=== PATIENT | female | born 1955 | race Caucasian/White ===

== ENCOUNTER 2020-09-07 09:16 | Outpatient (REF) | payer MEDICAID, SELFPAY ==
[2020-09-07 15:03] LABS: Abs Immature Grans 0.02 10^3/uL (0.0-0.06); Absolute Basophil Count 0.04 10^3/uL (0.0-0.2); Absolute Eosinophil Count 0.29 10^3/uL (0.0-0.7); Absolute Lymphocyte Count 2.67 10^3/uL (1.2-3.4); Absolute Monocyte Count 0.39 10^3/uL (0.1-0.8); Absolute Neutrophil Count 3.67 10^3/uL (1.2-6.7); Basophils % 0.6; Eosinophils % 4.1; HCT 43.8 % (36.0-46.0); HGB 14.4 g/dL (11.2-15.7); Immature Grans % 0.3; Lymphocytes % 37.7; MCH 29.5 pg (27.0-33.0); MCHC 32.9 % (32.0-36.0); MCV 89.8 fL (80-95); MPV 10.9 fL (8.0-11.0); Monocytes % 5.5; Neutrophils % 51.8; Nucleated RBC 0 %; Platelet Count 230 10^3/uL (130-400); RBC 4.88 10^6/uL (3.93-5.22); RDW-SD 42.7 fL; WBC 7.08 10^3/uL (4.4-10.8)
[2020-09-07 15:16] LABS: Hemoglobin A1C 7.1 % (<5.7)
[2020-09-07 15:27] LABS: ALT 20 U/L (14-59); AST 15 U/L (15-37); Albumin 3.1 g/dL (3.4-5.0); Alkaline Phosphatase 80 U/L (46-116); Anion Gap 6.5 mmol/L (3-11); BUN 12 mg/dL (7-18); Bilirubin, Total 0.4 mg/dL (0.2-1.0); CO2 31.5 mmol/L (21.0-32.0); CREATININE 0.7 mg/dL (0.55-1.02); Calcium 8.6 mg/dL (8.5-10.1); Calculated LDL 129 mg/dL (<100); Chloride 105 mmol/L (98-107); Cholesterol 187 mg/dL (<200); Glucose 99 mg/dL (74-106); HDL Cholesterol 46 mg/dL (40-60); Potassium 4.3 mmol/L (3.5-5.1); Sodium 143 mmol/L (136-145); TSH (W/Ref FT4) 2.31 uIU/mL (0.36-3.74); Total Protein 6.7 g/dL (6.4-8.2); Triglyceride 60 mg/dL (<150)
[2020-09-07 16:27] LABS: COMMENT (LAB VIEW ONLY) 182.63 mg/dL
[2020-09-07 16:45] LABS: Microalb ug/mg Crea 303.7 ug/mg Cr
== END 2020-09-07 09:17 | disposition home or self-care (01) ==
LOC: NCHCN 09:16
PROVIDERS: Visit Provider Physician Assistant
DX: E78.5 Hyperlipidemia, unspecified (principal); I10 Essential (primary) hypertension; E11.9 Type 2 diabetes mellitus without complications; E53.8 Deficiency of other specified B group vitamins; E65 Localized adiposity; E66.01 Morbid (severe) obesity due to excess calories
CPT/HCPCS: 80053; 80061; 82043; 82570; 83036; 84443; 85025

== ENCOUNTER 2021-02-23 16:01 | Outpatient (REF) | payer MEDICAID, SELFPAY | END 2021-02-23 16:02 | disposition home or self-care (01) | LOC: NCHCN 16:01 | PROVIDERS: Visit Provider Physician Assistant | DX: R35.0 Frequency of micturition (principal) | CPT/HCPCS: 87077; 87086; 87186 ==

== ENCOUNTER 2021-10-25 14:56 | Outpatient (REF) | payer MEDICARE, MEDICAID, SELFPAY ==
[2021-10-25 19:07] LABS: Anion Gap 4.7 mmol/L (3-11); BUN 18 mg/dL (7-18); CO2 31.3 mmol/L (21.0-32.0); CREATININE 0.9 mg/dL (0.55-1.02); Calcium 8.7 mg/dL (8.5-10.1); Chloride 105 mmol/L (98-107); Glucose 191 mg/dL (74-106); Potassium 4.2 mmol/L (3.5-5.1); Sodium 141 mmol/L (136-145)
== END 2021-10-25 14:57 | disposition home or self-care (01) ==
LOC: NCHCN 14:56
PROVIDERS: Visit Provider Physician Assistant
DX: I10 Essential (primary) hypertension (principal); E11.9 Type 2 diabetes mellitus without complications
CPT/HCPCS: 80048

== ENCOUNTER 2022-05-08 16:11 | Outpatient (REF) | payer MEDICARE, MEDICAID, SELFPAY | END 2022-05-08 16:12 | disposition home or self-care (01) | LOC: NCHCN 16:11 | PROVIDERS: Visit Provider Physician Assistant | DX: R35.0 Frequency of micturition (principal) | CPT/HCPCS: 87077; 87086; 87186 ==

== ENCOUNTER 2022-08-28 22:24 | Outpatient (REF) | payer MEDICARE, MEDICAID, SELFPAY ==
[2022-08-28 20:13] LABS: ALT 14 U/L (14-59); AST 17 U/L (15-37); Albumin 2.8 g/dL (3.4-5.0); Alkaline Phosphatase 103 U/L (46-116); Anion Gap 4.4 mmol/L (3-11); BUN 14 mg/dL (7-18); Bilirubin, Total 0.3 mg/dL (0.2-1.0); CO2 30.6 mmol/L (21.0-32.0); CREATININE 0.9 mg/dL (0.55-1.02); Calcium 8.5 mg/dL (8.5-10.1); Chloride 105 mmol/L (98-107); Estimated GFR 70.51 (mL/min/1.73m2); Glucose 211 mg/dL (74-106); Sodium 140 mmol/L (136-145)
== END 2022-08-28 22:25 | disposition home or self-care (01) ==
LOC: NCHCN 22:24
PROVIDERS: Visit Provider Physician Assistant
DX: I10 Essential (primary) hypertension (principal)
CPT/HCPCS: 80053

== ENCOUNTER 2023-06-13 11:49 | Outpatient (REF) | payer OTHER, MEDICAID, SELFPAY ==
--- NOTE | 2023-06-13 10:50 | SKI_PTH ---
PATIENT: Neda Fermin LOC: [facility]#:[id number] AGE/SX: 68/F ROOM: RE06/13/[address]: Cady Saavedra : 1955 BED: DIS: 06/13/2023 SPEC #: [id number] RECD: 06/13/23 18:46 STATUS: ZHANG REQ #: [id number] ERAN: 06/13/23 10:[address]: Cady Saavedra DEPT: Surgical Specimen RECD BY: Catina Luke ENTERED: 06/13/23 18:47 SP TYPE: HERBER GOMEZ DR: Danielle Kincaid Tissues: 1 - SKIN BIOPSY(SHAVE/PUNCH) Procedures: SKIN LEVEL 4 Comments: [id number]
== END 2023-06-13 11:50 | disposition home or self-care (01) ==
LOC: NCHCN 11:49
PROVIDERS: Visit Provider Physician Assistant
DX: D48.5 Neoplasm of uncertain behavior of skin (principal); L28.0 Lichen simplex chronicus
CPT/HCPCS: 88305

== ENCOUNTER 2023-09-18 20:40 | Outpatient (REF) | payer OTHER, MEDICAID, SELFPAY ==
[2023-09-18 19:18] LABS: ALT 18 U/L (14-59); AST 18 U/L (15-37); Albumin 3.1 g/dL (3.4-5.0); Alkaline Phosphatase 93 U/L (46-116); BUN 16 mg/dL (7-18); Bilirubin, Total 0.4 mg/dL (0.2-1.0); Calcium 9.1 mg/dL (8.5-10.1); Chloride 105 mmol/L (98-107); Estimated GFR 61.75 (mL/min/1.73m2); Glucose 105 mg/dL (74-106); LDL CHOLESTEROL 63 mg/dL (<100); Potassium 3.8 mmol/L (3.5-5.1); Sodium 141 mmol/L (136-145); Total Protein 7.3 g/dL (6.4-8.2)
== END 2023-09-18 20:41 | disposition home or self-care (01) ==
LOC: NCHCN 20:40
PROVIDERS: Visit Provider Physician Assistant
DX: I10 Essential (primary) hypertension (principal)
CPT/HCPCS: 80053; 83721

== ENCOUNTER 2023-10-13 08:05 | Outpatient (CLI) | payer OTHER, MEDICAID, SELFPAY ==
--- NOTE | 2023-10-13 08:00 | RT.EKG_ITS ---
APPROVED REPORT Exam: Resting ECG Reason for Exam: OK Patient Location: O HR:59 bpm ECG Measurements Heart Rate 59 AXIS AL 179 P 8 QRSd 92 QRS 22 QT 436 T 23 QTc 432 Conclusion Sinus rhythm...normal P axis, V-rate 50- 99 Atrial premature complex...SV complex w/ short R-R interval Probable anteroseptal infarct, recent...Q, ST>0.15mV, T neg, V1-V2
== END 2023-10-13 08:06 | disposition home or self-care (01) ==
LOC: DI.CARD 08:06
PROVIDERS: Visit Provider Internal Medicine Cardiovascular Disease
DX: I21.4 Non-ST elevation (NSTEMI) myocardial infarction (principal); I25.10 Atherosclerotic heart disease of native coronary artery without angina pectoris; G47.33 Obstructive sleep apnea (adult) (pediatric); E78.5 Hyperlipidemia, unspecified
CPT/HCPCS: 93010

== ENCOUNTER → 2023-10-13 10:28 | Outpatient (BNVA) | payer OTHER, MEDICAID, SELFPAY | PROVIDERS: Visit Provider Internal Medicine Cardiovascular Disease | DX: I25.10 Atherosclerotic heart disease of native coronary artery without angina pectoris (principal); G47.33 Obstructive sleep apnea (adult) (pediatric); I49.1 Atrial premature depolarization; I21.4 Non-ST elevation (NSTEMI) myocardial infarction | CPT/HCPCS: 93005; 99214 ==

== ENCOUNTER 2023-12-19 19:03 | Outpatient (REF) | payer OTHER, MEDICAID, SELFPAY ==
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
--- OUTSIDE RECORDS SUMMARY | 2023-12-19 19:05 | XMS_ITS | Continuity of Care Document ---
Author Organization [facility] Address [address] [place] [address] Care Team Providers Care Archery Instructor Name Role Phone Cady Saavedra Primary Care Physician [phone] Encounter [facility] Date(s): 06/18/22 - 06/18/22 [facility] [address] [place] [address] Discharge Disposition: Home or Self Care Attending Physician: Cady Saavedra PA-C Admitting Physician: Cady Saavedra PA-C Referring Physician: Cady Saavedra PA-C Allergies, Adverse Reactions, Alerts Substance Reaction Severity Status LATEX Itching Unknown Active ibuprofen Unknown Active amoxicillin Skin rash Unknown Active cephalexin Skin rash Unknown Active lansoprazole Unknown Active penicillins Unknown Active penicillins Urticaria Unknown Active Darvocet-N 50 Nausea Unknown Active polyethylene glycols Urticaria Unknown Active LORazepam Unknown Active Immunizations Given and Recorded Vaccine Date Status [...] instructions, # 1 EA, 3 Refill(s), Pharmacy: [id number] Start Date: 09/05/21 Status: Ordered aspirin 81 mg oral tablet, chewable 0 Refill(s) Start Date: 09/21/21 Status: Ordered atorvastatin 20 mg oral tablet 0 Refill(s) Start Date: 09/21/21 Status: Ordered buPROPion 150 mg/24 hours (XL) oral tablet, extended release 0 Refill(s) Start Date: 09/21/21 Status: Ordered Glucometer Supply, See instructions, # 1 EA, 0 Refill(s) Start Date: 09/21/21 Status: Ordered Lantus 100 units/mL subcutaneous solution 0 Refill(s) Start Date: 09/21/21 Status: Ordered lisinopril 10 mg oral tablet 0 Refill(s) Start Date: 09/21/21 Status: Ordered NexIUM 40 mg oral delayed release capsule 0 Refill(s) Start Date: 09/21/21 Status: Ordered oxybutynin 5 mg oral tablet 0 Refill(s) Start Date: 09/21/21 Status: Ordered Ozempic (1 mg dose) 4 mg/3 mL subcutaneous solution 3 mL, INJECT ONE MILLIGRAM SUBCUTANEOUSLY ONCE WEEKLY, 0 Refill(s) Start Date: 10/22/21 Status: Ordered Ozempic 2 mg/1.5 mL (0.25 mg or 0.5 mg dose) subcutaneous solution 0 Refill(s) Start Date: 09/21/21 Status: Ordered ProAir HFA 90 mcg/inh inhalation aerosol 0 Refill(s) Start Date: 09/21/21 Status: Ordered traZODone 100 mg oral tablet 60 EA, TAKE TWO TABLETS BY MOUTH EVERY NIGHT NEEDED, 0 Refill(s) Start Date: 10/22/21 Status: Ordered Vitamin B12 1000 mcg oral [...] Comple rosalino Cholecystectomy 2008 Completed Toe surgery 2008 Completed Breast biopsy Completed section Complete d Hysterectomy 3 Completed Oophorectomy Completed Repair of cystocele Compl eted 1Total done at [facility] by Dr. Arita 2Toe 3endometriosis Social History Social History Type Response Tobacco Never tobacco user T obacco Use:. Sex Female Patient Care team information Care Team Personnel Name: Cady Saavedra PA-C Position: PowerChart View Only Member Role: Primary Care Physician Address: Address: [address] [address]- Care Team Related Persons Name: JAKUB MIKE Address: Home Name: GAL BERGERON Address: Home
--- OUTSIDE RECORDS SUMMARY | 2023-12-19 19:05 | XMS_ITS | Continuity of Care Document ---
Author Organization [facility] Address [address] [place] [address] Care Team Providers Care Mason Liner Name Role Phone Cady Saavedra Primary Care Physician Encounter [facility]CT[facility]_OK Date(s): 07/02/22 - 07/02/22 [facility] [address] [place] [address] Encounter Diagnosis Rash(Discharge Diagnosis) - 07/02/22 Hand tingling(Discharge Diagnosis) - 07/02/22 Hypertension(Discharge Diagnosis) - 07/02/22 Cough(Discharge Diagnosis) - 07/02/22 Paresthesia of skin(Final) - Rash and other nonspecific skin eruption(Final) - Essential (primary) hypertension(Final) - Cough, unspecified(Final) - Type 2 diabetes mellitus without complications(Final) - Other specified anxiety disorders(Final) - Discharge Disposition: Home or Self Care Attending Physician: Deana Tubbs MD Admitting Physician: Deana Tubbs MD Allergies, Adverse Reactions, Alerts Substance Reaction Severity Status LATEX Itching Unknown Active ibuprofen Unknown Active amoxicillin Skin rash Unknown Active cephalexin Skin rash Unknown Active lansoprazole Unknown Active penicillins Unknown Active penicillins Urticaria Unknown Active Darvocet-N 50 Nausea Unknown Active polyethylene glycols Urticaria Unknown Active LORazepam Unknown Active Functional Status 07/02/22 Other exposure to Infectious Disease Non e Immunizations Given and Recorded Vaccine Date Status [...] instructions, # 1 EA, 3 Refill(s), Pharmacy: [facility] Start Date: 09/05/21 Status: Ordered aspirin 81 mg oral tablet, chewable 0 Refill(s) Start Date: 09/21/21 Status: Ordered atorvastatin 20 mg oral tablet 0 Refill(s) Start Date: 09/21/21 Status: Ordered buPROPion 150 mg/24 hours (XL) oral tablet, extended release 0 Refill(s) Start Date: 09/21/21 Status: Ordered doxycycline hyclate 100 mg oral capsule 100 mg = 1 cap, Oral, BID, # 14 cap, 0 Refill(s), Pharmacy: [facility], 162.5, cm, 07/02/22 9:49:00 EDT, Height/Length Dosing, 113.4, kg, 07/02/22 9:49:00 EDT, Weight Dosing Start Date: 07/02/22 Stop Date: 07/09/22 Status: Ordered Glucometer Supply, See instructions, # 1 EA, 0 Refill(s) Start Date: 09/21/21 Status: Ordered Lantus 100 units/mL subcutaneous solution 0 Refill(s) Start Date: 09/21/21 Status: Ordered Lasix 20 mg oral tablet 20 mg = 1 tab, Oral, Daily, # 3 tab, 0 Refill(s), 07/09/22 0:00:00 EDT, Pharmacy: [facility], 162.5, cm, 07/02/22 9:49:00 EDT, Height/Length Dosing, 113.4, kg, 07/02/22 9:49:00 EDT, Weight Dosing Start Date: 07/02/22 Stop Date: 07/09/22 Status: Ordered lisinopril 10 mg oral tablet [...] 0 Refill(s) Start Date: 10/22/21 Status: Ordered triamcinolone 0.1% topical cream See Instructions, 1 kim Topical BID to affected area apply a thin film 1 week, # 80 g, 6 Refill(s),04/07/23 0:00:00 EST, Pharmacy: [facility], 162.5, cm, 07/02/22 9:49:00 EDT, Height/Length Dosing, 113.4, kg, 07/02/22 9:49:00 EDT, Weight... Start Date: 07/02/22 Stop Date: 04/07/23 Status: Ordered Vitamin B12 1000 mcg oral [...] of cystocele Compl eted 1Total done at [facility] by Dr. Arita 2Toe 3endometriosis Results Laboratory List Name Date CBC w/ Diff 07/02/22 Comprehensive Metabolic Panel (CMP) 07/02 NT- Pro BNP 07/02/22 Thyroid Stimulating Hormone (TSH) 3 Troponin-I 07/02/22 Automated Diff 07/02/22 Most recent to oldest [Reference Range]: 1 WBC [5.0-10.0 x10^3/mcL] 6.5 x10^3/mcL (07/02/22 11:55 AM) RBC [4.1-5.3 x10^6/mcL] 4.6 x10^6/mcL (07/02/22 11:55 AM) Neutro Auto [40.0-75.0 %] 53.7 % (07/02/22 11:55 AM) Lymph Auto [20.0-50.0 %] 34.9 % (07/02/22 11:55 AM) Hickman Auto [2.0-15.0 %] 5.5 % (07/02/22 AM) Basophil Auto [0.0-1.0 %] 0.9 % (07/02/22: AM) BUN [7-18 mg/dL] 13 mg/dL (07/02/22 AM) Glucose Level [74-106 mg/dL] 222 mg/dL *HI* (07/02/22 AM) Potassium Level [3.5-5.1 mmol/L] 3.7 mmo l/L (07/02/22 AM) MCV [80.0-96.0] 90.9 (07/02/22 AM) AST [15-37 unit/L] 19 unit/L (07/02/22 AM) ALT [14-59 unit/L] 20 unit/L (07/02/22 AM) MCHC [31.0-35.0 g/dL] 32.4 g/dL (07/02/22: AM) Troponin-I [0.0-51.4 pg/mL] 22.4 pg/mL (07/02/22 AM) Sodium Level [136-145 mmol/L] 139 mmol/L (07/02/22 AM) Hct [37.0-47.0 %] 42.0 % (07/02/22 AM) Calcium Level [8.5-10.1 mg/dL] 8.5 mg/dL (07/02/22 11: AM) Albumin Level [3.4-5.0 g/dL] 2.8 g/dL *LOW* (07/02/22 AM) Protein Total [6.4-8.2 g/dL] 6.9 g/dL (07/02/22: AM) MCH [26.0-32.0 pg] 29.4 pg (07/02/22: AM) Neutro Absolute 3.5 x10^3/mcL *NA* (07/02/22 AM) Bilirubin Total [0.2-1.0 mg/dL] 0.4 mg/d L (07/02/22 11:55 AM) Hgb [12.0-16.0 g/dL] 13.6 g/dL (07/02/22 11:55 AM) Alk Phos [46-146 unit/L] 100 unit/L (07/02/22 11:55 AM) Platelets [130-450 x10^3/mcL] 205 x10^3/ mcL (07/02/22 11:55 AM) CO2 [21-32 mmol/L] 31 mmol/L (07/02/22 11:55 AM) TSH [0.358-3.740 mcIntlUnit/mL] 2.083 mc IntlUnit/mL (07/02/22 11:55 AM) eGFR Non-AA [>=60] 92 (07/02/22 11:55 AM) eGFR AA [>=60] 92 (07/02/22 11:55 AM) NT-proBNP [0-125 pg/mL] 1277 pg/mL *HI* (07/02/22 11:55 AM) Chloride Level [98-107 mmol/L] 104 mmol/ L (07/02/22 11:55 AM) RDW-CV [11.7-17.0 %] 13.7 % (07/02/22 11:55 AM) Imm Gran Auto [0.0-0.9 %] 0.3 % (07/02/22 11:55 AM) Creatinine Level [0.55-1.02 mg/dL] 0.72 mg/dL (07/02/22 11:55 AM) Eos, Auto [1.0-6.0 %] 4.7 % (07/02/22 11:55 AM) Vital Signs Most recent to oldest [Reference Range]: 1 2 3 Temperature Temporal Artery [36-38 Deg C] 37.0 Deg C (07/02/22 11:14 AM) 36.7 Deg C (07/02/22 9:28 AM) Peripheral Pulse Rate [60-100 bpm] 69 bpm (07/02/22 12:26 PM) 72 bpm (07/02/22 11:14 AM) 84 bpm (07/02/22 10:00 AM) Respiratory Rate [12-24 br/min] 20 br/min (07/02/22 12:26 PM) 20 br/min (07/02/22 11:14 AM) 21 br/min (07/02/22 10:00 AM) Blood Pressure [90-140/60-90 mmHg] 164/85mmHg *HI* (07/02/22 12:26 PM) 209/77mmHg *HI* (07/02/22 11:14 AM) 206/105mmHg *HI* (07/02/22 10:00 AM) Weight Dosing 113.40 kg (07/02/22 9:49 AM) Weight Estimated 113.40 kg (07/02/22 9:28 AM) Height/Length Dosing 162.500 cm (07/02/22 9:49 AM) Height/Length Estimated 162.500 cm (07/02/22 9:28 AM) Social History Social History Type Response Tobacco Never tobacco user T obacco Use:. Sex Female Hospital Discharge Instructions Patient Education 07/02/2022 12:16:39 Carpal Tunnel Syndrome Carpal Tunnel Syndrome Carpal tunnel syndrome is a condition that causes pain, numbness, and weakness in your hand and fingers. The carpal tunnel is a narrow area located on the palm side of your wrist. Repeated wrist motion or certain diseases may cause swelling within the tunnel. This swelling pinches the main nerve inthe wrist. The main nerve in the wrist is called the median nerve. What are the causes? This condition may be caused by: ??? Repeated and forceful wrist and hand motions. ??? Wrist injuries. ??? Arthritis. ??? A cyst or tumor in the carpal tunnel. ??? Fluid buildup during . ??? Use of tools that vibrate. Sometimes the cause of this condition is not known. What increases the risk? The following factors may make you more likely to develop this condition: ??? Having a job that requires you to repeatedly or forcefully move your wrist or hand or requires you to use tools that vibrate. This may include jobs that involve using computers, working on an assembly line, or working with power tools such as drills or vital. ??? Being a woman. ??? Having certain conditions, such as: ??? Diabetes. ??? Obesity. ??? An underactive thyroid (hypothyroidism). ??? Kidney failure. ??? Rheumatoid arthritis. What are the signs or symptoms? Symptoms of this condition include: ??? A tingling feeling in your fingers, especially in your thumb, index, and middle fingers. ??? Tingling or numbness in your hand. ??? An aching feeling in your entire arm, especially when your wrist and elbow are bent for a long time. ??? Wrist pain that goes up your arm to your shoulder. ??? Pain that goes down into your palm or fingers. ??? A weak feeling in your hands. You may have trouble grabbing and holding items. Your symptoms may feel worse during the night. How is this diagnosed? This condition is diagnosed with a medical history and physical exam. You may also have tests, including: ??? Electromyogram (EMG). This test measures electrical signals sent by your nerves into the muscles. ??? Nerve conduction study. This test measures how well electrical signals pass through your nerves. ??? Imaging tests, such as X-rays, ultrasound, and MRI. These tests check for possible causes of your condition. How is this treated? This condition may be treated with: ??? Lifestyle changes. It is important to stop or change the activity that caused your condition. ??? Doing exercise and activities to strengthen and stretch your muscles and tendons (physical therapy). ??? Making lifestyle changes to help with your condition and learning how to do your daily activities safely (occupational therapy). ??? Medicines for pain and inflammation. This may include medicine that is injected into your wrist. ??? A wrist splint or brace. ??? Surgery. Follow these instructions at home: If you have a splint or brace: ??? Wear the splint or brace as told by your health care provider. Remove it only as told by your health care provider. ??? Loosen the splint or brace if your fingers tingle, become numb, or turn cold and blue. ??? Keep the splint or brace clean. ??? If the splint or brace is not waterproof: ??? Do not let it get wet. ??? Cover it with a watertight covering when you take a bath or shower. Managing pain, stiffness, and swelling If directed, put ice on the painful area. To do this: ??? If you have a removeable splint or brace, remove it as told by your health care provider. ??? Put ice in a plastic bag. ??? Place a towel between your skin and the bag or between the splint or brace and the bag. ??? Leave the ice on for 20 minutes, 2???3 times a day. Do not fall asleep with the cold pack on your skin. ??? Remove the ice if your skin turns bright red. This is very important. If you cannot feel pain, heat, or cold, you have a greater risk of damage to the area. Move your fingers often to reduce stiffness and swelling. General instructions ??? Take yljn-bnu-hpmcibt and prescription medicines only as told by your health care provider. ??? Rest your wrist and hand from any activity that may be causing your pain. If your condition is work related, talk with your employer about changes that can be made, such as getting a wrist pad touse while typing. ??? Do any exercises as told by your health care provider, physical therapist, or occupational therapist. ??? Keep all follow-up visits. This is important. Contact a health care provider if: ??? You have new symptoms. ??? Your pain is not controlled with medicines. ??? Your symptoms get worse. Get help right away if: ??? You have severe numbness or tingling in your wrist or hand. Summary ??? Carpal tunnel syndrome is a condition that causes pain, numbness, and weakness in your hand andfingers. ??? It is usually caused by repeated wrist motions. ??? Lifestyle changes and medicines are used to treat carpal tunnel syndrome. Surgery may be recommended. ??? Follow your health care provider's instructions about wearing a splint, resting from activity, keeping follow-up visits, and calling for help. This information is not intended to replace advice given to you by your health care provider. Make sure you discuss any questions you have with your health care provider. Document Revised: 08/03/2020 Document Reviewed: 08/03/2020 [employer] Patient Education ?? 2021 [employer]. 07/02/2022 12:16:31 Rash, Adult Rash, Adult A rash is a change in the color of your skin. A rash can also change the way your skin feels. Thereare many different conditions and factors that can cause a rash. Some rashes may disappear after a few days, but some may last for a few weeks. Common causes of rashes include: ??? Viral infections, such as: ??? Colds. ??? Measles. ??? Hand, foot, and mouth disease. ??? Bacterial infections, such as: ??? Scarlet fever. ??? Impetigo. ??? Fungal infections, such as Charlene. ??? Allergic reactions to food, medicines, or skin care products. Follow these instructions at home: The goal of treatment is to stop the itching and keep the rash from spreading. Pay attention to anychanges in your symptoms. Follow these instructions to help with your condition: Medicine Take or apply sudj-mmk-mrqzxuq and prescription medicines only as told by your health care provider. These may include: ??? Corticosteroid creams to treat red or swollen skin. ??? Anti-itch lotions. ??? Oral allergy medicines (antihistamines). ??? Oral corticosteroids for severe symptoms. Skin care ??? Apply cool compresses to the affected areas. ??? Do not scratch or rub your skin. ??? Avoid covering the rash. Make sure the rash is exposed to air as much as possible. Managing itching and discomfort ??? Avoid hot showers or baths, which can make itching worse. A cold shower may help. ??? Try taking a bath with: ??? Epsom salts. Follow service superintendent instructions on the packaging. You can get these at your localpharmacy or grocery store. ??? Baking soda. Pour a small amount into the bath as told by your health care provider. ??? Colloidal oatmeal. Follow service superintendent instructions on the packaging. You can get this at your local pharmacy or grocery store. ??? Try applying baking soda paste to your skin. Stir water into baking soda until it reaches a paste-like consistency. ??? Try applying calamine lotion. This is an kanl-fyh-cfyepnn lotion that helps to relieve itchiness. ??? Keep cool and out of the sun. Sweating and being hot can make itching worse. General instructions ??? Rest as needed. ??? Drink enough fluid to keep your urine pale yellow. ??? Wear loose-fitting clothing. ??? Avoid scented soaps, detergents, and perfumes. Use gentle soaps, detergents, perfumes, and other cosmetic products. ??? Avoid any substance that causes your rash. Keep a journal to help track what causes your rash. Write down: ??? What you eat. ??? What cosmetic products you use. ??? What you drink. ??? What you wear. This includes jewelry. ??? Keep all follow-up visits as told by your health care provider. This is important. Contact a health care provider if: ??? You sweat at night. ??? You lose weight. ??? You urinate more than normal. ??? You urinate less than normal, or you notice that your urine is a darker color than usual. ??? You feel weak. ??? You vomit. ??? Your skin or the whites of your eyes look yellow (jaundice). ??? Your skin: ??? Tingles. ??? Is numb. ??? Your rash: ??? Does not go away after several days. ??? Gets worse. ??? You are: ??? Unusually thirsty. ??? More tired than normal. ??? You have: ??? New symptoms. ??? Pain in your abdomen. ??? A fever. ??? Diarrhea. Get help right away if you: ??? Have a fever and your symptoms suddenly get worse. ??? Develop confusion. ??? Have a severe headache or a stiff neck. ??? Have severe joint pains or stiffness. ??? Have a seizure. ??? Develop a rash that covers all or most of your body. The rash may or may not be painful. ??? Develop blisters that: ??? Are on top of the rash. ??? Grow larger or grow together. ??? Are painful. ??? Are inside your nose or mouth. ??? Develop a rash that: ??? Looks like purple pinprick-sized spots all over your body. ??? Has a bull's eye or looks like a target. ??? Is not related to sun exposure, is red and painful, and causes your skin to peel. Summary ??? A rash is a change in the color of your skin. Some rashes disappear after a few days, but some may last for a few weeks. ??? The goal of treatment is to stop the itching and keep the rash from spreading. ??? Take or apply dcdd-ffy-olvowfo and prescription medicines only as told by your health care provider. ??? Contact a health care provider if you have new or worsening symptoms. ??? Keep all follow-up visits as told by your health care provider. This is important. This information is not intended to replace advice given to you by your health care provider. Make sure you discuss any questions you have with your health care provider. Document Revised: 07/16/2019 Document Reviewed: 10/26/2018 [employer] Patient Education ?? 2021 [employer]. Follow Up Care 07/02/2022 09:28:21 With:Follow up with primary care provider Address: When:1 to 2 weeks Physician Emergency department Note * Deana Tubbs MD: PERFORM Event Display: ED Note Physician Authored Date: [id number] REGAN WOO :1955 Age:67 years Sex:Female Visit Date:07/02/2022 Primary Care Physician: Cady Saavedra PA-C Basic Information Time Seen: Deana Tubbs MD / 07/02/2022 09:54 Chief Complaint pt states numbness/heaviness in the right arm, started a couple days ago. denies any chest pain with this. pt also states a rash that is on her chest and back. in traige pt very hypertensive, pt doesnt check her BP. does take BP meds History Of Present Illness: Patient reports she has had right arm??heaviness numbness and states that her??thumb index and ringfinger at times are tingly she reports she used to have this number years ago??she states years agoshe was diagnosed with fibromyalgia??of her right arm when she did not live in [place]??and had to wear an arm brace.?? Patient reports she was seen by her primary care provider however??has not picked up the blood pressure medication her primary care??put her on.?? Patient reports that she has been depressed lately??she lost her son 8 years ago??and reports she is still thinks about it a lot.?? Patient denies any fevers or chills positive night sweats??no??weight loss??patient has??gained weight lately she states??positive shortness of breath??when she goes to do anything more so lately.?? No abdominal pain??no nausea no vomiting??no extremity edema??patient reports in the middle of the night she feels like her abdomen??is tense and when she pushes on it??she says it feels like fluids head down into her lower abdomen she feels like it goes??all the way to her legs at times.?? No urinary symptoms no extremity edema??positive skin rash right??chest and back. ??Patient reports over the last 2 weeks she has had a dry cough.?? Patient reports she recently had an echo??here at the hospital. Review of Systems: see hpi for ros Physical Exam Vitals & Measurements T:??37.0?C ??(Temporal Artery)?? HR:??69??(Peripheral)?? RR:??20?? BP:??164/85?? SpO2:??97%?? HT:??162.500??cm?? WT:??113.40??kg??(Estimated)?? O2 Therapy:??Room air?? General: Alert and oriented, well nourished,?No??acute distress Eye: PER?Normal??conjunctiva,??No??scleral icterus HENT: Normocephalic,??nontraumatic??Normal hearing Lungs: Clear to auscultation,?Non-labored?? respiration Heart:?Normal?? rate,?Regular??rhythm,?No??murmur,?No??gallop,?No??edema Chest: wall excursion wnl no abnormal movements no obvious deformities Abdomen: Soft, non-tender, non-distended,?Normal?? bowel sounds,?No??masses Musculoskeletal:?Normal?? range of motion and strength,?No??tenderness,?No??swelling Skin: Skin is warm, dry and pink,??positive??small 2 to 3 mm excoriated areas on right anterior??chest and left??posterior back Neurologic: Awake, alert and oriented X4 Psychiatric: Cooperative, appropriate mood and affect Medical Decision Making: For MDM please see under assessment and plan Procedure No Qualifying Data Assessment/Plan 1.??Rash??R21 Excoriated areas on right??anterior chest and on back question if this could be like a folliculitis??we will try patient on a doxycycline 100 mg twice a day all areas were excoriated and patient doesstate they were pruritic we will send patient home with a prescription for triamcinolone cream??to apply twice a day to any new areas??as well as any areas that might still it. Ordered: doxycycline hyclate 100 mg oral capsule, 100 mg = 1 cap, Oral, BID, # 14 cap, 0 Refill(s), Pharmacy: [facility], 162.5, cm, 07/02/22 9:49:00 EDT, Height/Length Dosing, 113.4, kg, 07/02/22 9:49:00 EDT, Weight Dosing Lasix 20 mg oral tablet, 20 mg = 1 tab, Oral, Daily, # 3 tab, 0 Refill(s), 07/09/22 0:00:00 EDT, Pharmacy: [facility], 162.5, cm, 07/02/22 9:49:00 EDT, Height/Length Dosing, 113.4, kg, 07/02/22 9:49:00 EDT, Weight Dosing triamcinolone 0.1% topical cream, See Instructions, 1 kim Topical BID to affected area apply a thinfilm 1 week, # 80 g, 6 Refill(s), 04/07/23 0:00:00 EST, Pharmacy: [facility], 162.5, cm, 07/02/22 9:49:00 EDT, Height/Length Dosing, 113.4, kg, 07/02/22 9:49:00 EDT, Weight... Discharge Patient, 07/02/22 13:11:00 EDT, Home Independently, Constant Indicator ?? 2.??Hand tingling??R20.2 Is likely is carpal tunnel syndrome however patient also has??trapezius muscles that are tight on the right??so this could be musculoskeletal??or could be carpal tunnel??we will place patient in a brace??for carpal tunnel??and see if this improves her symptoms Ordered: doxycycline hyclate 100 mg oral capsule, 100 mg = 1 cap, Oral, BID, # 14 cap, 0 Refill(s), Pharmacy: [facility], 162.5, cm, 07/02/22 9:49:00 EDT, Height/Length Dosing, 113.4, kg, 07/02/22 9:49:00 EDT, Weight Dosing Lasix 20 mg oral tablet, 20 mg = 1 tab, Oral, Daily, # 3 tab, 0 Refill(s), 07/09/22 0:00:00 EDT, Pharmacy: [facility], 162.5, cm, 07/02/22 9:49:00 EDT, Height/Length Dosing, 113.4, kg, 07/02/22 9:49:00 EDT, Weight Dosing triamcinolone 0.1% topical cream, See Instructions, 1 kim Topical BID to affected area apply a thinfilm 1 week, # 80 g, 6 Refill(s), 04/07/23 0:00:00 EST, Pharmacy: [facility], 162.5, cm, 07/02/22 9:49:00 EDT, Height/Length Dosing, 113.4, kg, 07/02/22 9:49:00 EDT, Weight... Discharge Patient, 07/02/22 13:11:00 EDT, Home Independently, Constant Indicator ?? 3.??Hypertension??I10 This appears to be a new diagnosis as[place]records??show??a blood pressure of??132/84 I think patient's shortness of breath??and likely cough may be??some early CHF given that her??chest x-ray??suggests extra fluid??and patient's normal white count patient was given 40 mg of IV Lasix here in the emergency department??patient will be on Lasix 20 mg/day for the next 3 days have asked patient to call today to schedule a follow-up with her primary care provider. Ordered: doxycycline hyclate 100 mg oral capsule, 100 mg = 1 cap, Oral, BID, # 14 cap, 0 Refill(s), Pharmacy: [facility], 162.5, cm, 07/02/22 9:49:00 EDT, Height/Length Dosing, 113.4, kg, 07/02/22 9:49:00 EDT, Weight Dosing Lasix 20 mg oral tablet, 20 mg = 1 tab, Oral, Daily, # 3 tab, 0 Refill(s), 07/09/22 0:00:00 EDT, Pharmacy: [facility], 162.5, cm, 07/02/22 9:49:00 EDT, Height/Length Dosing, 113.4, kg, 07/02/22 9:49:00 EDT, Weight Dosing triamcinolone 0.1% topical cream, See Instructions, 1 kim Topical BID to affected area apply a thinfilm 1 week, # 80 g, 6 Refill(s), 04/07/23 0:00:00 EST, Pharmacy: [facility], 162.5, cm, 07/02/22 9:49:00 EDT, Height/Length Dosing, 113.4, kg, 07/02/22 9:49:00 EDT, Weight... Discharge Patient, 07/02/22 13:11:00 EDT, Home Independently, Constant Indicator ?? 4.??Cough??R05.9 See above. Ordered: doxycycline hyclate 100 mg oral capsule, 100 mg = 1 cap, Oral, BID, # 14 cap, 0 Refill(s), Pharmacy: [facility], 162.5, cm, 07/02/22 9:49:00 EDT, Height/Length Dosing, 113.4, kg, 07/02/22 9:49:00 EDT, Weight Dosing Lasix 20 mg oral tablet, 20 mg = 1 tab, Oral, Daily, # 3 tab, 0 Refill(s), 07/09/22 0:00:00 EDT, Pharmacy: [facility], 162.5, cm, 07/02/22 9:49:00 EDT, Height/Length Dosing, 113.4, kg, 07/02/22 9:49:00 EDT, Weight Dosing triamcinolone 0.1% topical cream, See Instructions, 1 kim Topical BID to affected area apply a thinfilm 1 week, # 80 g, 6 Refill(s), 04/07/23 0:00:00 EST, Pharmacy: [facility], 162.5, cm, 07/02/22 9:49:00 EDT, Height/Length Dosing, 113.4, kg, 07/02/22 9:49:00 EDT, Weight... Discharge Patient, 07/02/22 13:11:00 EDT, Home Independently, Constant Indicator ?? Medication Reconciliation New Prescription doxycycline (doxycycline hyclate 100 mg oral capsule)1 Capsules Oral (given by mouth) 2 times a dayfor 7 Days. Refills: 0. ?? furosemide (Lasix 20 mg oral tablet)1 tab Oral (given by mouth) every day. Refills: 0. ?? triamcinolone topical (triamcinolone 0.1% topical cream)1 kim Topical BID to affected area apply a thin film 1 week. Refills: 6. ?? Unchanged albuterol (ProAir HFA 90 mcg/inh inhalation aerosol) ?? aspirin (aspirin 81 mg oral tablet, chewable) ?? atorvastatin (atorvastatin 20 mg oral tablet) ?? buPROPion (buPROPion 150 mg/24 hours (XL) oral tablet, extended release) ?? cyanocobalamin (Vitamin B12 1000 mcg oral tablet)1 tab Oral (given by mouth) every day. ?? Durable Medical Equipment for Prescription (Glucometer)See instructions. ?? esomeprazole (NexIUM 40 mg oral delayed release capsule) ?? insulin glargine (Lantus 100 units/mL subcutaneous solution) ?? lisinopril (lisinopril 10 mg oral tablet) ?? One Touch Verio Test Strips (200 strips, 3 refills.)Test once every morning and test once after largest meal of the day.. Refills: 3. ?? oxybutynin (oxybutynin 5 mg oral tablet) ?? semaglutide (Ozempic (1 mg dose) 4 mg/3 mL subcutaneous solution)3 mL, INJECT ONE MILLIGRAM SUBCUTANEOUSLY ONCE WEEKLY. ?? semaglutide (Ozempic 2 mg/1.5 mL (0.25 mg or 0.5 mg dose) subcutaneous solution) ?? traZODone (traZODone 100 mg oral tablet)60 EA, TAKE TWO TABLETS BY MOUTH EVERY NIGHT NEEDED. Problem List/Past Medical History Ongoing Adjustment disorder [...] surgery (2008)???Breast biopsy??? secti on???Hysterectomy???Oophorectomy???Repair of cystocele Medication Administration Given Lasix, 40 mg, IV Push. For: Rash,??Hand tingling,??Hypertension,??Cough Allergies Darvocet-N 50??(Nausea) LATEX??(Itching) LORazepam amoxicillin??(Skin rash) cephalexin??(Skin rash) ibuprofen lansoprazole penicillins penicillins??(Urticaria) polyethylene glycols??(Urticaria) Social History Alcohol Never Electronic Cigarette/Vaping Electronic Cigarette Use: Never. Tobacco Never tobacco user Tobacco Use:. Family History Cancer: Father. Diabetes mellitus: Mother and Sister. Hypertension: Mother and Sister. Lab Results CBC and Differential?? LATEST RESULTS?? HISTORICAL RESULTS?? WBC?? 07/02/22 11:55?? 6.5?? 11/29/21?? 7.9?? RBC?? 07/02/22 11:55?? 4.6?? 11/29/21?? 4.5?? Hgb?? 07/02/22 11:55?? 13.6?? 11/29/21?? 13.8?? Hct?? 07/02/22 11:55?? 42.0?? 11/29/21?? 41.5?? MCV?? 07/02/22 11:55?? 90.9?? 11/29/21?? 91.6?? MCH?? 07/02/22 11:55?? 29.4?? 11/29/21?? 30.5?? MCHC?? 07/02/22 11:55?? 32.4?? 11/29/21?? 33.3?? RDW-CV?? 07/02/22 11:55?? 13.7?? 11/29/21?? 13.3?? Platelets?? 07/02/22 11:55?? 205?? 11/29/21?? 233?? Neutro Auto?? 07/02/22 11:55?? 53.7?? 11/29/21?? 50.5?? Lymph Auto?? 07/02/22 11:55?? 34.9?? 11/29/21?? 35.2?? Hickman Auto?? 07/02/22 11:55?? 5.5?? 11/29/21?? 5.9?? Eos, Auto?? 07/02/22 11:55?? 4.7?? 11/29/21?? 7.3 ??High?? Basophil Auto?? 07/02/22 11:55?? 0.9?? 11/29/21?? 0.8?? Imm Gran Auto?? 07/02/22 11:55?? 0.3?? 11/29/21?? 0.3?? Neutro Absolute?? 07/02/22 11:55?? 3.5?? 11/29/21?? 4.0? Routine Chemistry?? LATEST RESULTS?? HISTORICAL RESULTS?? Sodium Level?? 07/02/22 11:55?? 139?? 11/29/21?? 139?? Potassium Level?? 07/02/22 11:55?? 3.7?? 11/29/21?? 4.1?? Chloride Level?? 07/02/22 11:55?? 104?? 11/29/21?? 103?? CO2?? 07/02/22 11:55?? 31?? 11/29/21?? 31?? Alk Phos?? 07/02/22 11:55?? 100? AST?? 07/02/22 11:55?? 19? ALT?? 07/02/22 11:55?? 20? BUN?? 07/02/22 11:55?? 13?? 11/29/21?? 15?? Glucose Level?? 07/02/22 11:55?? 222 ??High?? 11/29/21?? 176 ??High?? Creatinine Level?? 07/02/22 11:55?? 0.72?? 11/29/21?? 0.73?? eGFR AA?? 07/02/22 11:55?? 92?? 11/29/21?? 91?? eGFR Non-AA?? 07/02/22 11:55?? 92?? 11/29/21?? 91?? Calcium Level?? 07/02/22 11:55?? 8.5?? 11/29/21?? 8.5?? Protein Total?? 07/02/22 11:55?? 6.9? Albumin Level?? 07/02/22 11:55?? 2.8 ??Low? Bilirubin Total?? 07/02/22 11:55?? 0.4? Cardiac Isoenzymes?? LATEST RESULTS?? Troponin-I?? 07/02/22 11:55?? 22.4?? NT-proBNP?? 07/02/22 11:55?? 1277 ??High? Thyroid Studies?? LATEST RESULTS?? TSH?? 07/02/22 11:55?? 2.083? Electronically Signed on 07/02/22 01:16 PM Deana Tubbs MD Emergency department Discharge instructions * Deana Tubbs MD: PERFORM Event Display: ED Discharge Information Authored Date: [id number] REGAN WOO :1955 Age:67 years Sex:Female Visit Date:07/02/2022 Primary Care Physician: Cady Saavedra PA-C Discharge Instructions We would like to thank you for allowing us to assist you with your healthcare needs. The following includes patient education materials and information regarding your injury/illness. Diagnosis from Today's Visit Rash Hand tingling Hypertension Cough Discharge Vitals Temperature??(Temporal Artery) 98.6 ??F (37.0 ??C) Heart Rate??(Peripheral) 69 Respiratory Rate?? 20 Blood Pressure?? 164/85?? Height?? 63.98 in (162.500 cm) Weight??(Estimated) 250.05 lb (113.40 kg) Allergies Darvocet-N 50??(Nausea) LATEX??(Itching) LORazepam amoxicillin??(Skin rash) cephalexin??(Skin rash) ibuprofen lansoprazole penicillins penicillins??(Urticaria) polyethylene glycols??(Urticaria) What to Do Next Instructions from Your Care Team Call your primary care provider??today??to schedule a follow-up.?? For your rash take doxycycline 100 mg twice a day for 7 days you may also use triamcinolone cream??twice a day as needed??for any itchiness.?? Try Lasix??(furosemide) 20 mg/day for the next 3 days??starting tomorrow??to help with shortness of breath and your cough.?? Get your other medications that you??are supposed to have??refilled. You Need to Schedule the Following Appointments Follow Up with??Follow up with primary care provider When:??Within 1 to 2 weeks You were treated today on an emergency basis; it may be [place] to contact your primary care provider to notify them of your visit today. You may have been referred to your regular doctor or a specialist, please follow up as instructed. If your condition worsens or you can't get in to see the doctor, contact the Emergency Department. Medications What How Much When Why Instructions Next Dose New doxycycline (doxycycline hyclate 100 mg oral capsule) 1 Capsules Oral (given by mouth) 2 times a day Rash Hand tingling Hypertension Cough Duration: 7 Days Pickup at [facility] New furosemide (Lasix 20 mg oral tablet) 1 tab Oral (given by mouth) Every day Rash Hand tingling Hypertension Cough Pickup at [facility] New triamcinolone topical (triamcinolone 0.1% topical cream) See instructions Rash Hand tingling Hypertension Cough Refills: 6 1 kim Topical BID to affected area apply a thin film 1 week ?? Pickup at [facility] Unchanged albuterol (ProAir HFA 90 mcg/ inh inhalation aerosol) Unchanged aspirin (aspirin 81 mg oral tablet, chewable) Unchanged atorvastatin (atorvastatin 20 mg oral tablet) Unchanged buPROPion (buPROPion 150 mg/ 24 hours (XL) oral tablet, extended release) Unchanged cyanocobalamin (Vitamin B12 1000 mcg oral tablet) 1 tab Oral (given by mouth) Every day Unchanged Durable Medical Equipment for Prescription (Glucometer) See instructions Unchanged esomeprazole (NexIUM 40 mg oral delayed release capsule) Unchanged insulin glargine (Lantus 100 units/ mL subcutaneous solution) Unchanged lisinopril (lisinopril 10 mg oral tablet) Unchanged One Touch Verio Test Strips (200 strips, 3 refills.) See instructions Diabetes Test once every morning and test once after largest meal of the day. ?? Unchanged oxybutynin (oxybutynin 5 mg oral tablet) Unchanged semaglutide (Ozempic (1 mg dose) 4 mg/ 3 mL subcutaneous solution) 3 mL, INJECT ONE MILLIGRAM SUBCUTANEOUSLY ONCE WEEKLY ?? Unchanged semaglutide (Ozempic 2 mg/ 1.5 mL (0.25 mg or 0.5 mg dose) subcutaneous solution) Unchanged traZODone (traZODone 100 mg oral tablet) 60 EA, TAKE TWO TABLETS BY MOUTH EVERY NIGHT NEEDED ?? Pharmacy Information [facility]: [address] [place], [place] [id number] [phone] [employer] Carpal Tunnel Syndrome Carpal tunnel syndrome is a condition that causes pain, numbness, and weakness in your hand and fingers. The carpal tunnel is a narrow area located on the palm side of your wrist. Repeated wrist motion or certain diseases may cause swelling within the tunnel. This swelling pinches the main nerve inthe wrist. The main nerve in the wrist is called the median nerve. What are the causes? This condition may be caused by: ? Repeated and forceful wrist and hand motions. ? Wrist injuries. ? Arthritis. ? A cyst or tumor in the carpal tunnel. ? Fluid buildup during . ? Use of tools that vibrate. Sometimes the cause of this condition is not known. What increases the risk? The following factors may make you more likely to develop this condition: ? Having a job that requires you to repeatedly or forcefully move your wrist or hand or requires you to use tools that vibrate. This may include jobs that involve using computers, working on an assembly line, or working with power tools such as drills or vital. ? Being a woman. ? Having certain conditions, such as: ? Diabetes. ? Obesity. ? An underactive thyroid (hypothyroidism). ? Kidney failure. ? Rheumatoid arthritis. What are the signs or symptoms? Symptoms of this condition include: ? A tingling feeling in your fingers, especially in your thumb, index, and middle fingers. ? Tingling or numbness in your hand. ? An aching feeling in your entire arm, especially when your wrist and elbow are bent for a long time. ? Wrist pain that goes up your arm to your shoulder. ? Pain that goes down into your palm or fingers. ? A weak feeling in your hands. You may have trouble grabbing and holding items. Your symptoms may feel worse during the night. How is this diagnosed? This condition is diagnosed with a medical history and physical exam. You may also have tests, including: ? Electromyogram (EMG). This test measures electrical signals sent by your nerves into the muscles. ? Nerve conduction study. This test measures how well electrical signals pass through your nerves. ? Imaging tests, such as X-rays, ultrasound, and MRI. These tests check for possible causes of your condition. How is this treated? This condition may be treated with: ? Lifestyle changes. It is important to stop or change the activity that caused your condition. ? Doing exercise and activities to strengthen and stretch your muscles and tendons (physical therapy). ? Making lifestyle changes to help with your condition and learning how to do your daily activities safely (occupational therapy). ? Medicines for pain and inflammation. This may include medicine that is injected into your wrist. ? A wrist splint or brace. ? Surgery. Follow these instructions at home: If you have a splint or brace: ? Wear the splint or brace as told by your health care provider. Remove it only as told by your health care provider. ? Loosen the splint or brace if your fingers tingle, become numb, or turn cold and blue. ? Keep the splint or brace clean. ? If the splint or brace is not waterproof: ? Do not let it get wet. ? Cover it with a watertight covering when you take a bath or shower. Managing pain, stiffness, and swelling If directed, put ice on the painful area. To do this: ? If you have a removeable splint or brace, remove it as told by your health care provider. ? Put ice in a plastic bag. ? Place a towel between your skin and the bag or between the splint or brace and the bag. ? Leave the ice on for 20 minutes, 2???3 times a day. Do not fall asleep with the cold pack on your skin. ? Remove the ice if your skin turns bright red. This is very important. If you cannot feel pain, heat, or cold, you have a greater risk of damage to the area. Move your fingers often to reduce stiffness and swelling. General instructions ? Take mxue-ylu-bnoyqno and prescription medicines only as told by your health care provider. ? Rest your wrist and hand from any activity that may be causing your pain. If your condition is workrelated, talk with your employer about changes that can be made, such as getting a wrist pad to usewhile typing. ? Do any exercises as told by your health care provider, physical therapist, or occupational therapist. ? Keep all follow-up visits. This is important. Contact a health care provider if: ? You have new symptoms. ? Your pain is not controlled with medicines. ? Your symptoms get worse. Get help right away if: ? You have severe numbness or tingling in your wrist or hand. Summary ? Carpal tunnel syndrome is a condition that causes pain, numbness, and weakness in your hand and fingers. ? It is usually caused by repeated wrist motions. ? Lifestyle changes and medicines are used to treat carpal tunnel syndrome. Surgery may be recommended. ? Follow your health care provider's instructions about wearing a splint, resting from activity, keeping follow-up visits, and calling for help. This information is not intended to replace advice given to you by your health care provider. Make sure you discuss any questions you have with your health care provider. Document Revised: 08/03/2020 Document Reviewed: 08/03/2020 Elsevier Patient Education ?? 2021 [employer] Rash, Adult A rash is a change in the color of your skin. A rash can also change the way your skin feels. Thereare many different conditions and factors that can cause a rash. Some rashes may disappear after a few days, but some may last for a few weeks. Common causes of rashes include: ? Viral infections, such as: ? Colds. ? Measles. ? Hand, foot, and mouth disease. ? Bacterial infections, such as: ? Scarlet fever. ? Impetigo. ? Fungal infections, such as Charlene. ? Allergic reactions to food, medicines, or skin care products. Follow these instructions at home: The goal of treatment is to stop the itching and keep the rash from spreading. Pay attention to anychanges in your symptoms. Follow these instructions to help with your condition: Medicine Take or apply izqr-xrf-aiwnrfj and prescription medicines only as told by your health care provider. These may include: ? Corticosteroid creams to treat red or swollen skin. ? Anti-itch lotions. ? Oral allergy medicines (antihistamines). ? Oral corticosteroids for severe symptoms. Skin care ? Apply cool compresses to the affected areas. ? Do not scratch or rub your skin. ? Avoid covering the rash. Make sure the rash is exposed to air as much as possible. Managing itching and discomfort ? Avoid hot showers or baths, which can make itching worse. A cold shower may help. ? Try taking a bath with: ? Epsom salts. Follow service superintendent instructions on the packaging. You can get these at your local pharmacy or grocery store. ? Baking soda. Pour a small amount into the bath as told by your health care provider. ? Colloidal oatmeal. Follow service superintendent instructions on the packaging. You can get this at your local pharmacy or grocery store. ? Try applying baking soda paste to your skin. Stir water into baking soda until it reaches a paste-like consistency. ? Try applying calamine lotion. This is an xxkt-peb-sjjsoad lotion that helps to relieve itchiness. ? Keep cool and out of the sun. Sweating and being hot can make itching worse. General instructions ? Rest as needed. ? Drink enough fluid to keep your urine pale yellow. ? Wear loose-fitting clothing. ? Avoid scented soaps, detergents, and perfumes. Use gentle soaps, detergents, perfumes, and other cosmetic products. ? Avoid any substance that causes your rash. Keep a journal to help track what causes your rash. Write down: ? What you eat. ? What cosmetic products you use. ? What you drink. ? What you wear. This includes jewelry. ? Keep all follow-up visits as told by your health care provider. This is important. Contact a health care provider if: ? You sweat at night. ? You lose weight. ? You urinate more than normal. ? You urinate less than normal, or you notice that your urine is a darker color than usual. ? You feel weak. ? You vomit. ? Your skin or the whites of your eyes look yellow (jaundice). ? Your skin: ? Tingles. ? Is numb. ? Your rash: ? Does not go away after several days. ? Gets worse. ? You are: ? Unusually thirsty. ? More tired than normal. ? You have: ? New symptoms. ? Pain in your abdomen. ? A fever. ? Diarrhea. Get help right away if you: ? Have a fever and your symptoms suddenly get worse. ? Develop confusion. ? Have a severe headache or a stiff neck. ? Have severe joint pains or stiffness. ? Have a seizure. ? Develop a rash that covers all or most of your body. The rash may or may not be painful. ? Develop blisters that: ? Are on top of the rash. ? Grow larger or grow together. ? Are painful. ? Are inside your nose or mouth. ? Develop a rash that: ? Looks like purple pinprick-sized spots all over your body. ? Has a bull's eye or looks like a target. ? Is not related to sun exposure, is red and painful, and causes your skin to peel. Summary ? A rash is a change in the color of your skin. Some rashes disappear after a few days, but some may last for a few weeks. ? The goal of treatment is to stop the itching and keep the rash from spreading. ? Take or apply nuhp-wtj-wrkdddy and prescription medicines only as told by your health care provider. ? Contact a health care provider if you have new or worsening symptoms. ? Keep all follow-up visits as told by your health care provider. This is important. This information is not intended to replace advice given to you by your health care provider. Make sure you discuss any questions you have with your health care provider. Document Revised: 07/16/2019 Document Reviewed: 10/26/2018 [employer] Patient Education ?? 2021 [employer] Tests Performed Medications and Immunizations Administered Given Lasix, 40 mg, IV Push. For: Rash,??Hand tingling,??Hypertension,??Cough Lab Test Name Test Result Date/Time WBC 6.5 x10^3/mcL 07/02/2022 11:55 EDT RBC 4.6 x10^6/mcL 07/02/2022 11:55 EDT Hgb 13.6 g/dL 07/02/2022 11:55 EDT Hct 42.0 % 07/02/2022 11:55 EDT MCV 90.9 07/02/2022 11:55 EDT MCH 29.4 pg 07/02/2022 11:55 EDT MCHC 32.4 g/dL 07/02/2022 11:55 EDT RDW-CV 13.7 % 07/02/2022 11:55 EDT Platelets 205 x10^3/mcL 07/02/2022 11:55 EDT Neutro Auto 53.7 % 07/02/2022 11:55 EDT Lymph Auto 34.9 % 07/02/2022 11:55 EDT Hickman Auto 5.5 % 07/02/2022 11:55 EDT Eos, Auto 4.7 % 07/02/2022 11:55 EDT Basophil Auto 0.9 % 07/02/2022 11:55 EDT Imm Gran Auto 0.3 % 07/02/2022 11:55 EDT Neutro Absolute 3.5 x10^3/mcL 07/02/2022 11:55 EDT Sodium Level 139 mmol/L 07/02/2022 11:55 EDT Potassium Level 3.7 mmol/L 07/02/2022 11:55 EDT Chloride Level 104 mmol/L 07/02/2022 11:55 EDT CO2 31 mmol/L 07/02/2022 11:55 EDT Alk Phos 100 unit/L 07/02/2022 11:55 EDT AST 19 unit/L 07/02/2022 11:55 EDT ALT 20 unit/L 07/02/2022 11:55 EDT BUN 13 mg/dL 07/02/2022 11:55 EDT Glucose Level 222 mg/dL 07/02/2022 11:55 EDT Creatinine Level 0.72 mg/dL 07/02/2022 11:55 EDT eGFR AA 92 07/02/2022 11:55 EDT eGFR Non-AA 92 07/02/2022 11:55 EDT Calcium Level 8.5 mg/dL 07/02/2022 11:55 EDT Protein Total 6.9 g/dL 07/02/2022 11:55 EDT Albumin Level 2.8 g/dL 07/02/2022 11:55 EDT Bilirubin Total 0.4 mg/dL 07/02/2022 11:55 EDT Troponin-I 22.4 pg/mL 07/02/2022 11:55 EDT NT-proBNP 1277 pg/mL 07/02/2022 11:55 EDT TSH 2.083 mcIntlUnit/mL 07/02/2022 11:55 EDT Patient/Logging Assistant Signature Patient Name:REGAN WOO I have received this information and my questions have been answered. Patient/Logging Assistant Name: Patient/Logging Assistant Signature: Relationship to Patient: Witness Name/Signature: Date: Electronically Signed on: 07/02/2022 13:18 EDTSigned by:[facility] Emergency department Note * Maria G Levy: PERFORM Event Display: ED Notes Authored Date: [id number] * Maria G Levy: PERFORM Event Display: ED Notes Authored Date: [id number] Patient Care team information Care Team Personnel Name: Cady Saavedra PA-C Position: PowerChart View Only Member Role: Primary Care Physician Address: Address: [id number] [place] [address] Name: Praveena Hansen Position: Nurse Member Role: ED Nurse Name: Deana Tubbs MD Position: Physician Member Role: Admitting Physician Address: Address: [address] [place] [address] Care Team Related Persons Name: JAKUB MIKE Address: Home Name: GAL BERGERON Address: Home
--- OUTSIDE RECORDS SUMMARY | 2023-12-19 19:05 | XMS_ITS | Continuity of Care Document ---
Author Organization [facility] Address [address] [place] [address] Care Team Providers Care Bender Machine Operator Name Role Phone Cady Saavedra Primary Care Physician Encounter [facility] Date(s): 04/30/23 - 04/30/[address] [id number] Discharge Disposition: Home or Self Care Attending Physician: Susan Hernandez APRN Admitting Physician: Susan Hernandez APRN Referring Physician: Susan Hernandez APRN Allergies, Adverse Reactions, Alerts Substance Reaction Severity Status LATEX Itching Unknown Active ibuprofen Unknown Active amoxicillin Skin rash Unknown Active cephalexin Skin rash Unknown Active lansoprazole Unknown Active LORazepam Unknown Active polyethylene glycols Urticaria Unknown Active penicillins Unknown Active penicillins Urticaria Unknown Active Darvocet-N 50 Nausea Unknown Active Immunizations Given and Recorded Vaccine [...] instructions, # 1 EA, 3 Refill(s), Pharmacy: [facility] Start Date: 09/05/21 Status: Ordered aspirin [...] of cystocele Compl eted 1Total done at [facility] by Dr. Arita 2Toe 3endometriosis Results Laboratory List Name Date Basic Metabolic Panel 04/30/23 Most recent to oldest [Reference Range]: 1 BUN [7-18 mg/dL] 22 mg/dL *HI* (04/30/23 8:53 AM) Glucose Level [74-106 mg/dL] 228 mg/dL *HI* (04/30/23 8:53 AM) Potassium Level [3.5-5.1 mmol/L] 4.4 mmo l/L (04/30/23 8:53 AM) Sodium Level [136-145 mmol/L] 142 mmol/L (04/30/23 8:53 AM) Calcium Level [8.5-10.1 mg/dL] 8.5 mg/dL (04/30/23 8:53 AM) CO2 [21-32 mmol/L] 32 mmol/L (04/30/23 8:53 AM) eGFR Non-AA [>=60] 77 (04/30/23 8:53 AM) eGFR AA [>=60] 77 (04/30/23 8:53 AM) Chloride Level [98-107 mmol/L] 105 mmol/ L (04/30/23 8:53 AM) Creatinine Level [0.55-1.02 mg/dL] 0.84 mg/dL (04/30/23 8:53 AM) Social History Social History Type Response Tobacco Never tobacco user T obacco Use:. Sex Female Patient Care team information Care Team Personnel Name: Cady Saavedra PA-C Position: PowerChart View Only Member Role: Informed Provider Address: Address: [address] [address]- [place] Care Team Related Persons Name: JAKUB MIKE Name: GAL BERGERON
--- OUTSIDE RECORDS SUMMARY | 2023-12-19 19:05 | XMS_ITS | Continuity of Care Document ---
Author Organization [facility] Address [address] [place] [address] Care Team Providers Care Clinical Physician Assistant Name Role Phone Cady Saavedra Primary Care Physician Encounter [facility] Date(s): 07/22/22 - 09/01/22 [facility] [address] [place] [address] Discharge Disposition: Home or Self Care Attending [...] glycols Urticaria Unknown Active LORazepam Unknown Active Assessment and Plan Future Appointments Immunizations Given and Recorded Vaccine Date Status [...] instructions, # 1 EA, 3 Refill(s), Pharmacy: [facility] Start Date: 09/05/21 Status: Ordered aspirin [...] BID, # 14 cap, 0 Refill(s), Pharmacy: [facility], 162.5, cm, 07/02/22 9:49:00 EDT, Height/Length [...] 80 g, 6 Refill(s),04/07/23 0:00:00 EST, Pharmacy: [facility], 162.5, cm, 07/02/22 9:49:00 EDT, Height/Length [...] of cystocele Compl eted 1Total done at [facility] by Dr. Arita 2Toe 3endometriosis Social History Social History Type Response Tobacco Never tobacco user T obacco Use:. Sex Female Patient Care team information Care Team Personnel Name: Cady Saavedra PA-C Position: PowerChart View Only Member Role: Primary Care Physician Address: Address: [address] [address] Care Team Related Persons Name: JAKUB MIKE Address: Home Name: GAL BERGERON Address: Home
--- OUTSIDE RECORDS SUMMARY | 2023-12-19 19:05 | XMS_ITS | Continuity of Care Document ---
Author Organization [facility] Address [address] [place] [address] Care Team Providers Care Molder Hand Name Role Phone Cady Saavedra Primary Care Physician Encounter NCTY_AK Date(s): 05/13/22 - 05/13/22 [facility] [address] [place] [address] Discharge Disposition: Home or Self Care Attending [...] instructions, # 1 EA, 3 Refill(s), Pharmacy: [facility] Start Date: 09/05/21 Status: Ordered aspirin [...] of cystocele Compl eted 1Total done at [facility] by Dr. Arita 2Toe 3endometriosis Social History Social History Type Response Tobacco Never tobacco user T obacco Use:. Sex Female Patient Care team information Personnel Name: Cady Saavedra PA-C Address: Address: [address] [address]- [place]
--- OUTSIDE RECORDS SUMMARY | 2023-12-19 19:05 | XMS_ITS | Continuity of Care Document ---
Author Organization [facility] Address [address] [place] [address] Care Team Providers Care Power Regulator Name Role Phone Cady Saavedra Primary Care Physician [phone] Encounter NCTY_DC Date(s): 04/11/22 - 06/04/22 [facility] [address] [place] [address] Encounter Diagnosis Pain in left knee(Final) - Discharge Disposition: Home or Self Care Attending Physician: Cady Saavedra PA-C Referring Physician: Cady [...] instructions, # 1 EA, 3 Refill(s), Pharmacy: [facility] Start Date: 09/05/21 Status: Ordered aspirin [...] of cystocele Compl eted 1Total done at [facility] by Dr. Arita 2Toe 3endometriosis Social History Social History Type Response Tobacco Never tobacco user T obacco Use:. Sex Female Physical therapy Progress note * Irena Norris DPT: PERFORM Event Display: Physical Therapy Progress Note Authored Date: [id number] *Referring??Diagnosis: (L) knee pain, balance problem *Therapy Diagnosis: (L) knee pain, decreased strength and ROM, and decreased balance. Number of Sessions: 1 Summary of Treatment: Initial evaluation, pt edu, and HEP. *Reason for Discharge: Patient did not return for additional therapy. *Therapy Assessment: Pt called after her IE and asked to be placed on hold because she wanted to speak to her MD since she was really sore after her session. Pt did not contact clinic to make additional visits and she is appropriate for d/c at this time. *Goal Status: Not assessed. Pt did not return for tx after IE. *Discharge Plan:??Discharge from therapy today. Electronically Signed on 06/04/22 01:58 PM Irena Norris DPT * Irena Norris DPT: PERFORM, MODIFY, MODIFY, MODIFY, MODIFY, MODIFY, MODIFY, MODIFY, MODIFY, MODIFY, MODIFY, MODIFY, MODIFY Event Display: Physical Therapy Progress Note Authored Date: [id number] *Visit Type: Initial Evaluation Patient ID and date of checked:??Y *Referring??Diagnosis: (L) knee pain, balance problem *Therapy Diagnosis: (L) knee pain, decreased strength and ROM, and decreased balance. *Subjective: ??Pt reports she has been having problems with her (L) knee. She had a (L) TKR in nd reports her knee will tighten up every once in awhile and hurts. I am quite the lazy person and I don't do anything. When I pedal a bike I cannot go all the way around. She reports she has had therapy in the past for her knee and it helped somewhat. I think I just need to exercise more. Pt reports she has been off balance for a couple weeks. When she was walking to get mail recentlyshe couldn't get my legs to go where I wanted to go. Pts significant other attended her PT session with her and reports pt will trip over rugs at home. Pt recently got a recliner and will sit in it most of the day. Pt became upset frequently during her session when talking about her divorce and the passing of her son in 2013. Patient Case History:??Progressing muscle weakness and worsening of balance due to inactivity. Pertinent Past Medical History: ??Diabetes, HTN Pertinent Past Surgical History: ??(L) TKA in 2009. Pertinent Medications:??Losartan, atorvastatin, trazodone, pantoprazole, Pertinent Allergies:??Latex Prior Therapy:?? PT in the past for her (L) knee. Prior Diagnostic Results: Normal results on imaging reported by pt. Prior Treatment:??PT, cortisone injections, and TKA Precautions: N/A *Barriers to Education:??N/A Behavior:??Pt appears to be unmotivated and requires a great deal of encouragement to participate today. Occupational Profile:??N/A Current Occupation: Current Job Description and Requirements: Current Restrictions: Home Environment/Set Up:??Single level home, one step with railing to enter home Household Members/Support Network: ??Lives with significant other Home Equipment:??SC *Previous Level of Function: Independent with ADLs without pain or difficulty. *Current Level of Function:??Pt has pain and difficulty with prolonged walking. Pain: Location: ??(L) knee Nature: Behavior: Severity: ??9/10 at worst Palpation:??Tenderness reported with palpation to (L) quad and patellar tendon ROM/Strength: R AROM L AROM R PROM L PROM R Strength L Strength Knee Flex ??80* ??110 ??5 ??5 Knee Ext ??-10 ??0 ??5 ??5 Knee Special Tests: Test Right Left Anterior Drawer Test ??Neg Anterior Christiano Test Apley Compression Test Bounce Home Test Patience Test ??Neg Patellar Apprehension Test Patellar Grind Test Pivot Shift Test Posterior Drawer Test ??Neg Posterior Christiano Test Q-angle Test Thessaly Test Valgus Stress Test ??Neg Varus Stress Test ??Neg Lower Quadrant Screen: (B) hip MMT into hip flexion, adduction, and extension = 4+/5, (B) hip MMT into hip abduction = 4/5. Posture Deviations/Comments: ??Forward head and shoulders posture. Gait Deviations/Comments: ??4 stage balance test: Stage 3 tandem stance x 6 seconds without hand hold. (B) sls pt was unable to do. *Patient Education: ??Anatomy of the knee, effects of muscle weakness on balance, IE findings, POC,and HEP. *Physical Therapy Assessment: ??Pt is a 66yo female with dx of (L) knee pain and balance problem. She presents with pain, decreased ROM, decreased strength, and decreased balance. She would benefit from skilled PT services to address the impairments listed. Her clinical hx is significant for chronic (L) knee pain. Pt reports pain and difficulty with prolonged walking. Pts clinical presentation is stable and she is determined to have a low complexity level. *Rehab Potential: Good?to reach the established goals *Functional Outcome Measure: FOM: Lower Extremity Functional Scale (LEFS) ? Score:48% impairment ? Comments: *Short Term Goals: ??Deferred *Retirement Goals: ??In 6 weeks pt will: 1. Decrease (L) knee pain to 4/10 or less at all times to make one trip through the grocery store without difficulty. 2. Increased (L) hip strength to 5/5 to complete grocery shopping without taking a break to sit. 3. Be independent with HEP. *Patient Goals: Decrease her (L) knee pain. Certification Dates (Medicare Only): From To ??04/11/22 ??05/23/22 *Frequency of Treatment: ??1x/wk *Intensity of Treatment (minutes):??30 minutes *Duration of Treatment (days/weeks):??6 weeks *Planned Treatment Interventions: ??X CPT 62086: Therapeutic Exercise CPT 85744: Iontophoresis ??X CPT 56842: Therapeutic Activity CPT 10790: Electrical Stimulation (TENS/probe) ??X CPT 47473: Manual Therapy CPT G0283: Electrical Stimulation (unattended) CPT 38768: Gait Training CPT 82126: Biofeedback ??X CPT 45222: Neuromuscular Re-education CPT 20451: Initial Orthotic Fit/Train CPT 43165: Self-Care/Home Management CPT 25580: Initial Prosthetic Train CPT 75134: Ultrasound *Discharge Plan: Upon achieving goals or maximal benefit of therapy services. *Procedure Documentation: CPT 93039: Low Complexity PT Evaluation:?45 minutes Physical Therapy Evaluation performed. History involves 1-2 personal factors and/or comorbidities. Examination of body system(s) includes 1-2 elements. Clinical presentation is stable. Clinical decision making is low. CPT 66285: Therapeutic Exercise:?10? minutes Therapeutic exercise to promote improved joint stability, strength, endurance, and range of motion. Specific education/training provided: Viewed/performed HEP including: SLR, hip extension, hip abd/add, sit to stand, and sls with supportwith vc's for correct technique. *Total Time: 55 minutes *Time In: 1445 *Time Out: 1540 I certify the need for these services furnished under this plan of treatment and while under my care. Physician Signature: Date: Electronically Signed on 04/12/22 03:45 PM Irena Norris DPT Reviewed by: Misty Blair PT Patient Care team information Care Team Personnel Name: Cady Saavedra PA-C Position: PowerChart View Only Member Role: Primary Care Physician Address: Address: [address] [address]- Care Team Related Persons Name: JAKUB MIKE Address: Home Name: GAL BERGERON Address: Home
--- OUTSIDE RECORDS SUMMARY | 2023-12-19 19:05 | XMS_ITS | Clinical Summary ---
Author Organization [facility] Address [facility] [place] [address] Care Team Providers Care Ad Operations Coordinator Name Role Phone Cady Saavedra Primary Care Provider Allergies Active Allergy Reactions Criticality Noted Date Comments Hymenoptera Allergenic Extract Anaphylaxis High 11/15/2011 Latex, Natural Rubber Rash Medium 06/11/2011 Unclassified Drug 11/15/2011 Mushrooms, Peppers - Facial Edema Penicillins Rash Shellfish Derived Facial Edema Medications Medication Sig Dispensed Refills Start Date End Date Status buPROPion (WELLBUTRIN SR) 150 mg 12 hr tablet Take 150 mg by mouth daily. Active insulin glargine (LANTUS) Insulin Pen Inject 40 Units subcutaneously nightly. Active oxybutynin (DITROPAN) 5 mg Tablet Take 10 mg by mouth daily. Active traZODone (DESYREL) 50 mg Tablet Take 100 mg by mouth nightly. Active insulin needles, disposable, 31 gauge x 5/16 NeedleIndications: BD ultra-fine pen NDL [id number] [facility]Non-Drug; Combo Route) route. Indications: BD ultra-fine pen NDL [id number] Active liraglutide (VICTOZA) 0.6 mg/0.1 mL (18 mg/3 mL) Pen Injector Inject subcutaneously. Pt unsure of dose, states she takes 1.2mL QD (therefore likely around 8-9 mg) Active amLODIPine (Norvasc) 5 mg tablet Take 1 tablet by mouth daily. 30 tablet 2 04/26/2023 Active aspirin 81 mg chewable tablet Take 81 mg by mouth daily. 90 tablet 3 04/26/2023 Active atorvastatin (Lipitor) 40 mg tablet Take 1 tablet by mouth every evening. 30 tablet 2 04/25/2023 Active carvediloL (Coreg) 3.125 mg tablet Take 1 tablet by mouth 2 times daily (with meals). 60 tablet 2 04/25/2023 Active clopidogreL (Plavix) 75 mg tablet Take 1 tablet by mouth daily. 90 tablet 3 04/26/2023 Active isosorbide mononitrate CR (Imdur) 30 mg ER 24 hr tablet Take 1 tablet by mouth every morning. 30 tablet 2 04/26/2023 Active nitroGLYcerin (Nitrostat) 0.[address] 1 tablet under the tongue every 5 minutes as needed for Chest pain. 25 tablet 5 04/25/2023 Active pantoprazole EC (Protonix) [address] tablet Take 1 tablet by mouth daily. 90 tablet 3 04/26/2023 Active Active Problems Problem Noted Date Diagnosed Date NSTEMI (non-ST elevated myocardial infarction) 0 04/19/2023 Total knee replacement status left 2009 [facility] 12/07 Left knee pain 01/02/2016 Chronic neck pain 06/29/2015 Solar lentigo 08/05/2011 Seborrheic keratosis 08/05/2011 Breast hypertrophy 06/11/2011 Family History Medical History Relation Comments Cancer Father Relation Status Comments Father Social History Tobacco Use Types Packs/Day Years Used Date Smoking Tobacco: Never Smokeless Tobacco: Never Alcohol Use Standard Drinks/Week Comments No 0 (1 standard drink = 0.6 oz pur e alcohol) [facility] Utilities Answer Date Recorded In the past 12 months has th e [employer], Gro, oil, or water [employer] threatened to shut off services in your home? No 04/21/2023 Hunger Vital Sign Answer Date Recorded Within the past 12 months, y ou worried that your food would run out before you got the money to buy more. Never true 04/21/19 24 Within the past 12 months, t he food you bought just didn't last and you didn't have money to get more. Never true 04/21/2023 PRAPARE - Transportation Answer Date Re corded In the past 12 months, has l ack of transportation kept you from medical appointments or from getting medications? No 04/07 In the past 12 months, has l ack of transportation kept you from meetings, work, or from getting things needed for daily living? No 04/21/2023 Housing Stability Vital Sign Answer Wilian e Recorded In the last 12 months, was t here a time when you were not able to pay the mortgage or rent on time? No 04/21/2023 In the last 12 months, how many places have you lived? 1 04/21/2023 In the last 12 months, was t here a time when you did not have a steady place to sleep or slept in a [place] [facility] [place] (including now)? No 04/21/2023 DH IPV Inpatient Questions Answer Date Recorded Does Anyone Try to Keep You From Having Contact with Others or Doing Things Outside Your Home? no 04/20/2023 Feels Threatened by Someone no 04/07 Feels Unsafe at Home or Work/School no 04/20/2023 Physical Signs of Abuse Present no 04/20/2023 Sex and Gender Information Value Date Recorded Sex Assigned at Not on file Gender Identity Not on file Sexual Orientation Not on file Last Filed Vital Signs Vital Sign Reading Time Taken Comments Blood Pressure 119/44 04/25/2023 11:11 AM EST Pulse 62 04/25/2023 11:11 AM EST Temperature 36.5 ??C (97.7 ??F) 04/25/2023 1 1:11 AM EST Respiratory Rate 16 04/25/2023 11:1 1 AM EST Oxygen Saturation 97% 04/25/2023 11: 11 AM EST Inhaled Oxygen Concentration - - Weight 106.8 kg (235 lb 7.2 oz) 04/25/2023 6:06 AM EST Height 162.6 cm (5' 4) 04/19/2023 6:17 PM EST Body Mass Index 40.42 04/19/2023 6:17 PM EST Plan of Treatment Health Maintenance Due Date Last Done Comments CT Colonography 1956 Colonoscopy 1956 Colorectal Cancer Screening 1956 FIT DNA 1956 FIT 1956 Sigmoidoscopy (10 year) with FIT yearly 1956 Sigmoidoscopy 1956 Pneumoccocal Vaccine: 65+ (1 of 2 - PCV) 1962 Hepatitis C Screening 1974 Tdap adult 1975 Tetanus vaccine 1975 Breast Cancer Share Decision Needed 1996 Breast Cancer screening 1996 Zoster vaccine (1 of 2) 2006 Bone Density Scan 2021 Covid-19 Vaccine (6 - 2022-2 4 season) 2023 02/26/2022, 07/24/2021, 02/20/2021, Additional history exists Influenza (Flu) vaccine (1 o f 1 - Influenza standard series) 12/07/2023 Diabetes Screening (HgbA1C o r Glucose) 04/25/2026 04/25/2023, 04/24/2023, 04/24/2023, Additional history exists Lipid Screening Discontinued 04/20/2023, 04/20/2023 Procedures Procedure Name Priority Date/Time Associated Diagnosis Comments BMP W/FASTING GLUCOSE Routine 04/25/2023 2:50 AM EST LIPID PANEL (REFLEX DIRECT LDL) Routine 04/20/2023 12:47 AM EST from Last 3 Months or Most Recently Relevant to Health Maintenance Results * (ABNORMAL) BMP w/fasting Glucose (04/25/2023 2:50 AM EST) Glucose Fasting 108(H) 65 - 99 mg/dL [facility] Comment: ?Fasting* Glucose Interpretive Criteria Normal ?65-99 mg/dL Impaired Fasting glucose ?100-125 mg/dL Consistent with Diabetes Mellitus ? >or= 126 mg/dL *Fasting is defined as no caloric intake for at least 8 hours In the absence of unequivocal hyperglycemia a plasma glucose value of >or= 126 mg/dL should be repeated on a subsequent day. Diagnosis and Classification of Diabetes Mellitus, Position Statement from the [place] [employer]. ??Diabetes Care, Volume 33, Supplement 1, Apr 2009 Blood Urea Nitrogen 34(H) 8 - 18 mg/dL [facility] Creatinine 1.57(H) 0.70 - 1.20 mg/dL [facility] Sodium 138 135 - 145 mmol/L [facility] Potassium 5.0 3.5 - 5.0 mmol/L [facility] Comment: Please note: ??Patients with WBC >100,000 may have falsely elevated Potassium levels. ??For accurate Potassium quantification in these patients send serum separator tube (gold top) for subsequent determinations. ??Contact the Clinical Chemistry Laboratory if there are any questions. Chloride 102 98 - 107 mmol/L [facility] Carbon Dioxide 31 22 - 31 mmol/L [facility] Anion Gap 5 5 - 15 mmol/L [facility] Calcium 8.9 8.5 - 10.5 mg/dL [facility] Est Glomerular Filtration Rate 36(L) >=60 mL/min/1. 73 m?? [facility] Comment: This patient's estimated GFR was calculated using the 2020 CKD-EPI equation. The estimated GFR can vary from the measured GFR by up to 30% in the absence of rapidly changing kidney function. Assessment of the estimated GFR is not appropriate when creatinine concentrations are rapidly changing. For clinical situations in which a more precise estimate of GFR is necessary, consider alternative methods of GFR estimation such as a 24-hour urine creatinine clearance. Assignment of CKD stage 1-5 for patients with an eGFR near the transition point between stages may be based on clinical assessment of muscle mass and symptoms in addition to eGFR. Blood 04/25/2023 2:50 AM EST 04/25/2023 3:20 AM EST Narrative Resulting Agency Comment Spec In Lab David Levin MD CHEMISTRY ORDERABLES [facility] [place] [address] * Lipid Panel (Reflex Direct LDL) (04/20/2023 12:47 AM EST) Cholesterol, Total 176 mg/dL [facility] Comment: Lower Risk: <200 mg/dL Average Risk: 200-239 mg/dL Higher Risk: >tw=263 mg/dL Triglyceride 89 mg/dL [facility] Comment: Average Risk/Lower Risk: <150 mg/dL Borderline High Risk: 150-199 mg/dL High Risk: 200-499 mg/dL Very High Risk: >jx=364 mg/dL HDL Cholesterol 50 mg/dL [facility] Comment: Males: ?? Higher Risk: <40 mg/dL Females: ?? Higher Risk: <50 mg/dL LDL Cholesterol 108 mg/dL [facility] Comment: Lowest Risk: <100 mg/dL Lower Risk: 100-129 mg/dL Borderline High Risk: 130-159 mg/dL High Risk: 160-189 mg/dL Very High Risk: >ms=383 mg/dL Cholesterol/HDL Ratio 3.5 ratio [facility] Lipid Interpretation See Note [facility] Comment: Lipid management should be guided by a patient? s ASCVD risk, goals and preferences. ACC/AHA Guidelines recommend high intensity statin if clinical ASCVD or LDL greater than or equal to 190 mg/dL. http://2Duche.com/LBP-XKW-Qxpyigaen Adults aged 40-75 with LDL 70-189 mg/dL should have their 10 year ASCVD risk estimated with the ACC/AHA ASCVD risk slip cover estimator http://tools.acc.org/EUCXL-Fgdq-Frmfzlqcq/ Statin should be discussed if risk greater than or equal to 7.5% in non-diabetics. With diabetes, moderate intensity statin is recommended if risk less than 7.5%, high intensity if risk greater than or equal to 7.5%. Annual lipid monitoring on statins is not necessary. Evaluate secondary causes of Triglycerides greater than 500 mg/dL or LDL greater than 190 mg/dL: See table 6 of ACC/AHA Guideline. Lifestyle modification is a critical component of ASCVD risk reduction. Blood 04/20/2023 12:4 7 AM EST 04/20/2023 12:54 AM EST Narrative Resulting Agency Comment Spec In Lab Trent Steel DO CHEMISTRY ORDERABLE S [facility] [place] [address] from Last 3 Months or Most Recently Relevant to Health Maintenance Advance Directives Documents on File Type Date Recorded Patient Mud Analysis Operator Expl anation Advance Directives and Livin g Will 04/21/2023 2:31 PM 04/21/23 * Attempt Cardiopulmonary Resuscitation - Inpatient (Latest Code Status on File) Date Activated Date Inactivated Comments 04/19/2023 7:00 PM 04/25/2023 2:31 PM Question Answer Comments Code Status decision made by: Patient Care Teams Ad Operations Coordinator Relationship Specialty Start Date End Date Cady Saavedra PA [address] [place] [address] PCP - General Family Medicine 06/19/20
--- OUTSIDE RECORDS SUMMARY | 2023-12-19 19:05 | XMS_ITS | Encounter Summary ---
Author Organization [facility] Address [facility] [place] [address] Care Team Providers Care Inspector Exhaust Emissions Name Role Phone Cady Saavedra Primary Care Provider [phone] Encounter Details Date Type Department Care Team (Late st Contact Info) Description 05/28/2023 Telephone Cardiology at [address] [place] [address] Criselda Perales, RN Social History Tobacco Use Types Packs/Day Years Used Date Smoking Tobacco: Never Smokeless Tobacco: Never Alcohol Use Standard Drinks/Week Comments No 0 (1 standard drink = 0.6 oz pur e alcohol) [facility] Utilities Answer Date Recorded In the past 12 months has th e electric, gas, oil, or water company threatened to shut off services in your [...] place to sleep or slept in a custodial (including now)? No 04/21/2023 DH IPV Inpatient [...] on file Sexual Orientation Not on file documented as of this encounter Miscellaneous Notes * Telephone Encounter - Raeann Barclay RN - 05/28/2023 10:36 AM EST Patient calls office to ask to reschedule her upcoming appointment on 06/03/2023 at 1:20. She statesshe has had a cold over the past two weeks and is just starting to get her voice back. She would like to wait until the end of the week to reschedule. Her phone number is [phone] documented in this encounter Plan of Treatment Not on file documented as of this encounter Visit Diagnoses Not on filedocumented in this encounter Care Teams Inspector Exhaust Emissions Relationship Specialty Start Date End Date Cady Saavedra PA [address] [place] [id number] PCP - General Family Medicine 06/19/20 documented as of this encounter
--- OUTSIDE RECORDS SUMMARY | 2023-12-19 19:06 | XMS_ITS | Encounter Summary ---
Author Organization [facility] [place] [address] Care Team Providers Care Dry Charge Process Attendant Name Role Phone Cady Saavedra Primary Care Provider [phone] Reason for Visit * Auth/Cert (Routine) Specialty Diagnoses / Procedures Referred By Contac t Referred To Contact Diagnoses NSTEMI (non-ST elevated myocardial infarction) NSTEMI Procedures EMERGENCY IPI Trent Hair V [facility] [address] [place] [id number] [facility] Referral ID Status Reason Start Date Expiration Date Visits Re quested Visits Authorized [id number] 1 1 Encounter Details Date Type Department Care Team (Latest Contact Info) Description 04/19/2023 6:10 PM EST - 04/25/2023 12:31 PM EST Hospital Encounter Heart and Vascular Unit Level 4 Wing B at [place] [phone] Felix Diaz MD [facility] [place] [address] David Levin MD [facility] [place] [address] Lm Delgado MD [facility] [place] [address] Trent Hair DO [facility] [place] [address] NSTEMI (non-ST elevated myocardial infarction); Respiratory failure with hypoxia, unspecified chronicity Discharge Disposition: Home Social History Tobacco Use Types Packs/Day Years Used Date Smoking Tobacco: Never Smokeless Tobacco: Never Alcohol Use Standard Drinks/Week Comments No 0 (1 standard drink = 0.6 oz pur e alcohol) [facility] Utilities Answer Date Recorded In the past [...] place to sleep or slept in a halfway (including now)? No 04/21/2023 DH IPV Inpatient [...] on file documented as of this encounter Last Filed Vital Signs Vital Sign Reading [...] Mass Index 40.42 04/19/2023 6:17 PM EST documented in this encounter Discharge Summaries * Susan Hernandez, [employer]FFEE SHOP ATTENDANT - 04/25/2023 11:19 AM EST Discharge Summary Patient Name: Regan Woo Patient Age: 67 y.o. Language: Comoran Admit date: 04/19/2023 Discharge date and time: 04/25/2023 11:40 AM Attending Physician: Lm Delgado MD Discharge Physician: Lm Delgado MD Follow-up Recommendations for Providers: # NSTEMI type 1, medically managed / ASCVD - TTE 04/20: pLVEF without rWMAs - LHC 04/21: w/ very small distal branches of LCX and RCA with high grade disease, not approachable for revascularization - Continue DAPT x12 months - New carvedilol, Imdur and atorvastatin - Cardiac rehab referral - Follow up with cardiology arranged # HTN - New carvedilol 3.125 mg BID, Imdur 30 mg daily, amlodipine 5 mg - Monitor trends # Suspected HFpEF - TTE with grade 2 diastolic dysfunction - Diuretic hold at discharge given Cr up trend. 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 Will need re-assessment. # Acute UTI - UA + lueks, nitrite, WBC and bacteria; UC grew E. Coli - Started on Bactrim however developed hyperkalemia and SERJIO; transitioned to cefpodoxime 100 mg BID. Completing 5 day course of antibiotics on 04/25.. # SERJIO - Creatinine peaked at 1.5 - Suspect in setting of over diuresis and/or Bactrim use - Bactrim transitioned to cefpodoxime as above - Creatinine on discharge: 1.5 - BMP by 04/29/23 Inpatient Provider Contact Information: Inpatient Cardiology Hospitalist Team [phone] Discharge Diagnoses (Hospital Problems) and Secondary Diagnoses (Chronic Problems): Active Hospital Problems Diagnosis NSTEMI (non-ST elevated myocardial infarction) Resolved Hospital Problems No resolved problems to display. Active Non-Hospital Problems Diagnosis Total knee replacement status left 2009 [facility] Left knee pain Chronic neck pain Solar lentigo Seborrheic keratosis Breast hypertrophy Operations/Major Procedures: [facility] 04/21/23 Hemodynamics: Left Heart Pressures Resting: Syst Diast EDP a v m Ao 196 78 120 LV 196 25 Coronary Angiography: Dominance: Right Left Main The left main was normal, free of disease. Left Anterior Descending There was mild diffuse (<=25% stenosis) disease of the entire vessel segment of the left anterior descending artery (LAD). The LAD was large. Left Circumflex There was mild diffuse (<=25% stenosis) disease of the entire vessel segment of the left circumflex artery (LCX). The LCX was large. There was a single discrete total occlusion of the ostial segment of the second obtuse marginal branch (OM2) of the LCX. The OM2 was small. Distal flow was via collaterals from the LCX. The distal vessel was poorly visualized. Right Coronary Artery There was mild diffuse (<=25% stenosis) disease of the entire vessel segment of the right coronary artery (RCA). The RCA was large. The proximal segment of the RCA had a long segmental 30% stenosis. There was a 95% long segmental stenosis of the distal segment of the right first posterolateral branch (RPL1) of the RCA. The RPL1 was small. Distal flow was via collaterals from the LCX. The distal vessel was poorly visualized. Vascular Access: Vascular Access Management: Mechanical Compression of the right radial artery access site was performed. Conclusions: * Two vessel coronary artery disease (LCX and RCA) * Elevated left ventricular end diastolic pressure * Very small distal branches of LCX and RCA with high grade disease, not approachable for revascularization. Other Studies: TTE 04/20/23 Conclusions Normal left and right ventricular size and systolic function. LV ejection fraction 54%. No regional wall motion abnormalities. Aortic sclerosis without severe stenosis. Mild mitral regurgitation. No pericardial effusion. No prior studies available for comparison. History of Presentation (per admission H&P): Regan Woo is a 67 y.o. female with a PMHx of IDDM2, TERENCE, HTN, obesity, Anxiety, insomnia, MDD, dysthymia, and RLS who was in her usual state of health until she started to experience CP. Yesterday, pt experienced non radiating substernal CP that started after walking out of [employer]. Chest pain felt like a band like tightness with pressure feeling as if an elephant sitting on her chest, CP also associated with SOB. Pain scale 9-10/10 at that time. She then went to ER at [facility] where the pain resolved with NTG. Note that she had another similar episode of CP while laying on the stretcher in the ambulance to [facility]. This was resolved with NTG as well. Denies previous hx of CP, cardiac disease, previous cath, previous cardiac stress test. Pt currently denies CP. Notes BP is 130-140s at home but she battles with anxiety and states her BP can go up when she is anxious. Notes strong hx of heart disease on moms side, mom in early 50s d/t DC. At [facility], pt ECG noted A flutter, A rate of 211 with probable anteroseptal infarct (documented), c/f nonspecific ST changes in V1 and V2. BP elevated in 180-200s, improved with hydralazine. Troponin elevated 35.1 ---> 59.3 --> 34.9. Pt given nitro past for CP and BP with improvement. Started onheparin given NSTEMI concern, load of Plavix and ASA done. Transferred to [facility] for further evaluatio n. Meds administered at OSH: Morphine 2mg x1 IV Hydralazine 20mg x 1 Nitro paste Heparin bolus + drip Plavix 600mg x 1 ASA 324mg x 1 Imaging at OSH: CXR - questionable diffuse interstitial opacities. Left retrocardiac opacity may be atelectasis or PNA OSH labs prior to transfer: CBC Hgb 14.6 WBC 7.9 Plt 219 BMP Na 140 K 3.9 BUN 13 Cr 0.71 Troponin I 35.1 ---> 59.3 --> 34.9 Cardiac RF profile significant for HTN, HLD, DM2 and family history. Note that her mom of a heart attack in her early 50s. Hospital Course: # NSTEMI type 1, medically managed # ASCVD # HLD Regan Woo presented to [facility] ER with chest pain. Found to have positive troponin trend. EKG with septal RUEL not meeting STEMI criteria. Chest pain resolved with SL NTG. Noted to be hypertensiveon arrival (SBP 180-200s). Treated for NSTEMI with aspirin and Plavix load and started on IV heparin bolus and gtt. Transferred for NSTEMI management. On arrival, remains HDS and chest pain free. TTEshowed pLVEF without rWMAs, significant valvular disease, or pericardial effusion. There was evidence of grade 2 diastolic dysfunction. Repeat troponins flat (18 > 18) at [facility]. Given EKG, troponin, history and cardiac risk factors proceeded with LHC 04/21. LHC showed very small distal branches ofLCX and RCA with high grade disease, not approachable for revascularization. Recommendations for medical management. Will continue DAPT (aspirin + Plavix) x 12 months. She completed 48 hours of IV heparin while hospitalized. Continue atorvastatin 40mg daily; LDL 108 with goal <70. Continue new carvedilol 3.125mg BID and Imdur 30mg daily. Right radial access site without complications at time of discharge. Declined cardiac rehab. Followup with cardiology arranged. # Suspect acute HFpEF CXR at OSH without report of congestion/edema. ProBNP ~1,300. TTE pLVEF with grade 2 diastolic dysfunction. LVEDP 25 mmHg at weight of 235lbs. Given IV Lasix with robust UOP. Developed SERJIO and diuretics held. Discharge weight 235 lbs. Not discharged with diuretics. Can be re-introduced once Cr improves and if needed based on weight/symptoms. Deferred SGLT2i given active UTI. # Hypertensive urgency on essential HTN SBP 180-200 mmHg at OSH; improved s/p SL NTG and hydralazine. Started on new carvedilol and Imdur as above. Prior prescription for losartan 100mg daily though she was unclear if she was actually taking. She was started on amlodipine [address] of ARB for anti-anginal benefits as well d/t SERJIO. BP trend 12 hours prior to discharge were BP: (119-149)/(44-52) . Follow trends in outpatient setting. # SERJIO # Hyperkalemia On HD #2, noted to have SERJIO. Also noted to have new hyperkalemia with potassium of 5.4. Possibly Bactrim started for UTI (see below) contributory to SERJIO and hyperkalemia vs pre-renal. Creatinine and potassium down-trended with transition to cephalosporin but then went up again with diuresis. Diuretics held. Cr stable at 1.5 on discharge. # Acute UTI UA + lueks, nitrite, WBC and bacteria. Culture grew E.coli. Started on Bactrim 800-160mg BID x5 days on 04/21, however on day #3 of treatment, noted to have hyperkalemia (K 5.4) and un-resolving SERJIO. Suspect Bactrim playing role. She was transitioned to cefpodoxime 100 mg BID. Completed 5 day courseof antibiotics (04/21 through 04/25). # IDDM2 A1c 7.0%. Held home Victoza while admitted. Reduced home Lantus at 32 U daily (home 40 U) given NPOstatus. Covered with additional SSI and JANNA. Discharged on home regimen. # Anxiety # Insomnia Continued on home Wellbutrin 150mg daily and trazodone 100mg qHS. # GERD Continued PPI with pantoprazole given plavix use. # Prior head injury as child, ? TBI # Chronic balance issues AOx3. No issues while admitted. # TERENCE # Obesity, BMI 40 Home CPAP broken and hasn't used for years. PCP to follow up and encourage re- engagement with sleepmedicine. Functional and Cognitive Status: Alert and oriented x 3, ambulatory-independent. Important Studies and Lab Data: Labs: Lab Results Component Value Date WBC 7.2 04/25/2023 HGB 11.9 04/25/2023 HCT 38.2 04/25/2023 PLATELET 218 04/25/2023 Recent Labs 04/19/231928 INR 1.1 Lab Results Component Value Date NA 138 04/25/2023 K 5.0 04/25/2023 CL 102 04/25/2023 CO2 31 04/25/2023 BUN 34 (H) 04/25/2023 CREATININE 1.57 (H) 04/25/2023 Recent Labs 04/19/23 1929 TSH 2.04 Recent Labs 04/20/23 0047 HA1C 7.0* Recent Labs 04/20/23 1350 04/20/23 0047 TROPONINTHS 18* 18* Lab Results Component Value Date CHLPL 176 04/20/2023 CHLPL 176 04/20/2023 HDL 50 04/20/2023 HDL 50 04/20/2023 CHOLHDL 3.5 04/20/2023 CHOLHDL 3.5 04/20/2023 TRIG 89 04/20/2023 TRIG 89 04/20/2023 LDLCHOL 108 04/20/2023 LDLDIRECT 122 04/20/2023 Pending Studies and Lab Data: None. Discharge Conditions/Prognosis: Stable without chest pain or shortness of breath. Discharge to: Home. Updated Allergies/ADRs: Allergies Allergen Reactions Latex, Natural Rubber Rash Bee Sting [Hymenoptera Allergenic Extract] Anaphylaxis Other [Unclassified Drug] Mushrooms, Peppers - Facial Edema Penicillins Rash Shellfish Derived Facial Edema Immunizations Given this Hospitalization: Immunization History Administered Date(s) Administered Moderna Covid-19 Monovalent 12Yr+ (Cardiology Tech 100mcg) 06/20/2020, 07/17/2020, 02/20/2021 Discharge Medications: Your Medications New Medications Dose Details amLODIPine 5 mg tablet Commonly known as: Norvasc Take 1 tablet by mouth daily. Start taking on: April 26, 2023 5 mg Quantity: 30 tablet Refills: 2 aspirin 81 mg chewable tablet Take 81 mg by mouth daily. Start taking on: April 26, 2023 81 mg Quantity: 90 tablet Refills: 3 atorvastatin 40 mg tablet Commonly known as: Lipitor Take 1 tablet by mouth every evening. 40 mg Quantity: 30 tablet Refills: 2 carvediloL 3.125 mg tablet Commonly known as: Coreg Take 1 tablet by mouth 2 times daily (with meals). 3.125 mg Quantity: 60 tablet Refills: 2 clopidogreL 75 mg tablet Commonly known as: Plavix Take 1 tablet by mouth daily. Start taking on: April 26, 2023 75 mg Quantity: 90 tablet Refills: 3 isosorbide mononitrate CR 30 mg ER 24 hr tablet Commonly known as: Imdur Take 1 tablet by mouth every morning. Start taking on: April 26, 2023 30 mg Quantity: 30 tablet Refills: 2 nitroGLYcerin 0.4 mg sublingual tablet Commonly known as: Nitrostat Place 1 tablet under the tongue every 5 minutes as needed for Chest pain. 0.4 mg Quantity: 25 tablet Refills: 5 pantopraz[address] EC [address] tablet Commonly known as: Protonix Take 1 tablet by mouth daily. Start taking on: April 26, 2023 40 mg Quantity: 90 tablet Refills: 3 Continued medications, unchanged Dose Details insulin glargine 100 unit/mL (3 mL) pen Commonly known as: Lantus Inject 40 Units subcutaneously nightly. 40 Units Refills: 0 insulin needles (disposable) 31 gauge x 5/16 Needle by [facility].(Non-Drug; Combo Route) route. Indications: BD ultra-fine pen NDL [id number] Refills: 0 liraglutide 0.6 mg/0.1 mL (18 mg/3 mL) Pen Injector Commonly known as: VICTOZA Inject subcutaneously. Pt unsure of dose, states she takes 1.2mL QD (therefore likely around 8-9 mg) Refills: 0 oxybutynin 5 mg tablet Commonly known as: Ditropan Take 10 mg by mouth daily. 10 mg Refills: 0 traZODone 50 mg tablet Commonly known as: Desyrel Take 100 mg by mouth nightly. 100 mg Refills: 0 Wellbutrin SR 150 mg SR 12 hr tablet Take 150 mg by mouth daily. Generic drug: buPROPion SR 150 mg Refills: 0 STOPPED Medications FLUoxetine 20 mg capsule Commonly known as: PROzac gabapentin 100 mg capsule Commonly known as: Neurontin glipiZIDE 10 mg tablet Commonly known as: Glucotrol metFORMIN 500 mg tablet Commonly known as: Glucophage NexIUM [address] capsule Generic drug: esomeprazole topiramate 25 mg tablet Commonly known as: Topamax Smoking Status at Discharge: Social History Tobacco Use Smoking Status Never Smokeless Tobacco Never Instructions Given to Patient at Discharge: Patient Instructions Heart Attack, Coronary Artery Disease You were hospitalized for treatment of your heart attack. A heart attack (myocardial infarction, orMI) occurs when one or more of the coronary arteries, which supply the heart with oxygen-rich blood, is blocked. A blockage usually occurs when plaque inside the artery breaks open and a blood clot forms in the artery. In order to treat this, you underwent a cardiac catheterization. You were found to have small vessel disease which was not treatable with stent placement. Recommendations made for medical management. For this you will need to remain on two antiplatelet medications called aspirin and clopidogrel (Plavix) for 12 months. After this time, your podiatrist orthopedic will determine if you need to continue on both blood thinners, or if either can be stopped. You will likely be on aspirin life-long. You were also started on a beta lo called carvedilol which will help reduce workload onyour heart, as well as a statin called atorvastatin which will help reduce your cholesterol as wellas help to reduce inflammation in your heart arteries. You were provided with a supply of sublingual nitroglycerin. Keep it with you at all times. If you have angina symptoms, such as chest pain or pressure, sit down and rest. Take the first dose of nitroglycerin and let it melt under your tongue. If symptoms go away, do not take any additional. If your symptoms get worse or are not getting better within 5 minutes, take a second nitro tab and call 911 right away. Stay on the phone. The emergency reducing machine operator will tell you what to do. Nitroglycerin is an emergency use medication. If you are taking this more than once in a week please alert your provider. Nitroglycerin in the original bottle is good for 1 year once the bottle is opened or until the date on the bottle is not used. If the bottom of the bottle is obscured by powder, or the label fallsof discard the nitroglycerin and get a new bottle. You may resume light activity such as walking after your discharge. Do not do any strenuous activity for the first week after your catheterization, including no lifting anything over 10 lbs. This is to help protect your cardiac cath access site and to continue to let it heal properly. You may shower, but do not submerge your cardiac cath access site in water for 1 week (no tubs, hot tubs, lakes, or pools). You may resume driving 24 hours after your catheterization if you were driving prior to your hospitalization. Diastolic Dysfunction You were also found to have diastolic heart dysfunction (impaired relaxation of the heart muscle). You were started on a diuretic to help remove fluid from your body. This was started in the hospitalthrough your IV and switched to a pill form before you discharged home. You should limit sodium in your diet. We suggest you avoid adding salt to any of your food, and actively monitor the salt content on the labels of the food you buy. Your total salt intake in a 24 hour period should not exceed 2,000 grams. Once at home, you will need to weigh yourself without clothing at the same time each day. Record your weight. Call your doctor if you have a sudden weight gain, such as more than 2 to 3 pounds in a day or 5 pounds in a week. (Your doctor may suggest a different range of weight gain.) A sudden weight gain may mean that your heart failure is getting worse. Your weight on day of discharge is 235 lbs. High Blood Pressure (hypertension) You were found to have high blood pressure readings. You were started on new mediation to keep yourblood pressure lower including carvedilol, amlodipine, Imdur. Please check your blood pressure oncea day and record this in a notebook. Bring these readings to your primary care office visit. Urinary Tract Infection (UTI) You were found to have a UTI. You will continue on Bactrim to complete a 5 day course. Follow up with your primary care doctor will be arranged to ensure resolution. Call your doctor if: Chest pain, dyspnea, pain or swelling in legs occurs, or for weight gain of 2 pounds overnight or 5pounds in 5 days. If you have non-emergent questions, prior to your follow-up visit call: Friday-Friday between the hours of 8AM-5PM please call the Cardiology Clinic [phone] to speak with a nurse. All other hours please call the Hospital Loft Worker Apprentice [phone] and ask to speak to the electromechanical equipment assembler on-call. Follow up Appointments: Doctor Where Phone # Date Time PCP [facility] [address] [place] [id number] Friday05/02/2023 10:[address] Facundo Velez [facility] [phone] Friday05/20/23 1:20 PM Lab work [place], [place] Please have labs drawn on Friday04/29/23. Results to be sent to your PCP. General Instructions None Future Appointments and Orders Future Appointments and Orders Future Appointments Provider Department Dept Phone 05/20/2023 1:20 PM Trey Velez MD [facility]iology at [place] Arrive at: [facility] [address] [phone] Future Orders Complete By Expires Basic Metabolic Panel (non-fasting) [LAB15 Custom] 04/29/2023 04/25/2024 Process Instructions: Scheduling Instructions: Comments: Questions: Home Oxygen [EQ184 Custom] As directed Process Instructions: Check with vendor to see if additional forms need to be completed. You must submit a copy of the following documents with this Order: 1 - Official results of Pulse Oximetry at Rest and with Exercise that are less than 180 days old 2 - Official results of Nocturnal testing (if performed) 3 - Signed and dated [id number] evaluation documenting the need for Oxygen Scheduling Instructions: Comments: Diagnosis: Hypoxia POC (Portable Oxygen Concentrator) Required: Yes If Yes, please indicate setting (ie. 1, 2, 3, 4 or 5): 3 Questions: Vendor Name/Contact information: [facility] Rate (LPM): 2 Route: Nasal Hours per day of useage: 24 # months service is needed (99= lifetime): 99 Portable needed: Yes SPO2 performed on Room Air?: Yes Resting Date (Room Air): 04/22/2023 Resting SPO2% (Room Air): 88 Exercise Date (Room Air): 04/22/2023 Exercise SPO2% (Room Air): 84 SPO2 performed with Supplemental Oxygen?: Yes Resting Date (Supplemental Oxygen): 04/22/2023 Resting SPO2% (Supplemental Oxygen): 94 Resting Rate - LPM (Supplemental Oxygen): 2 Exercise Date (Supplemental Oxygen): 04/22/2023 Exercise SPO2% (Supplemental Oxygen): 2 Exercise Rate - LPM (Supplemental Oxygen): 92 Nocturnal testing performed?: No Oxygen Conserving Device (OCD) needed?: Yes OC Device setting: Evaluate, Titrate Oxygen settings, and Setup with appropriate device: Home Oxygen [EQ184 Custom] As directed Process Instructions: Check with vendor to see if additional forms need to be completed. You must submit a copy of the following documents with this Order: 1 - Official results of Pulse Oximetry at Rest and with Exercise that are less than 180 days old 2 - Official results of Nocturnal testing (if performed) 3 - Signed and dated [id number] evaluation documenting the need for Oxygen Scheduling Instructions: Questions: Vendor Name/Contact information: [facility] Rate (LPM): 2 Route: Nasal Hours per day of useage: 24 # months service is needed (99= lifetime): 99 Portable needed: Yes SPO2 performed on Room Air?: Yes Resting Date (Room Air): 04/25/2023 Resting SPO2% (Room Air): 87 Exercise Date (Room Air): 04/25/2023 Exercise SPO2% (Room Air): 84 SPO2 performed with Supplemental Oxygen?: Yes Resting Date (Supplemental Oxygen): 04/25/2023 Resting SPO2% (Supplemental Oxygen): 2 Resting Rate - LPM (Supplemental Oxygen): 95 Exercise Date (Supplemental Oxygen): 04/25/2023 Exercise SPO2% (Supplemental Oxygen): 2 Exercise Rate - LPM (Supplemental Oxygen): 96 Nocturnal testing performed?: No Oxygen Conserving Device (OCD) needed?: Yes OC Device settin Evaluate, Titrate Oxygen settings, and Setup with appropriate device: Discharge References/Attachments Cardiac Rehabilitation (Comoran) Coronary Angiogram: Post-op ([place]oran) Heart attack: Fast facts: Video (Comoran) Heart Attack: Myocardial Infarction or Acute Coronary Syndrome ([place]oran) Statins ([place]an) Greater than 30 minutes were spent reviewing records, [id number] consultation with patient, and documentation. documented in this encounter Discharge Instructions * Patient Instructions* Susan Hernandez, COFFEE SHOP ATTENDANT - 04/21/2023 3:48 PM EST Heart Attack, Coronary Artery Disease You were hospitalized for treatment of your heart attack. A heart attack (myocardial infarction, orMI) occurs when one or more of the coronary arteries, which supply the heart with oxygen-rich blood, is blocked. A blockage usually occurs when plaque inside the artery breaks open and a blood clot forms in the artery. In order to treat this, you underwent a cardiac catheterization. You were found to have small vessel disease which was not treatable with stent placement. Recommendations made for medical management. For this you will need to remain on two antiplatelet medications called aspirin and clopidogrel (Plavix) for 12 months. After this time, your podiatrist orthopedic will determine if you need to continue on both blood thinners, or if either can be stopped. You will likely be on aspirin life-long. You were also started on a beta lo called carvedilol which will help reduce workload onyour heart, as well as a statin called atorvastatin which will help reduce your cholesterol as wellas help to reduce inflammation in your heart arteries. You were provided with a supply of sublingual nitroglycerin. Keep it with you at all times. If you have angina symptoms, such as chest pain or pressure, sit down and rest. Take the first dose of nitroglycerin and let it melt under your tongue. If symptoms go away, do not take any additional. If your symptoms get worse or are not getting better within 5 minutes, take a second nitro tab and call 911 right away. Stay on the phone. The emergency reducing machine operator will tell you what to do. Nitroglycerin is an emergency use medication. If you are taking this more than once in a week please alert your provider. Nitroglycerin in the original bottle is good for 1 year once the bottle is opened or until the date on the bottle is not used. If the bottom of the bottle is obscured by powder, or the label fallsof discard the nitroglycerin and get a new bottle. You may resume light activity such as walking after your discharge. Do not do any strenuous activity for the first week after your catheterization, including no lifting anything over 10 lbs. This is to help protect your cardiac cath access site and to continue to let it heal properly. You may shower, but do not submerge your cardiac cath access site in water for 1 week (no tubs, hot tubs, lakes, or pools). You may resume driving 24 hours after your catheterization if you were driving prior to your hospitalization. Diastolic Dysfunction You were also found to have diastolic heart dysfunction (impaired relaxation of the heart muscle). You were started on a diuretic to help remove fluid from your body. This was started in the hospitalthrough your IV and switched to a pill form before you discharged home. You should limit sodium in your diet. We suggest you avoid adding salt to any of your food, and actively monitor the salt content on the labels of the food you buy. Your total salt intake in a 24 hour period should not exceed 2,000 grams. Once at home, you will need to weigh yourself without clothing at the same time each day. Record your weight. Call your doctor if you have a sudden weight gain, such as more than 2 to 3 pounds in a day or 5 pounds in a week. (Your doctor may suggest a different range of weight gain.) A sudden weight gain may mean that your heart failure is getting worse. Your weight on day of discharge is 235 lbs. High Blood Pressure (hypertension) You were found to have high blood pressure readings. You were started on new mediation to keep yourblood pressure lower including carvedilol, amlodipine, Imdur. Please check your blood pressure oncea day and record this in a notebook. Bring these readings to your primary care office visit. Urinary Tract Infection (UTI) You were found to have a UTI. You will continue on Bactrim to complete a 5 day course. Follow up with your primary care doctor will be arranged to ensure resolution. Call your doctor if: Chest pain, dyspnea, pain or swelling in legs occurs, or for weight gain of 2 pounds overnight or 5pounds in 5 days. If you have non-emergent questions, prior to your follow-up visit call: Friday-Friday between the hours of 8AM-5PM please call the Cardiology Clinic [phone] to speak with a nurse. All other hours please call the Hospital Loft Worker Apprentice [phone] and ask to speak to the electromechanical equipment assembler on-call. Follow up Appointments: Doctor Where Phone # Date Time PCP [facility] [address] [place] [id number] Friday05/02/2023 10:[address] Facundo Velez [facility] [phone] Friday05/20/23 1:20 PM Lab work [place], [place] Please have labs drawn on Friday04/29/23. Results to be sent to your PCP. * Attachments The following attachments cannot be sent through Care Everywhere. * Cardiac Rehabilitation ([place]) * Coronary Angiogram: Post-op ([place]) * Heart attack: Fast facts: Video ([place]) * Heart Attack: Myocardial Infarction or Acute Coronary Syndrome ([place]) * Statins ([place]) documented in this encounter Medications at Time of Discharge Medication Sig Dispensed Refills Start Date End Date amLODIPine (Norvasc) 5 mg tablet Take 1 tablet by mouth daily. 30 tablet 2 04/26/2023 aspirin 81 mg chewable tablet Take 81 mg by mouth daily. 90 tablet 3 04/26/2023 atorvastatin (Lipitor) 40 mg tablet Take 1 tablet by mouth every evening. 30 tablet 2 04/25/2023 carvediloL (Coreg) 3.125 mg tablet Take 1 tablet by mouth 2 times daily (with meals). 60 tablet 2 04/25/2023 clopidogreL (Plavix) 75 mg tablet Take 1 tablet by mouth daily. 90 tablet 3 04/26/2023 isosorbide mononitrate CR (Imdur) 30 mg ER 24 hr tablet Take 1 tablet by mouth every morning. 30 tablet 2 04/26/2023 nitroGLYcerin (Nitrostat) 0.[address] 1 tablet under the tongue every 5 minutes as needed for Chest pain. 25 tablet 5 04/25/2023 pantoprazole EC (Protonix) [address] tablet Take 1 tablet by mouth daily. 90 tablet 3 04/26/2023 liraglutide (VICTOZA) 0.6 mg/0.1 mL (18 mg/3 mL) Pen Injector Inject subcutaneously. Pt unsure of dose, states she takes 1.2mL QD (therefore likely around 8-9 mg) traZODone (DESYREL) 50 mg Tablet Take 100 mg by mouth nightly. insulin needles, disposable, 31 gauge x 5/16 NeedleIndications:BD ultra-fine pen NDL [id number] by [facility].(Non-Drug; Combo Route) route. Indications: BD ultra-fine pen NDL [id number] insulin glargine (LANTUS) Insulin Pen Inject 40 Units subcutaneously nightly. oxybutynin (DITROPAN) 5 mg Tablet Take 10 mg by mouth daily. buPROPion (WELLBUTRIN SR) 150 mg 12 hr tablet Take 150 mg by mouth daily. documented as of this encounter Progress Notes * Selwyn England, RN - 04/25/2023 10:37 AM EST Home oxygen walk testing performed @ 0955; SpO2 @ rest w/o oxygen: 87% SpO2 @ rest with 2L NC oxygen: 95% SpO2 upon ambulation w/o oxygen: 84% SpO2 on ambulation with 2L NC oxygen: 96% Patient denied shortness of breath throughout testing. Patient returned to bedside chair on 2L NC with room amenities within reach. * Eleazar Roy PA - 04/24/2023 8:37 AM EST CARDIOLOGY APP2 - [facility] DAILY PROGRESS NOTE Page [phone] to reach a provider 28/10 Admit Date: 04/19/2023 Encounter Date April 24, 2023 Anticipated Discharge Date: 04/25/2023 Hospital Day: 5 Active Hospital Problems Diagnosis NSTEMI (non-ST elevated myocardial infarction) Resolved Hospital Problems No resolved problems to display. 24 Hour Events/Subjective: - No acute events overnight - No chest pain or SOB. - Received IV Lasix 20 mg x1 04/23 with net negative 2.5 L and 4lbs down. - Creatinine down-trending, but remains above baseline. Hyperkalemia with K 5.2 today; suspect Bactrim for UTI playing a role, transitioned to cefpodoxime 04/23 PM. - Amlodipine 5 mg added 04/23 for HTN - Qualified for home O2 04/22, will need repeat walk test today. - Partner, Gene, supportive and would like updates (phone # ). Medications: Scheduled Meds: furosemide 20 mg Oral Daily amLODIPine 5 mg Oral Daily cefPODOXime 100 mg Oral BID heparin (porcine) 7,500 Units Subcutaneous Q8H BELLO isosorbide mononitrate CR 30 mg Oral QAM carvediloL 3.125 mg Oral BID WC insulin lispro 0-8 Units Subcutaneous TID WC sodium chloride 0.9 % (flush) 5 mL Intravenous BID atorvastatin 40 mg Oral QPM aspirin 81 mg Oral Daily traZODone 100 mg Oral Nightly insulin lispro 1-6 Units Subcutaneous TID AC insulin glargine (Lantus;Semglee) (100 unit/mL) subcutaneous injection 32 Units Subcutaneous Nightly oxybutynin XL 10 mg Oral Daily pantoprazole EC 40 mg Oral Daily buPROPion XL 150 mg Oral Daily clopidogreL 75 mg Oral Daily Continuous Infusions: PRN Meds:.sodium chloride 0.9 % (flush), lidocaine, nitroGLYcerin, glucose 40% oral geL OR dextrose OR glucagon Objective: Last value Range last 24 hrs Temp: 36.7 ??C (98.1 ??F) Temp: [36.5 ??C (97.7 ??F)-36.8 ??C (98.2 ??F)] Heart Rate: 63 Heart Rate from SpO2: 66 bpm Heart Rate: [51-73] BP: 160/58 BP: (115-160)/(44-83) Resp: 16 Resp: [16-18] SpO2: 93 % SpO2: [93 %-99 %] Height: 162.6 cm (5' 4) Weight: 105.6 kg (232 lb 12.9 oz) BMI (Calculated): 40.3 BMI Classification: Morbid Obesity Admit weight: 106.5 kg Patient Vitals for the past 168 hrs: Weight 04/24/23 0346 105.6 kg (232 lb 12.9 oz) 04/23/23 0532 107.1 kg (236 lb 1.8 oz) 04/22/23 0600 106.2 kg (234 lb 2.1 oz) 04/21/23 0538 107 kg (235 lb 14.3 oz) 04/20/23 0500 106.8 kg (235 lb 7.2 oz) 04/19/23 1817 106.5 kg (234 lb 12.6 oz) Intake/Output Summary (Last 24 hours) at 04/24/2023 0837 Last data filed at 04/24/2023 0347 Gross per 24 hour Intake -- Output 1950 ml Net -1950 ml Physical Exam: Physical Exam Constitutional: General: She is not in acute distress. Appearance: She is obese. HENT: Head: Normocephalic and atraumatic. Nose: Nose normal. Mouth/Throat: Mouth: Mucous membranes are moist. Eyes: Conjunctiva/sclera: Conjunctivae normal. Cardiovascular: Rate and Rhythm: Normal rate and regular rhythm. Heart sounds: Murmur heard. Pulmonary: Effort: Pulmonary effort is normal. No respiratory distress. Breath sounds: Normal breath sounds. Abdominal: Palpations: Abdomen is soft. Musculoskeletal: Cervical back: Neck supple. Right lower leg: No edema. Left lower leg: No edema. Skin: General: Skin is warm. Neurological: General: No focal deficit present. Mental Status: She is alert and oriented to person, place, and time. Mental status is at baseline. Psychiatric: Mood and Affect: Mood is anxious. Labs: Recent Labs 04/24/23 0332 04/23/23 0357 04/22/23 0355 04/21/23 0125 04/20/23 0047 WBC 7.8 7.1 7.3 7.8 7.5 HGB 12.5 12.6 13.1 13.5 12.9 HCT 39.8 39.4 41.1 41.9 40.1 PLATELET 217 208 225 215 225 MCV 94.3 93.6 93.8 94.2 93.5 Recent Labs 04/24/23 0332 04/23/23 1312 04/23/23 0357 04/22/23 1407 04/22/23 0355 04/21/23 1636 04/20/23 1350 04/19/231928 NA 137 137 137 134* 140 < > 141 143 CL 99 97* 98 97* 99 < > 104 103 CO2 29 28 28 27 31 < > 27 27 K 5.2* 5.1* 4.4 4.6 4.5 < > 4.5 3.7 MAGNESIUM 0.91 -- 0.78 -- 0.76 -- 0.99 0.74 PHOS -- -- -- -- -- -- -- 3.1 CALCIUM 8.9 9.4 8.6 8.9 8.9 < > 9.1 9.1 9.1 BUN 32* 33* 32* 27* 21* < > 14 8 CREATININE 1.33* 1.48* 1.50* 1.49* 1.20 < > 0.82 0.62* < > = values in this interval not displayed. Coags Recent Labs 04/19/231928 INR 1.1 PT 12.5 PTT 46* Cardiac Markers Recent Labs 04/22/23 0355 04/20/23 1350 04/20/23 0047 04/19/231928 TROPONINTHS -- 18* 18* -- PROBNP 715* -- -- 1,304* Endocrine Recent Labs 04/20/23 0047 04/19/23 1929 TSH -- 2.04 HA1C 7.0* -- Recent Labs 04/20/23 004 CHLPL 176 176 TRIG 89 89 HDL 50 50 LDLCHOL 108 CHOLHDL 3.5 3.5 Recent Labs 04/24/23 0738 04/23/23 2053 04/23/23 1614 04/23/23 1312 04/23/23 1051 04/23/23 0712 04/22/23 2046 04/22/23 1755 04/22/23 1613 04/22/23 1407 04/22/23 1111 04/22/23 0721 04/21/23 1710 04/21/23 1636 GLUCOSE -- -- -- 83 -- -- -- -- -- 111 -- -- -- 111 POCGLU 117 117 146 -- 156 115 125 107 373* -- 95 159 < > -- < > = values in this interval not displayed. Telemetry: I have personally reviewed and interpreted the telemetry from the last 24 hours. Resultsshow SR/SA with brief junctional rhythm; HR 40-80s. Rare NSVT, longest 27 beats 04/20. Rare PAC/PVCs. Diagnostics: C 04/21/23 Conclusions: * Two vessel coronary artery disease (LCX and RCA) * Elevated left ventricular end diastolic pressure * Very small distal branches of LCX and RCA with high grade disease, not approachable for revascularization. TTE 04/20/23 Conclusions Normal left and right ventricular size and systolic function. LV ejection fraction 54%. No regional wall motion abnormalities. Aortic sclerosis without severe stenosis. Mild mitral regurgitation. No pericardial effusion. No prior studies available for comparison. Assessment: Regan Woo is a 67 y.o. female with a PMH of IDDM2, anxiety, GERD, TERENCE (occasional CPAP use), and obesity who presented to [facility] ER with chest pain. Found to have positive troponin trend. EKG with septal RUEL not meeting STEMI criteria. Chest pain resolved with SL NTG. Noted to be hypertensive on arrival (SBP 180-200s). Treated for NSTEMI with aspirin and Plavix load, and started on IV heparin bolus and gtt. Transferred for NSTEMI management. On arrival, remains HDS and chest pain free. TTEshowed pLVEF without rWMAs, significant valvular disease, or pericardial effusion. There was evidence of grade 2 diastolic dysfunction. Repeat troponins flat (18 > 18) at [facility] Given EKG, troponin, history and cardiac risk factors proceeded with [facility] 04/21. LHC showed very small distal branches ofLCX and RCA with high grade disease, not approachable for revascularization. Recommendations for medical management. Will continue DAPT x12 months, she has completed 48 hours of IV heparin. LVEDP high at 25 and TTE w/ evidence of diastolic dysfunction, subsequently received IV lasix 40 mg x2 on 04/21. Hospitalization complicated by SERJIO. ?CRS vs pre-renal vs ISO Bactrim use as also hyperkalemic. Bactrim transitioned to cefpodoxime. SERJIO improving. Will continue to closely monitor BMP. Additionally, requiring 2LNC while awake. Walk test 04/22 qualified her for home O2. Will repeat 04/24 as has further diuresed and appears O2 requirements have improved. Plan: # NSTEMI type 1 # ASCVD Troponin at OSH 35 > 59 > 35. [facility] HS Troponin 18 > 18. TTE 04/20: pLVEF without rWMAs [facility] 04/21: w/ very small distal branches of LCX and RCA with high grade disease, not approachable for revascularization S/p 48 hours of IV heparin S/p ASA 324mg at OSH; continue 81mg daily S/p Plavix 600mg at OSH; continue 75mg daily Continue DAPT x12 months for NSTEMI medical mgmt Continue atorvastatin 40mg qHS; LDL 108 with goal <70 Continue new carvedilol 3.125mg BID with hold parameters New Imdur 30mg daily 04/21 SL NTG and EKG PRN for chest pain Cardiac rehab consult # Hypertensive urgency on essential HTN SBP 180-200 mmHg at OSH; improved s/p SL NTG and hydralazine BP trends last 12 hours: BP: (146-160)/(45-58) New carvedilol 3.125mg BID as above Holding home losartan 100mg; can consider resuming once SERJIO resolves Amlodipine 5 mg daily started 04/23 New Imdur 30mg daily Monitor trends, adjust agents as needed # Acute HFpEF ProBNP ~1,300 TTE pLVEF with grade 2 diastolic dysfunction LVEDP 25 mmHg at weight of 235lbs S/p IV lasix 40 mg x2 04/21 Diuretic holiday 04/22 for SERJIO S/p IV lasix 20 mg x1 on 04/23 Start PO lasix 20 mg daily 04/24 Defer SGLT2i given active UTI Daily weights, strict I/Os, low Na diet, daily labs # SERJIO ? CRS vs pre-renal vs ISO bactrim use Improved slightly with diuresis Bactrim transitioned to cefpodoxime 04/23 PM Creatinine 0.89>>1.20>>1.50>>1.33 Monitor BMP Holding home ARB as above # Hyperkalemia Suspect related to Bactrim use as was receiving diuretics with up-trending potassium Bactrim stopped and cefpodoxime replaced Monitor BMP # Acute UTI UA + lueks, nitrite, WBC and bacteria UC prelim with gram negative rods Started Bactrim 04/21, 800-160mg BID; STOPPED on 04/23 due to SERJIO and hyperkalemia Cefpodoxime 100 mg BID through 04/25 # IDDM2 A1c 7.0% Hold home Victoza Reduced home Lantus at 32 U daily (home 40 U) SSI and JANNA # Anxiety # Insomnia Continue home Wellbutrin 150mg daily Continue home trazodone 100mg qHS # GERD Continue PPI # Prior head injury as child, ? TBI # Chronic balance issues Consider PT/OT consult pending functional abilities observed while admitted # TERENCE # Obesity, BMI 40 Home CPAP broken and hasn't used for years Diet: Daily Healthy Menu Choices/Cardiac diet ([facility]-Diet) 2 GM NA; 60/60/75 CHO counting level 2 DVT Prophylaxis: Heparin subq Code status: Attempt Cardiopulmonary Resuscitation - Inpatient Disposition: Discharge Location: AM-PAC Basic Mobility Raw Score: 24 PT: Anticipated Discharge Disposition (PT): home with supervision Anticipated Equipment Needs at Discharge (PT): None OT: PCP [facility] [phone] Discussed with MD Eleazar Vega PA-C APP2 Pager: [phone] 04/24/2023 * Eleazar Roy PA - 04/23/2023 3:20 PM EST CARDIOLOGY APP2 - [facility] DAILY PROGRESS NOTE Page [phone] to reach a provider 28/10 Admit Date: 04/19/2023 Encounter Date April 23, 2023 Anticipated Discharge Date: 04/24/2023 Hospital Day: 4 Active Hospital Problems Diagnosis NSTEMI (non-ST elevated myocardial infarction) Resolved Hospital Problems No resolved problems to display. 24 Hour Events/Subjective: - No acute events overnight - No chest pain or SOB. Ambulating to bathroom without difficulty. - Creatinine remains elevated despite diuretic holiday. Hyperkalemia on repeat BMP with K 5.1; suspect Bactrim for UTI playing a role, transitioned to cefpodoxime. - BP remains elevated; added amlodipine 5mg daily today. - Qualified for home O2 - Partner, Gene, supportive and would like updates (phone # ). Medications: Scheduled Meds: amLODIPine 5 mg Oral Daily cefPODOXime 100 mg Oral BID heparin (porcine) 7,500 Units Subcutaneous Q8H BELLO isosorbide mononitrate CR 30 mg Oral QAM carvediloL 3.125 mg Oral BID WC insulin lispro 0-8 Units Subcutaneous TID WC sodium chloride 0.9 % (flush) 5 mL Intravenous BID atorvastatin 40 mg Oral QPM aspirin 81 mg Oral Daily traZODone 100 mg Oral Nightly insulin lispro 1-6 Units Subcutaneous TID AC insulin glargine (Lantus;Semglee) (100 unit/mL) subcutaneous injection 32 Units Subcutaneous Nightly oxybutynin XL 10 mg Oral Daily pantoprazole EC 40 mg Oral Daily buPROPion XL 150 mg Oral Daily clopidogreL 75 mg Oral Daily Continuous Infusions: PRN Meds:.sodium chloride 0.9 % (flush), lidocaine, nitroGLYcerin, glucose 40% oral geL OR dextrose OR glucagon Objective: Last value Range last 24 hrs Temp: 36.8 ??C (98.2 ??F) Temp: [36.4 ??C (97.5 ??F)-36.9 ??C (98.4 ??F)] Heart Rate: 51 Heart Rate from SpO2: 66 bpm Heart Rate: [51-72] BP: 115/44 BP: (115-170)/(44-68) Resp: 17 Resp: [17-20] SpO2: 95 % SpO2: [91 %-99 %] Height: 162.6 cm (5' 4) Weight: 107.1 kg (236 lb 1.8 oz) BMI (Calculated): 40.3 BMI Classification: Morbid Obesity Admit weight: 106.5 kg Patient Vitals for the past 168 hrs: Weight 04/23/23 0532 107.1 kg (236 lb 1.8 oz) 04/22/23 0600 106.2 kg (234 lb 2.1 oz) 04/21/23 0538 107 kg (235 lb 14.3 oz) 04/20/23 0500 106.8 kg (235 lb 7.2 oz) 04/19/23 1817 106.5 kg (234 lb 12.6 oz) Intake/Output Summary (Last 24 hours) at 04/23/2023 1520 Last data filed at 04/23/2023 1200 Gross per 24 hour Intake 900 ml Output 1500 ml Net -600 ml Physical Exam: Physical Exam Constitutional: General: She is not in acute distress. Appearance: She is obese. HENT: Head: Normocephalic and atraumatic. Nose: Nose normal. Mouth/Throat: Mouth: Mucous membranes are moist. Eyes: Conjunctiva/sclera: Conjunctivae normal. Cardiovascular: Rate and Rhythm: Normal rate and regular rhythm. Heart sounds: Murmur heard. Pulmonary: Effort: Pulmonary effort is normal. No respiratory distress. Breath sounds: Normal breath sounds. Abdominal: Palpations: Abdomen is soft. Musculoskeletal: Cervical back: Neck supple. Right lower leg: No edema. Left lower leg: No edema. Skin: General: Skin is warm. Neurological: General: No focal deficit present. Mental Status: She is alert and oriented to person, place, and time. Mental status is at baseline. Psychiatric: Mood and Affect: Mood is anxious. Labs: Recent Labs 04/23/23 0357 04/22/23 0355 04/21/23 0125 04/20/23 0047 04/19/23 1929 WBC 7.1 7.3 7.8 7.5 8.9 HGB 12.6 13.1 13.5 12.9 15.1 HCT 39.4 41.1 41.9 40.1 45.8 PLATELET 208 225 215 225 213 MCV 93.6 93.8 94.2 93.5 91.6 Recent Labs 04/23/23 1312 04/23/23 0357 04/22/23 1407 04/22/23 0355 04/21/23 1636 04/20/23 1350 04/19/231928 NA 137 137 134* 140 142 141 143 CL 97* 98 97* 99 103 104 103 CO2 28 28 27 31 26 27 27 K 5.1* 4.4 4.6 4.5 4.9 4.5 3.7 MAGNESIUM -- 0.78 -- 0.76 -- 0.99 0.74 PHOS -- -- -- -- -- -- 3.1 CALCIUM 9.4 8.6 8.9 8.9 8.9 9.1 9.1 9.1 BUN 33* 32* 27* 21* 17 14 8 CREATININE 1.48* 1.50* 1.49* 1.20 0.89 0.82 0.62* Coags Recent Labs 04/19/231928 INR 1.1 PT 12.5 PTT 46* Cardiac Markers Recent Labs 04/22/23 0355 04/20/23 1350 04/20/23 0047 04/19/231928 TROPONINTHS -- 18* 18* -- PROBNP 715* -- -- 1,304* Endocrine Recent Labs 04/20/23 0047 04/19/231928 TSH -- 2.04 HA1C 7.0* -- Recent Labs 04/20/2346 CHLPL 176 176 TRIG 89 89 HDL 50 50 LDLCHOL 108 CHOLHDL 3.5 3.5 Recent Labs 04/23/23 1312 04/23/23 1051 04/23/23 0712 04/22/23 2046 04/22/23 1755 04/22/23 1613 04/22/23 1407 04/22/23 1111 04/22/23 0721 04/21/23 2023 04/21/23 1710 04/21/23 1636 04/21/23 1146 GLUCOSE 83 -- -- -- -- -- 111 -- -- -- -- 111 -- POCGLU -- 156 115 125 107 373* -- 95 159 129 110 -- 96 Telemetry: I have personally reviewed and interpreted the telemetry from the last 24 hours. Resultsshow SR/SA with brief junctional rhythm; HR 40-80s. Rare NSVT, longest 27 beats 04/20. Rare PAC/PVCs. Diagnostics: [facility] 04/21/23 Conclusions: * Two vessel coronary artery disease (LCX and RCA) * Elevated left ventricular end diastolic pressure * Very small distal branches of LCX and RCA with high grade disease, not approachable for revascularization. TTE 04/20/23 Conclusions Normal left and right ventricular size and systolic function. LV ejection fraction 54%. No regional wall motion abnormalities. Aortic sclerosis without severe stenosis. Mild mitral regurgitation. No pericardial effusion. No prior studies available for comparison. Assessment: Regan Woo is a 67 y.o. female with a PMH of IDDM2, anxiety, GERD, TERENCE (occasional CPAP use), and obesity who presented to [facility] ER with chest pain. Found to have positive troponin trend. EKG with septal RUEL not meeting STEMI criteria. Chest pain resolved with SL NTG. Noted to be hypertensive on arrival (SBP 180-200s). Treated for NSTEMI with aspirin and Plavix load, and started on IV heparin bolus and gtt. Transferred for NSTEMI management. On arrival, remains HDS and chest pain free. TTEshowed pLVEF without rWMAs, significant valvular disease, or pericardial effusion. There was evidence of grade 2 diastolic dysfunction. Repeat troponins flat (18 > 18) at [facility]. Given EKG, troponin, history and cardiac risk factors proceeded with [facility] 04/21. LHC showed very small distal branches ofLCX and RCA with high grade disease, not approachable for revascularization. Recommendations for medical management. Will continue DAPT x12 months, she has completed 48 hours of IV heparin. LVEDP high at 25 and TTE w/ evidence of diastolic dysfunction, subsequently received IV lasix 40 mg x2 on 04/21. Hospitalization complicated by SERJIO. Suspect pre-renal vs ISO Bactrim use as also borderline hyperkalemic. Bactrim transitioned to cefpodoxime. Will continue to closely monitor BMP. Plan: # NSTEMI type 1 # ASCVD Troponin at OSH 35 > 59 > 35. [facility] [place] Troponin 18 > 18. TTE 04/20: pLVEF without rWMAs [facility] 04/21: w/ very small distal branches of LCX and RCA with high grade disease, not approachable for revascularization S/p 48 hours of IV heparin S/p ASA 324mg at OSH; continue 81mg daily S/p Plavix 600mg at OSH; continue 75mg daily Continue DAPT x12 months for NSTEMI medical mgmt Continue atorvastatin 40mg qHS (? If taking 20mg at home); LDL 108 with goal <70 Continue new carvedilol 6.25mg BID with hold parameters New Imdur 30mg daily 04/21 SL NTG and EKG PRN for chest pain Cardiac rehab consult # Hypertensive urgency on essential HTN SBP 180-200 mmHg at OSH; improved s/p SL NTG and hydralazine BP trends last 12 hours: BP: (115-170)/(44-68) New carvedilol 6.25mg BID as above Holding home losartan 100mg; can consider resuming once SERJIO resolves Amlodipine 5 mg daily started 04/23 New Imdur 30mg daily Monitor trends, adjust agents as needed # Acute HFpEF CXR at OSH without report of congestion/edema ProBNP ~1,300 TTE pLVEF with grade 2 diastolic dysfunction LVEDP 25 mmHg at weight of 235lbs S/p IV lasix 40 mg x2 with net negative 3L and ESRJIO Diuretic holiday 04/22. S/p IV lasix 20 mg x1 on 04/23 Defer SGLT2i given active UTI Daily weights, strict I/Os, low Na diet, daily labs # SERJIO Likely in setting of aggressive diuresis vs iso bactrim use Creatinine 0.89>>1.20>>1.50 Monitor BMP Holding home ARB as above # Hyperkalemia Suspect related to Bactrim use as receiving diuretics with up-trending creatinine Bactrim stopped and cefpodoxime replaced # Acute UTI UA + lueks, nitrite, WBC and bacteria UC prelim with gram negative rods Started Bactrim 04/21, 800-160mg BID; STOPPED on 04/23 due to SERJIO and hyperkalemia Cefpodoxime 100 mg BID through 04/25 # IDDM2 A1c 7.0% Hold home Victoza Reduced home Lantus at 32 U daily (home 40 U) SSI and JANNA # Anxiety # Insomnia Continue home Wellbutrin 150mg daily Continue home trazodone 100mg qHS # GERD Continue PPI # Prior head injury as child, ? TBI # Chronic balance issues Consider PT/OT consult pending functional abilities observed while admitted # TERENCE # Obesity, BMI 40 Home CPAP broken and hasn't used for years Diet: Daily Healthy Menu Choices/Cardiac diet ([facility]Diet) 2 GM NA; 60/60/75 CHO counting level 2 DVT Prophylaxis: Heparin subq Code status: Attempt Cardiopulmonary Resuscitation - Inpatient Disposition: Discharge Location: AM-PAC Basic Mobility Raw Score: 24 PT: Anticipated Discharge Disposition (PT): home with supervision Anticipated Equipment Needs at Discharge (PT): None OT: PCP DU Dumont [phone] Discussed with MD Eleazar Vega PA-C APP2 Pager: [phone] 04/23/2023 * Eleazar Roy PA - 04/23/2023 10:28 AM EST Certification of Medical Necessity Form for Home Oxygen Regan Woo is requiring HOME OXYGEN due to the diagnosis of hypoxia due to: Acute Heart Failure with preserved Ejection fraction Oxygen is required: Continuously Oxygen saturations documented Resting on Room Air: 88% Resting on 2 liters of O2: 94% (Please document below the Activity Saturations if Resting saturations are >88% ) Activity on Room Air: 84% Activity on O2 at 2 liters: 92 % O2 Sats collected by: Hayley Mai RN Date Sats Collected: 04/22/2023 Mobility: Patient is mobile. (Requiring portable oxygen) Rate: 2 LPM Route: nasal cannula Vendor Ordered: [facility] Central Intake Office: [place], [place] I anticipate that Regan Woo will be discharged within 1 day. * Franco Bray - 04/23/2023 9:02 AM EST Physical Therapy Evaluation Patient profile: Regan Woo is a 67 y.o. female admitted on 04/19/[address] Lm Delgado MD for non-ST elevated myocardial infarction. Total duration of encounter: 4 days Patient with the following active problems: Past Medical History: Diagnosis Date Allergy Chronic neck pain 06/29/2015 Diabetes Hypertension Obesity Urinary disorder Past Surgical History: Procedure Laterality Date BREAST BIOPSY left CHOLECYSTECTOMY HYSTERECTOMY PRO UNLISTED PROCEDURE, MUSCULOSKELETAL SYSTEM, GENERAL TOTAL KNEE ARTHROPLASTY left TUBAL LIGATION Active Non-Hospital Problems Diagnosis Total knee replacement status left 2009 [facility] Left knee pain Chronic neck pain Solar lentigo Seborrheic keratosis Breast hypertrophy Social History: Home set-up: Pt lives in a one-level mobile home. Pt lives with Shankar melendrez, and he helps when needed with cleaning, dressing, etc. Pt is independent with all ADLs including cooking. Pt sleeps in a flat bed and exits from pt's left side of bed. Bathroom Set-up: Pt's bathroom has a tub shower and standard toilet. Stairs: Pt has 3 RUEL the home through a mud room with one railing on the R side. Baseline Mobility: Independent Equipment at home: Pt has a cane, but does not use. Fall history: Most recent fall around 1 month ago, in the grocery store when lost her footing. Social Supports Available: Sonnykimmie (Shankar) Precautions/Special Considerations: Fall risk Lines: PIV, external cath, NC @ 2L/min Activity Orders: Activity as tolerated Diet: Cardiac diet Mobility and Positioning Recommendations: Pt. to utilize supervision for transfers and ambulation with nursing. Please encourage up to chair for meal times as able. EPM Level 5: Ambulate, Participate in self care Subjective: ???Next month I'm going to be 68, I don't want to look old?? Objective: Pt seen for evaluation today and presented as follows. Pain: 0/10 Vital Signs: At Rest After Activity SpO2 (2L/min NC) 95% 95% BP (MAP) 120/58mmHg (69) 132/68mmHg (87) HR 68bpm 66bpm Behavior / Mood: alert Oriented to: person, place, and date Follows commands: multi step Attention: WFL Safety awareness: WFL Vision: Wears glasses for reading Skin: CDI Musculoskeletal: ROM: Not tested Sensation: Not tested Tone: Not tested Strength: WFL for independent ADL and ambulation FUNCTIONAL MOBILITY: Bed Mobility: Supine to Sit: independent to L side of bed Sit to Supine: independent Rolling/Repositioning: Not tested Transfers: Sit to Stand: independent using no assistive device Stand to Sit: independent using no assistive device Bed to Chair: Not tested Gait: Distance: 150 ft Device Used: no assistive device Level of Assist: contact guard assist progressing to supervision Gait Mechanics: slow, mediolateral sway Comments: required one standing break long term to catch her breath Stairs: Number of steps: 3 Railing Present: R on the ascent and descent Level of Assistance: supervision Assistive Device: None Comments: Step to pattern on the ascent and descent Balance: Sitting Static: Good Sitting Dynamic: Good Standing Static: Good Standing Dynamic / Gait: Fair Education: patient has been educated on Stairs and Gait and demonstrates understanding. Patient status, treatment, and mobility recommendations discussed with nursing. Assessment: Regan Woo was seen today for physical therapy evaluation. Pt presented with impairments of increased fatigue with activity and impaired gait, which are currently contributing to functional limitations. Pt tolerated ambulating from hospital room to the stairwell but required one break roughly long term due to fatigue and also to catch her breath before continuing on to the stairwell. Patient mobilizing adequately to function at home and is presenting at baseline. Based on current presentation, recommend patient discharge to home with supervision/outpatient cardiac rehabilitation when medically appropriate. Will monitor pt during hospital course. Discharge Recommendations: Based on the current findings, Anticipated Discharge Disposition (PT): home with supervision when medically ready for hospital discharge. Discharge recommendation is based on the patient's current physical impairments, prior functional status, potential to return to prior level of function, patient motivation, reported home support, potential for functional gains, current level of endurance, reported home environment and anticipated trajectory of progress and may change based on patient progress during this hospitalization. Consult Recommendations: No other consults recommended at this time. Equipment Needs: Anticipated Equipment Needs at Discharge (PT): None Plan: Therapy Frequency (PT): evaluation only for therapy including monitoring Goals: All goals MET 2017 PT Evaluation Code Rationale: Diagnosis & Pertinent Co-Morbidities, personal factors, and present illness affecting Plan of Care: (see above); Additional personal factors or co- morbidities that impact plan: Total # of Factors: (factors include: Impaired gait pattern, increased fatigue with activity) 0 1-2 3+ X Examination of body system impairments, functional limitations and behaviors, and/or participation restrictions. Addressing 1-2 elements Addressing 3 + elements Addressing 4 + elements X Clinical presentation: See assessment above. Stable/Uncomplicated Evolving/Fluctuating Symptoms Unstable/Unpredictable X Clinical decision making of low complexity based on pt's functional performance as outlined in thisevaluation. Time IN / OUT: 8859-7558 Total Minutes, Physical Therapy: 42 Billing Code: low complexity eval, gait training Thank you for this consult. Franco Bray , SPT Physical Therapy Inpatient Rehabilitation Department Patient status, treatment interventions, and goals discussed with student. I am in agreement with all details and associated flowsheet rows as documented and was present for all aspects of the patient treatment session. Nissa Johnson PT, DPT Pager #[phone] * Sabrina Brito RN - 04/22/2023 1:40 PM EST Certification of Medical Necessity Form for Home Oxygen Regan Woo is requiring HOME OXYGEN due to the diagnosis of hypoxia due to: Acute Heart Failure with preserved Ejection fraction Oxygen is required: Continuously Oxygen saturations documented Resting on Room Air: 88% Resting on 2 liters of O2: 94% (Please document below the Activity Saturations if Resting saturations are >88% ) Activity on Room Air: 84% Activity on O2 at 2 liters: 92 % O2 Sats collected by: Hayley Mai RN Date Sats Collected: 04/22/2023 Mobility: Patient is mobile. (Requiring portable oxygen) Rate: 2 LPM Route: nasal cannula Vendor Ordered: [facility] Central Intake Office: [place], [place] I anticipate that Regan Woo will be discharged within 1 day. * Emmie Mcintosh RN - 04/22/2023 1:39 PM EST The Patient has been provided a list of Home Health Agencies/DME vendors which serve their preferred geographic area. A letter describing our affiliations was reviewed with them and they were educated about their right to choose where referrals are placed. Provided patient with [facility] Star Quality Rating for Home care hand out. Patient requests referral to : [facility] Intake Office: [place], [place] Expected date of discharge: 04/23/2023. Referral routed to the [employer] Custodian for matching with agency/vendor and to provide any required information. KENNETH Hart, RN Inpatient Animation Camera Operator- Cardiology Office of Care Management Pager #: [phone] * Eleazar Roy PA - 04/22/2023 10:57 AM EST CARDIOLOGY APP2 - [facility] DAILY PROGRESS NOTE Page [phone] to reach a provider 28/10 Admit Date: 04/19/2023 Encounter Date April 22, 2023 Anticipated Discharge Date: 04/23/2023 Hospital Day: 3 Active Hospital Problems Diagnosis NSTEMI (non-ST elevated myocardial infarction) Resolved Hospital Problems No resolved problems to display. 24 Hour Events/Subjective: - No acute events overnight - No chest pain or SOB. Ambulating to bathroom without difficulty. - Received IV lasix 40 mg x2 yesterday for EDP of 25; net negative 3L and mild SERJIO on AM labs. Holding further diuresis today. Weight down 1lb. - BP remains elevated; ongoing adjustments - Will likely plan for DC tomorrow - Shares stories about son, Enmanuel, who about ~10 years ago - Nursing reports with O2 down to ~80% with ambulation yesterday, plan to repeat walking O2 test today given now diuresed. - Partner, Gene, supportive and would like updates (phone # ). Medications: Scheduled Meds: isosorbide mononitrate CR 30 mg Oral QAM sulfamethoxazole-trimethoprim DS 1 tablet Oral 2 times per day carvediloL 3.125 mg Oral BID WC insulin lispro 0-8 Units Subcutaneous TID WC miconazole Topical (Top) BID sodium chloride 0.9 % (flush) 5 mL Intravenous BID atorvastatin 40 mg Oral QPM aspirin 81 mg Oral Daily traZODone 100 mg Oral Nightly insulin lispro 1-6 Units Subcutaneous TID AC insulin glargine (Lantus;Semglee) (100 unit/mL) subcutaneous injection 32 Units Subcutaneous Nightly oxybutynin XL 10 mg Oral Daily pantoprazole EC 40 mg Oral Daily buPROPion XL 150 mg Oral Daily clopidogreL 75 mg Oral Daily Continuous Infusions: PRN Meds:.sodium chloride 0.9 % (flush), lidocaine, nitroGLYcerin, glucose 40% oral geL OR dextrose OR glucagon Objective: Last value Range last 24 hrs Temp: 36.3 ??C (97.3 ??F) Temp: [36.3 ??C (97.3 ??F)-36.6 ??C (97.9 ??F)] Heart Rate: 72 Heart Rate from SpO2: 67 bpm Heart Rate: [46-73] BP: 140/50 BP: (140-189)/(38-83) Resp: 20 Resp: [20-22] SpO2: 93 % SpO2: [92 %-100 %] Height: 162.6 cm (5' 4) Weight: 106.2 kg (234 lb 2.1 oz) BMI (Calculated): 40.3 BMI Classification: Morbid Obesity Admit weight: 106.5 kg Patient Vitals for the past 168 hrs: Weight 04/22/23 0600 106.2 kg (234 lb 2.1 oz) 04/21/23 0538 107 kg (235 lb 14.3 oz) 04/20/23 0500 106.8 kg (235 lb 7.2 oz) 04/19/23 1817 106.5 kg (234 lb 12.6 oz) Intake/Output Summary (Last 24 hours) at 04/22/2023 1057 Last data filed at 04/22/2023 0803 Gross per 24 hour Intake 650 ml Output 4350 ml Net -3700 ml Physical Exam: Physical Exam Constitutional: General: She is not in acute distress. Appearance: She is obese. HENT: Head: Normocephalic and atraumatic. Nose: Nose normal. Mouth/Throat: Mouth: Mucous membranes are moist. Eyes: Conjunctiva/sclera: Conjunctivae normal. Cardiovascular: Rate and Rhythm: Normal rate and regular rhythm. Heart sounds: Murmur heard. Pulmonary: Effort: Pulmonary effort is normal. No respiratory distress. Breath sounds: Normal breath sounds. Abdominal: Palpations: Abdomen is soft. Musculoskeletal: Cervical back: Neck supple. Right lower leg: No edema. Left lower leg: No edema. Skin: General: Skin is warm. Neurological: General: No focal deficit present. Mental Status: She is alert and oriented to person, place, and time. Mental status is at baseline. Psychiatric: Mood and Affect: Mood is anxious. Labs: Recent Labs 04/22/23 0355 04/21/23 0125 04/20/23 0047 04/19/231928 WBC 7.3 7.8 7.5 8.9 HGB 13.1 13.5 12.9 15.1 HCT 41.1 41.9 40.1 45.8 PLATELET 225 215 225 213 MCV 93.8 94.2 93.5 91.6 Recent Labs 04/22/23 0355 04/21/23 1636 04/20/23 1350 04/19/231928 NA 140 142 141 143 CL 99 103 104 103 CO2 31 26 27 27 K 4.5 4.9 4.5 3.7 MAGNESIUM 0.76 -- 0.99 0.74 PHOS -- -- -- 3.1 CALCIUM 8.9 8.9 9.1 9.1 9.1 BUN 21* 17 14 8 CREATININE 1.20 0.89 0.82 0.62* Coags Recent Labs 04/19/231928 INR 1.1 PT 12.5 PTT 46* Cardiac Markers Recent Labs 04/20/23 1350 04/20/23 0047 04/19/231928 TROPONINTHS 18* 18* -- PROBNP -- -- 1,304* Endocrine Recent Labs 04/20/23 0047 04/19/231928 TSH -- 2.04 HA1C 7.0* -- Recent Labs 04/20/2346 CHLPL 176 176 TRIG 89 89 HDL 50 50 LDLCHOL 108 CHOLHDL 3.5 3.5 Recent Labs 04/22/23 0721 04/21/23 2023 04/21/23 1710 04/21/23 1636 04/21/23 1146 04/21/23 0849 04/21/23 0724 04/20/23 2031 04/20/23 1607 04/20/23 1350 04/20/23 1147 04/20/23 0749 04/19/23 2310 04/19/23 1929 GLUCOSE -- -- -- 111 -- -- -- -- -- 124 -- -- -- 100 POCGLU 159 129 110 -- 96 135 128 175 141 -- 104 123 < > -- < > = values in this interval not displayed. Telemetry: I have personally reviewed and interpreted the telemetry from the last 24 hours. Resultsshow SR/SA with brief junctional rhythm; HR 40-80s. Rare NSVT, longest 27 beats 04/20. Rare PAC/PVCs. Diagnostics: [facility] 04/21/23 Conclusions: * Two vessel coronary artery disease (LCX and RCA) * Elevated left ventricular end diastolic pressure * Very small distal branches of LCX and RCA with high grade disease, not approachable for revascularization. TTE 04/20/23 Conclusions Normal left and right ventricular size and systolic function. LV ejection fraction 54%. No regional wall motion abnormalities. Aortic sclerosis without severe stenosis. Mild mitral regurgitation. No pericardial effusion. No prior studies available for comparison. Assessment: Regan Woo is a 67 y.o. female with a PMH of IDDM2, anxiety, GERD, TERENCE (occasional CPAP use), and obesity who presented to [facility] ER with chest pain. Found to have positive troponin trend. EKG with septal RUEL not meeting STEMI criteria. Chest pain resolved with SL NTG. Noted to be hypertensive on arrival (SBP 180-200s). Treated for NSTEMI with aspirin and Plavix load, and started on IV heparin bolus and gtt. Transferred for NSTEMI management. On arrival, remains HDS and chest pain free. TTEshowed pLVEF without rWMAs, significant valvular disease, or pericardial effusion. There was evidence of grade 2 diastolic dysfunction. Repeat troponins flat (18 > 18) at [facility]. Given EKG, troponin, history and cardiac risk factors proceeded with [facility] 04/21. LHC showed very small distal branches ofLCX and RCA with high grade disease, not approachable for revascularization. Recommendations for medical management. Will continue DAPT x12 months, she has completed 48 hours of IV heparin. LVEDP high at 25 and TTE w/ evidence of diastolic dysfunction, subsequently received IV lasix 40 mg x2 on 04/21. 04/22 labs notable for mild SERJIO with creatinine 1.20, increased from 0.89 and elevated BUN. Net negative 3L in 24 hours. Appears euvolemic on exam. Will defer further diuretics and consider PO on 04/23. Ongoing medication adjustments to antihypertensive regimen. Plan: # NSTEMI type 1 # ASCVD Troponin at OSH 35 > 59 > 35. [facility] HS Troponin 18 > 18. TTE 04/20: pLVEF without rWMAs [facility] 04/21: w/ very small distal branches of LCX and RCA with high grade disease, not approachable for revascularization S/p 48 hours of IV heparin S/p ASA 324mg at OSH; continue 81mg daily S/p Plavix 600mg at OSH; continue 75mg daily Continue DAPT x12 months for NSTEMI medical mgmt Continue atorvastatin 40mg qHS (? If taking 20mg at home); LDL 108 with goal <70 Continue new carvedilol 6.25mg BID with hold parameters New Imdur 30mg daily 04/21 SL NTG and EKG PRN for chest pain Cardiac rehab consult # Hypertensive urgency on essential HTN SBP 180-200 mmHg at OSH; improved s/p SL NTG and hydralazine BP trends last 12 hours: BP: (140-174)/(45-50) New carvedilol 6.25mg BID as above Holding home losartan 100mg; consider resuming 04/23 if SERJIO resolves New Imdur 30mg daily Monitor trends, adjust agents as needed # Acute HFpEF CXR at OSH without report of congestion/edema ProBNP ~1,300 TTE pLVEF with grade 2 diastolic dysfunction LVEDP 25 mmHg at weight of 235lbs S/p IV lasix 40 mg x2 with net negative 3L and SERJIO; diuretic holiday 04/22. Consider PO diuretic on 04/23 Defer SGLT2i given active UTI Daily weights, strict I/Os, low Na diet, daily labs # SERJIO Likely in setting of aggressive diuresis Creatinine 0.89>>1.20 Diuretic holiday 1/16 Monitor BMP Holding home ARB # Acute UTI UA + lueks, nitrite, WBC and bacteria UC prelim with gram negative rods Started Bactrim 04/21, 800-160mg BID x5 days # IDDM2 A1c 7.0% Hold home Victoza Reduced home Lantus at 32 U daily (home 40 U) SSI and JANNA # Anxiety # Insomnia Continue home Wellbutrin 150mg daily Continue home trazodone 100mg qHS # GERD Continue PPI # Prior head injury as child, ? TBI # Chronic balance issues Consider PT/OT consult pending functional abilities observed while admitted # TERENCE # Obesity, BMI 40 Home CPAP broken and hasn't used for years Diet: Daily Healthy Menu Choices/Cardiac diet ([facility]-Diet) 2 GM NA; 60/60/75 CHO counting level 2 DVT Prophylaxis: Ambulate Code status: Attempt Cardiopulmonary Resuscitation - Inpatient Disposition: Discharge Location: AM-PAC Basic Mobility Raw Score: 20 PT: OT: PCP DU Dumont [phone] Discussed with MD Eleazar Vega PA-C APP2 Pager: [phone] 04/22/2023 * Tori Chang PA - 04/21/2023 8:10 AM EST CARDIOLOGY APP2 - [facility] DAILY PROGRESS NOTE Page [phone] to reach a provider 28/10 Admit Date: 04/19/2023 Encounter Date April 21, 2023 Anticipated Discharge Date: 04/22/2023 Hospital Day: 2 Active Hospital Problems Diagnosis NSTEMI (non-ST elevated myocardial infarction) Resolved Hospital Problems No resolved problems to display. 24 Hour Events/Subjective: - No acute events overnight - No chest pain or SOB. Ambulating to bathroom without difficulty. - Reported foul smelling and cloudy urine; UA +. Will treat with PO Bactrim. Follow UC. - BP remains elevated; ongoing adjustments - Partner, Gene, supportive and would like updates (phone # ). Updated at bedside 04/21. Medications: Scheduled Meds: isosorbide mononitrate CR 30 mg Oral QAM sulfamethoxazole-trimethoprim DS 1 tablet Oral 2 times per day carvediloL 6.25 mg Oral BID WC insulin lispro 0-8 Units Subcutaneous TID WC miconazole Topical (Top) BID sodium chloride 0.9 % (flush) 5 mL Intravenous BID atorvastatin 40 mg Oral QPM aspirin 81 mg Oral Daily traZODone 100 mg Oral Nightly insulin lispro 1-6 Units Subcutaneous TID AC insulin glargine (Lantus;Semglee) (100 unit/mL) subcutaneous injection 32 Units Subcutaneous Nightly oxybutynin XL 10 mg Oral Daily pantoprazole EC 40 mg Oral Daily buPROPion XL 150 mg Oral Daily clopidogreL 75 mg Oral Daily Continuous Infusions: PRN Meds:.sodium chloride 0.9 % (flush), lidocaine, nitroGLYcerin, glucose 40% oral geL OR dextrose OR glucagon Objective: Last value Range last 24 hrs Temp: 36.8 ??C (98.2 ??F) Temp: [36.8 ??C (98.2 ??F)-37 ??C (98.6 ??F)] Heart Rate: 63 Heart Rate from SpO2: (!) 49 bpm Heart Rate: [46-79] BP: 148/83 BP: (148-189)/(52-83) Resp: 22 Resp: [16-24] SpO2: 95 % SpO2: [87 %-99 %] Height: 162.6 cm (5' 4) Weight: 107 kg (235 lb 14.3 oz) BMI (Calculated): 40.3 BMI Classification: Morbid Obesity Admit weight: 106.5 kg Patient Vitals for the past 168 hrs: Weight 04/21/23 0538 107 kg (235 lb 14.3 oz) 04/20/23 0500 106.8 kg (235 lb 7.2 oz) 04/19/23 1817 106.5 kg (234 lb 12.6 oz) Intake/Output Summary (Last 24 hours) at 04/21/2023 1329 Last data filed at 04/21/2023 1149 Gross per 24 hour Intake 2077.07 ml Output 2000 ml Net 77.07 ml Physical Exam: Physical Exam Constitutional: General: She is not in acute distress. Appearance: She is obese. HENT: Head: Normocephalic and atraumatic. Nose: Nose normal. Mouth/Throat: Mouth: Mucous membranes are moist. Eyes: Conjunctiva/sclera: Conjunctivae normal. Cardiovascular: Rate and Rhythm: Normal rate and regular rhythm. Heart sounds: Murmur heard. Pulmonary: Effort: Pulmonary effort is normal. No respiratory distress. Breath sounds: Normal breath sounds. Comments: 2L via NC Abdominal: Palpations: Abdomen is soft. Musculoskeletal: Cervical back: Neck supple. Right lower leg: No edema. Left lower leg: No edema. Skin: General: Skin is warm. Neurological: General: No focal deficit present. Mental Status: She is alert and oriented to person, place, and time. Mental status is at baseline. Psychiatric: Mood and Affect: Mood is anxious. Labs: Recent Labs 04/21/23 0125 04/20/23 0047 04/19/231928 WBC 7.8 7.5 8.9 HGB 13.5 12.9 15.1 HCT 41.9 40.1 45.8 PLATELET 215 225 213 MCV 94.2 93.5 91.6 Recent Labs 04/20/23 1350 04/19/231928 NA 141 143 CL 104 103 CO2 27 27 K 4.5 3.7 MAGNESIUM 0.99 0.74 PHOS -- 3.1 CALCIUM 9.1 9.1 9.1 BUN 14 8 CREATININE 0.82 0.62* Coags Recent Labs 04/19/231928 INR 1.1 PT 12.5 PTT 46* Cardiac Markers Recent Labs 04/20/23 1350 04/20/23 0047 04/19/231928 TROPONINTHS 18* 18* -- PROBNP -- -- 1,304* Endocrine Recent Labs 04/20/23 0047 04/19/231928 TSH -- 2.04 HA1C 7.0* -- Recent Labs 04/20/2346 CHLPL 176 176 TRIG 89 89 HDL 50 50 LDLCHOL 108 CHOLHDL 3.5 3.5 Recent Labs 04/21/23 1146 04/21/23 0849 04/21/23 0724 04/20/23 20304/20/23 1607 04/20/23 1350 04/20/23 1147 04/20/23 0749 04/19/23 2310 04/19/23 1929 04/19/23 1822 GLUCOSE -- -- -- -- -- 124 -- -- -- 100 -- POCGLU 96 135 128 175 141 -- 104 123 190 -- 95 Telemetry: I have personally reviewed and interpreted the telemetry from the last 24 hours. Resultsshow SR/SA with brief junctional rhythm; HR 40-80s. Rare NSVT, longest 27 beats 04/20. Rare PAC/PVCs. Diagnostics: [facility] 04/21/23 Conclusions: * Two vessel coronary artery disease (LCX and RCA) * Elevated left ventricular end diastolic pressure * Very small distal branches of LCX and RCA with high grade disease, not approachable for revascularization. TTE 04/20/23 Conclusions Normal left and right ventricular size and systolic function. LV ejection fraction 54%. No regional wall motion abnormalities. Aortic sclerosis without severe stenosis. Mild mitral regurgitation. No pericardial effusion. No prior studies available for comparison. Assessment: Regan Woo is a 67 y.o. female with a PMH of IDDM2, anxiety, GERD, TERENCE (no CPAP use), and obesity who presented to [facility] ER with chest pain. Found to have positive troponin trend. EKG with septal RUEL not meeting STEMI criteria. Chest pain resolved with SL NTG. Noted to be hypertensive on arrival (SBP 180- 200s). Treated for NSTEMI with aspirin and Plavix load and started on IV heparin bolus and gtt. Transferred for NSTEMI management. On arrival, remains HDS and chest pain free. TTE showed pLVEF without rWMAs, significant valvular disease, or pericardial effusion. There was evidence of grade 2 diastolic dysfunction. Repeat troponins flat (18 > 18) at [facility]. Given EKG, troponin, historyand cardiac risk factors proceeded with [facility] 04/21. LHC showed very small distal branches of LCX and RCA with high grade disease, not approachable for revascularization. Recommendations for medical management. Will continue DAPT x12 months, she has completed 48 hours of IV heparin. LVEDP high at 25 and TTE w/ evidence of diastolic dysfunction; will start IV diuresis. Ongoing medication adjustments f or BP control. Plan: # NSTEMI type 1 # ASCVD Troponin at OSH 35 > 59 > 35. [facility] HS Troponin 18 > 18. TTE 04/20: pLVEF without rWMAs [facility] 04/21: w/ very small distal branches of LCX and RCA with high grade disease, not approachable for revascularization S/p 48 hours of IV heparin S/p ASA 324mg at OSH; continue 81mg daily S/p Plavix 600mg at OSH; continue 75mg daily Continue DAPT x12 months for NSTEMI medical mgmt Continue atorvastatin 40mg qHS (? If taking 20mg at home); LDL 108 with goal <70 Continue new carvedilol 6.25mg BID with hold parameters New Imdur 30mg daily 04/21 SL NTG and EKG PRN for chest pain Cardiac rehab consult # Hypertensive urgency on essential HTN SBP 180-200 mmHg at OSH; improved s/p SL NTG and hydralazine BP trends last 12 hours: BP: (148-189)/(52-83) New carvedilol 6.25mg BID as above Hold home losartan 100mg (unclear if taking); consider resuming 04/22 post LHC pending BP trends New Imdur 30mg daily Monitor trends, adjust agents as needed # Acute HFpEF CXR at OSH without report of congestion/edema ProBNP ~1,300 TTE pLVEF with grade 2 diastolic dysfunction LVEDP 25 mmHg at weight of 235lbs Give IV Lasix 40mg now (Lasix naive); monitor response and consider re-dose Defer SGLT2i given active UTI Daily weights, strict I/Os, low Na diet, daily labs # Acute UTI UA + lueks, nitrite, WBC and bacteria; follow UC Start Bactrim 800-160mg BID x5 days # IDDM2 A1c 7.0% Hold home Victoza Reduced home Lantus at 32 U daily (home 40 U) SSI and JANNA # Anxiety # Insomnia Continue home Wellbutrin 150mg daily Continue home trazodone 100mg qHS # GERD Continue PPI # Prior head injury as child, ? TBI # Chronic balance issues Consider PT/OT consult pending functional abilities observed while admitted # TERENCE # Obesity, BMI 40 Home CPAP broken and hasn't used for years Diet: Daily Healthy Menu Choices/Cardiac diet ([facility]Diet) 2 GM NA; 60/60/75 CHO counting level 2 DVT Prophylaxis: IV heparin -> ambulate Code status: Attempt Cardiopulmonary Resuscitation - Inpatient Disposition: Discharge Location: AM-PAC Basic Mobility Raw Score: 22 PT: OT: PCP Cady Saavedra, PA [phone] Discussed with MD Tori Stone, PA-C Pager #[phone] 04/21/2023 Associated attestation - David Levin MD - 04/22/2023 6:35 AM EST Please see Tori Chang PA's note for details of the patient history of presentation and data. I have discussed, reviewed and agree with the documented History, Physical findings, Assessment and Plan of care. S/p C with high grade disease in the distal branches of Lcx and RCA that could not be revascularized. Medical management with Heparin for 48hrs, DAPT. Start ppi while on DAPT. Imdur and carvedilol.Titrate as tolerated. LVEDP of 25. Give IV diuresis.. UA positive. Treat with antibiotics if symptoms of UTI present. * Tori Chang PA - 04/20/2023 7:30 AM EST CARDIOLOGY APP2 - [facility] DAILY PROGRESS NOTE Page [phone] to reach a provider 28/10 Admit Date: 04/19/2023 Encounter Date April 20, 2023 Anticipated Discharge Date: Hospital Day: 1 Active Hospital Problems Diagnosis NSTEMI (non-ST elevated myocardial infarction) Resolved Hospital Problems No resolved problems to display. 24 Hour Events/Subjective: - Admitted overnight as transfer from [facility] for NSTEMI management - She experienced acute onset chest pressure (elephant on chest) with LH/dizziness and SOB after walking around [facility] 04/18. She then presented to her routine eye doctor appointment and was found rossy hypertensive with instructions to go to the local ER. On arrival to the ER had persistent symptom s. Per documentation, resolved with SL NTG (she reports pain improved some). She had an abnormal EKG and positive troponin trend. Started on ASA/Plavix and IV heparin for ACS protocol and transferredto [facility]. - While in the ambulance yesterday for transfer she had another episode of pain. Again, resolved with SL NTG. She reports the ride was bumpy and quite uncomfortable. - Prior to admission she reports being active and has not experienced limiting exertional symptoms. - She also notes significant history of anxiety attacks. This has been for the last ~10 years following the of her son (cystic fibrosis). During anxiety attacks she has some chest discomfort but not the same as her chest pressure she had prompting this evaluation. - She has a history of ?TBI after a fall on the playground as a child. Chronic unsteadiness/balanceissues. - Partner, Gene, supportive and would like updates (phone # ). Attempted to call AM 04/20 without answer; VM left. Connected 04/20 afternoon. Medications: Scheduled Meds: sodium chloride 0.9 % (flush) 5 mL Intravenous BID atorvastatin 40 mg Oral QPM aspirin 81 mg Oral Daily traZODone 100 mg Oral Nightly insulin lispro 1-6 Units Subcutaneous TID AC insulin glargine (Lantus;Semglee) (100 unit/mL) subcutaneous injection 32 Units Subcutaneous Nightly oxybutynin XL 10 mg Oral Daily pantoprazole EC 40 mg Oral Daily buPROPion XL 150 mg Oral Daily clopidogreL 75 mg Oral Daily Continuous Infusions: heparin (porcine) infusion 1,200 Units/hr (04/20/23 0153) PRN Meds:.heparin (porcine) infusion AND heparin (porcine), sodium chloride 0.9 % (flush), lidocaine, nitroGLYcerin, glucose 40% oral geL OR dextrose OR glucagon Objective: Last value Range last 24 hrs Temp: 36.9 ??C (98.4 ??F) Temp: [36.9 ??C (98.4 ??F)-37.1 ??C (98.8 ??F)] Heart Rate: 75 Heart Rate from SpO2: 70 bpm Heart Rate: [75-91] BP: 156/61 BP: (150-207)/(49-75) Resp: 18 Resp: [18-20] SpO2: 93 % SpO2: [88 %-95 %] Height: 162.6 cm (5' 4) Weight: 106.8 kg (235 lb 7.2 oz) BMI (Calculated): 40.3 BMI Classification: Morbid Obesity Admit weight: 106.5 kg Patient Vitals for the past 168 hrs: Weight 04/20/23 0500 106.8 kg (235 lb 7.2 oz) 04/19/23 1817 106.5 kg (234 lb 12.6 oz) Intake/Output Summary (Last 24 hours) at 04/20/2023 1100 Last data filed at 04/20/2023 0400 Gross per 24 hour Intake 435.14 ml Output -- Net 435.14 ml Physical Exam: Physical Exam Constitutional: General: She is not in acute distress. Appearance: She is obese. HENT: Head: Normocephalic and atraumatic. Nose: Nose normal. Mouth/Throat: Mouth: Mucous membranes are moist. Eyes: Conjunctiva/sclera: Conjunctivae normal. Cardiovascular: Rate and Rhythm: Normal rate and regular rhythm. Heart sounds: Murmur heard. Pulmonary: Effort: Pulmonary effort is normal. No respiratory distress. Breath sounds: Normal breath sounds. Comments: 2L via NC Abdominal: Palpations: Abdomen is soft. Musculoskeletal: Cervical back: Neck supple. Right lower leg: No edema. Left lower leg: No edema. Skin: General: Skin is warm. Neurological: General: No focal deficit present. Mental Status: She is alert and oriented to person, place, and time. Mental status is at baseline. Psychiatric: Mood and Affect: Mood is anxious. Labs: Recent Labs 04/20/234604/19/231928 WBC 7.5 8.9 HGB 12.9 15.1 HCT 40.1 45.8 PLATELET 225 213 MCV 93.5 91.6 Recent Labs 04/19/231928 NA 143 CL 103 CO2 27 K 3.7 MAGNESIUM 0.74 PHOS 3.1 CALCIUM 9.1 9.1 BUN 8 CREATININE 0.62* Coags Recent Labs 04/19/231928 INR 1.1 PT 12.5 PTT 46* Cardiac Markers Recent Labs 04/20/234604/19/231928 TROPONINTHS 18* -- PROBNP -- 1,304* Endocrine Recent Labs 04/20/234604/19/231928 TSH -- 2.04 HA1C 7.0* -- Recent Labs 04/20/2346 CHLPL 176 176 TRIG 89 89 HDL 50 50 LDLCHOL 108 CHOLHDL 3.5 3.5 Recent Labs 04/20/23 0749 04/19/23 2310 04/19/23192804/19/23 1822 GLUCOSE -- -- 100 -- POCGLU 123 190 -- 95 EKG 04/20/23: NSR 77 bpm prior septal RUEL improved. Telemetry: I have personally reviewed and interpreted the telemetry from the last 24 hours. Resultsshow NSR; HR 70-80s. 7 beat NSVT 04/20. Rare PAC/PVCs. Diagnostics: [facility] 04/21/23 Planned TTE 04/20/23 Pending Assessment: Regan Woo is a 67 y.o. female with a PMH of IDDM2, anxiety, GERD, TERENCE, and obesity who presented to [facility] ER with chest pain. Found to have positive troponin tend. EKG with septal RUEL not meeting STEMI criteria. Chest pain resolved with SL NTG. Noted to be hypertensive on arrival (SBP 180-200s). Treated for NSTEMI with aspirin and Plavix load and started on IV heparin bolus and gtt. Transferred for NSTEMI management. On arrival, remains HDS and chest pain free. Plan for TTE today. Given EKG, troponin, history and cardiac risk factors will plan to proceed with [facility] tomorrow (04/21). NSTEMItype 2 possible in setting of HTN urgency. Plan: # NSTEMI type 1 versus 2 in setting of HTN # Cardiac risk factors: HTN, HLD, DM, obesity, FHx Troponin at OSH 35 > 59 > 35. [facility] HS Troponin 18. TTE ordered Continue IV heparin S/p ASA 324mg at OSH; continue 81mg daily S/p Plavix 600mg at OSH; continue 75mg daily Continue atorvastatin 40mg qHS (? If taking 20mg at home); LDL Start carvedilol 6.25mg BID with hold parameters SL NTG and EKG PRN for chest pain NPO at [place] for [facility] # Hypertensive urgency on essential HTN SBP 180-200 mmHg at OSH; improved s/p SL NTG and hydralazine BP trends last 12 hours: BP: (156-159)/(49-61) New carvedilol 6.25mg BID as above Hold home losartan 100mg (unclear if taking) given plan for [facility] Consider new amlodipine Monitor trends, adjust agents as needed # IDDM2 A1c 7.0% Hold home Victoza Reduced home Lantus at 32 U daily (home 40 U) SSI and JANNA # Anxiety # Insomnia Continue home Wellbutrin 150mg daily Continue home trazodone 100mg qHS # GERD Continue PPI # Prior head injury as child, ? TBI # Chronic balance issues Consider PT/OT consult pending functional abilities observed while admitted # TERENCE # Obesity, BMI 40 Home CPAP broken and hasn't used for years Diet: Daily Healthy Menu Choices/Cardiac diet ([facility]Diet) NPO diet (Give Meds) DVT Prophylaxis: IV heparin Code status: Attempt Cardiopulmonary Resuscitation - Inpatient Disposition: Discharge Location: AM-PAC Basic Mobility Raw Score: 24 PT: OT: PCP DU Dumont [phone] Discussed with MD Tori Stone PA-C Pager #[phone] 04/20/2023 Associated attestation - David Levin MD - 04/20/2023 10:05 PM EST Please see Tori Chang PA's note for details of the patient history of presentation and data. I have discussed, reviewed and agree with the documented History, Physical findings, Assessment and Plan of care. Given the patient's risk factors ( HTN, HLD, DM, obesity, Family history), ECG changes, positive biomarkers, will proceed with coronary angiography. Prepare for [facility] tomorrow. * Trent Hair DO - 04/19/2023 7:37 PM EST Images from the original note were not included. Cardiac cath Pre Procedure Note The indications, expected benefits and potential risks of heart catheterization were reviewed in detail with the patient. The potential for , heart attack, stroke, kidney failure, hemorrhage, allergic reaction, vascular complications and infection were reviewed in detail. The possibility of stenting and other percutaneous intervention with associated risk was reviewed. The possible need for emergent coronary artery bypass surgery was reviewed. After a discussion about the above, and havinganswered all questions posed, the patient was provided with a consent which was reviewed and signed. ASA: 2: Patient with mild systemic disease Mallampati: III: only the base of the uvula can be seen Sedation Plan: moderate (conscious sedation) Assessment and Plan: Proceed with cardiac cath today, see progress note from today for further details. Trent Hair DO 04/19/2023 Pager [phone] * Briana Avina RN - 04/19/2023 6:11 PM EST Pt arrived to room 461 from outside hospital, pt initiated on telemetry, oriented to room, call haskins within reach documented in this encounter H&P Notes * Trent Hair DO - 04/19/2023 6:25 PM EST Cardiology Admission History and Physical Patient Name: Regan Woo Service: APP2 Responsible Attending: Trent Hair DO PCP: DU Dumont PCP phone #: [phone] Chief Complaint: CP History of Present Illness: Regan Woo is a 67 y.o. female with a PMHx of IDDM2, TERENCE, HTN, obesity, Anxiety, insomnia, MDD, dysthymia, and RLS who was in her usual state of health until she started to experience CP. Yesterday, pt experienced non radiating substernal CP that started after walking out of [employer]. Chest pain felt like a band like tightness with pressure feeling as if an elephant sitting on her chest, CP also associated with SOB. Pain scale 9-10/10 at that time. She then went to ER at [facility] where the pain resolved with NTG. Note that she had another similar episode of CP while laying on the stretcher in the ambulance to [facility]. This was resolved with NTG as well. Denies previous hx of CP, cardiac disease, previous cath, previous cardiac stress test. Pt currently denies CP. Notes BP is 130-140s at home but she battles with anxiety and states her BP can go up when she is anxious. Notes strong hx of heart disease on moms side, mom in early 50s d/t DC. At [facility], pt ECG noted A flutter, A rate of 211 with probable anteroseptal infarct (documented), c/f nonspecific ST changes in V1 and V2. BP elevated in 180-200s, improved with hydralazine. Troponin elevated 35.1 ---> 59.3 --> 34.9. Pt given nitro past for CP and BP with improvement. Started onheparin given NSTEMI concern, load of plavix and ASA done. Transferred to [facility] for further evaluatio n. Meds administered at OSH: Morphine 2mg x1 IV Hydralazine 20mg x 1 Nitro paste Heparin bolus + drip Plavix 600mg x 1 ASA 324mg x 1 Imaging at OSH: CXR - questionable diffuse interstitial opacities. Left retrocardiac opacity may be atelectasis or PNA OSH labs prior to transfer: CBC Hgb 14.6 WBC 7.9 Plt 219 BMP Na 140 K 3.9 BUN 13 Cr 0.71 Troponin I 35.1 ---> 59.3 --> 34.9 Cardiac RF profile significant for HTN, HLD, DM2 and family history. Note that her mom of a heart attack in her early 50s. Review of Systems: GENERAL HEENT CV PULM All negative X All negative All negative All negative Weight loss Headache x Chest Pain Non-productive cough Weight gain Vision change Palpitations Productive cough Fevers Sinus congestion Orthopnea Wheezing Chills Hoarseness LE edema Hemoptysis Night sweats Epistaxis PND Pleuritic pain x Fatigue Syncope SOB Claudication x LUNDY MSK RENAL ENDO GI X All negative X All negative X All negative X All negative Arthralgias Frequency Heat intolerance Blood in stool Myalgias Urgency Cold intolerance Dysphagia Weakness Hematuria Polydipsia Odynophagia Stiffness Flank pain Polyphagia Abdominal discomfort Dysuria Cushingoid Constipation Foamy urine Diarrhea Discharge Nausea/Vomiting LYMPH SKIN NEURO PSYCH X All negative X All negative X All negative X All negative Swollen nodes Rash Seizures Depressed affect Tender nodes Ulcers Tremors Occupational stress Diffuse nodes Bruising Spasticity Anxiety Local nodes Tanned skin Focal weakness Insomnia Night sweats Telangiectasias Diplopia Paresthesias Dizziness Problem List/Past Medical History Patient Active Problem List Diagnosis NSTEMI (non-ST elevated myocardial infarction) Total knee replacement status left 2009 [facility] Left knee pain Chronic neck pain Solar lentigo Seborrheic keratosis Breast hypertrophy Past Medical History: Diagnosis Date Allergy Chronic neck pain 06/29/2015 Diabetes Hypertension Obesity Urinary disorder Meds: No current facility-administered medications on file prior to encounter. Current Outpatient Medications on File Prior to Encounter Medication Sig Dispense Refill glipiZIDE (GLUCOTROL) 10 mg Tablet Take 10 mg by mouth 2 times daily. traZODone (DESYREL) 50 mg Tablet Take 50 mg by mouth nightly. insulin needles, disposable, 31 gauge x 5/16 Needle by [facility].(Non-Drug; Combo Route) route. Indications: BD ultra-fine pen NDL [id number] metFORMIN (GLUCOPHAGE) 500 mg Tablet Take 500 mg by mouth daily. topiramate (TOPAMAX) 25 mg Tablet Take 25 mg by mouth 2 times daily. insulin glargine (LANTUS) Insulin Pen Inject 35 Units subcutaneously nightly. oxybutynin (DITROPAN) 5 mg Tablet Take 5 mg by mouth 2 times daily. esomeprazole (NEXIUM) 40 mg capsule Take 40 mg by mouth 2 times daily. buPROPion (WELLBUTRIN SR) 150 mg 12 hr tablet Take 150 mg by mouth 2 times daily. FLUoxetine (PROZAC) 20 mg capsule Take 20 mg by mouth daily. gabapentin (NEURONTIN) 100 mg capsule Take 400 mg by mouth 2 times daily. Allergies: Allergies Allergen Reactions Latex, Natural Rubber Rash Bee Sting [Hymenoptera Allergenic Extract] Anaphylaxis Other [Unclassified Drug] Mushrooms, Peppers - Facial Edema Penicillins Rash Shellfish Derived Facial Edema Family History: Family History Problem Relation Age of Onset Cancer Father Social History: Tobacco: no EtOH: no Illicits: no Living Situation: home with fiance Vitals: Last value Range last 24 hrs Temperature Temp: -- Heart Rate Heart Rate: -- Blood Pressure BP: (!) 207/75 BP: (207)/(75) Respiratory Rate Resp: 20 Resp: [20] SpO2 SpO2: 91 % SpO2: [91 %] Examination: General: Pleasant, alert, appropriate, anxious, trembling. Appears stated age. HEENT: EOMI, anicteric sclera. Oropharynx clear w/o lesions. Moist mucous membranes Neck: Supple with normal ROM. No obvious LAD. Cardiac: Normal S1 and S2, Regular rate and rhythm; systolic murmur present Respiratory: Nonlabored. Clear to auscultation bilaterally; No wheezes/ rhonchi/ rales. Abd: + BS; soft, non-tender, non-distended, no obvious masses. Ext: bilateral trace edema (L>R), cyanosis or clubbing. Neuro: Alert and oriented, no-focal deficits, sensation intact to crude touch Laboratory: No results for input(s): WBC, HGB, HCT, PLATELET in the last 168 hours. No results for input(s): NA, K, CL, CO2, BUN, CREATININE in the last 168 hours. No results for input(s): AST, ALT, ALKPHOS, BILITOT, BILIDIR in the last 168 hours. No results for input(s): CALCIUM, PHOS in the last 168 hours. No results for input(s): CK, TROPONINT in the last 168 hours. No results for input(s): PT, PTT, INR in the last 168 hours. Diagnostic Studies: EKG- ECG noted A flutter, A rate of 211 with probable anteroseptal infarct (documented), c/f nonspecific ST changes in V1 and V2 CXR- OSH questionable diffuse interstitial opacities. Left retrocardiac opacity may be atelectasis or PNA Most recent TTE (none)- None on file ASSESSMENT: Regan Woo is a 67 y.o. female with a PMHx of IDDM2, TERENCE, HTN, obesity, Anxiety, insomnia, MDD, dysthymia, and RLS who was in her usual state of health until she started to experience CP. Initial CP episode c/f ASCVD, strong fam hx and co-morbidities for heart disease present. Will start w/u for ACS. Other possible causes possibly GERD vs. Anxiety given med hx. PLAN: # NSTEMI # HTN HLD Admit to Cardiology service ASA load and plavix done ASA 81mg QD and high intensity statin Plavix 75mg QD Consider starting BB in AM Continue heparin gtt TTE NTG and EKG PRN for CP Hold home losartan, pt does not recall taking. Resume if indicated, pt prescribed 100mg QD NPO PM for ischemic w/u Cath consent in chart # IDDM2 Resume home lantus Hold home Victoza SSI Pt requesting to not have a diabetic diet unless sugars are uncontrolled # MDD # Anxiety # Insomnia Resume home trazodone QPM Resume ome Wellbutrin 150mg QD DVT- heparin Code Status: full Dispo- pending course Trent Hair, DO 04/19/2023 6:25 PM documented in this encounter Miscellaneous Notes * Care Management - Susan Hernandez APRN - 04/25/2023 10:47 AM EST Certification of Medical Necessity Form for Home Oxygen Regan Woo is requiring HOME OXYGEN due to the diagnosis of hypoxia due to: Acute Heart Failure with preserved Ejection fraction Oxygen is required: Continuously Oxygen saturations documented Resting on Room Air: 87% Resting on 2 liters of O2: 95% (Please document below the Activity Saturations if Resting saturations are >88% ) Activity on Room Air: 84% Activity on O2 at 2 liters: 96 % O2 Sats collected by: Selwyn England RN Date Sats Collected: 04/25/2023 Mobility: Patient is mobile. (Requiring portable oxygen) Rate: 2 LPM Route: nasal cannula Vendor Ordered: [facility]/ [facility] (Resp Supplies) Central Intake: [place]: [place]: (They cover all of [place]) Expected date of discharge: 04/25/2023. Referral routed to the [employer] Custodian for matching with agency/vendor and to provide any required information. I anticipate that Regan Woo will be discharged within 1 day. * Plan of Care - Tori De La Cruz RN - 04/24/2023 11:30 AM EST OUTCOME EVALUATION NOTE: OUTCOME SUMMARY: Assumed care of Danielle @0700. Pt A&Ox4, VSS on 1L NC, sinus arrhythmia w/ first degree AV block.Denies CP/SOB for this RN. OOB w/1A, walked in halls, up to chair w/o issue. SO Gene updated frequently. Possible d/c tomorrow. Medicated per JUN. Shift otherwise uneventful. PLAN MOVING FORWARD: Continue to monitor D/c planning as appropriate INDIVIDUALIZED FALL PREVENTION INTERVENTIONS: Patient-specific fall risk factors per assessment: [current deficits]: unfamiliar environment, telewiring, IV lines, generalized weakness Assistance [level of assistance required for transfers and ambulation]: SBA Supervision [direct monitoring required during toileting and ADLs]: Supervision Surveillance [continuous indirect monitoring]: Telemetry Patient-specific fall prevention interventions for sensory deficits provided, if applicable: Bed near unit station, nonskid socks applied, personal belongings within reach, call haskins in reach, bed/chair alarm in use, hourly safety rounds CPG GOAL OUTCOME EVALUATION: Problem: Chest Pain Goal: Resolution of Chest Pain Symptoms Outcome: Ongoing (Interventions Implemented as Appropriate) Problem: Diabetes Comorbidity Goal: Blood Glucose Level Within Targeted Range Outcome: Ongoing (Interventions Implemented as Appropriate) Problem: Hypertension Comorbidity Goal: Blood Pressure in Desired Range Outcome: Ongoing (Interventions Implemented as Appropriate) Problem: Obstructive Sleep Apnea Risk or Actual (Comorbidity Management) Goal: Unobstructed Breathing During Sleep Outcome: Ongoing (Interventions Implemented as Appropriate) Problem: Adult Inpatient Plan of Care Goal: Plan of Care Review Outcome: Ongoing (Interventions Implemented as Appropriate) Goal: Patient-Specific Goal (Individualized) Outcome: Ongoing (Interventions Implemented as Appropriate) Goal: Absence of Hospital-Acquired Illness or Injury Outcome: Ongoing (Interventions Implemented as Appropriate) Goal: Optimal Comfort and Wellbeing Outcome: Ongoing (Interventions Implemented as Appropriate) Goal: Readiness for Transition of Care Outcome: Ongoing (Interventions Implemented as Appropriate) Problem: Arrhythmia/Dysrhythmia (Cardiac Catheterization) Goal: Stable Heart Rate and Rhythm Outcome: Ongoing (Interventions Implemented as Appropriate) Problem: Bleeding (Cardiac Catheterization) Goal: Absence of Bleeding Outcome: Ongoing (Interventions Implemented as Appropriate) Problem: Contrast-Induced Injury Risk (Cardiac Catheterization) Goal: Absence of Contrast-Induced Injury Outcome: Ongoing (Interventions Implemented as Appropriate) Problem: Embolism (Cardiac Catheterization) Goal: Absence of Embolism Signs and Symptoms Outcome: Ongoing (Interventions Implemented as Appropriate) Problem: Ongoing Anesthesia/Sedation Effects (Cardiac Catheterization) Goal: Anesthesia/Sedation Recovery Outcome: Ongoing (Interventions Implemented as Appropriate) Problem: Pain (Cardiac Catheterization) Goal: Acceptable Pain Control Outcome: Ongoing (Interventions Implemented as Appropriate) Problem: Vascular Access Protection (Cardiac Catheterization) Goal: Absence of Vascular Access Complication Outcome: Ongoing (Interventions Implemented as Appropriate) Problem: Fall Injury Risk Goal: Absence of Fall and Fall-Related Injury Outcome: Ongoing (Interventions Implemented as Appropriate) Tori De La Cruz RN 7:47 PM * Plan of Care - Tori De La Cruz RN - 04/23/2023 10:24 AM EST OUTCOME EVALUATION NOTE: OUTCOME SUMMARY: Assumed care of Danielle @0700. Pt A&Ox4, VSS on 1L NC, sinus arrhythmia w/ first degree AV block.Denies CP/SOB for this RN. OOB w/1A, walked in halls, up to chair w/o issue. SO Gene updated frequently. Home o2 attained. Medicated per JUN. Shift otherwise uneventful. PLAN MOVING FORWARD: Continue to monitor Encourage ambulation IV diuresis D/c planning as appropriate INDIVIDUALIZED FALL PREVENTION INTERVENTIONS: Patient-specific fall risk factors per assessment: [current deficits]: unfamiliar environment, telewiring, IV lines, generalized weakness Assistance [level of assistance required for transfers and ambulation]: SBA Supervision [direct monitoring required during toileting and ADLs]: Supervision Surveillance [continuous indirect monitoring]: Telemetry, pulseox Patient-specific fall prevention interventions for sensory deficits provided, if applicable: Bed near unit station, nonskid socks applied, personal belongings within reach, call haskins in reach, bed/chair alarm in use, hourly safety rounds CPG GOAL OUTCOME EVALUATION: Problem: Chest Pain Goal: Resolution of Chest Pain Symptoms Outcome: Ongoing (Interventions Implemented as Appropriate) Problem: Diabetes Comorbidity Goal: Blood Glucose Level Within Targeted Range Outcome: Ongoing (Interventions Implemented as Appropriate) Problem: Hypertension Comorbidity Goal: Blood Pressure in Desired Range Outcome: Ongoing (Interventions Implemented as Appropriate) Problem: Obstructive Sleep Apnea Risk or Actual (Comorbidity Management) Goal: Unobstructed Breathing During Sleep Outcome: Ongoing (Interventions Implemented as Appropriate) Problem: Adult Inpatient Plan of Care Goal: Plan of Care Review Outcome: Ongoing (Interventions Implemented as Appropriate) Goal: Patient-Specific Goal (Individualized) Outcome: Ongoing (Interventions Implemented as Appropriate) Goal: Absence of Hospital-Acquired Illness or Injury Outcome: Ongoing (Interventions Implemented as Appropriate) Goal: Optimal Comfort and Wellbeing Outcome: Ongoing (Interventions Implemented as Appropriate) Goal: Readiness for Transition of Care Outcome: Ongoing (Interventions Implemented as Appropriate) Problem: Arrhythmia/Dysrhythmia (Cardiac Catheterization) Goal: Stable Heart Rate and Rhythm Outcome: Ongoing (Interventions Implemented as Appropriate) Problem: Bleeding (Cardiac Catheterization) Goal: Absence of Bleeding Outcome: Ongoing (Interventions Implemented as Appropriate) Problem: Contrast-Induced Injury Risk (Cardiac Catheterization) Goal: Absence of Contrast-Induced Injury Outcome: Ongoing (Interventions Implemented as Appropriate) Problem: Embolism (Cardiac Catheterization) Goal: Absence of Embolism Signs and Symptoms Outcome: Ongoing (Interventions Implemented as Appropriate) Problem: Ongoing Anesthesia/Sedation Effects (Cardiac Catheterization) Goal: Anesthesia/Sedation Recovery Outcome: Ongoing (Interventions Implemented as Appropriate) Problem: Pain (Cardiac Catheterization) Goal: Acceptable Pain Control Outcome: Ongoing (Interventions Implemented as Appropriate) Problem: Vascular Access Protection (Cardiac Catheterization) Goal: Absence of Vascular Access Complication Outcome: Ongoing (Interventions Implemented as Appropriate) Problem: Fall Injury Risk Goal: Absence of Fall and Fall-Related Injury Outcome: Ongoing (Interventions Implemented as Appropriate) Tori De La Cruz RN 6:53 PM * Consult Note - Bonnie White RN - 04/22/2023 5:02 PM EST Wound Care Nurse Rounding Note Situation: Asked to see Regan Woo by Meghan GARRISON for mid abdominal fold excoriation - along old scar site. Background: eD-H notes reviewed for history, admitting diagnosis and active problem list. ? Issues/concerns identified: Patient with excess moisture to the pannus. Miconazole powder removed from pannus. No indication offungal infection. No open wounds or excoriation. Interdry applied. ? Current Wound Care Recommendations reviewed: Follow hospital standard for pressure injury prevention and skin care. Refer to adult/pediatric pressure ulcer prevention job aid in the clinical policy library. ? Wound Care will complete the consult at this time. If there are further issues please re-consult via eD-H. ? Discussed with RN: Hayley ? Please contact Bonnie White RN on secure chat or the wound care team at [phone] with skin and wound care concerns or questions. * Plan of Care - Hayley Mai RN - 04/22/2023 11:50 AM EST OUTCOME EVALUATION NOTE: OUTCOME SUMMARY: A&Ox4 on RA. Denies any CP or SOB. Patient up to bathroom with assistance. Patient up in chair for most of the day. SO, Gene updated frequently throughout shift. Two-view xray complete. PLAN MOVING FORWARD: Q4VS ACHS FS PT consult Home BP regimen Home Oxygen Needs INDIVIDUALIZED FALL PREVENTION INTERVENTIONS: Patient-specific fall risk factors per assessment: [current deficits]: unfamiliar environment, wires/cords/lines Assistance [level of assistance required for transfers and ambulation]: SBA Supervision [direct monitoring required during toileting and ADLs]: SBA Surveillance [continuous indirect monitoring]: Telemetry, pulse ox Patient-specific fall prevention interventions for sensory deficits provided, if applicable: Yes. Lighting adjusted, clutter free environment, non-slips on, bed alarm set, call haskins within reach and calls as appropriate. CPG GOAL OUTCOME EVALUATION: Ongoing Problem: Chest Pain Goal: Resolution of Chest Pain Symptoms Outcome: Ongoing (Interventions Implemented as Appropriate) Problem: Diabetes Comorbidity Goal: Blood Glucose Level Within Targeted Range Outcome: Ongoing (Interventions Implemented as Appropriate) Problem: Hypertension Comorbidity Goal: Blood Pressure in Desired Range Outcome: Ongoing (Interventions Implemented as Appropriate) Problem: Obstructive Sleep Apnea Risk or Actual (Comorbidity Management) Goal: Unobstructed Breathing During Sleep Outcome: Ongoing (Interventions Implemented as Appropriate) Problem: Adult Inpatient Plan of Care Goal: Plan of Care Review Outcome: Ongoing (Interventions Implemented as Appropriate) Goal: Patient-Specific Goal (Individualized) Outcome: Ongoing (Interventions Implemented as Appropriate) Goal: Absence of Hospital-Acquired Illness or Injury Outcome: Ongoing (Interventions Implemented as Appropriate) Goal: Optimal Comfort and Wellbeing Outcome: Ongoing (Interventions Implemented as Appropriate) Goal: Readiness for Transition of Care Outcome: Ongoing (Interventions Implemented as Appropriate) Problem: Arrhythmia/Dysrhythmia (Cardiac Catheterization) Goal: Stable Heart Rate and Rhythm Outcome: Ongoing (Interventions Implemented as Appropriate) Problem: Bleeding (Cardiac Catheterization) Goal: Absence of Bleeding Outcome: Ongoing (Interventions Implemented as Appropriate) Problem: Contrast-Induced Injury Risk (Cardiac Catheterization) Goal: Absence of Contrast-Induced Injury Outcome: Ongoing (Interventions Implemented as Appropriate) Problem: Embolism (Cardiac Catheterization) Goal: Absence of Embolism Signs and Symptoms Outcome: Ongoing (Interventions Implemented as Appropriate) Problem: Ongoing Anesthesia/Sedation Effects (Cardiac Catheterization) Goal: Anesthesia/Sedation Recovery Outcome: Ongoing (Interventions Implemented as Appropriate) Problem: Pain (Cardiac Catheterization) Goal: Acceptable Pain Control Outcome: Ongoing (Interventions Implemented as Appropriate) Problem: Vascular Access Protection (Cardiac Catheterization) Goal: Absence of Vascular Access Complication Outcome: Ongoing (Interventions Implemented as Appropriate) Problem: Fall Injury Risk Goal: Absence of Fall and Fall-Related Injury Outcome: Ongoing (Interventions Implemented as Appropriate) * Consult Note - Johnna Trevino RN - 04/22/2023 9:39 AM EST Regan Woo was seen today by Cardiac Rehabilitation for: NSTEMI, medication management Activity evaluation - Patient has walked a couple of laps on the unit and has plans with nursing staff to walk more this morning. Educational packet regarding CAD, cardiac risk factors, and managing angina given to the patient. Reviewed managing angina /use of sl nitroglycerin. Mediterranean diet guidelines briefly reviewed. Given parameters for home exercise. Patient tells me that she is able to walk inside her mobile home. She walks up and down the [place] a few times a day. She tells me that she sometimes gets lightheaded when she is up and walking. Participation in an outpatient cardiac rehabilitation program at [facility] was discussed. Patient declines a referral for this program. She would prefer to do short walks at home as she hasdone in the past. A referral for cardiac rehab can be placed in the future if she changes her mind. * Plan of Care - Tori Chang PA - 04/21/2023 5:22 PM EST Post Cardiac Cath Note S: Patient reports no chest pain or shortness of breath. Patient reports no back pain. Some right wrist discomfort. O: Right radial access site is clean, dry, intact without hematoma or bleeding. TR band has been removed. CMS intact. Last value Range last 12 hrs Temperature Temp: 36.8 ??C (98.2 ??F) Temp: -- Heart Rate Heart Rate: 63 Heart Rate: [46-79] Blood Pressure BP: 148/83 BP: (148-189)/(52-83) Respiratory Rate Resp: 22 Resp: [17-24] SpO2 SpO2: 95 % SpO2: [87 %-99 %] A/P. Post cardiac cath without complications. Tori Chang PA-C Pager #[phone] 04/21/2023 * Care Management - Ramona Anderson - 04/21/2023 2:22 PM ESTSummary: Vt Advanced Directive is complete Vt AD is complete, sister Lorelei Garcia of [facility] is agent. - * Initial Assessments - Emmie Mcintosh RN - 04/21/2023 11:51 AM EST Office of Care Management Initial Assessment Emmie Mcintosh RN reviewed record and discussed patient with Care Team. Source of Information: Team, bedside nurse, medical record, and Patient. Introduced self/reviewed role; services accepted. Admitted From: Transfer from another hospital Location: [facility] Reason for Hospitalization: chest pain Covid Vaccination Status: 1st, 2nd & booster Past medical History: Past Medical History: Diagnosis Date Allergy Chronic neck pain 06/29/2015 Diabetes Hypertension Obesity Urinary disorder Hospitalizations Within the Past 30 Days: no previous admission in last 30 days Current Decision-Making Capacity: Self If AD's have not been completed the following surrogate would be surrogate decision maker per [place] surrogate decision making law. (Only good for 180 days) Any patient receiving care in [place] must abide by [place] law. The hierarchy for surrogate decision making is: (a) Patient???s spouse or civil union partner unless there is a divorce proceeding, separation agreement, or restraining order limiting that person???s relationship with the patient. (b) Any adult son or daughter of the patient. (c) Either parent of the patient. (d) Any adult brother or sister of the patient.- Lorelei (e) Any adult grandchild of the patient. (f) Any grandparent of the patient. (g) Any adult aunt, uncle, niece, or nephew of the patient. (h) A close friend of the patient. (i) The agent with financial power of assistant attorney general or a conservator appointed in accordance with RSA 464-A. (j) The guardian of the patient???s estate. Advance Care Planning: Attempt Cardiopulmonary Resuscitation - Inpatient <no information> -Advanced Directive: No, need to discuss Current Functional Ability: Independent Functional Status Prior to Admission: Independent Prior ADLs & IADLs: Independent with all ADLs & IADLs Bathing: Independent with Bathing Dressing: Independent with Dressing Home Environment: Others in the home: spouse. Current Living Arrangements: mobile home. Accessibility Concerns:1 level trailer with 3 RUEL. In the last 12 months, was there a time when you were not able to pay the mortgage or rent on time?: No In the last 12 months, how many places have you lived?: 1 In the last 12 months, was there a time when you did not have a steady place to sleep or slept in ashelter (including now)?: No In the past 12 months has the Projection[employer], gas, oil, or water [employer] threatened to shut off services in your home?: No Within the past 12 months, you worried that your food would run out before you got the money to buymore.: Never true Within the past 12 months, the food you bought just didn't last and you didn't have money to get more.: Never true Resource / Environmental Concerns: Resource/Environmental Concerns: none In the past 12 months, has lack of transportation kept you from medical appointments or from getting medications?: No In the past 12 months, has lack of transportation kept you from meetings, work, or from getting things needed for daily living?: No Current DME: cane - straight (have never used it) Home Address confirmed as: [address] [address] Social & Family Supports: All names listed below confirmed with patient as current and correct Extended Emergency Contact Information Primary Emergency Contact: Lorelei Garcia [facility] Relation: Sibling Current Care Provided by: self Provides Primary Care For: no one Caregiver if needed: significant other Quality of Family relationships: involved, supportive Community Resources being provided currently: none Behavioral Health History: has hx of depression when son 10 yrs ago, she was treated for it. She currently has Wellbutrin that she only takes if she feels she needs it. Substance Use/Abuse listed: Social History Tobacco Use Smoking Status Never Smokeless Tobacco Never In the past year have you used an illegal drug or used a prescription medication for non-medical reasons?: No 0 No problems reported 1-2 Low level 3-5 Moderate level 6-8 Substantial level 9- 10 Severe level In the past year have you had 4 or more drinks a day containing alcohol?: No 0 to 7 points: Low risk 8 to 15 points: Medium risk 16 to 19 points: High risk 20 to 40 points: Addiction likely Health/Prescription Coverage: Primary Insurance: [employer]GED MEDICARE Payor: [employer]GED MEDICARE / Plan: [employer]GED MEDICARE PPO / Product Type: *No Product type* / Secondary Insurance: MEDICAID [place] Prescription Coverage: Yes Preferred Pharmacy: [id number] - [place], [place] - [address] [facility] [address] [facility] [id number] Show Low Status: Patient is a : No Primary Care Provider confirmed: DU Dumont [phone] Patient/Caregiver Goals of Treatment: to be able to go home and continue with recovery Potential Needs for Transition of Care: none Agency Referrals: Not Applicable Transportation: no concerns Transportation Anticipated: family or friend will provide Concerns to be Addressed: denies needs/concerns at this time, discharge planning Assessment: Patient is admitted to Cardiology service for NSTEMI. Plan: Pt to d/c home with significant other, without services when medically ready. Patient with no apparent RNCM/SW needs at this time. No housing, transportation, insurance, resources concerns identified at this time. Supports in place to achieve a safe post-hospital transition. No identified barriers to accessing necessary care and/or follow-up after discharge. A member of the Care Management team will continue to monitor progress, follow for continuity of care and assist with transition of care planning. KENNETH Hart, RN Inpatient Animation Camera Operator- Cardiology Office of Care Management Pager #: [phone] * Plan of Care - Dorothy Tori Sanchez RN - 04/21/2023 10:42 AM EST OUTCOME EVALUATION NOTE: OUTCOME SUMMARY: Assumed care of Danielle @0700. Pt A&Ox4, SB on tele, VSS on RA (occasionally requiring 2-3L NC). Denies CP/SOB for this RN. OOB w/ 1A, refusing walker. Pt educated on fall risk and hospital safety[facility], see results. Plan to med manage. IV lasix x2, good UOP, see flowsheets. Cath site WDL, TR band removed w/o issue. BP elevated throughout shift, team aware. Pt aniket, HR as low as 36BPMunsustained, 45BPM sustained. Team aware. Hep gtt d/c'd. S.O. Gene and daughter calling continuously throughout day for updates. S.O. @bedside briefly, con't calling once gone. Pt trialed on RA, sustaining adequate o2 sats. Occasionally desatting to low 80's, 2-3L NC applied as necessary. Bactrim st arted for UTI. Walked in halls x1, tolerated well on RA. Desatted to 85% once back in room, o2 applied. Medicated per JUN. Shift otherwise uneventful. PLAN MOVING FORWARD: IV diuresis Wean to RA Ambulate Continue to monitor D/c planning as appropriate INDIVIDUALIZED FALL PREVENTION INTERVENTIONS: Patient-specific fall risk factors per assessment: [current deficits]: unfamiliar environment, telewiring, IV lines, generalized weakness Assistance [level of assistance required for transfers and ambulation]: SBA Supervision [direct monitoring required during toileting and ADLs]: Supervision Surveillance [continuous indirect monitoring]: Telemetry, pulseox Patient-specific fall prevention interventions for sensory deficits provided, if applicable: Bed near unit station, nonskid socks applied, personal belongings within reach, call haskins in reach, bed/chair alarm in use, hourly safety rounds CPG GOAL OUTCOME EVALUATION: Problem: Chest Pain Goal: Resolution of Chest Pain Symptoms Outcome: Ongoing (Interventions Implemented as Appropriate) Problem: Diabetes Comorbidity Goal: Blood Glucose Level Within Targeted Range Outcome: Ongoing (Interventions Implemented as Appropriate) Problem: Hypertension Comorbidity Goal: Blood Pressure in Desired Range Outcome: Ongoing (Interventions Implemented as Appropriate) Problem: Obstructive Sleep Apnea Risk or Actual (Comorbidity Management) Goal: Unobstructed Breathing During Sleep Outcome: Ongoing (Interventions Implemented as Appropriate) Problem: Adult Inpatient Plan of Care Goal: Plan of Care Review Outcome: Ongoing (Interventions Implemented as Appropriate) Goal: Patient-Specific Goal (Individualized) Outcome: Ongoing (Interventions Implemented as Appropriate) Goal: Absence of Hospital-Acquired Illness or Injury Outcome: Ongoing (Interventions Implemented as Appropriate) Goal: Optimal Comfort and Wellbeing Outcome: Ongoing (Interventions Implemented as Appropriate) Goal: Readiness for Transition of Care Outcome: Ongoing (Interventions Implemented as Appropriate) Problem: Arrhythmia/Dysrhythmia (Cardiac Catheterization) Goal: Stable Heart Rate and Rhythm Outcome: Ongoing (Interventions Implemented as Appropriate) Problem: Bleeding (Cardiac Catheterization) Goal: Absence of Bleeding Outcome: Ongoing (Interventions Implemented as Appropriate) Problem: Contrast-Induced Injury Risk (Cardiac Catheterization) Goal: Absence of Contrast-Induced Injury Outcome: Ongoing (Interventions Implemented as Appropriate) Problem: Embolism (Cardiac Catheterization) Goal: Absence of Embolism Signs and Symptoms Outcome: Ongoing (Interventions Implemented as Appropriate) Problem: Ongoing Anesthesia/Sedation Effects (Cardiac Catheterization) Goal: Anesthesia/Sedation Recovery Outcome: Ongoing (Interventions Implemented as Appropriate) Problem: Pain (Cardiac Catheterization) Goal: Acceptable Pain Control Outcome: Ongoing (Interventions Implemented as Appropriate) Problem: Vascular Access Protection (Cardiac Catheterization) Goal: Absence of Vascular Access Complication Outcome: Ongoing (Interventions Implemented as Appropriate) Problem: Fall Injury Risk Goal: Absence of Fall and Fall-Related Injury Outcome: Ongoing (Interventions Implemented as Appropriate) Tori De La Cruz RN 6:09 PM * Plan of Care - Michela Tejeda RN - 04/21/2023 4:01 AM EST OUTCOME EVALUATION NOTE: OUTCOME SUMMARY Had several SBPs in the 180s this shift; team aware. Had 7 beats of a wide-QRS tachycardia; Dr. Linda Hair notified. On 2L O2 via NC. Urine specimen was collected; it was abnormal, so reflex culture has been initiated. PLAN MOVING FORWARD: NPO since midnight for cardiac cath. INDIVIDUALIZED FALL PREVENTION INTERVENTIONS: Patient-specific fall risk factors per assessment: [current deficits]: unsteady gait, dizziness when she first stands up, unwillingness to use a walker Assistance [level of assistance required for transfers and ambulation]: standby Supervision [direct monitoring required during toileting and ADLs]: not required; calls appropriately for assistance when finished in bathroom Surveillance [continuous indirect monitoring]: Telemetry and pulse ox Patient-specific fall prevention interventions for sensory deficits provided, if applicable: [X] N/A CPG GOAL OUTCOME EVALUATION: Problem: Chest Pain Goal: Resolution of Chest Pain Symptoms Outcome: Ongoing (Interventions Implemented as Appropriate) Problem: Diabetes Comorbidity Goal: Blood Glucose Level Within Targeted Range Outcome: Ongoing (Interventions Implemented as Appropriate) Problem: Hypertension Comorbidity Goal: Blood Pressure in Desired Range Outcome: Ongoing (Interventions Implemented as Appropriate) Problem: Obstructive Sleep Apnea Risk or Actual (Comorbidity Management) Goal: Unobstructed Breathing During Sleep Outcome: Ongoing (Interventions Implemented as Appropriate) Problem: Adult Inpatient Plan of Care Goal: Plan of Care Review Outcome: Ongoing (Interventions Implemented as Appropriate) Goal: Patient-Specific Goal (Individualized) Outcome: Ongoing (Interventions Implemented as Appropriate) Goal: Absence of Hospital-Acquired Illness or Injury Outcome: Ongoing (Interventions Implemented as Appropriate) Goal: Optimal Comfort and Wellbeing Outcome: Ongoing (Interventions Implemented as Appropriate) Goal: Readiness for Transition of Care Outcome: Ongoing (Interventions Implemented as Appropriate) Problem: Arrhythmia/Dysrhythmia (Cardiac Catheterization) Goal: Stable Heart Rate and Rhythm Outcome: Ongoing (Interventions Implemented as Appropriate) Problem: Bleeding (Cardiac Catheterization) Goal: Absence of Bleeding Outcome: Ongoing (Interventions Implemented as Appropriate) Problem: Contrast-Induced Injury Risk (Cardiac Catheterization) Goal: Absence of Contrast-Induced Injury Outcome: Ongoing (Interventions Implemented as Appropriate) Problem: Embolism (Cardiac Catheterization) Goal: Absence of Embolism Signs and Symptoms Outcome: Ongoing (Interventions Implemented as Appropriate) Problem: Ongoing Anesthesia/Sedation Effects (Cardiac Catheterization) Goal: Anesthesia/Sedation Recovery Outcome: Ongoing (Interventions Implemented as Appropriate) Problem: Pain (Cardiac Catheterization) Goal: Acceptable Pain Control Outcome: Ongoing (Interventions Implemented as Appropriate) Problem: Vascular Access Protection (Cardiac Catheterization) Goal: Absence of Vascular Access Complication Outcome: Ongoing (Interventions Implemented as Appropriate) Problem: Fall Injury Risk Goal: Absence of Fall and Fall-Related Injury Outcome: Ongoing (Interventions Implemented as Appropriate) * Plan of Care - Meghan Diego RN - 04/20/2023 6:40 PM EST OUTCOME EVALUATION NOTE: OUTCOME SUMMARY: Patient A&OX3. OOB with guard assist, bed alarm on. Hx. Falls. Denies CP,pressure, SOB. 27 beatVT on tele, asymptomatic. EKG completed. Mg/K+ replaced. S.O Gene calling frequently, updated and plan set for him to call at 1630pm. Patient reports feeling like she has a UTI. Abdominal folds/excoriation. Wound cx placed. Heparin drip continues per order. Call haskins in hand. PLAN MOVING FORWARD: NPO @ [place] for cath Wean oxygen Ambulate Wound cx- skin care Problem: Chest Pain Goal: Resolution of Chest Pain Symptoms Outcome: Ongoing (Interventions Implemented as Appropriate) Problem: Diabetes Comorbidity Goal: Blood Glucose Level Within Targeted Range Outcome: Ongoing (Interventions Implemented as Appropriate) Problem: Hypertension Comorbidity Goal: Blood Pressure in Desired Range Outcome: Ongoing (Interventions Implemented as Appropriate) Problem: Obstructive Sleep Apnea Risk or Actual (Comorbidity Management) Goal: Unobstructed Breathing During Sleep Outcome: Ongoing (Interventions Implemented as Appropriate) Problem: Adult Inpatient Plan of Care Goal: Plan of Care Review Outcome: Ongoing (Interventions Implemented as Appropriate) Goal: Patient-Specific Goal (Individualized) Outcome: Ongoing (Interventions Implemented as Appropriate) Goal: Absence of Hospital-Acquired Illness or Injury Outcome: Ongoing (Interventions Implemented as Appropriate) Goal: Optimal Comfort and Wellbeing Outcome: Ongoing (Interventions Implemented as Appropriate) Goal: Readiness for Transition of Care Outcome: Ongoing (Interventions Implemented as Appropriate) Problem: Arrhythmia/Dysrhythmia (Cardiac Catheterization) Goal: Stable Heart Rate and Rhythm Outcome: Ongoing (Interventions Implemented as Appropriate) Problem: Bleeding (Cardiac Catheterization) Goal: Absence of Bleeding Outcome: Ongoing (Interventions Implemented as Appropriate) Problem: Contrast-Induced Injury Risk (Cardiac Catheterization) Goal: Absence of Contrast-Induced Injury Outcome: Ongoing (Interventions Implemented as Appropriate) Problem: Embolism (Cardiac Catheterization) Goal: Absence of Embolism Signs and Symptoms Outcome: Ongoing (Interventions Implemented as Appropriate) Problem: Ongoing Anesthesia/Sedation Effects (Cardiac Catheterization) Goal: Anesthesia/Sedation Recovery Outcome: Ongoing (Interventions Implemented as Appropriate) Problem: Pain (Cardiac Catheterization) Goal: Acceptable Pain Control Outcome: Ongoing (Interventions Implemented as Appropriate) Problem: Vascular Access Protection (Cardiac Catheterization) Goal: Absence of Vascular Access Complication Outcome: Ongoing (Interventions Implemented as Appropriate) Problem: Fall Injury Risk Goal: Absence of Fall and Fall-Related Injury Outcome: Ongoing (Interventions Implemented as Appropriate) documented in this encounter Plan of Treatment Scheduled Orders Name Type Priority Associated Diagnoses Orde r Schedule Basic Metabolic Panel (non-fasting) Lab STAT NSTEMI (non-ST elevated myocardial infarction) Expected: 04/29/2023, Expires: 04/25/2024 documented as of this encounter Procedures Procedure Name Priority Date/Time Associated Diagnosis Comments POCT GLUCOSE Routine 04/25/2023 11:11 AM EST POCT GLUCOSE Routine 04/25/2023 7:46 AM EST BMP W/FASTING GLUCOSE Routine 04/25/2023 2:50 AM EST HEMOGRAM Routine 04/25/2023 2:50 AM EST DIFFERENTIAL, AUTOMATED Routine 04/25/19 2:50 AM EST CBC (WITH DIFF) Routine 04/25/2023 2:50 AM EST MAGNESIUM Routine 04/25/2023 2:50 AM EST POCT GLUCOSE Routine 04/24/2023 8:04 PM EST XR CHEST ONE VIEW Routine 04/24/2023 5:2 3 PM EST POCT GLUCOSE Routine 04/24/2023 5:03 PM EST EKG 12-LEAD Routine 04/24/2023 4:39 PM EST BASIC METABOLIC PANEL Routine 04/24/2023 3:40 PM EST POCT GLUCOSE Routine 04/24/2023 1:07 PM EST POCT GLUCOSE Routine 04/24/2023 7:38 AM EST BMP W/FASTING GLUCOSE Routine 04/24/2023 3:32 AM EST HEMOGRAM Routine 04/24/2023 3:32 AM EST DIFFERENTIAL, AUTOMATED Routine 04/24/19 3:32 AM EST CBC (WITH DIFF) Routine 04/24/2023 3:32 AM EST MAGNESIUM Routine 04/24/2023 3:32 AM EST POCT GLUCOSE Routine 04/23/2023 8:53 PM EST POCT GLUCOSE Routine 04/23/2023 4:14 PM EST BASIC METABOLIC PANEL Routine 04/23/2023 1:12 PM EST UREA NITROGEN, URINE, RANDOM Routine 04/23/2023 11:31 AM EST CREATININE, URINE, RANDOM Routine 04/23/2023 11:31 AM EST POCT GLUCOSE Routine 04/23/2023 10:51 AM EST POCT GLUCOSE Routine 04/23/2023 7:12 AM EST BMP W/FASTING GLUCOSE Routine 04/23/2023 3:57 AM EST HEMOGRAM Routine 04/23/2023 3:57 AM EST MAGNESIUM Routine 04/23/2023 3:57 AM EST POCT GLUCOSE Routine 04/22/2023 8:46 PM EST XR CHEST PA AND LATERAL Routine 04/22/19 6:18 PM EST POCT GLUCOSE Routine 04/22/2023 5:55 PM EST POCT GLUCOSE Routine 04/22/2023 4:13 PM EST BASIC METABOLIC PANEL Routine 04/22/2023 2:07 PM EST POCT GLUCOSE Routine 04/22/2023 11:11 AM EST POCT GLUCOSE Routine 04/22/2023 7:21 AM EST BMP W/FASTING GLUCOSE Routine 04/22/2023 3:55 AM EST HEMOGRAM Routine 04/22/2023 3:55 AM EST PRO-BRAIN NATRIURETIC PEPTIDE Routine 04/22/2023 3:55 AM EST MAGNESIUM Routine 04/22/2023 3:55 AM EST POCT GLUCOSE Routine 04/21/2023 8:23 PM EST POCT GLUCOSE Routine 04/21/2023 5:10 PM EST BASIC METABOLIC PANEL Routine 04/21/2023 4:36 PM EST POCT GLUCOSE Routine 04/21/2023 11:46 AM EST CARDIAC CATHETERIZATION Routine 04/21/19 9:20 AM EST POCT GLUCOSE Routine 04/21/2023 8:49 AM EST POCT GLUCOSE Routine 04/21/2023 7:24 AM EST HEPARIN (UNFRACTIONATED) LEVEL Timed 04/21/2023 1:25 AM EST HEMOGRAM Routine 04/21/2023 1:25 AM EST DIFFERENTIAL, AUTOMATED Routine 04/21/19 1:25 AM EST CBC (WITH DIFF) Routine 04/21/2023 1:25 AM EST URINALYSIS MICROSCOPIC EXAM Routine 04/20/2023 10:53 PM EST URINALYSIS WITH REFLEX CULTURE Routine 04/20/2023 10:53 PM EST URINE CULTURE Routine 04/20/2023 10:53 PM EST POCT GLUCOSE Routine 04/20/2023 8:31 PM EST HEPARIN (UNFRACTIONATED) LEVEL Timed 04/20/2023 6:54 PM EST POCT GLUCOSE Routine 04/20/2023 4:07 PM EST ECHO COMPLETE W CONTRAST Routine 04/20/2023 2:26 PM EST NSTEMI (non-ST elevated myocardial infarction) TROPONIN - SERIES Routine 04/20/2023 1:5 0 PM EST MAGNESIUM Routine 04/20/2023 1:50 PM EST BASIC METABOLIC PANEL Routine 04/20/2023 1:50 PM EST EKG 12-LEAD Routine 04/20/2023 1:10 PM EST NSTEMI (non-ST elevated myocardial infarction) POCT GLUCOSE Routine 04/20/2023 11:47 AM EST HEPARIN (UNFRACTIONATED) LEVEL Timed 04/20/2023 9:08 AM EST EKG 12-LEAD Routine 04/20/2023 8:05 AM EST NSTEMI (non-ST elevated myocardial infarction) POCT GLUCOSE Routine 04/20/2023 7:49 AM EST TROPONIN - SERIES Routine 04/20/2023 12: 47 AM EST HEPARIN (UNFRACTIONATED) LEVEL Timed 04/20/2023 12:47 AM EST HEMOGRAM Routine 04/20/2023 12:47 AM EST DIFFERENTIAL, AUTOMATED Routine 04/20/19 12:47 AM EST CBC (WITH DIFF) Routine 04/20/2023 12:47 AM EST TRIGLYCERIDE Routine 04/20/2023 12:47 AM EST LDL CHOLESTEROL, DIRECT Routine 04/20/19 12:47 AM EST HDL/CHOL PROFILE Routine 04/20/2023 12:4 7 AM EST HEMOGLOBIN A1C Routine 04/20/2023 12:47 AM EST HC GLUCOSE FASTING Routine 04/20/2023 12 :47 AM EST LIPID PANEL (REFLEX DIRECT LDL) Routine 04/20/2023 12:47 AM EST POCT GLUCOSE Routine 04/19/2023 11:10 PM EST HEMOGRAM Routine 04/19/2023 7:29 PM EST DIFFERENTIAL, AUTOMATED Routine 04/19/19 7:29 PM EST HC PARTIAL THROMBOPLASTIN TIME Routine 04/19/2023 7:29 PM EST PROTHROMBIN TIME Routine 04/19/2023 7:29 PM EST CBC (WITH DIFF) Routine 04/19/2023 7:29 PM EST TSH Routine 04/19/2023 7:29 PM EST PHOSPHORUS Routine 04/19/2023 7:29 PM EST PRO-BRAIN NATRIURETIC PEPTIDE Routine 04/19/2023 7:29 PM EST MAGNESIUM Routine 04/19/2023 7:29 PM EST CALCIUM Routine 04/19/2023 7:29 PM EST HEPATIC FUNCTION PANEL Routine 7:29 PM EST BASIC METABOLIC PANEL Routine 04/19/2023 7:29 PM EST POCT GLUCOSE Routine 04/19/2023 6:22 PM EST documented in this encounter Results * (ABNORMAL) POCT Glucose (04/25/2023 11:11 AM EST) Glucose, POC 221(H) 65 - 199 mg/dL [facility] Comment: Supplemental ranges: <140 mg/dL before meals <180 mg/dL all other times of the day Blood 04/25/2023 11:1 1 AM EST 04/25/2023 11:11 AM EST Lm Delgado MD POINT OF CARE TEST O RDERABLES [facility] [place] [place] [address] * POCT Glucose (04/25/2023 7:46 AM EST) Glucose, POC 101 65 - 199 mg/dL [facility] Comment: Supplemental ranges: <140 mg/dL before meals <180 mg/dL all other times of the day Blood 04/25/2023 7:46 AM EST 04/25/2023 7:46 AM EST Lm Delgado MD POINT OF CARE TEST O RDERABLES [facility] [place] [place] [address] * (ABNORMAL) Differential, Automated (04/25/2023 2:50 AM EST) Neutrophil % 49.8 % [facility] Neutrophil Absolute 3.60 1.70 - 6.10 x10(3)/mc L [facility] Lymph % 35.8 % [facility] Lymphocytes Abs 2.6 0.9 - 3.2 x10(3)/mc L [facility] Monocyte % 6.8 % [facility] Monocyte Abs 0.5 0.3 - 0.9 x10(3)/ L [facility] Eos % 6.8 % [facility] Eosinophils Abs 0.5(H) 0.0 - 0.4 x10(3)/ L [facility] Basophil % 0.7 % [facility] Baso Absolute 0.0 0.0 - 0.1 x10(3)/ L [facility] Immature Gran % 0.10 % [facility] Comment: Immature granulocytes(IG's)percentage and absolute count will include metamyelocytes, myelocytes, and promyelocytes. Blood smears from CBCs yielding IG's will be scanned manually for concordance. If this scan disagrees with the automated IG or if promyelocytes are noted, a manual differential will be performed. Immature Gran Absolute 0.01 0.00 - 0.04 x10(3)/ L [facility] Blood 04/25/2023 2:50 AM EST 04/25/2023 3:20 AM EST Narrative Resulting Agency Comment Spec In Lab Eleazar SANDY HEMATOLOGY ORDERABLE S Performing Organization Address City/State/[facility] Co de Phone Number [facility] [place] [place] [address] * (ABNORMAL) Hemogram (04/25/2023 2:50 AM EST) White Blood Cell 7.2 4.0 - 9.5 x10(3)/mc L [facility] Red Blood Cell 4.01 4.00 - 5.21 x10(6)/mc L [facility] Hemoglobin 11.9 11.7 - 15.5 g/dL [facility] Hematocrit 38.2 35.7 - 45.8 % [facility] Mean Cell Volume 95.3(H) 82.6 - 94.4 fL [facility] Mean Cell Hemoglobin 29.7 27.1 - 32.0 pg [facility] Mean Cell Hemoglobin Concentration 31.2(L) 31.7 - 35.0 g/dL [facility] Platelet 218 145 - 357 x10(3)/ L [facility] RDW Standard Deviation 46.0 37.0 - 46.0 fL [facility] RDW coefficient of variation 13.2 11.5 - 14.1 % [facility] Mean Platelet Volume 11.2 7.6 - 12.9 fL [facility] NRBC% auto 0.0 % [facility] NRBC Absolute 0.000 0.000 - 0.000 x10(3)/mc L [facility] Blood 04/25/2023 2:50 AM EST 04/25/2023 3:20 AM EST Narrative Resulting Agency Comment Spec In Lab David Levin MD HEMATOLOGY ORDERABLE S Performing Organization Address [facility] Phone Number [facility] [address] * Magnesium (04/25/2023 2:50 AM EST) Magnesium 0.91 0.69 - 1.07 mmol/L [facility] Blood 04/25/2023 2:50 AM EST 04/25/2023 3:20 AM EST Narrative Resulting Agency Comment Spec In Lab David Levin MD CHEMISTRY ORDERABLES Performing Organization Address [facility] Number [facility] [address] * (ABNORMAL) BMP w/fasting Glucose (04/25/2023 2:50 AM EST) Glucose Fasting 108(H) 65 - 99 mg/dL [facility] Comment: ?Fasting* Glucose Interpretive Criteria Normal [...] of Diabetes Mellitus, Position Statement from the [place] [employer]. ??Diabetes Care, Volume 33, Supplement 1, Apr 2009 Blood Urea Nitrogen 34(H) 8 - 18 mg/dL [facility] Creatinine 1.57(H) 0.70 - 1.20 mg/dL [facility] Sodium 138 135 - 145 mmol/L [facility] Potassium 5.0 3.5 - 5.0 mmol/L [facility] Comment: Please note: ??Patients with WBC >100,000 may have falsely elevated Potassium levels. ??For accurate Potassium quantification in these patients send serum separator tube (gold top) for subsequent determinations. ??Contact the Clinical Chemistry Laboratory if there are any questions. Chloride 102 98 - 107 mmol/L [facility] Carbon Dioxide 31 22 - 31 mmol/L [facility] Anion Gap 5 5 - 15 mmol/L [facility] Calcium 8.9 8.5 - 10.5 mg/dL [facility] Est Glomerular Filtration Rate 36(L) >=60 mL/min/1. 73 m?? [facility] Comment: This patient's estimated GFR was [...] In Lab David Levin MD CHEMISTRY ORDERABLES [facility] [place] [place] [address] * POCT Glucose (04/24/2023 8:04 PM EST) Glucose, POC 124 65 - 199 mg/dL [facility] Comment: Supplemental ranges: <140 mg/dL before meals <180 mg/dL all other times of the day Blood 04/24/2023 8:04 PM EST 04/24/2023 8:04 PM EST Lm Delgado MD POINT OF CARE TEST O RDERABLES [facility] [place] [address] * XR Chest One View (04/24/2023 5:23 PM EST) Anatomical Region Laterality Modality Chest N/A Digital Radiogra phy Impressions 04/25/2023 8:49 AM EST Nodular opacity in the left midlung; considerations include a vessel on end and parenchymal nodule. Noncontrast chest CT scan is recommended to further evaluate. I have personally reviewed the image(s) and the resident's interpretation and agree with the findings, Johnny Carreon MD at 04/25/2023 8:49 AM Thank you for letting us participate in the care of this patient. ??If you are a health care provider and have any questions regarding this report, please contact the number below. ??For patients who have questions please contact the health home care scheduler that requested your imaging first. ? Narrative 04/25/2023 8:49 AM EST EXAMINATION: XR CHEST ONE VIEW CLINICAL HISTORY: New Hypoxia TECHNIQUE: 1 view of the chest . AP portable semiupright. COMPARISON: Chest radiograph 04/22/2023 FINDINGS: There is a nodular opacity in the left midlung. No pleural effusion or pneumothorax. Stable enlargement of the cardiac silhouette. Procedure Note Johnny Carreon MD - 04/25/2023 EXAMINATION: XR CHEST ONE VIEW CLINICAL HISTORY: New Hypoxia TECHNIQUE: 1 view of the chest . AP portable semiupright. COMPARISON: Chest radiograph 04/22/2023 FINDINGS: There is a nodular opacity in the left midlung. No pleural effusion or pneumothorax. Stable enlargement of the cardiac silhouette. IMPRESSION Nodular opacity in the left midlung; considerations include a vessel onend and parenchymal nodule. Noncontrast chest CT scan is recommended to further evaluate. I have personally reviewed the image(s) and the resident's interpretationand agree with the findings, Johnny Carreon MD at 04/25/2023 8:49 AM Thank you for letting us participate in the care of this patient. If youare a health care provider and have any questions regarding this report,please contact the number below. For patients who have questions please contactthe health home care scheduler that requested your imaging first. Lm Delgado MD IMG DX ORDERABLES * POCT Glucose (04/24/2023 5:03 PM EST) [facility] Glucose, POC 170 65 - 199 mg/dL [facility] Comment: Supplemental ranges: <140 mg/dL before meals <180 mg/dL all other times of the day Blood 04/24/2023 5:03 PM EST 04/24/2023 5:03 PM EST Lm Delgado MD POINT OF CARE TEST O RDERABLES [facility] [place] [address] * EKG 12 Lead (04/24/2023 4:39 PM EST) Pathologist [facility] Ventricular rate 61 BPM MUSE SYSTEM Atrial Rate 61 BPM MUSE SYSTEM P-R Interval 174 ms MUSE SYSTEM QRS Duration 88 ms MUSE SYSTEM Q-T Interval 436 ms MUSE SYSTEM QTC Calculated (Bezet) 438 ms MUSE SYSTEM Calculated [place] 17 degrees MUSE SYSTEM Calculated [place] 17 degrees MUSE SYSTEM Calculated [place] 45 degrees MUSE SYSTEM INTERPRETATION Sinus rhythm with marked sinus arrhythmia Septal infarct (cited on or before 20-APR-2023) Abnormal ECG When compared with ECG of 20-APR-2023 13:10, Questionable change in initial forces of Anterior leads Confirmed by MD WONG ARMIN ([id number]) on 04/25/2023 9:43:00 PM MUSE SYSTEM 04/24/2023 4:39 PM EST 04/25/2023 9:43 PM EST Unknown ECG ORDERABLES MUSE SYSTEM * (ABNORMAL) Basic Metabolic Panel (non-fasting) (04/24/2023 3:40 PM EST) Glucose 138 65 - 199 mg/dL [facility] Comment:Diabetes: >=200 mg/d L plus symptoms Blood Urea Nitrogen 34(H) 8 - 18 mg/dL [facility] Creatinine 1.50(H) 0.70 - 1.20 mg/dL [facility] Sodium 137 135 - 145 mmol/L [facility] Potassium 5.4(H) 3.5 - 5.0 mmol/L [facility] Comment: Please note: ??Patients with WBC >100,000 may have falsely elevated Potassium levels. ??For accurate Potassium quantification in these patients send serum separator tube (gold top) for subsequent determinations. ??Contact the Clinical Chemistry Laboratory if there are any questions. Chloride 102 98 - 107 mmol/L [facility] Carbon Dioxide 29 22 - 31 mmol/L [facility] Anion Gap 6 5 - 15 mmol/L [facility] Calcium 9.0 8.5 - 10.5 mg/dL [facility] Est Glomerular Filtration Rate 38(L) >=60 mL/min/1. 73 m?? [facility] Comment: This patient's estimated GFR was [...] and symptoms in addition to eGFR. Blood 04/24/2023 3:40 PM EST 04/24/2023 3:52 PM EST Narrative Resulting Agency Comment Spec In Lab Lm Delgado MD CHEMISTRY ORDERABLES Performing Organization Address City/[facility]/ZIP Co de Phone Number [facility] [place] [address] * POCT Glucose (04/24/2023 1:07 PM EST) Glucose, POC 143 65 - 199 mg/dL [facility] Comment: Supplemental ranges: <140 mg/dL before meals <180 mg/dL all other times of the day Blood 04/24/2023 1:07 PM EST 04/24/2023 1:07 PM EST Lm Delgado MD POINT OF CARE TEST O RDERABLES Performing Organization Address [facility] Co de Phone Number [facility] [place] [place] [address] * POCT Glucose (04/24/2023 7:38 AM EST) Glucose, POC 117 65 - 199 mg/dL [facility] Comment: Supplemental ranges: <140 mg/dL before meals <180 mg/dL all other times of the day Blood 04/24/2023 7:38 AM EST 04/24/2023 7:38 AM EST Lm Delgado MD POINT OF CARE TEST O RDERABLES Performing Organization Address City/[facility] Co de Phone Number [facility] [place] [address] * (ABNORMAL) Differential, Automated (04/24/2023 3:32 AM EST) Neutrophil % 51.2 % [facility] Neutrophil Absolute 3.98 1.70 - 6.10 x10(3)/mc L [facility] Lymph % 33.9 % [facility] Lymphocytes Abs 2.6 0.9 - 3.2 x10(3)/ L [facility] Monocyte % 7.3 % [facility] Monocyte Abs 0.6 0.3 - 0.9 x10(3)/[facility] Eos % 6.7 % [facility] Eosinophils Abs 0.5(H) 0.0 - 0.4 x10(3)/ L [facility] Basophil % 0.6 % [facility] Baso Absolute 0.0 0.0 - 0.1 x10(3)/[facility] Immature Gran % 0.30 % [facility] Comment: Immature granulocytes(IG's)percentage and absolute count will include metamyelocytes, myelocytes, and promyelocytes. Blood smears from CBCs yielding IG's will be scanned manually for concordance. If this scan disagrees with the automated IG or if promyelocytes are noted, a manual differential will be performed. Immature Gran Absolute 0.02 0.00 - 0.04 x10(3)/ L [facility] Blood 04/24/2023 3:32 AM EST 04/24/2023 3:57 AM EST Narrative Resulting Agency Comment Spec In Lab Eleazar SANDY HEMATOLOGY ORDERABLE S Performing Organization Address City/State/[facility] Co de Phone Number [facility] [place] [place] [address] * (ABNORMAL) Hemogram (04/24/2023 3:32 AM EST) White Blood Cell 7.8 4.0 - 9.5 x10(3)/ L [facility] Red Blood Cell 4.22 4.00 - 5.21 x10(6)/ L [facility] Hemoglobin 12.5 11.7 - 15.5 g/dL [facility] Hematocrit 39.8 35.7 - 45.8 % [facility] Mean Cell Volume 94.3 82.6 - 94.4 fL [facility] Mean Cell Hemoglobin 29.6 27.1 - 32.0 pg [facility] Mean Cell Hemoglobin Concentration 31.4(L) 31.7 - 35.0 g/dL [facility] Platelet 217 145 - 357 x10(3)/mc L [facility] RDW Standard Deviation 45.9 37.0 - 46.0 fL [facility] RDW coefficient of variation 13.4 11.5 - 14.1 % [facility] Mean Platelet Volume 11.1 7.6 - 12.9 fL [facility] NRBC% auto 0.0 % [facility] NRBC Absolute 0.000 0.000 - 0.000 x10(3)/mc L [facility] Blood 04/24/2023 3:32 AM EST 04/24/2023 3:57 AM EST Narrative Resulting Agency Comment Spec In Lab David Levin MD HEMATOLOGY ORDERABLE S Performing Organization Address [facility] Co de Phone Number [facility] [place] [address] * Magnesium (04/24/2023 3:32 AM EST) Magnesium 0.91 0.69 - 1.07 mmol/L [facility] Blood 04/24/2023 3:32 AM EST 04/24/2023 3:57 AM EST Narrative Resulting Agency Comment Spec In Lab David Levin MD CHEMISTRY ORDERABLES Performing Organization Address [facility] de Phone Number [facility] [place] [address] * (ABNORMAL) BMP w/fasting Glucose (04/24/2023 3:32 AM EST) Glucose Fasting 111(H) 65 - 99 mg/dL [facility] Comment: ?Fasting* Glucose Interpretive Criteria Normal [...] of Diabetes Mellitus, Position Statement from the [place] [employer]. ??Diabetes Care, Volume 33, Supplement 1, Apr 2009 Blood Urea Nitrogen 32(H) 8 - 18 mg/dL [facility] Creatinine 1.33(H) 0.70 - 1.20 mg/dL [facility] Sodium 137 135 - 145 mmol/L [facility] Potassium 5.2(H) 3.5 - 5.0 mmol/L [facility] [facility] Comment: Please note: ??Patients with WBC >100,000 may have falsely elevated Potassium levels. ??For accurate Potassium quantification in these patients send serum separator tube (gold top) for subsequent determinations. ??Contact the Clinical Chemistry Laboratory if there are any questions. Chloride 99 98 - 107 mmol/L [facility] Carbon Dioxide 29 22 - 31 mmol/L [facility] Anion Gap 9 5 - 15 mmol/L [facility] Calcium 8.9 8.5 - 10.5 mg/dL [facility] Est Glomerular Filtration Rate 44(L) >=60 mL/min/1. 73 m?? [facility] Comment: This patient's estimated GFR was [...] and symptoms in addition to eGFR. Blood 04/24/2023 3:32 AM EST 04/24/2023 3:57 AM EST Narrative Resulting Agency Comment Spec In Lab David Levin MD CHEMISTRY ORDERABLES [facility] [place] [place] [address] * POCT Glucose (04/23/2023 8:53 PM EST) Glucose, POC 117 65 - 199 mg/dL [facility] Comment: Supplemental ranges: <140 mg/dL before meals <180 mg/dL all other times of the day Blood 04/23/2023 8:53 PM EST 04/23/2023 8:53 PM EST Lm Delgado MD POINT OF CARE TEST O RDERARADHA [facility] [place] [address] * POCT Glucose (04/23/2023 4:14 PM EST) Glucose, POC 146 65 - 199 mg/dL [facility] Comment: Supplemental ranges: <140 mg/dL before meals <180 mg/dL all other times of the day Blood 04/23/2023 4:14 PM EST 04/23/2023 4:14 PM EST Lm Delgado MD POINT OF CARE TEST O ASMITA Performing Organization Address City/[facility] Co de Phone Number [facility] [place] [address] * (ABNORMAL) Basic Metabolic Panel (non-fasting) (04/23/2023 1:12 PM EST) Glucose 83 65 - 199 mg/dL [facility] Comment:Diabetes: >=200 mg/d L plus symptoms Blood Urea Nitrogen 33(H) 8 - 18 mg/dL [facility] Creatinine 1.48(H) 0.70 - 1.20 mg/dL [facility] Sodium 137 135 - 145 mmol/L [facility] Potassium 5.1(H) 3.5 - 5.0 mmol/L [facility] Comment: Please note: ??Patients with WBC >100,000 may have falsely elevated Potassium levels. ??For accurate Potassium quantification in these patients send serum separator tube (gold top) for subsequent determinations. ??Contact the Clinical Chemistry Laboratory if there are any questions. Chloride 97(L) 98 - 107 mmol/L [facility] Carbon Dioxide 28 22 - 31 mmol/L [facility] Anion Gap 12 5 - 15 mmol/L [facility] Calcium 9.4 8.5 - 10.5 mg/dL [facility] Est Glomerular Filtration Rate 39(L) >=60 mL/min/1. 73 m?? [facility] Comment: This patient's estimated GFR was [...] and symptoms in addition to eGFR. Blood 04/23/2023 1:12 PM EST 04/23/2023 1:54 PM EST Narrative Resulting Agency Comment Spec In Lab Lm Delgado MD CHEMISTRY ORDERABLES [facility] [place] [address] * Creatinine, urine, random (04/23/2023 11:31 AM EST) Creatinine, Urine 61 mg/dL [facility] Urine 04/23/2023 11:3 1 AM EST 04/23/2023 11:52 AM EST Narrative Resulting Agency Comment Spec In Lab Lm Delgado MD URINE ORDERABLES [facility] [place] [address] * Urea nitrogen, urine, random (04/23/2023 11:31 AM EST) Urea Nitrogen, Urine 388 mg/dL [facility] Urine 04/23/2023 11:3 1 AM EST 04/23/2023 11:52 AM EST Narrative Resulting Agency Comment Spec In Lab Lm Delgado MD URINE ORDERABLES Performing Organization Address City/[facility]/ZIP Co de Phone Number [facility] [place] [address] * POCT Glucose (04/23/2023 10:51 AM EST) Glucose, POC 156 65 - 199 mg/dL [facility] Comment: Supplemental ranges: <140 mg/dL before meals <180 mg/dL all other times of the day Blood 04/23/2023 10:5 1 AM EST 04/23/2023 10:51 AM EST Lm Delgado MD POINT OF CARE TEST O RDERABLES Performing Organization Address [facility] Co de Phone Number [facility] [place] [address] * POCT Glucose (04/23/2023 7:12 AM EST) Glucose, POC 115 65 - 199 mg/dL [facility] Comment: Supplemental ranges: <140 mg/dL before meals <180 mg/dL all other times of the day Blood 04/23/2023 7:12 AM EST 04/23/2023 7:12 AM EST Lm Delgado MD POINT OF CARE TEST O RDERABLES Performing Organization Address City/[facility] Co de Phone Number [facility] [place] [address] * Hemogram (04/23/2023 3:57 AM EST) White Blood Cell 7.1 4.0 - 9.5 x10(3)/[facility] Red Blood Cell 4.21 4.00 - 5.21 x10(6)/[facility] Hemoglobin 12.6 11.7 - 15.5 g/dL [facility] Hematocrit 39.4 35.7 - 45.8 % [facility] Mean Cell Volume 93.6 82.6 - 94.4 fL [facility] Mean Cell Hemoglobin 29.9 27.1 - 32.0 pg [facility] Mean Cell Hemoglobin Concentration 32.0 31.7 - 35.0 g/dL [facility] Platelet 208 145 - 357 x10(3)/[facility] RDW Standard Deviation 45.6 37.0 - 46.0 fL [facility] RDW coefficient of variation 13.4 11.5 - 14.1 % [facility] Mean Platelet Volume 10.8 7.6 - 12.9 fL [facility] NRBC% auto 0.0 % [facility] NRBC Absolute 0.000 0.000 - 0.000 x10(3)/[facility] Blood 04/23/2023 3:57 AM EST 04/23/2023 4:16 AM EST Narrative Resulting Agency Comment Spec In Lab David Levin MD HEMATOLOGY ORDERABLE S Performing Organization Address [facility] de Phone Number [facility] [place] [address] * Magnesium (04/23/2023 3:57 AM EST) Magnesium 0.78 0.69 - 1.07 mmol/L [facility] Blood 04/23/2023 3:57 AM EST 04/23/2023 4:16 AM EST Narrative Resulting Agency Comment Spec In Lab David Levin MD CHEMISTRY ORDERABLES Performing Organization Address [facility] de Phone Number [facility] [place] [address] * (ABNORMAL) BMP w/fasting Glucose (04/23/2023 3:57 AM EST) Glucose Fasting 117(H) 65 - 99 mg/dL [facility] Comment: ?Fasting* Glucose Interpretive Criteria Normal [...] of Diabetes Mellitus, Position Statement from the [place] [employer]. ??Diabetes Care, Volume 33, Supplement 1, Apr 2009 Blood Urea Nitrogen 32(H) 8 - 18 mg/dL [facility] Creatinine 1.50(H) 0.70 - 1.20 mg/dL [facility] Sodium 137 135 - 145 mmol/L [facility] Potassium 4.4 3.5 - 5.0 mmol/L [facility] Comment: Please note: ??Patients with WBC >100,000 may have falsely elevated Potassium levels. ??For accurate Potassium quantification in these patients send serum separator tube (gold top) for subsequent determinations. ??Contact the Clinical Chemistry Laboratory if there are any questions. Chloride 98 98 - 107 mmol/L [facility] Carbon Dioxide 28 22 - 31 mmol/L [facility] Anion Gap 11 5 - 15 mmol/L [facility] Calcium 8.6 8.5 - 10.5 mg/dL [facility] Est Glomerular Filtration Rate 38(L) >=60 mL/min/1. 73 m?? [facility] Comment: This patient's estimated GFR was [...] and symptoms in addition to eGFR. Blood 04/23/2023 3:57 AM EST 04/23/2023 4:16 AM EST Narrative Resulting Agency Comment Spec In Lab David Levin MD CHEMISTRY ORDERABLES [facility] [place] [place] [address] * POCT Glucose (04/22/2023 8:46 PM EST) Glucose, POC 125 65 - 199 mg/dL [facility] Comment: Supplemental ranges: <140 mg/dL before meals <180 mg/dL all other times of the day Blood 04/22/2023 8:46 PM EST 04/22/2023 8:46 PM EST Lm Delgado MD POINT OF CARE TEST O RDERABLES [facility] [place] [address] * XR Chest PA & Lateral (Generic) (04/22/2023 6:18 PM EST) Anatomical Region Laterality Modality Chest N/A Digital Radiogra phy Impressions 04/23/2023 3:17 AM EST Nonspecific peribronchial thickening/cuffing throughout the lungs. Differential can include reactive airway disease, infectious/inflammatory bronchiolitis or pulmonary vascular congestion in the appropriate clinical context. Thank you for letting us participate in the care of this patient. ??If you are a health care provider and have any questions regarding this report, please contact the number below. ??For patients who have questions please contact the health home care scheduler that requested your imaging first. ? Narrative 04/23/2023 3:17 AM EST EXAMINATION: XR CHEST PA AND LATERAL (GENERIC) CLINICAL HISTORY: new hypoxia TECHNIQUE: PA and lateral views of the chest, 3 ??images COMPARISON: None FINDINGS: EKG leads are present. There is peribronchial thickening/cuffing throughout the lungs. No airspace opacity to suggest lobar pneumonia. No pneumothorax. No pleural effusions. There is mild cardiomegaly. Hilar are normal in size. No acute osseous findings. Surgical clips project over the gallbladder fossa. Procedure Note Johnny Brooks MD - 04/23/2023 EXAMINATION: XR CHEST PA AND LATERAL (GENERIC) CLINICAL HISTORY: new hypoxia TECHNIQUE: PA and lateral views of the chest, 3 images COMPARISON: None FINDINGS: EKG leads are present. There is peribronchial thickening/cuffing throughout the lungs. Noairspace opacity to suggest lobar pneumonia. No pneumothorax. No pleural effusions.There is mild cardiomegaly. Hilar are normal in size. No acute osseousfindings. Surgical clips project over the gallbladder fossa. IMPRESSION Nonspecific peribronchial thickening/cuffing throughout the lungs.Differential can include reactive airway disease, infectious/inflammatory bronchiolitisor pulmonary vascular congestion in the appropriate clinical context. Thank you for letting us participate in the care of this patient. If youare a health care provider and have any questions regarding this report,please contact the number below. For patients who have questions please contactthe health home care scheduler that requested your imaging first. Lm Delgado MD IMG DX ORDERABLES * POCT Glucose (04/22/2023 5:55 PM EST) Glucose, POC 107 65 - 199 mg/dL [facility] Comment: Supplemental ranges: <140 mg/dL before meals <180 mg/dL all other times of the day Blood 04/22/2023 5:55 PM EST 04/22/2023 5:55 PM EST Lm Delgado MD POINT OF CARE TEST O RDERABLES [facility] [place] [place] [address] * (ABNORMAL) POCT Glucose (04/22/2023 4:13 PM EST) Glucose, POC 373(H) 65 - 199 mg/dL [facility] Comment: Supplemental ranges: <140 mg/dL before meals <180 mg/dL all other times of the day Blood 04/22/2023 4:13 PM EST 04/22/2023 4:13 PM EST David Levin MD POINT OF CARE TEST O RDERABLES [facility] [place] [address] * (ABNORMAL) Basic Metabolic Panel (non-fasting) (04/22/2023 2:07 PM EST) Glucose 111 65 - 199 mg/dL [facility] Comment:Diabetes: >=200 mg/d L plus symptoms Blood Urea Nitrogen 27(H) 8 - 18 mg/dL [facility] Creatinine 1.49(H) 0.70 - 1.20 mg/dL [facility] Sodium 134(L) 135 - 145 mmol/L [facility] Potassium 4.6 3.5 - 5.0 mmol/L [facility] Comment: Please note: ??Patients with WBC >100,000 may have falsely elevated Potassium levels. ??For accurate Potassium quantification in these patients send serum separator tube (gold top) for subsequent determinations. ??Contact the Clinical Chemistry Laboratory if there are any questions. Chloride 97(L) 98 - 107 mmol/L [facility] Carbon Dioxide 27 22 - 31 mmol/L [facility] Anion Gap 10 5 - 15 mmol/L [facility] Calcium 8.9 8.5 - 10.5 mg/dL [facility] Est Glomerular Filtration Rate 39(L) >=60 mL/min/1. 73 m?? [facility] Comment: This patient's estimated GFR was [...] and symptoms in addition to eGFR. Blood 04/22/2023 2:07 PM EST 04/22/2023 2:18 PM EST Narrative Resulting Agency Comment Spec In Lab David Levin MD CHEMISTRY ORDERABLES Performing Organization Address City/[facility] Co de Phone Number [facility] [place] [address] * POCT Glucose (04/22/2023 11:11 AM EST) Glucose, POC 95 65 - 199 mg/dL [facility] Comment: Supplemental ranges: <140 mg/dL before meals <180 mg/dL all other times of the day Blood 04/22/2023 11:1 1 AM EST 04/22/2023 11:11 AM EST David Levin MD POINT OF CARE TEST O RDERABLES Performing Organization Address [facility] Co de Phone Number [facility] [place] [address] * POCT Glucose (04/22/2023 7:21 AM EST) Glucose, POC 159 65 - 199 mg/dL [facility] Comment: Supplemental ranges: <140 mg/dL before meals <180 mg/dL all other times of the day Blood 04/22/2023 7:21 AM EST 04/22/2023 7:21 AM EST David Levin MD POINT OF CARE TEST O RDERARDAHA Performing Organization Address City/[facility] Co de Phone Number [facility] [place] [address] * (ABNORMAL) pro-Brain Natriuretic Peptide (04/22/2023 3:55 AM EST) NT-proBNP 715(H) <=124 pg/mL [facility] Blood Venous Draw / Unknown 04/22/2023 3:55 AM EST 04/22/2023 4:29 AM EST Narrative Resulting Agency Comment Spec In Lab Eleazar SANDY CHEMISTRY ORDERABLES Performing Organization Address City/[facility]/ZIP Co de Phone Number [facility] [place] [address] * Hemogram (04/22/2023 3:55 AM EST) White Blood Cell 7.3 4.0 - 9.5 x10(3)/[facility] Red Blood Cell 4.38 4.00 - 5.21 x10(6)/[facility] Hemoglobin 13.1 11.7 - 15.5 g/dL [facility] Hematocrit 41.1 35.7 - 45.8 % [facility] Mean Cell Volume 93.8 82.6 - 94.4 fL [facility] Mean Cell Hemoglobin 29.9 27.1 - 32.0 pg [facility] Mean Cell Hemoglobin Concentration 31.9 31.7 - 35.0 g/dL [facility] Platelet 225 145 - 357 x10(3)/[facility] RDW Standard Deviation 46.0 37.0 - 46.0 fL [facility] RDW coefficient of variation 13.3 11.5 - 14.1 % [facility] Mean Platelet Volume 11.0 7.6 - 12.9 fL [facility] NRBC% auto 0.0 % [facility] NRBC Absolute 0.000 0.000 - 0.000 x10(3)/[facility] Blood 04/22/2023 3:55 AM EST 04/22/2023 4:27 AM EST Narrative Resulting Agency Comment Spec In Lab David Levin MD HEMATOLOGY ORDERABLE S [facility] [place] [address] * Magnesium (04/22/2023 3:55 AM EST) Magnesium 0.76 0.69 - 1.07 mmol/L [facility] Blood 04/22/2023 3:55 AM EST 04/22/2023 4:27 AM EST Narrative Resulting Agency Comment Spec In Lab David Levin MD CHEMISTRY ORDERABLES [facility] [place] [address] * (ABNORMAL) BMP w/fasting Glucose (04/22/2023 3:55 AM EST) Glucose Fasting 148(H) 65 - 99 mg/dL [facility] Comment: ?Fasting* Glucose Interpretive Criteria Normal [...] of Diabetes Mellitus, Position Statement from the [place] [employer]. ??Diabetes Care, Volume 33, Supplement 1, Apr 2009 Blood Urea Nitrogen 21(H) 8 - 18 mg/dL [facility] Creatinine 1.20 0.70 - 1.20 mg/dL [facility] Sodium 140 135 - 145 mmol/L [facility] Potassium 4.5 3.5 - 5.0 mmol/L [facility] Comment: Please note: ??Patients with WBC >100,000 may have falsely elevated Potassium levels. ??For accurate Potassium quantification in these patients send serum separator tube (gold top) for subsequent determinations. ??Contact the Clinical Chemistry Laboratory if there are any questions. Chloride 99 98 - 107 mmol/L [facility] Carbon Dioxide 31 22 - 31 mmol/L [facility] Anion Gap 10 5 - 15 mmol/L [facility] Calcium 8.9 8.5 - 10.5 mg/dL [facility] Est Glomerular Filtration Rate 50(L) >=60 mL/min/1. 73 m?? [facility] Comment: This patient's estimated GFR was [...] and symptoms in addition to eGFR. Blood 04/22/2023 3:55 AM EST 04/22/2023 4:27 AM EST Narrative Resulting Agency Comment Spec In Lab David Levin MD CHEMISTRY ORDERABLES Performing Organization Address City/[facility]/ZIP Co de Phone Number [facility] [place] [address] * POCT Glucose (04/21/2023 8:23 PM EST) Glucose, POC 129 65 - 199 mg/dL [facility] Comment: Supplemental ranges: <140 mg/dL before meals <180 mg/dL all other times of the day Blood 04/21/2023 8:23 PM EST 04/21/2023 8:23 PM EST David Levin MD POINT OF CARE TEST O RDERABLES Performing Organization Address [facility] Co de Phone Number [facility] [place] [address] * POCT Glucose (04/21/2023 5:10 PM EST) Glucose, POC 110 65 - 199 mg/dL [facility] Comment: Supplemental ranges: <140 mg/dL before meals <180 mg/dL all other times of the day Blood 04/21/2023 5:10 PM EST 04/21/2023 5:10 PM EST David Levin MD POINT OF CARE TEST O RDERABLES Performing Organization Address City/[facility] Co de Phone Number [facility] [place] [place] [address] * Basic Metabolic Panel (non-fasting) (04/21/2023 4:36 PM EST) Glucose 111 65 - 199 mg/dL [facility] Comment:Diabetes: >=200 mg/d L plus symptoms Blood Urea Nitrogen 17 8 - 18 mg/dL [facility] Creatinine 0.89 0.70 - 1.20 mg/dL [facility] Sodium 142 135 - 145 mmol/L [facility] Potassium 4.9 3.5 - 5.0 mmol/L [facility] Comment: Please note: ??Patients with WBC >100,000 may have falsely elevated Potassium levels. ??For accurate Potassium quantification in these patients send serum separator tube (gold top) for subsequent determinations. ??Contact the Clinical Chemistry Laboratory if there are any questions. Chloride 103 98 - 107 mmol/L [facility] Carbon Dioxide 26 22 - 31 mmol/L [facility] Anion Gap 13 5 - 15 mmol/L [facility] Calcium 8.9 8.5 - 10.5 mg/dL [facility] Est Glomerular Filtration Rate 71 >=60 mL/min/1. 73 m?? [facility] Comment: This patient's estimated GFR was [...] and symptoms in addition to eGFR. Blood 04/21/2023 4:36 PM EST 04/21/2023 4:42 PM EST Narrative Resulting Agency Comment Spec In Lab David Levin MD CHEMISTRY ORDERABLES [facility] [place] [place] [address] * POCT Glucose (04/21/2023 11:46 AM EST) Glucose, POC 96 65 - 199 mg/dL [facility] Comment: Supplemental ranges: <140 mg/dL before meals <180 mg/dL all other times of the day Blood 04/21/2023 11:4 6 AM EST 04/21/2023 11:46 AM EST David Levin MD POINT [place] [address] * CARDIAC CATHETERIZATION (04/21/2023 9:20 AM EST) Anatomical Region Laterality Modality Other Narrative 04/21/2023 9:42 AM EST ?[facility] ? Cardiac Catheterization/Intervention Report ? Patient Name: Sara Wooklaudia Fletcher. ? Procedure Date: 04/21/2023 ? A #: [id number] ? Primary Physician: Carito, Sudeep Fletcher ? Case #: [id number] ? File Name: [id number] ? Catheterization Order Number: [id number] ? [facility] ? Final Report [place], [place] ? Patient Name: ? Regan Woo ? ID#: ?[id number] ? : ?1955 ? Procedure Date: ? April 21, 2023 ? Case #: ? [id number] ? Room: ? 6 ? Case Physician: ? Sudeep Arzate M.D. ? Start: ?08:45 ?Fellow: ? Van Medley M.D. ?Admission: ??04/19/2023 ?Leon Hilario M.D. ? Referring Physician: ??José Miguel Del Angel M.D. ? Procedures: ?* Coronary Angiography ?* Left Heart Catheterization ? History ?Regan Woo is a 67 year old woman. She has a family history of ?coronary artery disease. The patient's smoking status is Never. She has ?diabetes managed by oral medication and insulin. The patient is also ?status post a recent non-ST elevation myocardial infarction. Prior to the ?initiation of this procedure, the patient was designated as ASA Class ?III. The [facility] clinical frailty scale is 4: Vulnerable. ? Diagnostic Tests: ?Prior Coronary Angiography: ? LV ejection fraction within 6 months is 54%. ?Electrocardiography: ? EKG was assessed by ECG. EKG was Abnormal. EKG showed other ? abnormality. ?Medications Prior to Procedure: ? Aspirin, Beta Lo and Statin. ? Indications for Diagnostic Cath: ?The priority of the diagnostic procedure was Urgent. 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 Chest pain symptom ?assessment was: Typical Angina. ? Technique: ?A 6 SLFr sheath was inserted in the right radial artery utilizing the ?Seldinger technique. The left coronary artery was injected utilizing a ?6Fr JL 3.5 catheter. A 6Fr JR 4 catheter was used to inject the right ?coronary artery. Left ventricular pressure was performed utilizing a 6Fr ?JR 4 catheter. 3,000 units of heparin were administered. A total of 100cc ?of Omnipaque were opened, 80cc of Omnipaque were administered and 20cc of ?Omnipaque were wasted. Radiation: Fluoro time was 4.3 minutes, dose area ?product was 35.40 Gy/cm2 and air kerma was 479 mGY. See the case log for ?additional details. ?The patient received the following medications prior to and during the ?procedure: ? Unfractionated Heparin. ? Hemodynamics: ?Left Heart Pressures ? Resting: ? Syst Diast ? EDP ?a ?v ? m ?Ao 196 ?? 78 ?120 ?LV 196 ? 25 ? Coronary Angiography: ?Dominance: Right ?Left Main ? The left main was normal, free of disease. ?Left Anterior Descending ? There was mild diffuse (<=25% stenosis) disease of the entire vessel ? segment of the left anterior descending artery (LAD). ??The LAD was ? large. ?Left Circumflex ? There was mild diffuse (<=25% stenosis) disease of the entire vessel ? segment of the left circumflex artery (LCX). ??The LCX was large. ? There was a single discrete total occlusion of the ostial segment of ? the second obtuse marginal branch (OM2) of the LCX. ??The OM2 was ? small. ??Distal flow was via collaterals from the LCX. ??The distal ? vessel was poorly visualized. ?Right Coronary Artery ? There was mild diffuse (<=25% stenosis) disease of the entire vessel ? segment of the right coronary artery (RCA). ??The RCA was large. ??The ? proximal segment of the RCA had a long segmental 30% stenosis. ? There was a 95% long segmental stenosis of the distal segment of the ? right first posterolateral branch (RPL1) of the RCA. ??The RPL1 was ? small. ??Distal flow was via collaterals from the LCX. ??The distal ? vessel was poorly visualized. ? Vascular Access: ?Vascular Access Management: ? Mechanical Compression of the right radial artery access site was ? performed. ? Conclusions: ?* Two vessel coronary artery disease (LCX and RCA) ?* Elevated left ventricular end diastolic pressure ?* Very small distal branches of LCX and RCA with high grade disease, not ?approachable for revascularization. ? Complications/Events: ?The patient had no complications during these procedures. ? Post Procedure Fluid Recommendations: ?IV fluid at 214 mL/hr for 4 hours for a total of 856 mL. These ?recommendations are made at the time of the procedure. Patient and ?provider preferences or a changing clinical situation may require ?modification of this regimen. ?The attending physician was present for the entire procedure. ?Dr. Sudeep Arzate M.D. was present during the moderate sedation ?intraservice time as documented by the sedation nurse. ??Case time = 00:20. ?Dr. Sudeep Arzate M.D. performed the coronary angiography and left heart ?catheterization. ? Sudeep Arzate, M.D. ? Electronically Signed by: Sudeep Arzate, M.D. ? Report Finalized: 04/21/2023 ??09:36 ? Procedure Note Sudeep Arzate MD - 04/21/2023 [facility] Cardiac Catheterization/Intervention Report Patient Name: Regan Woo Procedure Date: 04/21/2023 A #: [id number] Primary Physician: Sudeep Arzate Case #: [id number] File Name: [id number] Catheterization Order Number: [id number] [facility] FinalReport [place], [place] Patient Name: Regan Woo ID#:[id number] :1955 Procedure Date: April 21, 2023 Case #: [id number] Room: 6 Case Physician: Sudeep Arzate M.D. Start: 08:45 Fellow: Van Medley M.D. Admission:04/19/2023 Leon Hilario M.D. Referring Physician: José Miguel Del Angel M.D. Procedures: * Coronary Angiography * Left Heart Catheterization History Regan Woo is a 67 year old woman. She has a family historyof coronary artery disease. The patient's smoking status is Never. Shehas diabetes managed by oral medication and insulin. The patient is also status post a recent non-ST elevation myocardial infarction. Priorto the initiation of this procedure, the patient was designated as ASAClass III. The [facility] clinical frailty scale is 4: Vulnerable. Diagnostic Tests: Prior Coronary Angiography: LV ejection fraction within 6 months is 54%. Electrocardiography: EKG was assessed by ECG. EKG was Abnormal. EKG showed other abnormality. Medications Prior to Procedure: Aspirin, Beta Lo and Statin. Indications for Diagnostic Cath: The priority of the diagnostic procedure was Urgent. 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 Chest pain symptom assessment was: Typical Angina. Technique: A 6 SLFr sheath was inserted in the right radial artery utilizingthe Seldinger technique. The left coronary artery was injected utilizinga 6Fr JL 3.5 catheter. A 6Fr JR 4 catheter was used to inject theright coronary artery. Left ventricular pressure was performed utilizing a6Fr JR 4 catheter. 3,000 units of heparin were administered. A total [id number] of Omnipaque were opened, 80cc of Omnipaque were administered wvi56om of Omnipaque were wasted. Radiation: Fluoro time was 4.3 minutes, dosearea product was 35.40 Gy/cm2 and air kerma was 479 mGY. See the case logfor additional details. The patient received the following medications prior to and duringthe procedure: Unfractionated Heparin. Hemodynamics: Left Heart Pressures Resting: Syst Diast EDP a v m Ao 196 78 120 LV 196 25 Coronary Angiography: Dominance: Right Left Main The left main was normal, free of disease. Left Anterior Descending There was mild diffuse (<=25% stenosis) disease of the entirevessel segment of the left anterior descending artery (LAD). The LADwas large. Left Circumflex There was mild diffuse (<=25% stenosis) disease of the entirevessel segment of the left circumflex artery (LCX). The LCX waslarge. There was a single discrete total occlusion of the ostialsegment of the second obtuse marginal branch (OM2) of the LCX. The OM2was small. Distal flow was via collaterals from the LCX. Thedistal vessel was poorly visualized. Right Coronary Artery There was mild diffuse (<=25% stenosis) disease of the entirevessel segment of the right coronary artery (RCA). The RCA was large.The proximal segment of the RCA had a long segmental 30% stenosis. There was a 95% long segmental stenosis of the distal segmentof the right first posterolateral branch (RPL1) of the RCA. The DEX9kig small. Distal flow was via collaterals from the LCX. Thedistal vessel was poorly visualized. Vascular Access: Vascular Access Management: Mechanical Compression of the right radial artery access sitewas performed. Conclusions: * Two vessel coronary artery disease (LCX and RCA) * Elevated left ventricular end diastolic pressure * Very small distal branches of LCX and RCA with high grade disease,not approachable for revascularization. Complications/Events: The patient had no complications during these procedures. Post Procedure Fluid Recommendations: IV fluid at 214 mL/hr for 4 hours for a total of 856 mL. These recommendations are made at the time of the procedure. Patient and provider preferences or a changing clinical situation may require modification of this regimen. The attending physician was present for the entire procedure. Dr. Sudeep Arzate M.D. was present during the moderate sedation intraservice time as documented by the sedation nurse. Case time =00:20. Dr. Sudeep Arzate M.D. performed the coronary angiography and leftheart catheterization. Sudeep Arzate M.D. Electronically Signed by: Sudeep Arzate M.D. Report Finalized: 04/21/2023 09:36 Sudeep Arzate MD CARDIAC CATH ORDERAB LES * POCT Glucose (04/21/2023 8:49 AM EST) Glucose, POC 135 65 - 199 mg/dL [facility] Comment: Supplemental ranges: <140 mg/dL before meals <180 mg/dL all other times of the day Blood 04/21/2023 8:49 AM EST 04/21/2023 8:49 AM EST David Levin MD POINT OF CARE TEST O RDERABLES [facility] [place] [address] * POCT Glucose (04/21/2023 7:24 AM EST) Glucose, POC 128 65 - 199 mg/dL [facility] Comment: Supplemental ranges: <140 mg/dL before meals <180 mg/dL all other times of the day Blood 04/21/2023 7:24 AM EST 04/21/2023 7:24 AM EST David Levin MD POINT OF CARE TEST O RDERABLES Performing Organization Address City/[facility]/[place] [address] * (ABNORMAL) Differential, Automated (04/21/2023 1:25 AM EST) Neutrophil % 51.5 % [facility] Neutrophil Absolute 4.03 1.70 - 6.10 x10(3)/mc L [facility] Lymph % 33.6 % [facility] Lymphocytes Abs 2.6 0.9 - 3.2 x10(3)/mc L [facility] Monocyte % 7.7 % [facility] Monocyte Abs 0.6 0.3 - 0.9 x10(3)/mc L [facility] Eos % 6.4 % [facility] Eosinophils Abs 0.5(H) 0.0 - 0.4 x10(3)/mc L [facility] Basophil % 0.5 % [facility] Baso Absolute 0.0 0.0 - 0.1 x10(3)/mc L [facility] Immature Gran % 0.30 % [facility] Comment: Immature granulocytes(IG's)percentage and absolute count will include metamyelocytes, myelocytes, and promyelocytes. Blood smears from CBCs yielding IG's will be scanned manually for concordance. If this scan disagrees with the automated IG or if promyelocytes are noted, a manual differential will be performed. Immature Gran Absolute 0.02 0.00 - 0.04 x10(3)/mc L [facility] Blood 04/21/2023 1:25 AM EST 04/21/2023 1:32 AM EST Narrative Resulting Agency Comment Spec In Lab Trent Steel DO HEMATOLOGY ORDERABL ES Performing Organization Address City/[facility]/ZIP Co de Phone Number [facility] [place] [address] * (ABNORMAL) Hemogram (04/21/2023 1:25 AM EST) White Blood Cell 7.8 4.0 - 9.5 x10(3)/mc L [facility] Red Blood Cell 4.45 4.00 - 5.21 x10(6)/mc L [facility] Hemoglobin 13.5 11.7 - 15.5 g/dL [facility] Hematocrit 41.9 35.7 - 45.8 % [facility] Mean Cell Volume 94.2 82.6 - 94.4 fL [facility] Mean Cell Hemoglobin 30.3 27.1 - 32.0 pg [facility] Mean Cell Hemoglobin Concentration 32.2 31.7 - 35.0 g/dL [facility] Platelet 215 145 - 357 x10(3)/mc L [facility] RDW Standard Deviation 46.6(H) 37.0 - 46.0 fL [facility] RDW coefficient of variation 13.5 11.5 - 14.1 % [facility] Mean Platelet Volume 10.3 7.6 - 12.9 fL [facility] NRBC% auto 0.0 % [facility] NRBC Absolute 0.000 0.000 - 0.000 x10(3)/mc L [facility] Blood 04/21/2023 1:25 AM EST 04/21/2023 1:32 AM EST Narrative Resulting Agency Comment Spec In Lab Trent Steel DO HEMATOLOGY ORDERABL ES [facility] [place] [place] [address] * Heparin (unfractionated) Level (04/21/2023 1:25 AM EST) UF Heparin 0.35 IU/mL [facility] Comment: Heparin (anti-Xa) levels should be determined in a plasma sample that has been drawn 6 hours after a dose change to approximate steady-state for continuous heparin infusions. Indication specific Heparin (anti-Xa) levels based on order set selection: Acute DVT or PE treatment: 0.3 ? 0.7 IU/mL Thrombosis Prevention (eg. atrial fibrillation, lorenzo-procedural bridging, mechanical valves): 0.3 ? 0.7 IU/mL Acute Coronary Syndrome: 0.3 ? 0.7 IU/mL Stroke Indications: 0.3 ? 0.5 IU/mL Ultra-low intensity (select indications in cardiac surgery): 0.1 ? 0.3 IU/mL Blood 04/21/2023 1:25 AM EST 04/21/2023 1:32 AM EST Narrative Resulting Agency Comment Spec In Lab Trent Steel DO HEMATOLOGY ORDERABL ES Performing Organization Address City/State/[facility] Co de Phone Number [facility] [address] [place] [address] * (ABNORMAL) Urine culture (04/20/2023 10:53 PM EST) Urine Culture Greater than 100,000 cfu/ml Escherichia coli(A) [facility] Organism Escherichia coli(A) [facility] Clean Catch Urine 04/20/2023 10:53 PM EST 04/21/2023 12:22 AM EST Narrative Resulting Agency Comment Spec In Lab Organism Antibiotic Method Susceptibility Escherichia coli Amikacin VITEK 2 METHOD Sensitive Escherichia coli Ampicillin + Sulbactam VITEK 2 METHOD Sensitive Escherichia coli Aztreonam VITEK 2 METHOD Sensitive Escherichia coli Cefazolin VITEK 2 METHOD Sensitive Escherichia coli Cefepime VITEK 2 METHOD <=1: Sensitive Escherichia coli Ceftazidime VITEK 2 METHOD <=1: Sensitive Escherichia coli Ceftriaxone VITEK 2 METHOD Sensitive Escherichia coli Ertapenem VITEK 2 METHOD Sensitive Escherichia coli Gentamicin VITEK 2 METHOD Sensitive Escherichia coli Levofloxacin VITEK 2 METHOD Sensitive Comment: Levofloxacin and Ciprofloxacin may not adequately treat infections in critically ill patients even when isolates test susceptible in the laboratory. Contact Infectious Disease before using in critically ill patients. Escherichia coli Meropenem VITEK 2 METHOD <=0.25: Sensitive Escherichia coli Nitrofurantoin VITEK 2 METHOD Sensitive Escherichia coli Piperacillin/Tazobactam VITEK 2 METHO D <=4: Sensitive Escherichia coli Tetracycline VITEK 2 METHOD Sensitive Escherichia coli Tobramycin VITEK 2 METHOD Sensitive Escherichia coli Trimethoprim/Sulfa VITEK 2 METHOD Sensitive Tori SANDY MICROBIOLOGY - GENE RAL ORDERABLES Performing Organization Address [facility] Co de Phone Number [facility] [place] [address] * (ABNORMAL) Urinalysis Microscopic Exam (04/20/2023 10:53 PM EST) RBC, Urine 2 0 - 4 /HPF [facility] WBC, Urine 9(H) 0 - 5 /HPF [facility] WBC Clumps, Urine Occasional (A) None /HPF [facility] Bacteria, Urine Many(A) None /HPF [facility] Budding Yeast, Urine Rare(A) None /HPF [facility] Squamous Epithelial Cells Raw Data, Urine 5(H) <=4 /HPF [facility] Hyaline Casts, Urine 18(H) 0 - 2 /LPF [facility] Clean Catch Urine 04/20/2023 10:53 PM EST 04/20/2023 11:22 PM EST Narrative Resulting Agency Comment Spec In Lab Tori SANDY URINE ORDERABLES Performing Organization Address [facility] Co de Phone Number [facility] [place] [address] * (ABNORMAL) Urinalysis with reflex Culture (04/20/2023 10:53 PM EST) Glucose, Urine Dipstick Negative Negative mg/dL [facility] Protein, Urine Dipstick 100(A) Negative mg/dL [facility] Bilirubin, Urine Dipstick Negative Negative mg/dL [facility] Comment: Clinical correlation required for positive Urine Bilirubin results as false positive may occur with some drugs and drug related products. If a false positive is suspected a serum total bilirubin should be considered if clinically indicated. Urobilinogen, Urine Dipstick Normal Normal mg/dL [facility] pH, Urn (dipstick) 6.0 5.0 - 8.0 [facility] Blood, Urine Dipstick Negative Negative mg/dL [facility] Ketone, Urine Dipstick Negative Negative mg/dL [facility] Nitrite, Urine Dipstick Positive(A) Negative [facility] Leukocytes, Urine Dipstick Trace(A) Negative mcL [facility] Appearance, Urine Dipstick Cloudy(A) Clear [facility] Specific [place] Urine Automated 1.017 1.005 - 1.030 [facility] Color, Urine Dipstick Yellow Yellow [facility] Reflex to Culture Yes [facility] Clean Catch Urine 04/20/2023 10:53 PM EST 04/20/2023 11:22 PM EST Narrative Resulting Agency Comment Spec In Lab David Levin MD URINE ORDERABLES Performing Organization Address [facility] Co de Phone Number [facility] [place] [place] [address] * POCT Glucose (04/20/2023 8:31 PM EST) Glucose, POC 175 65 - 199 mg/dL [facility] Comment: Supplemental ranges: <140 mg/dL before meals <180 mg/dL all other times of the day Blood 04/20/2023 8:31 PM EST 04/20/2023 8:31 PM EST David Levin MD POINT OF CARE TEST O RDERABLES Performing Organization Address [facility] Co de Phone Number [facility] [place] [place] [address] * Heparin (unfractionated) Level (04/20/2023 6:54 PM EST) UF Heparin 0.24 IU/mL [facility] Comment: Heparin (anti-Xa) levels should be determined in a plasma sample that has been drawn 6 hours after a dose change to approximate steady-state for continuous heparin infusions. Indication specific Heparin (anti-Xa) levels based on order set selection: Acute DVT or PE treatment: 0.3 ? 0.7 IU/mL Thrombosis Prevention (eg. atrial fibrillation, lorenzo-procedural bridging, mechanical valves): 0.3 ? 0.7 IU/mL Acute Coronary Syndrome: 0.3 ? 0.7 IU/mL Stroke Indications: 0.3 ? 0.5 IU/mL Ultra-low intensity (select indications in cardiac surgery): 0.1 ? 0.3 IU/mL Blood 04/20/2023 6:54 PM EST 04/20/2023 6:59 PM EST Narrative Resulting Agency Comment Spec In Lab Trent Steel DO HEMATOLOGY ORDERABL ES Performing Organization Address [facility] Co de Phone Number [facility] [place] [place] [address] * POCT Glucose (04/20/2023 4:07 PM EST) Glucose, POC 141 65 - 199 mg/dL [facility] Comment: Supplemental ranges: <140 mg/dL before meals <180 mg/dL all other times of the day Blood 04/20/2023 4:07 PM EST 04/20/2023 4:07 PM EST David Levin MD POINT OF CARE TEST O RDERABLES Performing Organization Address [facility] de Phone Number [facility] [address] * ECHO COMPLETE W CONTRAST (04/20/2023 2:26 PM EST) Anatomical Region Laterality Modality Cardiac Other 04/20/2023 12:2 7 PM EST Narrative 04/20/2023 7:45 PM EST ? Version: 1 Name: REGAN WOO ? Study Date: 04/20/2023, 12: 27 PM ? BP: 165 / 57 mmHg : 1955 (MM/DD/YYYY) ? Height: 163 cm ? Age: 67 Years ? Weight: 107 kg Gender: Female ?BSA: 2.10 m?? Ordering Physician: TRENT HAIR Referring Physician: TRENT HAIR Performed By: Maura Guthrie [facility] Exam Location: [facility]. ? Conclusions Normal left and right ventricular size and systolic function. LV ejection fraction 54%. No regional wall motion abnormalities. Aortic sclerosis without severe stenosis. Mild mitral regurgitation. No pericardial effusion. No prior studies available for comparison. Procedure Complete-84754. Image enhancement Optison was used for left ventricular opacification. Satisfactory quality. There is normal sinus rhythm. Left Ventricle Left ventricle is of normal size. Wall thickness is normal. Left ventricular systolic function is normal. The left ventricular ejection fraction is 54% by Jha's biplane. There are no segmental wall motion abnormalities. Right Ventricle The right ventricle is of normal size. Right ventricular systolic function is normal. Left Atrium The left atrium is mildly dilated. No abnormality of the interatrial septum is identified. Right Atrium The right atrium is normal. Aortic Valve The aortic valve is tricuspid. The aortic valve is mildly thickened. The aortic valve is mildly calcified. There is calcification of the aortic annulus. There is no aortic stenosis. There is no aortic regurgitation. Mitral Valve The mitral valve is structurally normal. There is mild mitral regurgitation. Tricuspid Valve The tricuspid valve is structurally and functionally normal. There is trace tricuspid regurgitation. Pulmonic Valve The pulmonic valve appears to be structurally and functionally normal. Great Arteries The aortic root is of normal size. No abnormalities are identified. No abnormalities of the pulmonary artery are identified. Venous Inferior vena cava is normal in size. Inferior vena cava collapse greater than 50% with respiration. Pericardium/Pleural The pericardium appears normal. Hemodynamics Pulmonary artery hypertension could not be assessed due to inadequate tricuspid regurgitation jet. There is Grade II LV diastolic dysfunction (abnormal relaxation with elevated left ventricular filling pressure). Ejection Fraction ? 2D Measurements ? Volume ??s ? IVSd: 1.29 cm EF(MOD-bp): 53.6 % ? LVIDd: 5.1 cm ? LVIDs: 4.3 cm ? LAV(MOD-bp) Indexed: 36.7 ml/m? LVPWd: 0.89 cm ? RA A4Cs_phl: 19.8 cm? LV mass(C)d: 211.0 grams ? EDV(MOD-sp4): 165.6 ml ? Ao root diam: 3.4 cm ? ESV(MOD-sp4): 74.7 ml ? asc Aorta Diam: 3.2 cm ? EDV(MOD-sp2): 87.2 ml ? ESV(MOD-sp2): 40.9 ml ? EDV (MOD-sp4) index: 78.8 ? EDV (MOD-sp4) index: 78.8 ? ESV (MOD-sp4) index: 35.6 ? ESV (MOD-sp2) index: 19.4 Doppler ? 3D/Strain/ TomTec MV E max emily: 76.6 cm/sec MV A max emily: 105.8 cm/sec MV E/A: 0.72 Lat Peak E' Emily: 4.8 cm/sec E/ e' (lat): 15.8 Med Peak E' Emily: 4.6 cm/sec E/e' (med): 16.7 I ?WMSI ??= ??1.00 ? % Normal ??= ?? 100% X - ?1 - ? 2 - ?3 - ?4 - ? 5 - ?Segments ? Size Cannot Interpret ??Normal ? Hypokinetic ?Akinetic ?Dyskinetic ?? Aneurysmal ? 1-2 ? small ? 3-5 ? moderate ? 6-14 ?large ? 15-16 ? diffuse Electronically signed by: Felix Diaz MD ?04/20/2023, 7: 45 PM Procedure Note Felix Diaz MD - 04/20/2023 Version: 1 Name: REGAN WOO Study Date: 04/20/2023,12: 27 PM BP: 165 / 57 mmHg : 1955 (MM/DD/YYYY) Height: 163 cm Age: 67 Years Weight: 107 kg Gender: Female BSA: 2.10 m?? Ordering Physician: TRENT HAIR Referring Physician: TRENT HAIR Performed By: Maura Guthrie [facility] Exam Location: [facility]. Conclusions Normal left and right ventricular size and systolic function. LV ejectionfraction 54%. No regional wall motion abnormalities. Aortic sclerosis without severe stenosis. Mild mitral regurgitation. No pericardial effusion. No prior studies available for comparison. Procedure Complete-[id number]. Image enhancement Optison was used for left ventricular opacification. Satisfactory quality. There is normal sinus rhythm. Left Ventricle Left ventricle is of normal size. Wall thickness is normal. Leftventricular systolic function is normal. The left ventricular ejection fraction is 54%by Jha's biplane. There are no segmental wall motion abnormalities. Right Ventricle The right ventricle is of normal size. Right ventricular systolic functionis normal. Left Atrium The left atrium is mildly dilated. No abnormality of the interatrialseptum is identified. Right Atrium The right atrium is normal. Aortic Valve The aortic valve is tricuspid. The aortic valve is mildly thickened. Theaortic valve is mildly calcified. There is calcification of the aortic annulus.There is no aortic stenosis. There is no aortic regurgitation. Mitral Valve The mitral valve is structurally normal. There is mild mitralregurgitation. Tricuspid Valve The tricuspid valve is structurally and functionally normal. There istrace tricuspid regurgitation. Pulmonic Valve The pulmonic valve appears to be structurally and functionally normal. Great Arteries The aortic root is of normal size. No abnormalities are identified. No abnormalities of the pulmonary artery are identified. Venous Inferior vena cava is normal in size. Inferior vena cava collapse greaterthan 50% with respiration. Pericardium/Pleural The pericardium appears normal. Hemodynamics Pulmonary artery hypertension could not be assessed due to inadequatetricuspid regurgitation jet. There is Grade II LV diastolic dysfunction (abnormalrelaxation with elevated left ventricular filling pressure). Ejection Fraction 2D Measurements Volume s IVSd: 1.29 cm EF(MOD-bp): 53.6 % LVIDd: 5.1 cm LVIDs: 4.3 cm LAV(MOD-bp) Indexed: 36.7 ml/m?? LVPWd: 0.89 cm RA A4Cs_phl: 19.8 cm?? LV mass(C)d: 211.0grams EDV(MOD-sp4): 165.6 ml Ao root diam: 3.4 cm ESV(MOD-sp4): 74.7 ml asc Aorta Diam: 3.2cm EDV(MOD-sp2): 87.2 ml ESV(MOD-sp2): 40.9 ml EDV (MOD-sp4) index: 78.8 EDV (MOD-sp4) index: 78.8 ESV (MOD-sp4) index: 35.6 ESV (MOD-sp2) index: 19.4 Doppler 3D/Strain/ TomTec MV E max emily: 76.6 cm/sec MV A max emily: 105.8 cm/sec MV E/A: 0.72 Lat Peak E' Emily: 4.8 cm/sec E/ e' (lat): 15.8 Med Peak E' Emily: 4.6 cm/sec E/e' (med): 16.7 I WMSI = 1.00 % Normal = 100% X - 1 - 2 - 3 - 4 - 5 - Segments Size Cannot Interpret Normal Hypokinetic AkineticDyskinetic Aneurysmal 1-2 small 3-5 moderate 6-14 large 15-16 diffuse Electronically signed by: Felix Diaz MD 04/20/2023, 7: 45 PM Trent Steel DO ECHO ORDERABLES * (ABNORMAL) Troponin (04/20/2023 1:50 PM EST) Troponin-T, High Sensitivity 18(H) <=14 ng/L [facility] Comment: This patient's troponin T concentration was determined using the Sarah 5th Generation troponin T assay. The 99th percentile for Troponin T for this test is 14 ng/L for females, and 22 ng/L for males. According to the fourth universal definition of myocardial infarction, the term acute myocardial infarction should be used when there is acute myocardial injury with clinical evidence of acute myocardial ischemia and with detection of a rise and/or fall of cardiac troponin values with at least one value above the 99th percentile and at least one of the following: - Symptoms of myocardial ischemia; - New ischemic ECG changes; - Development of pathological Q waves; - Imaging evidence of new loss of viable myocardium or new regional wall motion abnormality in a pattern consistent with an ischemic etiology; - Identification of a coronary thrombus by angiography or autopsy (not for type 2 or 3 MIs) Serial measurement of troponin and the change in troponin concentration over time (delta) is crucial for the diagnosis of acute myocardial infarction. Guidance on the interpretation of the new 5th Generation Troponin T values and the delta troponin value can be found in the [facility] Test Catalog Troponin - [facility] Test Catalog Reference: Fourth [place] Definition of Myocardial Infarction. Journal of the [place] College [employer] 2018;72:0380-7676 Blood 04/20/2023 1:50 PM EST 04/20/2023 1:55 PM EST Narrative Resulting Agency Comment Spec In Lab David Levin MD CHEMISTRY ORDERABLES Performing Organization Address [facility] Co de Phone Number [facility] [place] [address] * Magnesium (04/20/2023 1:50 PM EST) Magnesium 0.99 0.69 - 1.07 mmol/L [facility] Blood 04/20/2023 1:50 PM EST 04/20/2023 1:55 PM EST Narrative Resulting Agency Comment Spec In Lab David Levin MD CHEMISTRY ORDERABLES Performing Organization Address [facility] de Phone Number [facility] [place] [address] * Basic Metabolic Panel (non-fasting) (04/20/2023 1:50 PM EST) Glucose 124 65 - 199 mg/dL [facility] Comment:Diabetes: >=200 mg/d L plus symptoms Blood Urea Nitrogen 14 8 - 18 mg/dL [facility] Comment:result rechecked-imm Creatinine 0.82 0.70 - 1.20 mg/dL [facility] Sodium 141 135 - 145 mmol/L [facility] Potassium 4.5 3.5 - 5.0 mmol/L [facility] Comment: Please note: ??Patients with WBC >100,000 may have falsely elevated Potassium levels. ??For accurate Potassium quantification in these patients send serum separator tube (gold top) for subsequent determinations. ??Contact the Clinical Chemistry Laboratory if there are any questions. Chloride 104 98 - 107 mmol/L [facility] Carbon Dioxide 27 22 - 31 mmol/L [facility] Anion Gap 10 5 - 15 mmol/L [facility] Calcium 9.1 8.5 - 10.5 mg/dL [facility] Est Glomerular Filtration Rate 79 >=60 mL/min/1. 73 m?? [facility] Comment: This patient's estimated GFR was [...] and symptoms in addition to eGFR. Blood 04/20/2023 1:50 PM EST 04/20/2023 1:55 PM EST Narrative Resulting Agency Comment Spec In Lab David Levin MD CHEMISTRY ORDERABLES Performing Organization Address [facility] Co de Phone Number [facility] [place] [address] * EKG 12 Lead (04/20/2023 1:10 PM EST) Ventricular rate 70 BPM MUSE SYSTEM Atrial Rate 70 BPM MUSE SYSTEM P-R Interval 162 ms MUSE SYSTEM QRS Duration 88 ms MUSE SYSTEM Q-T Interval 396 ms MUSE SYSTEM QTC Calculated (Bezet) 427 ms MUSE SYSTEM Calculated [place] 1 degrees MUSE SYSTEM Calculated [place] 20 degrees MUSE SYSTEM Calculated [place] 15 degrees MUSE SYSTEM INTERPRETATION Normal sinus rhythm Anterosepta l infarct (cited on or before 20-APR-2023 ) Abnormal ECG When compared with ECG of 20-APR-2023 08:05, Nonspecific T wave abnormality , improved in Inferior leads Confirmed by MD VASQUEZ, FELIX ([id number]) on 04/20/2023 2:10:45 PM MUSE SYSTEM 04/20/2023 1:10 PM EST 04/20/2023 2:10 PM EST David Levin MD ECG ORDERABLES Performing Organization Address [facility] Co de Phone Number MUSE SYSTEM * POCT Glucose (04/20/2023 11:47 AM EST) Pathologist [facility] Glucose, POC 104 65 - 199 mg/dL [facility] Comment: Supplemental ranges: <140 mg/dL before meals <180 mg/dL all other times of the day Blood 04/20/2023 11:4 7 AM EST 04/20/2023 11:47 AM EST David Levin MD POINT OF CARE TEST O RDERABLES Performing Organization Address City/[facility]/ZIP Co de Phone Number [facility] [place] [address] * Heparin (unfractionated) Level (04/20/2023 9:08 AM EST) [facility] UF Heparin 0.30 IU/mL [facility] Comment: Heparin (anti-Xa) levels should be determined in a plasma sample that has been drawn 6 hours after a dose change to approximate steady-state for continuous heparin infusions. Indication specific Heparin (anti-Xa) levels based on order set selection: Acute DVT or PE treatment: 0.3 ? 0.7 IU/mL Thrombosis Prevention (eg. atrial fibrillation, lorenzo-procedural bridging, mechanical valves): 0.3 ? 0.7 IU/mL Acute Coronary Syndrome: 0.3 ? 0.7 IU/mL Stroke Indications: 0.3 ? 0.5 IU/mL Ultra-low intensity (select indications in cardiac surgery): 0.1 ? 0.3 IU/mL Blood 04/20/2023 9:08 AM EST 04/20/2023 9:12 AM EST Narrative Resulting Agency Comment Spec In Lab Trent Steel DO HEMATOLOGY ORDERABL ES Performing Organization Address City/[facility]/ZIP Co de Phone Number [facility] [place] [place] [address] * EKG 12 Lead (04/20/2023 8:05 AM EST) Pathologist [facility] Ventricular rate 77 BPM MUSE SYSTEM Atrial Rate 77 BPM MUSE SYSTEM P-R Interval 144 ms MUSE SYSTEM QRS Duration 80 ms MUSE SYSTEM Q-T Interval 384 ms MUSE SYSTEM QTC Calculated (Bezet) 434 ms MUSE SYSTEM Calculated [place] 19 degrees MUSE SYSTEM Calculated [place] -28 degrees MUSE SYSTEM INTERPRETATION Normal sinus rhythm Anteroseptal infarct , age undetermined Abnormal ECG No previous ECGs available Confirmed by MD VASQUEZ, FELIX ([id number]) on 04/20/2023 2:10:40 PM MUSE SYSTEM 04/20/2023 8:05 AM EST 04/20/2023 2:10 PM EST David Levin MD ECG ORDERABLES MUSE SYSTEM * POCT Glucose (04/20/2023 7:49 AM EST) Glucose, POC 123 65 - 199 mg/dL [facility] Comment: Supplemental ranges: <140 mg/dL before meals <180 mg/dL all other times of the day Blood 04/20/2023 7:49 AM EST 04/20/2023 7:49 AM EST David Levin MD POINT OF CARE TEST O RDERABLES Performing Organization Address [facility] Co de Phone Number [facility] [address] * (ABNORMAL) Troponin (04/20/2023 12:47 AM EST) Troponin-T, High Sensitivity 18(H) <=14 ng/L [facility] Comment: This patient's troponin T concentration was determined using the Sarah 5th Generation troponin T assay. The 99th percentile for Troponin T for this test is 14 ng/L for females, and 22 ng/L for males. According to the fourth universal definition of myocardial infarction, the term acute myocardial infarction should be used when there is acute myocardial injury with clinical evidence of acute myocardial ischemia and with detection of a rise and/or fall of cardiac troponin values with at least one value above the 99th percentile and at least one of the following: - Symptoms of myocardial ischemia; - New ischemic ECG changes; - Development of pathological Q waves; - Imaging evidence of new loss of viable myocardium or new regional wall motion abnormality in a pattern consistent with an ischemic etiology; - Identification of a coronary thrombus by angiography or autopsy (not for type 2 or 3 MIs) Serial measurement of troponin and the change in troponin concentration over time (delta) is crucial for the diagnosis of acute myocardial infarction. Guidance on the interpretation of the new 5th Generation Troponin T values and the delta troponin value can be found in the [facility] Test Catalog Troponin - [facility] Test Catalog Reference: Fourth [place] Definition of Myocardial Infarction. Journal of the [place] College of Cardiology 2018;72:[id number] Blood Venous Draw / Unknown 04/20/2023 12:47 AM EST 04/20/2023 12:58 AM EST Narrative Resulting Agency Comment Spec In Lab Tori SANDY CHEMISTRY ORDERABLE S [facility] [place] [address] * Differential, Automated (04/20/2023 12:47 AM EST) Neutrophil % 62.8 % [facility] Neutrophil Absolute 4.73 1.70 - 6.10 x10(3)/[facility] Lymph % 27.0 % [facility] Lymphocytes Abs 2.0 0.9 - 3.2 x10(3)/[facility] Monocyte % 6.5 % [facility] Monocyte Abs 0.5 0.3 - 0.9 x10(3)/[facility] Eos % 2.9 % [facility] Eosinophils Abs 0.2 0.0 - 0.4 x10(3)/[facility] Basophil % 0.5 % [facility] Baso Absolute 0.0 0.0 - 0.1 x10(3)/[facility] Immature Gran % 0.30 % [facility] Comment: Immature granulocytes(IG's)percentage and absolute count will include metamyelocytes, myelocytes, and promyelocytes. Blood smears from CBCs yielding IG's will be scanned manually for concordance. If this scan disagrees with the automated IG or if promyelocytes are noted, a manual differential will be performed. Immature Gran Absolute 0.02 0.00 - 0.04 x10(3)/[facility] Blood 04/20/2023 12:4 7 AM EST 04/20/2023 12:54 AM EST Narrative Resulting Agency Comment Spec In Lab Trent Steel DO HEMATOLOGY ORDERABL ES [facility] [place] [place] [address] * (ABNORMAL) Hemogram (04/20/2023 12:47 AM EST) White Blood Cell 7.5 4.0 - 9.5 x10(3)/mc L [facility] Red Blood Cell 4.29 4.00 - 5.21 x10(6)/mc L [facility] Hemoglobin 12.9 11.7 - 15.5 g/dL [facility] Hematocrit 40.1 35.7 - 45.8 % [facility] Mean Cell Volume 93.5 82.6 - 94.4 fL [facility] Mean Cell Hemoglobin 30.1 27.1 - 32.0 pg [facility] Mean Cell Hemoglobin Concentration 32.2 31.7 - 35.0 g/dL [facility] Platelet 225 145 - 357 x10(3)/mc L [facility] RDW Standard Deviation 46.9(H) 37.0 - 46.0 fL [facility] RDW coefficient of variation 14.0 11.5 - 14.1 % [facility] Mean Platelet Volume 10.4 7.6 - 12.9 fL [facility] NRBC% auto 0.0 % [facility] NRBC Absolute 0.000 0.000 - 0.000 x10(3)/mc L [facility] Blood 04/20/2023 12:4 7 AM EST 04/20/2023 12:54 AM EST Narrative Resulting Agency Comment Spec In Lab Trent Steel DO HEMATOLOGY ORDERABL ES [facility] [place] [place] [address] * Heparin (unfractionated) Level (04/20/2023 12:47 AM EST) UF Heparin 0.10 IU/mL [facility] Comment: Heparin (anti-Xa) levels should be determined in a plasma sample that has been drawn 6 hours after a dose change to approximate steady-state for continuous heparin infusions. Indication specific Heparin (anti-Xa) levels based on order set selection: Acute DVT or PE treatment: 0.3 ? 0.7 IU/mL Thrombosis Prevention (eg. atrial fibrillation, lorenzo-procedural bridging, mechanical valves): 0.3 ? 0.7 IU/mL Acute Coronary Syndrome: 0.3 ? 0.7 IU/mL Stroke Indications: 0.3 ? 0.5 IU/mL Ultra-low intensity (select indications in cardiac surgery): 0.1 ? 0.3 IU/mL Blood 04/20/2023 12:4 7 AM EST 04/20/2023 12:54 AM EST Narrative Resulting Agency Comment Spec In Lab Trent Steel DO HEMATOLOGY ORDERABL ES Performing Organization Address City/State/[facility] Co de Phone Number [facility] [place] [address] * Lipid Panel (Reflex Direct LDL) (04/20/2023 12:47 AM EST) Cholesterol, Total 176 mg/dL [facility] Comment: Lower Risk: <200 mg/dL Average Risk: 200-239 mg/dL Higher Risk: >rv=081 mg/dL Triglyceride 89 mg/dL [facility] Comment: Average Risk/Lower Risk: <150 mg/dL Borderline High Risk: 150-199 mg/dL High Risk: 200-499 mg/dL Very High Risk: >ss=641 mg/dL HDL Cholesterol 50 mg/dL [facility] Comment: Males: ?? Higher Risk: <40 mg/dL Females: ?? Higher Risk: <50 mg/dL LDL Cholesterol 108 mg/dL [facility] Comment: Lowest Risk: <100 mg/dL Lower Risk: 100-129 mg/dL Borderline High Risk: 130-159 mg/dL High Risk: 160-189 mg/dL Very High Risk: >tl=776 mg/dL Cholesterol/HDL Ratio 3.5 ratio [facility] Lipid Interpretation See Note [facility] Comment: Lipid management should be guided by a patient? s ASCVD risk, goals and preferences. ACC/AHA Guidelines recommend high intensity statin if clinical ASCVD or LDL greater than or equal to 190 mg/dL. http://Gifts that Give.com/NTE-MFE-Vjbncjxkt Adults aged 40-75 with LDL 70-189 mg/dL should have their 10 year ASCVD risk estimated with the ACC/AHA ASCVD risk manager membership http://tools.acc.org/JQIXU-Hjra-Mfrevrsft/ Statin should be discussed if risk greater [...] Lab Trent Steel DO CHEMISTRY ORDERABLE S Performing Organization Address City/State/[facility] Co de Phone Number [facility] [address] * (ABNORMAL) Glucose, fasting (04/20/2023 12:47 AM EST) Glucose Fasting 177(H) 65 - 99 mg/dL [facility] Comment: ?Fasting* Glucose Interpretive Criteria Normal [...] of Diabetes Mellitus, Position Statement from the [place] [employer]. ??Diabetes Care, Volume 33, Supplement 1, Apr 2009 Blood 04/20/2023 12:4 7 AM EST 04/20/2023 12:54 AM EST Narrative Resulting Agency Comment Spec In Lab Russelljuana Reginaldo Steel, CHEMISTRY ORDERABLE S Performing Organization Address City/[facility]/ZIP Co de Phone Number [facility] [place] [address] * Triglyceride (04/20/2023 12:47 AM EST) Triglyceride 89 mg/dL [facility] Comment: Average Risk/Lower Risk: <150 mg/dL Borderline High Risk: 150-199 mg/dL High Risk: 200-499 mg/dL Very High Risk: >va=379 mg/dL Blood 04/20/2023 12:4 7 AM EST 04/20/2023 12:54 AM EST Narrative Resulting Agency Comment Spec In Lab Trent Hair V, CHEMISTRY ORDERABLE S Performing Organization Address City/[facility] Co de Phone Number [facility] [place] [address] * HDL/Cholesterol Profile (04/20/2023 12:47 AM EST) Cholesterol, Total 176 mg/dL [facility] Comment: Lower Risk: <200 mg/dL Average Risk: 200-239 mg/dL Higher Risk: >se=224 mg/dL HDL Cholesterol 50 mg/dL [facility] Comment: Males: ?? Higher Risk: <40 mg/dL Females: ?? Higher Risk: <50 mg/dL Cholesterol/HDL Ratio 3.5 ratio [facility] Chol/HDL Interpretation See Note [facility] Comment: Lipid management should be guided by a patient? s ASCVD risk, goals and preferences. ACC/AHA Guidelines recommend high intensity statin if clinical ASCVD or LDL greater than or equal to 190 mg/dL. http://Atlas Guidesurl.com/BCA-SVM-Xkharncey Measure LDL if Total Cholesterol minus HDL Cholesterol is greater than 220 mg/dL. Adults aged 40-75 with LDL 70-189 mg/dL should have their 10 year ASCVD risk estimated with the ACC/AHA ASCVD risk manager membership http://tools.acc.org/GAODP-Ofdd-Thqkqooei/ Statin should be discussed if risk greater than or equal to 7.5% in non-diabetics. With diabetes, moderate intensity statin is recommended if risk less than 7.5%, high intensity if risk greater than or equal to 7.5%. Annual lipid monitoring on statins is not necessary. Lifestyle modification is a critical component of ASCVD risk reduction. Blood 04/20/2023 12:4 7 AM EST 04/20/2023 12:54 AM EST Narrative Resulting Agency Comment Spec In Lab Trent Steel DO CHEMISTRY ORDERABLE S Performing Organization Address [facility] Co de Phone Number [facility] [place] [place] [address] * LDL Cholesterol, Direct (04/20/2023 12:47 AM EST) LDL Cholesterol, Direct 122 mg/dL [facility] Comment: Lowest Risk: <100 mg/dL Lower Risk: 100-129 mg/dL Borderline High Risk: 130-159 mg/dL High Risk: 160-189 mg/dL Very High Risk: >le=281 mg/dL Blood 04/20/2023 12:4 7 AM EST 04/20/2023 12:54 AM EST Narrative Resulting Agency Comment Spec In Lab Trent Steel DO CHEMISTRY ORDERABLE S Performing Organization Address [facility] Co de Phone Number [facility] [place] [place] [address] * (ABNORMAL) Hemoglobin A1c (04/20/2023 12:47 AM EST) Hemoglobin A1c 7.0(H) 4.3 - 5.6 % [facility] Comment: Reference Range: 4.3 - 5.6% 5.7 - 6.4% - Increased Risk of Developing Diabetes Mellitus >= 6.5% - Consistent with diagnosis of Diabetes Mellitus In the absence of hyperglycemia (i.e. plasma glucose > 200 mg/dL) or classic symptoms of hyperglycemia a repeat measurement of HbA1c should be performed on a separate sample to confirm the diagnosis. Diagnosis and Classification of Diabetes Mellitus, Diabetes Care 2013; 36: Suppl. 1, S67-20 Estimated Average Glucose 154 mg/dL [facility] Blood 04/20/2023 12:4 7 AM EST 04/20/2023 12:54 AM EST Narrative Resulting Agency Comment Spec In Lab Trent Steel DO CHEMISTRY ORDERABLE S Performing Organization Address City/[facility] Co de Phone Number [facility] [place] [address] * POCT Glucose (04/19/2023 11:10 PM EST) Pathologist [facility] Glucose, POC 190 65 - 199 mg/dL [facility] Comment: Supplemental ranges: <140 mg/dL before meals <180 mg/dL all other times of the day Blood 04/19/2023 11:1 0 PM EST 04/19/2023 11:10 PM EST Felix Diaz MD POINT OF CARE TEST O RDERABLES Performing Organization Address [facility] Co de Phone Number [facility] [place] [address] * (ABNORMAL) Differential, Automated (04/19/2023 7:29 PM EST) Pathologist [facility] Neutrophil % 70.8 % [facility] Neutrophil Absolute 6.30(H) 1.70 - 6.10 x10(3)/mc L [facility] Lymph % 20.3 % [facility] Lymphocytes Abs 1.8 0.9 - 3.2 x10(3)/mc L [facility] Monocyte % 5.5 % [facility] Monocyte Abs 0.5 0.3 - 0.9 x10(3)/mc L [facility] Eos % 2.5 % [facility] Eosinophils Abs 0.2 0.0 - 0.4 x10(3)/mc L [facility] Basophil % 0.7 % [facility] Baso Absolute 0.1 0.0 - 0.1 x10(3)/mc L [facility] Immature Gran % 0.20 % [facility] Comment: Immature granulocytes(IG's)percentage and absolute count will include metamyelocytes, myelocytes, and promyelocytes. Blood smears from CBCs yielding IG's will be scanned manually for concordance. If this scan disagrees with the automated IG or if promyelocytes are noted, a manual differential will be performed. Immature Gran Absolute 0.02 0.00 - 0.04 x10(3)/mc L [facility] Blood 04/19/2023 7:29 PM EST 04/19/2023 7:38 PM EST Narrative Resulting Agency Comment Spec In Lab Trent Steel DO HEMATOLOGY ORDERABL ES Performing Organization Address [facility] Co de Phone Number [facility] [place] [address] * Hemogram (04/19/2023 7:29 PM EST) White Blood Cell 8.9 4.0 - 9.5 x10(3)/[facility] Red Blood Cell 5.00 4.00 - 5.21 x10(6)/[facility] Hemoglobin 15.1 11.7 - 15.5 g/dL [facility] Hematocrit 45.8 35.7 - 45.8 % [facility] Mean Cell Volume 91.6 82.6 - 94.4 fL [facility] Mean Cell Hemoglobin 30.2 27.1 - 32.0 pg [facility] Mean Cell Hemoglobin Concentration 33.0 31.7 - 35.0 g/dL [facility] Platelet 213 145 - 357 x10(3)/[facility] RDW Standard Deviation 45.1 37.0 - 46.0 fL [facility] RDW coefficient of variation 13.5 11.5 - 14.1 % [facility] Mean Platelet Volume 10.3 7.6 - 12.9 fL [facility] NRBC% auto 0.0 % [facility] NRBC Absolute 0.000 0.000 - 0.000 x10(3)/[facility] Blood 04/19/2023 7:29 PM EST 04/19/2023 7:38 PM EST Narrative Resulting Agency Comment Spec In Lab Trent Steel DO HEMATOLOGY ORDERABL ES Performing Organization Address City/[facility]/ZIP Co de Phone Number [facility] [place] [address] * (ABNORMAL) Hepatic Function Panel (04/19/2023 7:29 PM EST) Protein, Total 7.0 6.1 - 8.0 g/dL [facility] Albumin 3.6 3.2 - 5.2 g/dL [facility] Aspartate Aminotransferase 13 0 - 30 unit/L [facility] [facility] Alanine Aminotransferase 11 0 - 30 unit/L [facility] Alkaline Phosphatase 111(H) 35 - 105 unit/L [facility] Bilirubin, Total 0.4 0.2 - 1.3 mg/dL [facility] Bilirubin, Direct 0.1 0.0 - 0.3 mg/dL [facility] Blood 04/19/2023 7:29 PM EST 04/19/2023 7:38 PM EST Narrative Resulting Agency Comment Spec In Lab Trent Steel DO CHEMISTRY ORDERABLE S Performing Organization Address [facility] de Phone Number [facility] [place] [address] * Prothrombin Time (04/19/2023 7:29 PM EST) Prothrombin Time 12.5 9.4 - 12.5 sec [facility] International Normalization Ratio 1.1 [facility] Comment: An INR <2.0 indicates adequate procoagulant activity for hemostasis in most patients without underlying bleeding disorders, though the INR may not adequately reflect hemostatic capacity in patients with liver disease and synthetic impairment. The recommended target INR range for therapeutic anticoagulation is 2.0 ? 3.0 for most applications, though lower and higher ranges may be appropriate depending on clinical circumstances. Blood 04/19/2023 7:29 PM EST 04/19/2023 7:38 PM EST Narrative Resulting Agency Comment Spec In Lab Trent Steel DO HEMATOLOGY ORDERABL ES Performing Organization Address [facility] Co de Phone Number [facility] [place] [address] * (ABNORMAL) APTT (04/19/2023 7:29 PM EST) Partial Thromboplastin Time 46(H) 25 - 37 sec [facility] Comment: The PTT is NOT appropriate for heparin monitoring. Use the Anti-Xa level for heparin monitoring (HEP UFH) or LMWH monitoring (HEP LMW). A PTT less than 37 seconds generally indicates adequate hemostasis. Blood 04/19/2023 7:29 PM EST 04/19/2023 7:38 PM EST Narrative Resulting Agency Comment Spec In Lab Trent Hair V, DO HEMATOLOGY ORDERABL ES Performing Organization Address City/[facility]/ZIP Co de Phone Number [facility] [place] [address] * (ABNORMAL) pro-Brain Natriuretic Peptide (04/19/2023 7:29 PM EST) NT-proBNP 1,304(H) <=124 pg/mL [facility] Blood 04/19/2023 7:29 PM EST 04/19/2023 7:38 PM EST Narrative Resulting Agency Comment Spec In Lab Trent Hair V, DO CHEMISTRY ORDERABLE S Performing Organization Address [facility] Co de Phone Number [facility] [place] [address] * TSH (04/19/2023 7:29 PM EST) Thyroid Stimulating Hormone 2.04 0.27 - 4.20 mcIU/mL [facility] Comment: Reference Interval (mcIU/mL): Females: ??First Trimester: 0.23-3.88 ??Second Trimester: 0.22-3.90 ??Third Trimester: 0.44-4.66 Blood 04/19/2023 7:29 PM EST 04/19/2023 7:38 PM EST Narrative Resulting Agency Comment Spec In Lab Trent Hair V, DO CHEMISTRY ORDERABLE S Performing Organization Address City/[facility]/ZIP Co de Phone Number [facility] [place] [address] * Phosphorus (04/19/2023 7:29 PM EST) Phosphorus 3.1 2.5 - 4.5 mg/dL [facility] Blood 04/19/2023 7:29 PM EST 04/19/2023 7:38 PM EST Narrative Resulting Agency Comment Spec In Lab Russelljuana Reginaldo Steel, DO CHEMISTRY ORDERABLE S Performing Organization Address City/[facility] Co de Phone Number [facility] [place] [address] * Magnesium (04/19/2023 7:29 PM EST) Magnesium 0.74 0.69 - 1.07 mmol/L [facility] Blood 04/19/2023 7:29 PM EST 04/19/2023 7:38 PM EST Narrative Resulting Agency Comment Spec In Lab Russelljuana Reginaldo Steel, CHEMISTRY ORDERABLE S Performing Organization Address [facility] Co de Phone Number [facility] [place] [address] * Calcium (04/19/2023 7:29 PM EST) Calcium 9.1 8.5 - 10.5 mg/dL [facility] Blood 04/19/2023 7:29 PM EST 04/19/2023 7:38 PM EST Narrative Resulting Agency Comment Spec In Lab Trent Hair Damián, CHEMISTRY ORDERABLE S Performing Organization Address [facility] de Phone Number [facility] [place] [place] [address] * (ABNORMAL) Basic Metabolic Panel (non-fasting) (04/19/2023 7:29 PM EST) Glucose 100 65 - 199 mg/dL [facility] Comment:Diabetes: >=200 mg/d L plus symptoms Blood Urea Nitrogen 8 8 - 18 mg/dL [facility] Creatinine 0.62(L) 0.70 - 1.20 mg/dL [facility] Sodium 143 135 - 145 mmol/L [facility] Potassium 3.7 3.5 - 5.0 mmol/L [facility] Comment: Please note: ??Patients with WBC >100,000 may have falsely elevated Potassium levels. ??For accurate Potassium quantification in these patients send serum separator tube (gold top) for subsequent determinations. ??Contact the Clinical Chemistry Laboratory if there are any questions. Chloride 103 98 - 107 mmol/L [facility] Carbon Dioxide 27 22 - 31 mmol/L [facility] Anion Gap 13 5 - 15 mmol/L [facility] Calcium 9.1 8.5 - 10.5 mg/dL [facility] Est Glomerular Filtration Rate 98 >=60 mL/min/1. 73 m?? [facility] Comment: This patient's estimated GFR was [...] and symptoms in addition to eGFR. Blood 04/19/2023 7:29 PM EST 04/19/2023 7:38 PM EST Narrative Resulting Agency Comment Spec In Lab Trent Steel DO CHEMISTRY ORDERABLE S Performing Organization Address City/[facility] Co de Phone Number [facility] [place] [place] [address] * POCT Glucose (04/19/2023 6:22 PM EST) Glucose, POC 95 65 - 199 mg/dL [facility] Comment: Supplemental ranges: <140 mg/dL before meals <180 mg/dL all other times of the day Blood 04/19/2023 6:22 PM EST 04/19/2023 6:22 PM EST Felix Diaz MD POINT OF CARE TEST O RDERABLES Performing Organization Address City/[facility] [place] [address] documented in this encounter Visit Diagnoses Diagnosis NSTEMI (non-ST elevated myocardial infarction)- Primary Acute myocardial infarction, subendocardial infarction, episode of care unspecified NSTEMI (non-ST elevated myocardial infarction) Acute myocardial infarction, subendocardial infarction, episode of care unspecified Respiratory failure with hypoxia, unspecified chronicity documented in this encounter Admitting Diagnoses Diagnosis NSTEMI (non-ST elevated myocardial infarction) Acute myocardial infarction, subendocardial infarction, episode of care unspecified documented in this encounter Administered Medications Inactive Administered Medications - up to 3 most recent administrations Medication Order MAR Action Action Date Dose Rate Site amLODIPine (Norvasc) tablet 5 mg 5 mg, Oral, DAILY, First dose on Fri04/23/23 at 1130, Until Discontinued, Routine Given 04/25/2023 9:30 AM EST 5 mg Given 04/24/2023 8:13 AM EST 5 mg Given 04/23/2023 11:13 AM EST 5 mg aspirin chewable tablet 81 mg 81 mg, Oral, DAILY, First dose (after last modification) on Fri04/20/23 at 0900, Until Discontinued, Routine Given 04/25/2023 9:31 AM EST 81 mg Given 04/24/2023 8:12 AM EST 81 mg Given 04/23/2023 9:53 AM EST 81 mg atorvastatin (Lipitor) tablet 40 mg 40 mg, Oral, EVERY EVENING, First dose on Fri04/19/23 at 2000, Until Discontinued, Routine Given 04/24/2023 5:00 PM EST 40 mg Given 04/23/2023 4:58 PM EST 40 mg Given 04/22/2023 5:27 PM EST 40 mg buPROPion XL (Wellbutrin XL) tablet 150 mg 150 mg, Oral, DAILY, First dose on Fri04/20/23 at 0900, Until Discontinued, DO NOT CRUSH OR OPEN, Routine Given 04/25/2023 9:31 AM EST 150 mg Given 04/24/2023 8:12 AM EST 150 mg Given 04/23/2023 9:53 AM EST 150 mg carvediloL (Coreg) tablet 3.125 mg 3.125 mg, Oral, 2 TIMES DAILY WITH MEALS, First dose (after last modification) on Fri04/22/23 at 0800, Until Discontinued, Hold for SBP <90 or HR <55, Routine Given 04/25/2023 9:31 AM EST 3.125 mg Given 04/24/2023 5:00 PM EST 3.125 mg Given 04/24/2023 8:13 AM EST 3.125 mg carvediloL (Coreg) tablet 6.25 mg 6.25 mg, Oral, 2 TIMES DAILY WITH MEALS, First dose on Fri04/20/23 at 1200, Until Discontinued, Hold for SBP <90 or HR <55, Routine Given 04/21/2023 8:06 AM EST 6.25 mg Given 04/20/2023 5:00 PM EST 6.25 mg Given 04/20/2023 12:39 PM EST 6.25 mg cefPODOXime (Vantin) tablet 100 mg 100 mg, Oral, 2 TIMES DAILY, 4 doses, First dose on Fri04/23/23 at 2100, Last dose on Fri04/25/23 at 0900, Routine, Indication for (Active or Suspected): Urinary Tract/Pyelonephritis Given 04/25/2023 9:31 AM EST 100 mg Given 04/24/2023 8:10 PM EST 100 mg Given 04/24/2023 8:12 AM EST 100 mg clopidogreL (Plavix) tablet 75 mg 75 mg, Oral, DAILY, First dose on Fri04/20/23 at 0900, Until Discontinued, Routine Given 04/25/2023 9:31 AM EST 75 mg Given 04/24/2023 8:12 AM EST 75 mg Given 04/23/2023 9:53 AM EST 75 mg dextrose 10% infusion 250 mL, at 1,000 mL/hr, Intravenous, EVERY 15 MIN PRN, Starting on 04/19/23 at 1902, Until Fri04/25/23 at 1431, For BG 50-70 mg/dL: Oral treatment preferred: If able to drink, give 120 mL juice or regular (not diet) soda OR if NPO, give 15 gram glucose 40% oral gel massaged into buccal mucosa OR if unconscious or uncooperative, give 25 gram (250 mL) dextrose 10% IV over 15 minutes per protocol OR, if no IV access, 1 mg glucagon IM. For BG less than 50 mg/dL: Oral treatment preferred: If able to drink, give 240 mL juice or regular (not diet) soda OR if NPO, give 30 gram glucose 40% oral gel massaged in buccal mucosa OR if unconscious or uncooperative, give 25 gram (250 mL) dextrose 10% IV over 15 minutes per protocol OR, if no IV access, 1 mg glucagon IM. Recheck BG in 15 minutes. May repeat juice/soda, gel, dextrose or glucagon once per episode. Notify provider if hypoglycemia does not resolve after two treatments. Providers should consider the following: administering longer-acting treatments for the duration of active insulin or hypoglycemia agent for persistent hypoglycemia and re-evaluating active insulin orders before administering the next dose. furosemide (Lasix) (10 mg/mL) injection 20 mg 20 mg, Intravenous, ONCE, 1 dose, On Fri04/23/23 at 0845 Given 04/23/2023 9:52 AM EST 20 mg furosemide (Lasix) (10 mg/mL) injection 40 mg 40 mg, Intravenous, ONCE, 1 dose, On Fri04/21/23 at 0945, Routine Given 04/21/2023 10:21 AM EST 40 mg furosemide (Lasix) (10 mg/mL) injection 40 mg 40 mg, Intravenous, ONCE, 1 dose, On Fri04/21/23 at 1815, Routine Given 04/21/2023 8:32 PM EST 40 mg furosemide (Lasix) tablet 20 mg 20 mg, Oral, DAILY, First dose on Brissa 04/24/23 at 0930, Until Discontinued, Routine Given 04/24/2023 9:32 AM EST 20 mg glucagon (Glucagen) (1 mg/mL) injection solution 1 mg 1 mg, Intramuscular, EVERY 15 MIN PRN, Starting on 04/19/23 at 1902, Until Fri04/25/23 at 1431, Low blood sugar, For BG 50-70 mg/dL: Oral treatment preferred: If able to drink, give 120 mL juice or regular (not diet) soda OR if NPO, give 15 gram glucose 40% oral gel massaged into buccal mucosa OR if unconscious or uncooperative, give 25 gram (250 mL) dextrose 10% IV over 15 minutes per protocol OR, if no IV access, 1 mg glucagon IM. For BG less than 50 mg/dL: Oral treatment preferred: If able to drink, give 240 mL juice or regular (not diet) soda OR if NPO, give 30 gram glucose 40% oral gel massaged in buccal mucosa OR if unconscious or uncooperative, give 25 gram (250 mL) dextrose 10% IV over 15 minutes per protocol OR, if no IV access, 1 mg glucagon IM. Recheck BG in 15 minutes. May repeat juice/soda, gel, dextrose or glucagon once per episode. Notify provider if hypoglycemia does not resolve after two treatments. Providers should consider the following: administering longer-acting treatments for the duration of active insulin or hypoglycemia agent for persistent hypoglycemia and re-evaluating active insulin orders before administering the next dose. , Routine glucose (Glutose) 40% oral geL 15-30 g of glucose, Buccal, EVERY 15 MIN PRN, Starting on 04/19/23 at 1902, Until Fri04/25/23 at 1431, Low blood sugar, For BG 50-70 mg/dL: Oral treatment preferred: If able to drink, give 120 mL juice or regular (not diet) soda OR if NPO, give 15 gram glucose 40% oral gel massaged into buccal mucosa OR if unconscious or uncooperative, give 25 gram (250 mL) dextrose 10% IV over 15 minutes per protocol OR, if no IV access, 1 mg glucagon IM. For BG less than 50 mg/dL: Oral treatment preferred: If able to drink, give 240 mL juice or regular (not diet) soda OR if NPO, give 30 gram glucose 40% oral gel massaged in buccal mucosa OR if unconscious or uncooperative, give 25 gram (250 mL) dextrose 10% IV over 15 minutes per protocol OR, if no IV access, 1 mg glucagon IM. Recheck BG in 15 minutes. May repeat juice/soda, gel, dextrose or glucagon once per episode. Notify provider if hypoglycemia does not resolve after two treatments. Providers should consider the following: administering longer-acting treatments for the duration of active insulin or hypoglycemia agent for persistent hypoglycemia and re-evaluating active insulin orders before administering the next dose. 1 tube of Glutose-15 contains 15 grams of glucose (net weight of tube = 37.5 grams.), Routine heparin (porcine) (1,000 units/mL) injection 0-4,000 Units 0-4,000 Units, Intravenous, BOLUS PER HEPARIN PROTOCOL, Starting on 04/19/23 at 1824, Until Fri04/21/23 at 1018, Per Protocol, START ADJUSTMENT SCHEDULE 6 HOURS AFTER STARTING INFUSION Bolus doses are rounded to the nearest 100 units. If Heparin UFH Level is: - Less than 0.1 international unit/mL: Bolus 60 units/kg (Maximum of 4,000 units) = Bolus 4,000 units - 0.1 - 0.19 International unit/mL: Bolus 30 units/kg (Maximum of 2,000 units) = Bolus 2,000 units - Equal to or greater than 0.2 international unit/mL: No Bolus, Routine Given 04/20/2023 1:54 AM EST 2,000 Units heparin (porcine) (5,000 units/1 mL) subcutaneous injection 7,500 Units 7,500 Units, Subcutaneous, EVERY 8 HOURS SCHEDULED, First dose (after last modification) on Fri04/22/23 at 2200, Until Discontinued, Routine Given 04/25/2023 6:14 AM EST 7,500 Units Given 04/24/2023 8:10 PM EST 7,500 Units Given 04/24/2023 2:50 PM EST 7,500 Units heparin (porcine) 50 units/mL in dextrose 5% 500 mL infusion 0-5,000 Units/hr (0-100 mL/hr), Intravenous, CONTINUOUS, Starting on 04/19/23 at 1915, Until Fri04/21/23 at 1018, Begin infusion at 1,000 units per hr (12 units/kg/hr). Maximum initial infusion rate is 1,000 units/hr. Infusion doses are rounded to the nearest 50 units. Target Heparin UFH Level (anti-Xa activity) = 0.3 - 0.7 international unit/mL Start adjustment schedule 6 hours after starting infusion. If Heparin UFH Level is: - Less than 0.1 international unit/mL: Administer PRN bolus and increase rate by 450 units per hr (4 units/kg/hr) - 0.1 - 0.19 international unit/mL: Administer PRN bolus and increase rate by 200 units per hr (2 units/kg/hr) - 0.2 - 0.29 international unit/mL: NO BOLUS and increase rate by 200 units per hr (2 units/kg/hr) - 0.3 - 0.7 international unit/mL: No change - 0.71 - 0.79 international unit/mL: NO BOLUS and decrease rate by 100 units per hr (1 units/kg/hr) - 0.8 - 0.99 international unit/mL: NO BOLUS and decrease rate by 200 units per hr (2 units/kg/hr) - Greater than or equal to 1.00 international unit/mL: Hold infusion for 60 minutes then decrease rate by 300 units per hour (3 units/kg/hr) Obtain Heparin UFH Level 6 hours after initiating heparin. Then 6 hours after each dose adjustment. When 2 consecutive Heparin UFH Level within target range of 0.3 - 0.7 international unit/mL, change Heparin UFH Level to once every 24 hours with A.M. labs while on heparin. RN to order required Heparin UFH Level - Per Protocol, Routine Rate/Dose Change 04/20/2023 7:17 PM EST 1,400 Units/hr 28 mL/hr New Bag 04/20/2023 4:59 PM EST 1,200 Units/hr 24 mL/hr Rate/Dose Change 04/20/2023 1:53 AM EST 1,200 Units/hr 24 mL/hr insulin glargine-ygfn (Semglee) (100 unit/mL) subcutaneous injection vial 32 Units 32 Units, Subcutaneous, NIGHTLY, First dose on 04/19/23 at 2100, Until Discontinued, Routine Given 04/24/2023 8:05 PM EST 32 Units Given 04/23/2023 8:53 PM EST 32 Units Given 04/22/2023 9:14 PM EST 32 Units insulin lispro (HumaLOG;Admelog) (100 unit/mL) subcutaneous injection vial 0-8 Units 0-8 Units, Subcutaneous, 3 TIMES DAILY WITH MEALS, First dose on 04/20/23 at 1215, Until Discontinued, [employer] Give 1 unit for every 10 grams carbohydrate. Hold if not eating or if BG less than 70 mg/dL. , Routine Given 04/25/2023 11:39 AM EST 3 Units Given 04/24/2023 5:06 PM EST 7 Units Given 04/24/2023 8:16 AM EST 6 Units insulin lispro (HumaLOG;Admelog) (100 unit/mL) subcutaneous injection vial 1-6 Units 1-6 Units, Subcutaneous, 3 TIMES DAILY BEFORE MEALS, First dose on 04/20/23 at 0730, Until Discontinued, CORRECTION BOLUS [1-6 Units] Moderate Sliding Scale (BG in mg/dL): Correction factor 20 (1 unit of insulin is expected to drop the glucose 20 mg/dL) BG 140 - 160 Give 1 unit BG 161 - 180 Give 2 units BG 181 - 200 Give 3 units BG 201 - 220 Give 4 units BG 221 - 240 Give 5 units BG greater than 240, give 6 units and recheck BG in 2 hours. - If recheck BG is LESS than 240, give no insulin and resume schedule. - If recheck BG is GREATER than or EQUAL to 240, give 6 units and repeat BG in 2 hours & call for new insulin orders. DO NOT hold if NPO, unless specifically told to do so. ?? Per Inpatient Subcutaneous Insulin Policy, recheck a BG of greater than 240 mg/dL in 2 hours., Routine Given 04/25/2023 11:38 AM EST 5 Units Given 04/24/2023 5:04 PM EST 2 Units Given 04/24/2023 1:08 PM EST 1 Units isosorbide mononitrate CR (Imdur) tablet 30 mg 30 mg, Oral, EVERY MORNING, First dose (after last modification) on 04/21/23 at 1130, Until Discontinued, DO NOT CRUSH OR OPEN, Routine Given 04/25/2023 9:31 AM EST 30 mg Given 04/24/2023 8:12 AM EST 30 mg Given 04/23/2023 9:53 AM EST 30 mg magnesium sulfate 2 g in sterile water 50 mL infusion 2 g, Intravenous, ONCE, 1 dose, On 04/20/23 at 0815, Administer over 120 Minutes New Bag 04/20/2023 8:43 AM EST 2 g 25 mL/hr magnesium sulfate 2 g in sterile water 50 mL infusion 2 g, Intravenous, ONCE, 1 dose, On 04/20/23 at 1330, Administer over 120 Minutes New Bag 04/20/2023 2:30 PM EST 2 g 25 mL/hr miconazole (Micotin) 2 % powder Topical (Top), 2 TIMES DAILY, First dose on 04/20/23 at 2100, Until Discontinued Given 04/22/2023 8:14 AM EST Given 04/21/2023 8:35 PM EST Given 04/21/2023 8:07 AM EST oxybutynin XL (Ditropan-XL) tablet 10 mg 10 mg, Oral, DAILY, First dose on 04/20/23 at 0900, Until Discontinued, Routine Given 04/25/2023 9:31 AM EST 10 mg Given 04/24/2023 8:12 AM EST 10 mg Given 04/23/2023 9:53 AM EST 10 mg pantoprazole EC (Protonix) tablet 40 mg 40 mg, Oral, DAILY, First dose on 04/20/23 at 0900, Until Discontinued, DO NOT CRUSH OR OPEN, Routine Given 04/25/2023 9:30 AM EST 40 mg Given 04/24/2023 8:12 AM EST 40 mg Given 04/23/2023 9:53 AM EST 40 mg potassium chloride ER (Klor-Con M) crystal tablet 40 mEq 40 mEq, Oral, ONCE, 1 dose, On 04/20/23 at 0815, potassium chloride ER particle/crystal tablets (Klor-Con M) may be broken in half and each half swallowed separately. Tablets can be dissolved in ~4 ounces of water; allow ~2 minutes to dissolve, stir well and drink immediately. Do not crush, chew, or suck on tablet., Routine Given 04/20/2023 8:41 AM EST 40 mEq sodium chloride 0.9 % (flush) (BD PosiFlush Normal Saline 0.9) flush 5 mL 5 mL, Intravenous, 2 TIMES DAILY, First dose on Fri04/19/23 at 2100, Until Discontinued, Routine Given 04/24/2023 8:05 PM EST 5 mLs Given 04/24/2023 8:16 AM EST 5 mLs Given 04/23/2023 8:55 PM EST 5 mLs sodium chloride 0.9% infusion 125 mL/hr, Intravenous, CONTINUOUS, Starting on Fri04/21/23 at 1000, Until Fri04/21/23 at 1022, Recovery (Recovery-Hospital Unit) [facility] 04/21/2023 10:21 AM EST 125 mL/hr 125 m L/hr sulfamethoxazole-trimethoprim DS (Bactrim DS) 800-160 mg per tablet 1 tablet 1 tablet, Oral, EVERY 12 HOURS SCHEDULED (2 times per day), 10 doses, First dose on Fri04/21/23 at 1300, Last dose on Fri04/25/23 at 2100, Routine, Indication for (Active or Suspected): Urinary Tract/Pyelonephritis Given 04/23/2023 9:53 AM EST 1 tablet Given 04/22/2023 9:13 PM EST 1 tablet Given 04/22/2023 8:14 AM EST 1 tablet traZODone (Desyrel) tablet 100 mg 100 mg, Oral, NIGHTLY, First dose on 04/19/23 at 2100, Until Discontinued, Routine Given 04/24/2023 8:10 PM EST 100 mg Given 04/23/2023 9:01 PM EST 100 mg Given 04/22/2023 9:15 PM EST 100 mg documented in this encounter Active and Recently Administered Medications Times are shown in EST. Scheduled Medication Order 04/23/2023 04/24/2023 04/25/2023 amLODIPine (Norvasc) tablet 5 mg 5 mg, Oral, DAILY, First dose on Fri04/23/23 at 1130, Until Discontinued, Routine 1113 (Given - Provider: Tori De La Cruz RN) 0813 (Given - Provider: Tori De La Cruz RN) 0930 (Given - Provider: Selwyn England RN) aspirin chewable tablet 81 mg 81 mg, Oral, DAILY, First dose (after last modification) on 04/20/23 at 0900, Until Discontinued, Routine 0953 (Given - Provider: Tori De La Cruz RN) 0812 (Given - Provider: Tori De La Cruz RN) 0931 (Given - Provider: Selwyn England RN) atorvastatin (Lipitor) tablet 40 mg 40 mg, Oral, EVERY EVENING, First dose on 04/19/23 at 2000, Until Discontinued, Routine 1658 (Given - Provider: Tori De La Cruz RN) 1700 (Given - Provider: Tori De La Cruz RN) buPROPion XL (Wellbutrin XL) tablet 150 mg 150 mg, Oral, DAILY, First dose on 04/20/23 at 0900, Until Discontinued, DO NOT CRUSH OR OPEN, Routine 0953 (Given - Provider: Tori De La Cruz RN) 0812 (Given - Provider: Tori De La Cruz RN) 0931 (Given - Provider: Selwyn England RN) carvediloL (Coreg) tablet 3.125 mg 3.125 mg, Oral, 2 TIMES DAILY WITH MEALS, First dose (after last modification) on Fri04/22/23 at 0800, Until Discontinued, Hold for SBP <90 or HR <55, Routine 0756 (Given - Provider: Tori De La Cruz RN)1658 (Given - Provider: Tori De La Cruz RN) 0813 (Given - Provider: Tori De La Cruz RN)1700 (Given - Provider: Tori De La Cruz RN) 0931 (Given - Provider: Selwyn England RN) cefPODOXime (Vantin) tablet 100 mg (COMPLETED) 100 mg, Oral, 2 TIMES DAILY, 4 doses, First dose on Fri04/23/23 at 2100, Last dose on Fri04/25/23 at 0900, Routine, Indication for (Active or Suspected): Urinary Tract/Pyelonephritis 2100 (Given - Provider: Jace Arauz RN) 08 (Given - Provider: Tori De La Cruz RN)2009 (Given - Provider: Jace Arauz RN) 0931 (Given - Provider: Selwyn England RN) clopidogreL (Plavix) tablet 75 mg 75 mg, Oral, DAILY, First dose on Fri04/20/23 at 0900, Until Discontinued, Routine 0953 (Given - Provider: Tori De La Cruz RN) 0812 (Given - Provider: Tori De La Cruz RN) 0931 (Given - Provider: Selwyn England RN) furosemide (Lasix) (10 mg/mL) injection 20 mg (COMPLETED) 20 mg, Intravenous, ONCE, 1 dose, On Fri04/23/23 at 0845 0952 (Given - Provider: Tori De La Cruz RN) furosemide (Lasix) tablet 20 mg (CANCELED) 20 mg, Oral, DAILY, First dose on Fri04/24/23 at 0930, Until Discontinued, Routine 0932 (Given - Provider: Tori De La Cruz RN) heparin (porcine) (5,000 units/1 mL) subcutaneous injection 7,500 Units 7,500 Units, Subcutaneous, EVERY 8 HOURS SCHEDULED, First dose (after last modification) on Fri04/22/23 at 2200, Until Discontinued, Routine 0525 (Given - Provider: Primitivo Chopra RN)1324 (Given - Provider: Tori De La Cruz RN)2105 (Given - Provider: Jace Arauz, MELI) 0520 (Given - Provider: Jace Arauz, MELI)1450 (Given - Provider: Tori De La Cruz RN)2009 (Given - Provider: Jace rAauz RN) 0614 (Given - Provider: Jace Arauz, MELI) insulin glargine-ygfn (Semglee) (100 unit/mL) subcutaneous injection vial 32 Units 32 Units, Subcutaneous, NIGHTLY, First dose on Fri04/19/23 at 2100, Until Discontinued, Routine 2052 (Given - Provider: Jace Arauz RN) 2004 (Given - Provider: Jace Arauz RN) insulin lispro (HumaLOG;Admelog) (100 unit/mL) subcutaneous injection vial 0-8 Units 0-8 Units, Subcutaneous, 3 TIMES DAILY WITH MEALS, First dose on Fri04/20/23 at 1215, Until Discontinued, [employer] Give 1 unit for every 10 grams carbohydrate. Hold if not eating or if BG less than 70 mg/dL. , Routine 0756 (Given - Provider: Tori De La Cruz RN - Comment: 60g carbs)1320 (Given - Provider: Tori De La Cruz RN - Comment: 50g carbs)1700 (Given - Provider: Tori De La Cruz RN - Comment: 60g carbs) 0816 (Given - Provider: Tori De La Cruz RN - Comment: 60g carbs)1200 (Not Given - Provider: oTri De La Cruz RN - Reason: Order parameters not met - Comment: pt not eating lunch)1706 (Given - Provider: Tori De La Cruz RN - Comment: 67g carbs) 0800 (Not Given - Provider: Selwyn England RN - Reason: Patient/family refused)1139 (Given - Provider: Selwyn England RN) insulin lispro (HumaLOG;Admelog) (100 unit/mL) subcutaneous injection vial 1-6 Units(Linked Group 1) 1-6 Units, Subcutaneous, 3 TIMES DAILY BEFORE MEALS, First dose on Fri04/20/23 at 0730, Until Discontinued, CORRECTION BOLUS [1-6 Units] Moderate Sliding Scale (BG in mg/dL): Correction factor 20 (1 unit of insulin is expected to drop the glucose 20 mg/dL) BG 140 - 160 Give 1 unit BG 161 - 180 Give 2 units BG 181 - 200 Give 3 units BG 201 - 220 Give 4 units BG 221 - 240 Give 5 units BG greater than 240, give 6 units and recheck BG in 2 hours. - If recheck BG is LESS than 240, give no insulin and resume schedule. - If recheck BG is GREATER than or EQUAL to 240, give 6 units and repeat BG in 2 hours & call for new insulin orders. DO NOT hold if NPO, unless specifically told to do so. ?? Per Inpatient Subcutaneous Insulin Policy, recheck a BG of greater than 240 mg/dL in 2 hours., Routine 0800 (Not Given - Provider: Tori De La Cruz RN - Reason: Order parameters not met - Comment: bg 115)1113 (Given - Provider: Tori De La Cruz RN - Comment: bg [phone] (Given - Provider: Tori De La Cruz RN - Comment: bg 146) 0730 (Not Given - Provider: Tori De La Cruz RN - Reason: Order parameters not met - Comment: bg 117)1308 (Given - Provider: Tori De La Cruz RN - Comment: bg 143)1704 (Given - Provider: Tori De La Cruz RN - Comment: bg 170) 0730 (Not Given - Provider: Selwyn England RN - Reason: Patient/family refused)1138 (Given - Provider: Selwyn England RN) isosorbide mononitrate CR (Imdur) tablet 30 mg 30 mg, Oral, EVERY MORNING, First dose (after last modification) on Fri04/21/23 at 1130, Until Discontinued, DO NOT CRUSH OR OPEN, Routine 0953 (Given - Provider: Tori De La Cruz RN) 0812 (Given - Provider: Tori De La Cruz RN) 0931 (Given - Provider: Selwyn England, MELI) oxybutynin XL (Ditropan-XL) tablet 10 mg 10 mg, Oral, DAILY, First dose on 04/20/23 at 0900, Until Discontinued, Routine 0953 (Given - Provider: Tori De La Cruz RN) 08 (Given - Provider: Tori De La Cruz RN) 930 (Given - Provider: Selwyn England, MELI) pantoprazole EC (Protonix) tablet 40 mg 40 mg, Oral, DAILY, First dose on 04/20/23 at 0900, Until Discontinued, DO NOT CRUSH OR OPEN, Routine 53 (Given - Provider: Tori De La Cruz RN) 08 (Given - Provider: Tori De La Cruz RN) 929 (Given - Provider: Selwyn England, MELI) sodium chloride 0.9 % (flush) (BD PosiFlush Normal Saline 0.9) flush 5 mL 5 mL, Intravenous, 2 TIMES DAILY, First dose on 04/19/23 at 2100, Until Discontinued, Routine 53 (Given - Provider: Tori De La Cruz RN)2054 (Given - Provider: Jace Arauz RN) 815 (Given - Provider: Tori De La Cruz RN)2004 (Given - Provider: Jace Arauz RN) 0900 (Not Given - Provider: Selwyn England, MELI - Reason: Patient/family refused) sulfamethoxazole-trimet hoprim DS (Bactrim DS) 800-160 mg per tablet 1 tablet (CANCELED) 1 tablet, Oral, EVERY 12 HOURS SCHEDULED (2 times per day), 10 doses, First dose on Fri04/21/23 at 1300, Last dose on Fri04/25/23 at 2100, Routine, Indication for (Active or Suspected): Urinary Tract/Pyelonephritis 53 (Given - Provider: Tori De La Cruz RN) traZODone (Desyrel) tablet 100 mg 100 mg, Oral, NIGHTLY, First dose on 04/19/23 at 2100, Until Discontinued, Routine 2100 (Given - Provider: Jace Arauz RN) 2009 (Given - Provider: Jace Arauz RN) PRN Medication Order 04/23/2023 04/24/2023 04/25/2023 dextrose 10% infusion(Linked Group 2) 250 mL, at 1,000 mL/hr, Intravenous, EVERY 15 MIN PRN, Starting on 04/19/23 at 1902, Until Fri04/25/23 at 1431, For BG 50-70 mg/dL: Oral treatment preferred: If able to drink, give 120 mL juice or regular (not diet) soda OR if NPO, give 15 gram glucose 40% oral gel massaged into buccal mucosa OR if unconscious or uncooperative, give 25 gram (250 mL) dextrose 10% IV over 15 minutes per protocol OR, if no IV access, 1 mg glucagon IM. For BG less than 50 mg/dL: Oral treatment preferred: If able to drink, give 240 mL juice or regular (not diet) soda OR if NPO, give 30 gram glucose 40% oral gel massaged in buccal mucosa OR if unconscious or uncooperative, give 25 gram (250 mL) dextrose 10% IV over 15 minutes per protocol OR, if no IV access, 1 mg glucagon IM. Recheck BG in 15 minutes. May repeat juice/soda, gel, dextrose or glucagon once per episode. Notify provider if hypoglycemia does not resolve after two treatments. Providers should consider the following: administering longer-acting treatments for the duration of active insulin or hypoglycemia agent for persistent hypoglycemia and re-evaluating active insulin orders before administering the next dose. glucagon (Glucagen) (1 mg/mL) injection solution 1 mg(Linked Group 2) 1 mg, Intramuscular, EVERY 15 MIN PRN, Starting on 04/19/23 at 1902, Until Fri04/25/23 at 1431, Low blood sugar, For BG 50-70 mg/dL: Oral treatment preferred: If able to drink, give 120 mL juice or regular (not diet) soda OR if NPO, give 15 gram glucose 40% oral gel massaged into buccal mucosa OR if unconscious or uncooperative, give 25 gram (250 mL) dextrose 10% IV over 15 minutes per protocol OR, if no IV access, 1 mg glucagon IM. For BG less than 50 mg/dL: Oral treatment preferred: If able to drink, give 240 mL juice or regular (not diet) soda OR if NPO, give 30 gram glucose 40% oral gel massaged in buccal mucosa OR if unconscious or uncooperative, give 25 gram (250 mL) dextrose 10% IV over 15 minutes per protocol OR, if no IV access, 1 mg glucagon IM. Recheck BG in 15 minutes. May repeat juice/soda, gel, dextrose or glucagon once per episode. Notify provider if hypoglycemia does not resolve after two treatments. Providers should consider the following: administering longer-acting treatments for the duration of active insulin or hypoglycemia agent for persistent hypoglycemia and re-evaluating active insulin orders before administering the next dose. , Routine glucose (Glutose) 40% oral geL(Linked Group 2) 15-30 g of glucose, Buccal, EVERY 15 MIN PRN, Starting on 04/19/23 at 1902, Until Fri04/25/23 at 1431, Low blood sugar, For BG 50-70 mg/dL: Oral treatment preferred: If able to drink, give 120 mL juice or regular (not diet) soda OR if NPO, give 15 gram glucose 40% oral gel massaged into buccal mucosa OR if unconscious or uncooperative, give 25 gram (250 mL) dextrose 10% IV over 15 minutes per protocol OR, if no IV access, 1 mg glucagon IM. For BG less than 50 mg/dL: Oral treatment preferred: If able to drink, give 240 mL juice or regular (not diet) soda OR if NPO, give 30 gram glucose 40% oral gel massaged in buccal mucosa OR if unconscious or uncooperative, give 25 gram (250 mL) dextrose 10% IV over 15 minutes per protocol OR, if no IV access, 1 mg glucagon IM. Recheck BG in 15 minutes. May repeat juice/soda, gel, dextrose or glucagon once per episode. Notify provider if hypoglycemia does not resolve after two treatments. Providers should consider the following: administering longer-acting treatments for the duration of active insulin or hypoglycemia agent for persistent hypoglycemia and re-evaluating active insulin orders before administering the next dose. 1 tube of Glutose-15 contains 15 grams of glucose (net weight of tube = 37.5 grams.), Routine lidocaine (Xylocaine) 1% (10 mg/mL) injection 3 mg 3 mg (0.3 mL), Subcutaneous, ONCE PRN, 1 dose, Starting on 1/13/24 at 1900, Until Fri04/25/23 at 1431, for discomfort with PIV insertion, Routine nitroGLYcerin (Nitrostat) disintegrating tablet 0.4 mg 0.4 mg, Sublingual, EVERY 5 MIN PRN, Starting on 04/19/23 at 1900, Until Fri04/25/23 at 1431, Chest pain, May repeat every 5 minutes for a total of three doses. Notify provider if chest pain not relieved with nitroglycerin. Do not administer nitroglycerin if the patient has received or taken phosphodiesterase (PDE-5) inhibitors such as sildenafil, tadalafil or vardenafil within the last 24 to 72 hours., Routine sodium chloride 0.9 % (flush) (BD PosiFlush Normal Saline 0.9) flush 5-20 mL 5-20 mL, Intravenous, EVERY 1 MIN PRN, Starting on 04/19/23 at 1900, Until Fri04/25/23 at 1431, flush, Flush pertains to all indwelling lines. Flush per protocol found in the job aid using the link provided on this medication record., Routine Linked Groups Order Group 1: POCT Fingerstick Glucose (CANCELED) Routine, 4 TIMES DAILY BEFORE MEALS & AT BEDTIME, First occurrence on 04/19/23 at 2200, Until Specified, Consider choosing FOUR TIMES A DAY BEFORE MEALS AND AT BEDTIME as frequency for: Patients who have a good hypoglycemia awareness: -Patients who are eating meals during the day and sleeping at night -Patients who are otherwise stable And insulin lispro (HumaLOG;Admelog) (100 unit/mL) subcutaneous injection vial 1-6 UnitsJump to med 1-6 Units, Subcutaneous, 3 TIMES DAILY BEFORE MEALS, First dose on 04/20/23 at 0730, Until Discontinued, CORRECTION BOLUS [1-6 Units] Moderate Sliding Scale (BG in mg/dL): Correction factor 20 (1 unit of insulin is expected to drop the glucose 20 mg/dL) BG 140 - 160 Give 1 unit BG 161 - 180 Give 2 units BG 181 - 200 Give 3 units BG 201 - 220 Give 4 units BG 221 - 240 Give 5 units BG greater than 240, give 6 units and recheck BG in 2 hours. - If recheck BG is LESS than 240, give no insulin and resume schedule. - If recheck BG is GREATER than or EQUAL to 240, give 6 units and repeat BG in 2 hours & call for new insulin orders. DO NOT hold if NPO, unless specifically told to do so. ?? Per Inpatient Subcutaneous Insulin Policy, recheck a BG of greater than 240 mg/dL in 2 hours., Routine Group 2: glucose (Glutose) 40% oral geLJump to med 15-30 g of glucose, Buccal, EVERY 15 MIN PRN, Starting on 04/19/23 at 1902, Until Fri04/25/23 at 1431, Low blood sugar, For BG 50-70 mg/dL: Oral treatment preferred: If able to drink, give 120 mL juice or regular (not diet) soda OR if NPO, give 15 gram glucose 40% oral gel massaged into buccal mucosa OR if unconscious or uncooperative, give 25 gram (250 mL) dextrose 10% IV over 15 minutes per protocol OR, if no IV access, 1 mg glucagon IM. For BG less than 50 mg/dL: Oral treatment preferred: If able to drink, give 240 mL juice or regular (not diet) soda OR if NPO, give 30 gram glucose 40% oral gel massaged in buccal mucosa OR if unconscious or uncooperative, give 25 gram (250 mL) dextrose 10% IV over 15 minutes per protocol OR, if no IV access, 1 mg glucagon IM. Recheck BG in 15 minutes. May repeat juice/soda, gel, dextrose or glucagon once per episode. Notify provider if hypoglycemia does not resolve after two treatments. Providers should consider the following: administering longer-acting treatments for the duration of active insulin or hypoglycemia agent for persistent hypoglycemia and re-evaluating active insulin orders before administering the next dose. 1 tube of Glutose-15 contains 15 grams of glucose (net weight of tube = 37.5 grams.), Routine Or dextrose 10% infusionJump to med 250 mL, at 1,000 mL/hr, Intravenous, EVERY 15 MIN PRN, Starting on 04/19/23 at 1902, Until Fri04/25/23 at 1431, For BG 50-70 mg/dL: Oral treatment preferred: If able to drink, give 120 mL juice or regular (not diet) soda OR if NPO, give 15 gram glucose 40% oral gel massaged into buccal mucosa OR if unconscious or uncooperative, give 25 gram (250 mL) dextrose 10% IV over 15 minutes per protocol OR, if no IV access, 1 mg glucagon IM. For BG less than 50 mg/dL: Oral treatment preferred: If able to drink, give 240 mL juice or regular (not diet) soda OR if NPO, give 30 gram glucose 40% oral gel massaged in buccal mucosa OR if unconscious or uncooperative, give 25 gram (250 mL) dextrose 10% IV over 15 minutes per protocol OR, if no IV access, 1 mg glucagon IM. Recheck BG in 15 minutes. May repeat juice/soda, gel, dextrose or glucagon once per episode. Notify provider if hypoglycemia does not resolve after two treatments. Providers should consider the following: administering longer-acting treatments for the duration of active insulin or hypoglycemia agent for persistent hypoglycemia and re-evaluating active insulin orders before administering the next dose. Or glucagon (Glucagen) (1 mg/mL) injection solution 1 mgJump to med 1 mg, Intramuscular, EVERY 15 MIN PRN, Starting on 04/19/23 at 1902, Until Fri04/25/23 at 1431, Low blood sugar, For BG 50-70 mg/dL: Oral treatment preferred: If able to drink, give 120 mL juice or regular (not diet) soda OR if NPO, give 15 gram glucose 40% oral gel massaged into buccal mucosa OR if unconscious or uncooperative, give 25 gram (250 mL) dextrose 10% IV over 15 minutes per protocol OR, if no IV access, 1 mg glucagon IM. For BG less than 50 mg/dL: Oral treatment preferred: If able to drink, give 240 mL juice or regular (not diet) soda OR if NPO, give 30 gram glucose 40% oral gel massaged in buccal mucosa OR if unconscious or uncooperative, give 25 gram (250 mL) dextrose 10% IV over 15 minutes per protocol OR, if no IV access, 1 mg glucagon IM. Recheck BG in 15 minutes. May repeat juice/soda, gel, dextrose or glucagon once per episode. Notify provider if hypoglycemia does not resolve after two treatments. Providers should consider the following: administering longer-acting treatments for the duration of active insulin or hypoglycemia agent for persistent hypoglycemia and re-evaluating active insulin orders before administering the next dose. , Routine documented in this encounter Care Teams Dry Charge Process Attendant Relationship Specialty Start Date End Date Cady Saavedra PA [address] [place] [address] PCP - General Family Medicine 06/19/20 documented as of this encounter
--- OUTSIDE RECORDS SUMMARY | 2023-12-19 19:06 | XMS_ITS | Encounter Summary ---
Author Organization [facility] [place] [address] Care Team Providers Care Padded Products Finisher Name Role Phone Cady Saavedra Primary Care Provider [phone] Reason for Visit * Auth/Cert (Routine) Specialty Diagnoses / Procedures Referred By Contac t Referred To Contact Diagnoses NSTEMI (non-ST elevated myocardial infarction) NSTEMI Procedures EMERGENCY IPI Trent Hair V, [facility] [place] [address] [place] [address] [facility] Referral ID Status Reason Start Date Expiration Date Visits Re quested Visits Authorized [id number] 1 1 Encounter Details Date Type Department Care Team (Late st Contact Info) Description 04/21/2023 8:30 AM EST - 04/21/2023 9:30 AM [place] [address] Sudeep Arzate MD [facility] [place] [address] [place] [address] CARDIAC CATHETERIZATION Social History Tobacco Use Types Packs/Day Years Used Date Smoking Tobacco: Never Smokeless Tobacco: Never Alcohol Use Standard Drinks/Week Comments No 0 (1 standard drink = 0.6 oz pur e alcohol) [facility] Utilities Answer Date Recorded In [...] place to sleep or slept in a longterm (including now)? No 04/21/2023 DH IPV Inpatient [...] Sign Reading Time Taken Comments Blood Pressure 165/67 04/21/2023 9:20 AM EST Pulse 66 04/21/2023 9:20 AM EST Temperature 36.8 ??C (98.2 ??F) 04/21/2023 7:24 AM ES T Respiratory Rate 17 04/21/2023 7:24 AM EST Oxygen Saturation 92% 04/21/2023 9:05 AM EST Inhaled Oxygen Concentration - - Weight 107 kg (235 lb 14.3 oz) 04/21/2023 5:38 A M EST Height 162.6 cm (5' 4) 04/19/2023 6:17 PM EST Body Mass Index 40.42 04/19/2023 6:17 PM EST documented in this encounter Discharge Summaries * Susan Hernandez, EMILIANO - 04/25/2023 11:19 AM EST Discharge Summary Patient Name: Regan Woo Patient Age: 67 y.o. Language: Chadian Admit date: 04/19/2023 Discharge date and time: [...] Provider Contact Information: Inpatient Cardiology Hospitalist Team [phone] Discharge Diagnoses (Hospital Problems) and Secondary Diagnoses (Chronic Problems): Active Hospital Problems Diagnosis NSTEMI (non-ST elevated myocardial infarction) Resolved Hospital Problems No resolved problems to display. Active Non-Hospital Problems Diagnosis Total knee replacement status left 2009 [facility] Left knee pain Chronic neck pain Solar lentigo Seborrheic keratosis Breast hypertrophy Operations/Major Procedures: [facility] 04/21/23 Hemodynamics: Left Heart Pressures Resting: [...] time. She then went [facility] where the pain resolved with NTG. Note that she had another similar episode of CP while laying on the stretcher in the ambulance to [facility]. This was resolved with NTG as well. Denies previous hx of CP, cardiac disease, previous cath, previous cardiac stress test. Pt currently denies CP. Notes BP is 130-140s at home but she battles with anxiety and states her BP can go up when she is anxious. Notes strong hx of heart disease on moms side, mom in early 50s d/t [place]. At [facility], pt ECG noted A flutter, A rate of 211 with probable anteroseptal infarct (documented), c/f nonspecific ST changes in V1 and V2. BP elevated in 180-200s, improved with hydralazine. Troponin elevated 35.1 ---> 59.3 --> 34.9. Pt given nitro past for CP and BP with improvement. Started onheparin given NSTEMI concern, load of Plavix and ASA done. Transferred to [facility] for further evaluatio n. Meds administered at [...] ASCVD # HLD Regan Woo presented to [facility] ER with chest pain. Found to [...] Repeat troponins flat (18 > 18) at [facility]. Given EKG, troponin, history and cardiac risk [...] 04/25/2023 CREATININE 1.57 (H) 04/25/2023 Recent Labs 04/19/231928 TSH 2.04 Recent Labs 04/20/2346 HA1C 7.0* Recent Labs 04/20/23 1350 04/20/23 [...] this Hospitalization: Immunization History Administered Date(s) Administered Lilianaa Covid-19 Monovalent 12Yr+ (Tack Puller 100mcg) 06/20/2020, 07/17/2020, 02/20/2021 Discharge Medications: Your [...] (disposable) 31 gauge x 5/16 Needle by [facility]Non-Drug; Combo Route) route. Indications: BD ultra-fine pen NDL [id number] Refills: 0 liraglutide 0.6 mg/0.1 mL (18 [...] for 12 months. After this time, your lead consultant will determine if you need to continue [...] away. Stay on the phone. The emergency dry kiln operator helper will tell you what to do. Nitroglycerin [...] of 8AM-5PM please call the Cardiology Clinic [phone] to speak with a nurse. All other hours please call the Hospital Garage Laborer [phone] and ask to speak to the print graphic designer on-call. Follow up Appointments: Doctor Where Phone # Date Time PCP [facility] Dumont [address] [place] [id number] Friday05/02/2023 10:[address] Facundo Velez [facility] [phone] Friday05/20/23 1:20 PM Lab work [place], [place] Please have labs drawn on Friday04/29/23. Results to be sent to your PCP. General Instructions None Future Appointments and Orders Future Appointments and Orders Future Appointments Provider Department Dept Phone 05/20/2023 1:20 PM Trey Velez MD Cardiology at [facility] Arrive at: [facility] [address] [phone] Future Orders Complete By Expires Basic Metabolic [...] (if performed) 3 - Signed and dated [id number] evaluation documenting the need for Oxygen Scheduling Instructions: Comments: Diagnosis: Hypoxia POC (Portable Oxygen Concentrator) Required: Yes If Yes, please indicate setting (ie. 1, 2, 3, 4 or 5): 3 Questions: Vendor Name/Contact information: [place] [facility] Rate (LPM): 2 Route: Nasal Hours [...] (if performed) 3 - Signed and dated [id number] evaluation documenting the need for Oxygen Scheduling Instructions: Questions: Vendor Name/Contact information: [facility] Rate (LPM): 2 Route: Nasal [...] with appropriate device: Discharge References/Attachments Cardiac Rehabilitation (Chadian) Coronary Angiogram: Post-op (Chadian) Heart attack: Fast facts: Video (Chadian) Heart Attack: Myocardial Infarction or Acute Coronary Syndrome (Chadian) Statins (Chadian) Greater than 30 minutes were spent reviewing records, [id number] consultation with patient, and documentation. documented in this encounter Discharge Instructions * Patient Instructions* Susan Hernandez, EMILIANO - 04/21/2023 3:48 PM EST Heart Attack, [...] for 12 months. After this time, your lead consultant will determine if you need to continue [...] away. Stay on the phone. The emergency dry kiln operator helper will tell you what to do. Nitroglycerin [...] of 8AM-5PM please call the Cardiology Clinic [phone] to speak with a nurse. All other hours please call the Hospital Garage Laborer [phone] and ask to speak to the print graphic designer on-call. Follow up Appointments: Doctor Where Phone # Date Time PCP [facility] Dumont [address] [place] [address] Friday05/02/2023 10:30 [address] Work [address] Facundo Velez [facility] [phone] Friday05/20/23 1:20 PM Lab work [place], [place] Please have labs drawn on Friday04/29/23. Results to be sent to your PCP. * Attachments The following attachments cannot be sent through Care Everywhere. * Cardiac Rehabilitation (Chadian) * Coronary Angiogram: Post-op (Chadian) * Heart attack: Fast facts: Video (Chadian) * Heart Attack: Myocardial Infarction or Acute Coronary Syndrome (Chadian) * Statins (Chadian) documented in this encounter Medications at Time [...] gauge x 5/16 NeedleIndications:BD ultra-fine pen NDL [id number] by Misc.(Non-Drug; Combo Route) route. Indications: BD ultra-fine pen NDL [id number] insulin glargine (LANTUS) Insulin Pen Inject 40 Units subcutaneously nightly. oxybutynin (DITROPAN) 5 mg Tablet Take 10 mg by mouth daily. buPROPion (WELLBUTRIN SR) 150 mg 12 hr tablet Take 150 mg by mouth daily. documented as of this encounter Progress Notes * Selwyn England RN - 04/25/2023 10:37 AM EST Home [...] 04/24/2023 8:37 AM EST CARDIOLOGY APP2 - [facility] DAILY PROGRESS NOTE Page [phone] to reach a provider 28/10 Admit Date: [...] 1407 04/22/23 0355 04/21/23 1636 04/20/23 1350 04/19/23 192 NA 137 137 137 134* 140 < [...] longest 27 beats 04/20. Rare PAC/PVCs. Diagnostics: [facility] 04/21/23 Conclusions: * Two vessel coronary [...] CPAP use), and obesity who presented [facility] with chest pain. Found to [...] Repeat troponins flat (18 > 18) at [facility]. Given EKG, troponin, history and cardiac risk factors proceeded with [facility] 04/21. LHC showed very small distal [...] at OSH 35 > 59 > 35. [facility] HS Troponin 18 > 18. TTE 04/20: pLVEF without rWMAs [facility] 04/21: w/ very small distal branches [...] years Diet: Daily Healthy Menu Choices/Cardiac diet ([facility]-Diet) 2 GM NA; 60/60/75 CHO counting level 2 DVT Prophylaxis: Heparin subq Code status: Attempt Cardiopulmonary Resuscitation - Inpatient Disposition: Discharge Location: AM-PAC Basic Mobility Raw Score: 24 PT: Anticipated Discharge Disposition (PT): home with supervision Anticipated Equipment Needs at Discharge (PT): None OT: PCP [facility] [phone] Discussed with MD Eleazar Vega PA-C APP2 Pager: [phone] 04/24/2023 * Eleazar Roy PA - 04/23/2023 3:20 PM EST CARDIOLOGY APP2 - [facility] DAILY PROGRESS NOTE Page [phone] to reach a provider 28/10 Admit Date: [...] 1407 04/22/23 0355 04/21/23 1636 04/20/23 1350 04/19/23 1929 NA 137 137 134* 140 142 141 [...] longest 27 beats 04/20. Rare PAC/PVCs. Diagnostics: [facility] 04/21/23 Conclusions: * Two vessel coronary [...] CPAP use), and obesity who [facility] with chest pain. Found to [...] Repeat troponins flat (18 > 18) at [facility]. Given EKG, troponin, history and cardiac risk factors proceeded with C 04/21. LHC showed very small distal branches [...] at OSH 35 > 59 > 35. [facility] HS Troponin 18 > 18. TTE 04/20: pLVEF without rWMAs LHC 04/21: w/ very small distal branches [...] mg x2 with net negative 3L and SERJIO Diuretic holiday 04/22. S/p IV lasix 20 [...] years Diet: Daily Healthy Menu Choices/Cardiac diet ([facility]-Diet) 2 GM NA; 60/60/75 CHO counting level 2 DVT Prophylaxis: Heparin subq Code status: Attempt Cardiopulmonary Resuscitation - Inpatient Disposition: Discharge Location: AM-PAC Basic Mobility Raw Score: 24 PT: Anticipated Discharge Disposition (PT): home with supervision Anticipated Equipment Needs at Discharge (PT): None OT: PCP [facility] Dumont [phone] Discussed with MD Eleazar Vega PA-C APP2 Pager: [phone] 04/23/2023 * Eleazar Roy PA - 04/23/2023 [...] 92 % O2 Sats collected by: Hayley Mia RN Date Sats Collected: 04/22/2023 Mobility: Patient is mobile. (Requiring portable oxygen) Rate: 2 LPM Route: nasal cannula Vendor Ordered: [facility] Intake Office: [place], [place] I anticipate that Regan Woo will be discharged within 1 day. * Asa Franco J - 04/23/2023 9:02 AM EST Physical Therapy [...] when lost her footing. Social Supports Available: Dolly (Roto[employer]) Precautions/Special Considerations: Fall risk Lines: PIV, external [...] mediolateral sway Comments: required one standing break senior living to catch her breath Stairs: Number of [...] the stairwell but required one break roughly senior living due to fatigue and also to catch [...] outlined in thisevaluation. Time IN / OUT: 3643-3235 Total Minutes, Physical Therapy: 42 Billing Code: [...] treatment session. Nissa Johnson PT, DPT Pager #[phone] * Sabrina Brito RN - 04/22/2023 1:40 [...] 2 LPM Route: nasal cannula Vendor Ordered: [facility] Intake Office: [place], [place] I anticipate that Regan Woo will be discharged within 1 day. Emmie Smiley RN - 04/22/2023 1:39 PM EST The Patient has been provided a list of Home Health Agencies/DME vendors which serve their preferred geographic area. A letter describing our affiliations was reviewed with them and they were educated about their right to choose where referrals are placed. Provided patient with [facility] Star Quality Rating for Home care hand out. Patient requests referral to : [facility] Intake Office: [place], [place] Expected date of discharge: 04/23/2023. Referral routed to the Tool Grinder Set Up Operator Gear for matching with agency/vendor and to provide any required information. KENNETH Hart, RN Inpatient Professional Application Designer- Cardiology Office of Care Management Pager #: [phone] * Eleazar Roy PA - 04/22/2023 10:57 AM EST CARDIOLOGY APP2 - [facility] DAILY PROGRESS NOTE Page [phone] to reach a provider 28/10 Admit Date: [...] CHOLHDL 3.5 3.5 Recent Labs 04/22/23 0721 04/21/23202204/21/23 1710 04/21/23 1636 04/21/23 1146 04/21/23 0849 04/21/23 0724 04/20/23203004/20/23 1607 04/20/23 1350 04/20/23 1147 04/20/23 0749 04/19/23 2310 04/19/231928 GLUCOSE -- -- -- 111 -- -- [...] longest 27 beats 04/20. Rare PAC/PVCs. Diagnostics: [facility] 04/21/23 Conclusions: * Two vessel coronary [...] CPAP use), and obesity who [facility] with chest pain. Found to [...] Repeat troponins flat (18 > 18) at [facility]. Given EKG, troponin, history and cardiac risk factors proceeded with [facility] 04/21. LHC showed very small distal [...] at OSH 35 > 59 > 35. [facility] HS Troponin 18 > 18. TTE 04/20: pLVEF without rWMAs [facility] 04/21: w/ very small distal branches [...] of aggressive diuresis Creatinine 0.89>>1.20 Diuretic holiday 04/22 Monitor BMP Holding home ARB # Acute [...] years Diet: Daily Healthy Menu Choices/Cardiac diet ([facility]-Diet) 2 GM NA; 60/60/75 CHO counting level 2 DVT Prophylaxis: Ambulate Code status: Attempt Cardiopulmonary Resuscitation - Inpatient Disposition: Discharge Location: AM-PAC Basic Mobility Raw Score: 20 PT: OT: PCP [facility] [phone] Discussed with MD Eleazar Vega PA-C APP2 Pager: [phone] 04/22/2023 * Tori Chang PA - 04/21/2023 8:10 AM EST CARDIOLOGY APP2 - [facility] DAILY PROGRESS NOTE Page [phone] to reach a provider 28/10 Admit Date: [...] longest 27 beats 04/20. Rare PAC/PVCs. Diagnostics: [facility] 04/21/23 Conclusions: * Two vessel coronary [...] CPAP use), and obesity who [facility] with chest pain. Found to [...] Repeat troponins flat (18 > 18) at [facility]. Given EKG, troponin, historyand cardiac risk factors proceeded with LHC 04/21. [...] at OSH 35 > 59 > 35. [facility] HS Troponin 18 > 18. TTE 04/20: pLVEF without rWMAs LHC 04/21: w/ very small distal branches [...] years Diet: Daily Healthy Menu Choices/Cardiac diet ([facility]-Diet) 2 GM NA; 60/60/75 CHO counting level 2 DVT Prophylaxis: IV heparin -> ambulate Code status: Attempt Cardiopulmonary Resuscitation - Inpatient Disposition: Discharge Location: AM-PAC Basic Mobility Raw Score: 22 PT: OT: PCP [facility] [phone] Discussed with MD Tori Stone PA-C Pager #[phone] 04/21/2023 Associated attestation - David Levin MD [...] 04/20/2023 7:30 AM EST CARDIOLOGY APP2 - [facility] DAILY PROGRESS NOTE Page [phone] to reach a provider 28/10 Admit Date: 04/19/2023 Encounter Date April 20, 2023 Anticipated Discharge Date: Hospital Day: 1 Active Hospital Problems Diagnosis NSTEMI (non-ST elevated myocardial infarction) Resolved Hospital Problems No resolved problems to display. 24 Hour Events/Subjective: - Admitted overnight as transfer [facility] for NSTEMI management - She experienced acute onset chest pressure (elephant on chest) with LH/dizziness and SOB [facility]. She then presented to her routine eye doctor appointment and was found rossy hypertensive with instructions to go to the local ER. On arrival to the ER had persistent symptom s. Per documentation, resolved with SL NTG (she reports pain improved some). She had an abnormal EKG and positive troponin trend. Started on ASA/Plavix and IV heparin for ACS protocol and [facility]. - While in the ambulance yesterday for [...] Affect: Mood is anxious. Labs: Recent Labs 04/20/237 04/19/231928 WBC 7.5 8.9 HGB 12.9 15.1 HCT 40.1 45.8 PLATELET 225 213 MCV 93.5 91.6 Recent Labs 04/19/231928 NA 143 CL 103 CO2 27 K 3.7 MAGNESIUM 0.74 PHOS 3.1 CALCIUM 9.1 9.1 BUN 8 CREATININE 0.62* Coags Recent Labs 04/19/231928 INR 1.1 PT 12.5 PTT 46* Cardiac Markers Recent Labs 04/20/237 04/19/231928 TROPONINTHS 18* -- PROBNP -- 1,304* Endocrine Recent Labs 04/20/23 0047 04/19/231928 TSH -- 2.04 HA1C 7.0* -- Recent Labs 04/20/2346 CHLPL 176 176 TRIG 89 89 HDL 50 50 LDLCHOL 108 CHOLHDL 3.5 3.5 Recent Labs 04/20/23 0749 04/19/23 2310 04/19/23 1929 04/19/23 1822 GLUCOSE -- -- 100 -- POCGLU 123 190 -- 95 EKG 04/20/23: NSR 77 bpm prior septal RUEL improved. Telemetry: I have personally reviewed and interpreted the telemetry from the last 24 hours. Resultsshow NSR; HR 70-80s. 7 beat NSVT 04/20. Rare PAC/PVCs. Diagnostics: C 04/21/23 Planned TTE 04/20/23 Pending Assessment: Regan Woo is a 67 y.o. female with a PMH of IDDM2, anxiety, GERD, TERENCE, and obesity who presented to [facility] ER with chest pain. Found to [...] risk factors will plan to proceed with C tomorrow (04/21). NSTEMItype 2 possible in setting of HTN urgency. Plan: # NSTEMI type 1 versus 2 in setting of HTN # Cardiac risk factors: HTN, HLD, DM, obesity, FHx Troponin at OSH 35 > 59 > 35. [facility] HS Troponin 18. TTE ordered Continue IV heparin S/p ASA 324mg at OSH; continue 81mg daily S/p Plavix 600mg at OSH; continue 75mg daily Continue atorvastatin 40mg qHS (? If taking 20mg at home); LDL Start carvedilol 6.25mg BID with hold parameters SL NTG and EKG PRN for chest pain NPO at IN for LHC # Hypertensive urgency on essential HTN SBP 180-200 mmHg at OSH; improved s/p SL NTG and hydralazine BP trends last 12 hours: BP: (156-159)/(49-61) New carvedilol 6.25mg BID as above Hold home losartan 100mg (unclear if taking) given plan for LHC Consider new amlodipine Monitor trends, adjust agents [...] years Diet: Daily Healthy Menu Choices/Cardiac diet ([facility]-Diet) NPO diet (Give Meds) DVT Prophylaxis: IV heparin Code status: Attempt Cardiopulmonary Resuscitation - Inpatient Disposition: Discharge Location: AM-PAC Basic Mobility Raw Score: 24 PT: OT: PCP [facility] Dumont [phone] Discussed with MD Tori Stone PA-C Pager #[phone] 04/20/2023 Associated attestation - David Levin MD [...] will proceed with coronary angiography. Prepare for [facility] tomorrow. * Trent Hair DO - [...] further details. Trent Hair DO 04/19/2023 Pager [phone] * Briana Avina RN - 04/19/2023 6:11 [...] DO PCP: [facility] Dumont PCP phone #: [phone] Chief Complaint: CP History of Present Illness: [...] time. She then [facility] where the pain resolved with NTG. Note that she had another similar episode of CP while laying on the stretcher in the ambulance to [facility]. This was resolved with NTG as well. Denies previous hx of CP, cardiac disease, previous cath, previous cardiac stress test. Pt currently denies CP. Notes BP is 130-140s at home but she battles with anxiety and states her BP can go up when she is anxious. Notes strong hx of heart disease on moms side, mom in early 50s d/t [place]. At [facility], pt ECG noted A flutter, A rate of 211 with probable anteroseptal infarct (documented), c/f nonspecific ST changes in V1 and V2. BP elevated in 180-200s, improved with hydralazine. Troponin elevated 35.1 ---> 59.3 --> 34.9. Pt given nitro past for CP and BP with improvement. Started onheparin given NSTEMI concern, load of plavix and ASA done. Transferred to [facility] for further evaluatio n. Meds administered at [...] disposable, 31 gauge x 5/16 Needle by [facility]Non-Drug; Combo Route) route. Indications: BD ultra-fine pen NDL [id number] metFORMIN (GLUCOPHAGE) 500 mg Tablet Take 500 [...] Code Status: full Dispo- pending course Trent Hair DO 04/19/2023 6:25 PM documented in this encounter Miscellaneous Notes * Care Management - Susan Hernandez, QUOTER - 04/25/2023 10:47 AM EST Certification of [...] 2 LPM Route: nasal cannula Vendor Ordered: [place] (Resp Supplies) Central Intake: [place]: [place]: (They cover all of [place]) Expected date of discharge: 04/25/2023. Referral routed to the Tool Grinder Set Up Operator Gear for matching with agency/vendor and to provide [...] Ongoing (Interventions Implemented as Appropriate) Tori De LaC ruz RN 6:53 PM * Consult Note - Bonnie White RN - 04/22/2023 5:02 PM EST Wound Care Nurse Rounding Note Situation: Asked to see Regan Fletcher Zander by Meghan GARRISON for mid abdominal fold [...] chat or the wound care team at [phone] with skin and wound care concerns or [...] in an outpatient cardiac rehabilitation program at [facility] was discussed. Patient declines a referral [...] cath without complications. Tori Chang PA-C Pager #[phone] 04/21/2023 * Care Management - Monica Ramona E - 04/21/2023 2:22 PM ESTSummary: Vt Advanced Directive is complete Vt AD is complete, sister Lorelei Garcia of [facility] is agent. - * Initial Assessments - Emmie Mcintosh RN - 04/21/2023 11:51 AM EST Office of Care Management Initial Assessment Emmie Mcintosh RN reviewed record and discussed patient with Care Team. Source of Information: Team, bedside nurse, medical record, and Patient. Introduced self/reviewed role; services accepted. Admitted From: Transfer from another hospital Location: [facility] Reason for Hospitalization: chest pain Covid Vaccination Status: 1st, 2nd & booster Past medical History: Past Medical History: Diagnosis Date Allergy Chronic neck pain 06/29/2015 Diabetes Hypertension Obesity Urinary disorder Hospitalizations Within the Past 30 Days: no previous admission in last 30 days Current Decision-Making Capacity: Self If AD's have not been completed the following surrogate would be surrogate decision maker per [place] surrogate decision making law. (Only good for 180 days) Any patient receiving care in [place] must abide by [place] law. The hierarchy for surrogate decision making [...] (i) The agent with financial power of corporate associate attorney or a conservator appointed in accordance with [...] In the past 12 months has the electric, gas, oil, or water company threatened [...] needed for daily living?: No Current DME: michelle ramirez (have never used it) Home Address confirmed as: [address] [place] [address] Social & Family Supports: All names listed below confirmed with patient as current and correct Extended Emergency Contact Information Primary Emergency Contact: Lorelei Garcia [facility] Relation: Sibling Current Care Provided by: self [...] Coverage: Primary Insurance: [employer] MANAGED MEDICARE Payor: [employer]GED MEDICARE / Plan: [employer] MANAGED MEDICARE PPO / Product Type: *No Product type* / Secondary Insurance: MEDICAID [place] Prescription Coverage: Yes Preferred Pharmacy: [id number] - [place], [place] - [address] [facility] [address] Status: Patient is a : No Primary Care Provider confirmed: DU Dumont [phone] Patient/Caregiver Goals of Treatment: to be able [...] of care planning. KENNETH Hart, RN Inpatient Professional Application Designer- Cardiology Office of Care Management Pager #: [phone] * Plan of Care - Tori De La Cruz RN - 04/21/2023 10:42 AM EST OUTCOME EVALUATION NOTE: OUTCOME SUMMARY: Assumed care of Danielle @0700. Pt A&Ox4, SB on tele, VSS on RA (occasionally requiring 2-3L NC). Denies CP/SOB for this RN. OOB w/ 1A, refusing walker. Pt educated on fall risk and hospital safety.LHC completed, see results. Plan to med manage. [...] in hand. PLAN MOVING FORWARD: NPO @ IN for cath Wean oxygen Ambulate Wound cx- [...] 2:50 AM EST DIFFERENTIAL, AUTOMATED Routine 04/25/19 24 2:50 AM EST CBC (WITH DIFF) Routine [...] XR CHEST PA AND LATERAL Routine 04/22/19 24 6:18 PM EST POCT GLUCOSE Routine 04/22/2023 [...] (ABNORMAL) POCT Glucose (04/25/2023 11:11 AM EST) [facility] Glucose, POC 221(H) 65 - 199 mg/dL [facility] Comment: Supplemental ranges: <140 mg/dL before meals <180 mg/dL all other times of the day Blood 04/25/2023 11:1 1 AM EST 04/25/2023 11:11 AM EST mL Delgado MD POINT OF CARE TEST O RDERABLES Performing Organization Address City/[facility] Co de Phone Number [facility] [place] [address] * POCT Glucose (04/25/2023 7:46 AM EST) Glucose, POC 101 65 - 199 mg/dL [facility] Comment: Supplemental ranges: <140 mg/dL before meals <180 mg/dL all other times of the day Blood 04/25/2023 7:46 AM EST 04/25/2023 7:46 AM EST Lm Delgado MD POINT OF CARE TEST O RDERABLES Performing Organization Address [facility] Co de Phone Number [facility] [place] [address] * (ABNORMAL) Differential, Automated (04/25/2023 2:50 AM EST) [facility] Neutrophil % 49.8 % [facility] Neutrophil Absolute 3.60 1.70 - 6.10 x10(3)/mc L [facility] Lymph % 35.8 % [facility] Lymphocytes Abs 2.6 0.9 - 3.2 x10(3)/mc L [facility] Monocyte % 6.8 % [facility] Monocyte Abs 0.5 0.3 - 0.9 x10(3)/mc L [facility] Eos % 6.8 % [facility] Eosinophils Abs 0.5(H) 0.0 - 0.4 x10(3)/mc L [facility] Basophil % 0.7 % [facility] Baso Absolute 0.0 0.0 - 0.1 x10(3)/mc L [facility] Immature Gran % 0.10 % [facility] Comment: Immature granulocytes(IG's)percentage and absolute count will include metamyelocytes, myelocytes, and promyelocytes. Blood smears from CBCs yielding IG's will be scanned manually for concordance. If this scan disagrees with the automated IG or if promyelocytes are noted, a manual differential will be performed. Immature Gran Absolute 0.01 0.00 - 0.04 x10(3)/mc L [facility] Blood 04/25/2023 2:50 AM EST 04/25/2023 3:20 AM EST Narrative Resulting Agency Comment Spec In Lab Eleazar SANDY HEMATOLOGY ORDERABLE S [facility] [place] [address] * (ABNORMAL) Hemogram (04/25/2023 2:50 AM EST) White Blood Cell 7.2 4.0 - 9.5 x10(3)/mc L [facility] Red Blood Cell 4.01 4.00 - 5.21 x10(6)/mc L [facility] Hemoglobin 11.9 11.7 - 15.5 g/dL [facility] Hematocrit 38.2 35.7 - 45.8 % [facility] Mean Cell Volume 95.3(H) 82.6 - 94.4 fL [facility] Mean Cell Hemoglobin 29.7 27.1 - 32.0 pg [facility] Mean Cell Hemoglobin Concentration 31.2(L) 31.7 - 35.0 g/dL [facility] Platelet 218 145 - 357 x10(3)/mc L [facility] RDW Standard Deviation 46.0 37.0 - 46.0 fL [facility] RDW coefficient of variation 13.2 11.5 - 14.1 % [facility] Mean Platelet Volume 11.2 7.6 - 12.9 fL [facility] NRBC% auto 0.0 % [facility] NRBC Absolute 0.000 0.000 - 0.000 x10(3)/mc L [facility] Blood 04/25/2023 2:50 AM EST 04/25/2023 3:20 AM EST Narrative Resulting Agency Comment Spec In Lab David Levin MD HEMATOLOGY ORDERABLE S Performing Organization Address City/[facility]/ZIP Co de Phone Number [facility] [place] [address] * Magnesium (04/25/2023 2:50 AM EST) Magnesium 0.91 0.69 - 1.07 mmol/L [facility] Blood 04/25/2023 2:50 AM EST 04/25/2023 3:20 AM EST Narrative Resulting Agency Comment Spec In Lab David Levin MD CHEMISTRY ORDERABLES Performing Organization Address [facility] Co de Phone Number [facility] [place] [address] * (ABNORMAL) BMP w/fasting Glucose (04/25/2023 2:50 AM EST) Glucose Fasting 108(H) 65 - 99 mg/dL [facility] Comment: ?Fasting* Glucose Interpretive Criteria Normal [...] of Diabetes Mellitus, Position Statement from the [employer]. ??Diabetes Care, Volume 33, Supplement 1, Apr 2009 Blood Urea Nitrogen 34(H) 8 - 18 mg/dL [facility] Creatinine 1.57(H) 0.70 - 1.20 mg/dL [facility] Sodium 138 135 - 145 mmol/L [facility] Potassium 5.0 3.5 - 5.0 mmol/L [facility] Comment: Please note: ??Patients with WBC >100,000 may have falsely elevated Potassium levels. ??For accurate Potassium quantification in these patients send serum separator tube (gold top) for subsequent determinations. ??Contact the Clinical Chemistry Laboratory if there are any questions. Chloride 102 98 - 107 mmol/L [facility] Carbon Dioxide 31 22 - 31 mmol/L [facility] Anion Gap 5 5 - 15 mmol/L [facility] Calcium 8.9 8.5 - 10.5 mg/dL [facility] Est Glomerular Filtration Rate 36(L) >=60 mL/min/1. 73 m?? [facility] Comment: This patient's estimated GFR was [...] Levin MD CHEMISTRY ORDERABLES Performing Organization Address City/[facility]/ZIP Co de Phone Number [facility] [place] [address] * POCT Glucose (04/24/2023 8:04 PM EST) Glucose, POC 124 65 - 199 mg/dL [facility] Comment: Supplemental ranges: <140 mg/dL before meals <180 mg/dL all other times of the day Blood 04/24/2023 8:04 PM EST 04/24/2023 8:04 PM EST Lm Delgado MD POINT OF CARE TEST O RDERABLES Performing Organization Address City/[facility]/ZIP Co de Phone Number [facility] [place] [address] * XR Chest One View (04/24/2023 5:23 [...] who have questions please contact the health director of managed care that requested your imaging first. ? Electronically signed by: Johnny Carreon MD, [facility] ??([phone]), at 04/25/2023 8:49 AM Narrative 04/25/2023 8:49 AM EST EXAMINATION: XR [...] patients who have questions please contactthe health director of managed care that requested your imaging first. Electronically signed by: Johnny Carreon MD, [facility]([phone]), at 04/25/2023 8:49 AM Lm Delgado MD IMG DX ORDERABLES * POCT Glucose (04/24/2023 5:03 PM EST) [facility] Glucose, POC 170 65 - 199 mg/dL [facility] Comment: Supplemental ranges: <140 mg/dL before meals <180 mg/dL all other times of the day Blood 04/24/2023 5:03 PM EST 04/24/2023 5:03 PM EST Lm Delgado MD POINT OF CARE TEST O RDERABLES [facility] [place] [address] * EKG 12 Lead (04/24/2023 4:39 PM EST) Ventricular rate 61 BPM MUSE SYSTEM Atrial Rate 61 BPM MUSE SYSTEM P-R Interval 174 ms MUSE SYSTEM QRS Duration 88 ms MUSE SYSTEM Q-T Interval 436 ms MUSE SYSTEM QTC Calculated (Bezet) 438 ms MUSE SYSTEM Calculated P [place] 17 degrees MUSE SYSTEM Calculated R [place] 17 degrees MUSE SYSTEM Calculated T [place] 45 degrees MUSE SYSTEM INTERPRETATION Sinus rhythm with marked sinus arrhythmia Septal infarct (cited on or before 20-APR-2023) Abnormal ECG When compared with ECG of 20-APR-2023 13:10, Questionable change in initial forces of Anterior leads Confirmed by MD MARVIN, TRA ([id number]) on 04/25/2023 9:43:00 PM MUSE SYSTEM 04/24/2023 4:39 PM EST 04/25/2023 9:43 PM EST Unknown ECG ORDERABLES MUSE SYSTEM * (ABNORMAL) Basic Metabolic Panel (non-fasting) (04/24/2023 3:40 PM EST) Glucose 138 65 - 199 mg/dL [facility] Comment:Diabetes: >=200 mg/d L plus symptoms Blood Urea Nitrogen 34(H) 8 - 18 mg/dL [facility] Creatinine 1.50(H) 0.70 - 1.20 mg/dL [facility] Sodium 137 135 - 145 mmol/L [facility] Potassium 5.4(H) 3.5 - 5.0 mmol/L [facility] Comment: Please note: ??Patients with WBC >100,000 may have falsely elevated Potassium levels. ??For accurate Potassium quantification in these patients send serum separator tube (gold top) for subsequent determinations. ??Contact the Clinical Chemistry Laboratory if there are any questions. Chloride 102 98 - 107 mmol/L [facility] Carbon Dioxide 29 22 - 31 mmol/L [facility] Anion Gap 6 5 - 15 mmol/L [facility] Calcium 9.0 8.5 - 10.5 mg/dL [facility] Est Glomerular Filtration Rate 38(L) >=60 mL/min/1. 73 m?? [facility] Comment: This patient's estimated GFR was [...] Delgado MD CHEMISTRY ORDERABLES Performing Organization Address City/[facility]/ZIP Co de Phone Number [facility] [place] [address] * POCT Glucose (04/24/2023 1:07 PM EST) Glucose, POC 143 65 - 199 mg/dL [facility] Comment: Supplemental ranges: <140 mg/dL before meals <180 mg/dL all other times of the day Blood 04/24/2023 1:07 PM EST 04/24/2023 1:07 PM EST Lm Delgado MD POINT OF CARE TEST O RDERABLES [facility] [place] [address] * POCT Glucose (04/24/2023 7:38 AM EST) Glucose, POC 117 65 - 199 mg/dL [facility] Comment: Supplemental ranges: <140 mg/dL before meals <180 mg/dL all other times of the day Blood 04/24/2023 7:38 AM EST 04/24/2023 7:38 AM EST Lm Delgado MD POINT OF CARE TEST O RDERABLES Performing Organization Address City/[facility] Co de Phone Number [facility] [place] [address] * (ABNORMAL) Differential, Automated (04/24/2023 3:32 AM EST) Neutrophil % 51.2 % [facility] Neutrophil Absolute 3.98 1.70 - 6.10 x10(3)/mc L [facility] Lymph % 33.9 % [facility] Lymphocytes Abs 2.6 0.9 - 3.2 x10(3)/mc L [facility] Monocyte % 7.3 % [facility] Monocyte Abs 0.6 0.3 - 0.9 x10(3)/mc L [facility] Eos % 6.7 % [facility] Eosinophils Abs 0.5(H) 0.0 - 0.4 x10(3)/mc L [facility] Basophil % 0.6 % [facility] Baso Absolute 0.0 0.0 - 0.1 x10(3)/mc L [facility] Immature Gran % 0.30 % [facility] Comment: Immature granulocytes(IG's)percentage and absolute count will include metamyelocytes, myelocytes, and promyelocytes. Blood smears from CBCs yielding IG's will be scanned manually for concordance. If this scan disagrees with the automated IG or if promyelocytes are noted, a manual differential will be performed. Immature Gran Absolute 0.02 0.00 - 0.04 x10(3)/ L [facility] Blood 04/24/2023 3:32 AM EST 04/24/2023 3:57 AM EST Narrative Resulting Agency Comment Spec In Lab Eleazar SANDY HEMATOLOGY ORDERABLE S Performing Organization Address City/State/[facility] Co de Phone Number [facility] [place] [address] * (ABNORMAL) Hemogram (04/24/2023 3:32 AM EST) White Blood Cell 7.8 4.0 - 9.5 x10(3)/mc L [facility] Red Blood Cell 4.22 4.00 - 5.21 x10(6)/[facility] Hemoglobin 12.5 11.7 - 15.5 g/dL [facility] Hematocrit 39.8 35.7 - 45.8 % [facility] Mean Cell Volume 94.3 82.6 - 94.4 fL [facility] Mean Cell Hemoglobin 29.6 27.1 - 32.0 pg [facility] Mean Cell Hemoglobin Concentration 31.4(L) 31.7 - 35.0 g/dL [facility] Platelet 217 145 - 357 x10(3)/ L [facility] RDW Standard Deviation 45.9 37.0 - 46.0 fL [facility] RDW coefficient of variation 13.4 11.5 - 14.1 % [facility] Mean Platelet Volume 11.1 7.6 - 12.9 fL [facility] NRBC% auto 0.0 % [facility] NRBC Absolute 0.000 0.000 - 0.000 x10(3)/mc L [facility] Blood 04/24/2023 3:32 AM EST 04/24/2023 3:57 AM EST Narrative Resulting Agency Comment Spec In Lab David Levin MD HEMATOLOGY ORDERABLE S Performing Organization Address [facility] Co de Phone Number [facility] [place] [address] * Magnesium (04/24/2023 3:32 AM EST) Magnesium 0.91 0.69 - 1.07 mmol/L [facility] Blood 04/24/2023 3:32 AM EST 04/24/2023 3:57 AM EST Narrative Resulting Agency Comment Spec In Lab David Levin MD CHEMISTRY ORDERABLES Performing Organization Address [facility] Co de Phone Number [facility] [place] [address] * (ABNORMAL) BMP w/fasting Glucose (04/24/2023 3:32 AM EST) Glucose Fasting 111(H) 65 - 99 mg/dL [facility] Comment: ?Fasting* Glucose Interpretive Criteria Normal [...] of Diabetes Mellitus, Position Statement from the [place] [employer]. ??Diabetes Care, Volume 33, Supplement 1, Apr 2009 Blood Urea Nitrogen 32(H) 8 - 18 mg/dL [facility] Creatinine 1.33(H) 0.70 - 1.20 mg/dL [facility] Sodium 137 135 - 145 mmol/L [facility] Potassium 5.2(H) 3.5 - 5.0 mmol/L [facility] Comment: Please note: ??Patients with WBC >100,000 may have falsely elevated Potassium levels. ??For accurate Potassium quantification in these patients send serum separator tube (gold top) for subsequent determinations. ??Contact the Clinical Chemistry Laboratory if there are any questions. Chloride 99 98 - 107 mmol/L [facility] Carbon Dioxide 29 22 - 31 mmol/L [facility] Anion Gap 9 5 - 15 mmol/L [facility] Calcium 8.9 8.5 - 10.5 mg/dL [facility] Est Glomerular Filtration Rate 44(L) >=60 mL/min/1. 73 m?? [facility] Comment: This patient's estimated GFR was [...] Levin MD CHEMISTRY ORDERABLES Performing Organization Address City/[facility]/ZIP Co de Phone Number [facility] [place] [address] * POCT Glucose (04/23/2023 8:53 PM EST) Glucose, POC 117 65 - 199 mg/dL [facility] Comment: Supplemental ranges: <140 mg/dL before meals <180 mg/dL all other times of the day Blood 04/23/2023 8:53 PM EST 04/23/2023 8:53 PM EST Lm Delgado MD POINT OF CARE TEST O RDERABLES Performing Organization Address City/[facility]/ZIP Co de Phone Number [facility] [place] [address] * POCT Glucose (04/23/2023 4:14 PM EST) Glucose, POC 146 65 - 199 mg/dL [facility] Comment: Supplemental ranges: <140 mg/dL before meals <180 mg/dL all other times of the day Blood 04/23/2023 4:14 PM EST 04/23/2023 4:14 PM EST Lm Delgado MD POINT OF CARE TEST O RDERABLES [facility] [address] [place] [address] * (ABNORMAL) Basic Metabolic Panel (non-fasting) (04/23/2023 1:12 PM EST) Glucose 83 65 - 199 mg/dL [facility] Comment:Diabetes: >=200 mg/d L plus symptoms Blood Urea Nitrogen 33(H) 8 - 18 mg/dL [facility] Creatinine 1.48(H) 0.70 - 1.20 mg/dL [facility] Sodium 137 135 - 145 mmol/L [facility] Potassium 5.1(H) 3.5 - 5.0 mmol/L [facility] Comment: Please note: ??Patients with WBC >100,000 may have falsely elevated Potassium levels. ??For accurate Potassium quantification in these patients send serum separator tube (gold top) for subsequent determinations. ??Contact the Clinical Chemistry Laboratory if there are any questions. Chloride 97(L) 98 - 107 mmol/L [facility] Carbon Dioxide 28 22 - 31 mmol/L [facility] Anion Gap 12 5 - 15 mmol/L [facility] Calcium 9.4 8.5 - 10.5 mg/dL [facility] Est Glomerular Filtration Rate 39(L) >=60 mL/min/1. 73 m?? [facility] Comment: This patient's estimated GFR was [...] Delgado MD CHEMISTRY ORDERABLES Performing Organization Address [facility] Co de Phone Number [facility] [place] [address] * Creatinine, urine, random (04/23/2023 11:31 AM EST) Creatinine, Urine 61 mg/dL [facility] Urine 04/23/2023 11:3 1 AM EST 04/23/2023 11:52 AM EST Narrative Resulting Agency Comment Spec In Lab Lm Delgado MD URINE ORDERABLES Performing Organization Address [facility] Co de Phone Number [facility] [place] [address] * Urea nitrogen, urine, random (04/23/2023 11:31 AM EST) Urea Nitrogen, Urine 388 mg/dL [facility] Urine 04/23/2023 11:3 1 AM EST 04/23/2023 11:52 AM EST Narrative Resulting Agency Comment Spec In Lab Lm Delgado MD URINE ORDERABLES Performing Organization Address [facility] de Phone Number [facility] [place] [address] * POCT Glucose (04/23/2023 10:51 AM EST) Glucose, POC 156 65 - 199 mg/dL [facility] Comment: Supplemental ranges: <140 mg/dL before meals <180 mg/dL all other times of the day Blood 04/23/2023 10:5 1 AM EST 04/23/2023 10:51 AM EST Lm Delgado MD POINT OF CARE TEST O RDERARADHA Performing Organization Address City/[facility]/ZIP Co de Phone Number [facility] [place] [address] * POCT Glucose (04/23/2023 7:12 AM EST) Glucose, POC 115 65 - 199 mg/dL [facility] Comment: Supplemental ranges: <140 mg/dL before meals <180 mg/dL all other times of the day Blood 04/23/2023 7:12 AM EST 04/23/2023 7:12 AM EST Lm Delgado MD POINT OF CARE TEST O ASMITA Performing Organization Address [facility] Co de Phone Number [facility] [place] [address] * Hemogram (04/23/2023 3:57 AM EST) White Blood Cell 7.1 4.0 - 9.5 x10(3)/[facility] Red Blood Cell 4.21 4.00 - 5.21 x10(6)/[facility] Hemoglobin 12.6 11.7 - 15.5 g/dL [facility] Hematocrit 39.4 35.7 - 45.8 % [facility] Mean Cell Volume 93.6 82.6 - 94.4 fL [facility] Mean Cell Hemoglobin 29.9 27.1 - 32.0 pg [facility] Mean Cell Hemoglobin Concentration 32.0 31.7 - 35.0 g/dL [facility] Platelet 208 145 - 357 x10(3)/[facility] RDW Standard Deviation 45.6 37.0 - 46.0 fL [facility] RDW coefficient of variation 13.4 11.5 - 14.1 % [facility] Mean Platelet Volume 10.8 7.6 - 12.9 fL [facility] NRBC% auto 0.0 % [facility] NRBC Absolute 0.000 0.000 - 0.000 x10(3)/[facility] Blood 04/23/2023 3:57 AM EST 04/23/2023 4:16 AM EST Narrative Resulting Agency Comment Spec In Lab David Levin MD HEMATOLOGY ORDERABLE S Performing Organization Address [facility] Co de Phone Number [facility] [place] [address] * Magnesium (04/23/2023 3:57 AM EST) Magnesium 0.78 0.69 - 1.07 mmol/L [facility] Blood 04/23/2023 3:57 AM EST 04/23/2023 4:16 AM EST Narrative Resulting Agency Comment Spec In Lab David Levin MD CHEMISTRY ORDERABLES Performing Organization Address [facility] de Phone Number [facility] [place] [address] * (ABNORMAL) BMP w/fasting Glucose (04/23/2023 3:57 AM EST) Glucose Fasting 117(H) 65 - 99 mg/dL [facility] Comment: ?Fasting* Glucose Interpretive Criteria Normal [...] of Diabetes Mellitus, Position Statement from the [employer]. ??Diabetes Care, Volume 33, Supplement 1, Apr 2009 Blood Urea Nitrogen 32(H) 8 - 18 mg/dL [facility] Creatinine 1.50(H) 0.70 - 1.20 mg/dL [facility] Sodium 137 135 - 145 mmol/L [facility] Potassium 4.4 3.5 - 5.0 mmol/L [facility] Comment: Please note: ??Patients with WBC >100,000 may have falsely elevated Potassium levels. ??For accurate Potassium quantification in these patients send serum separator tube (gold top) for subsequent determinations. ??Contact the Clinical Chemistry Laboratory if there are any questions. Chloride 98 98 - 107 mmol/L [facility] Carbon Dioxide 28 22 - 31 mmol/L [facility] Anion Gap 11 5 - 15 mmol/L [facility] Calcium 8.6 8.5 - 10.5 mg/dL [facility] Est Glomerular Filtration Rate 38(L) >=60 mL/min/1. 73 m?? [facility] Comment: This patient's estimated GFR was [...] Levin MD CHEMISTRY ORDERABLES Performing Organization Address City/[facility]/ZIP Co de Phone Number [facility] [place] [address] * POCT Glucose (04/22/2023 8:46 PM EST) Glucose, POC 125 65 - 199 mg/dL [facility] Comment: Supplemental ranges: <140 mg/dL before meals <180 mg/dL all other times of the day Blood 04/22/2023 8:46 PM EST 04/22/2023 8:46 PM EST Lm Delgado MD POINT OF CARE TEST O RDERABLES Performing Organization Address City/[facility]/ZIP Co de Phone Number [facility] [place] [address] * XR Chest PA & Lateral (Generic) [...] who have questions please contact the health director of managed care that requested your imaging first. ? Electronically signed by: Johnny Brooks MD, [facility] ([phone]), at 04/23/2023 3:17 AM Narrative 04/23/2023 3:17 AM EST EXAMINATION: XR [...] patients who have questions please contactthe health director of managed care that requested your imaging first. Electronically signed by: Jhonny Brooks MD, [facility]([phone]), at 04/23/2023 3:17 AM Lm Delgado MD IMG DX ORDERABLES * POCT Glucose (04/22/2023 5:55 PM EST) Glucose, POC 107 65 - 199 mg/dL [facility] Comment: Supplemental ranges: <140 mg/dL before meals <180 mg/dL all other times of the day Blood 04/22/2023 5:55 PM EST 04/22/2023 5:55 PM EST Lm Delgado MD POINT OF CARE TEST O ASMITA [facility] [place] [address] * (ABNORMAL) POCT Glucose (04/22/2023 4:13 PM EST) Glucose, POC 373(H) 65 - 199 mg/dL [facility] Comment: Supplemental ranges: <140 mg/dL before meals <180 mg/dL all other times of the day Blood 04/22/2023 4:13 PM EST 04/22/2023 4:13 PM EST David Levin MD POINT OF CARE TEST O ASMITA [facility] [place] [address] * (ABNORMAL) Basic Metabolic Panel (non-fasting) (04/22/2023 2:07 PM EST) Glucose 111 65 - 199 mg/dL [facility] Comment:Diabetes: >=200 mg/d L plus symptoms Blood Urea Nitrogen 27(H) 8 - 18 mg/dL [facility] Creatinine 1.49(H) 0.70 - 1.20 mg/dL [facility] Sodium 134(L) 135 - 145 mmol/L [facility] Potassium 4.6 3.5 - 5.0 mmol/L [facility] Comment: Please note: ??Patients with WBC >100,000 may have falsely elevated Potassium levels. ??For accurate Potassium quantification in these patients send serum separator tube (gold top) for subsequent determinations. ??Contact the Clinical Chemistry Laboratory if there are any questions. Chloride 97(L) 98 - 107 mmol/L [facility] Carbon Dioxide 27 22 - 31 mmol/L [facility] Anion Gap 10 5 - 15 mmol/L [facility] Calcium 8.9 8.5 - 10.5 mg/dL [facility] Est Glomerular Filtration Rate 39(L) >=60 mL/min/1. 73 m?? [facility] Comment: This patient's estimated GFR was [...] In Lab David Levin MD CHEMISTRY ORDERABLES [facility] [place] [address] * POCT Glucose (04/22/2023 11:11 AM EST) Glucose, POC 95 65 - 199 mg/dL [facility] Comment: Supplemental ranges: <140 mg/dL before meals <180 mg/dL all other times of the day Blood 04/22/2023 11:1 1 AM EST 04/22/2023 11:11 AM EST David Levin MD POINT OF CARE TEST O RDERABLES Performing Organization Address City/[facility] Co de Phone Number [facility] [place] [address] * POCT Glucose (04/22/2023 7:21 AM EST) Glucose, POC 159 65 - 199 mg/dL [facility] Comment: Supplemental ranges: <140 mg/dL before meals <180 mg/dL all other times of the day Blood 04/22/2023 7:21 AM EST 04/22/2023 7:21 AM EST David Levin MD POINT OF CARE TEST O RDERARADHA Performing Organization Address [facility] Co de Phone Number [facility] [place] [address] * (ABNORMAL) pro-Brain Natriuretic Peptide (04/22/2023 3:55 AM EST) Pathologist [facility] NT-proBNP 715(H) <=124 pg/mL [facility] Blood Venous Draw / Unknown 04/22/2023 3:55 AM EST 04/22/2023 4:29 AM EST Narrative Resulting Agency Comment Spec In Lab Eleazar SANDY CHEMISTRY ORDERABLES Performing Organization Address City/[facility] Co de Phone Number [facility] [place] [address] * Hemogram (04/22/2023 3:55 AM EST) White Blood Cell 7.3 4.0 - 9.5 x10(3)/[facility] Red Blood Cell 4.38 4.00 - 5.21 x10(6)/[facility] Hemoglobin 13.1 11.7 - 15.5 g/dL [facility] Hematocrit 41.1 35.7 - 45.8 % [facility] Mean Cell Volume 93.8 82.6 - 94.4 fL [facility] Mean Cell Hemoglobin 29.9 27.1 - 32.0 pg [facility] Mean Cell Hemoglobin Concentration 31.9 31.7 - 35.0 g/dL [facility] Platelet 225 145 - 357 x10(3)/[facility] RDW Standard Deviation 46.0 37.0 - 46.0 fL [facility] RDW coefficient of variation 13.3 11.5 - 14.1 % [facility] Mean Platelet Volume 11.0 7.6 - 12.9 fL [facility] NRBC% auto 0.0 % [facility] NRBC Absolute 0.000 0.000 - 0.000 x10(3)/[facility] Blood 04/22/2023 3:55 AM EST 04/22/2023 4:27 AM EST Narrative Resulting Agency Comment Spec In Lab David Levin MD HEMATOLOGY ORDERABLE S Performing Organization Address [facility] Co de Phone Number [facility] [place] [address] * Magnesium (04/22/2023 3:55 AM EST) Magnesium 0.76 0.69 - 1.07 mmol/L [facility] Blood 04/22/2023 3:55 AM EST 04/22/2023 4:27 AM EST Narrative Resulting Agency Comment Spec In Lab David Levin MD CHEMISTRY ORDERABLES Performing Organization Address [facility] de Phone Number [facility] [place] [address] * (ABNORMAL) BMP w/fasting Glucose (04/22/2023 3:55 AM EST) Glucose Fasting 148(H) 65 - 99 mg/dL [facility] Comment: ?Fasting* Glucose Interpretive Criteria Normal [...] of Diabetes Mellitus, Position Statement from the [place] [employer]. ??Diabetes Care, Volume 33, Supplement 1, Apr 2009 Blood Urea Nitrogen 21(H) 8 - 18 mg/dL [facility] Creatinine 1.20 0.70 - 1.20 mg/dL [facility] Sodium 140 135 - 145 mmol/L [facility] Potassium 4.5 3.5 - 5.0 mmol/L [facility] Comment: Please note: ??Patients with WBC >100,000 may have falsely elevated Potassium levels. ??For accurate Potassium quantification in these patients send serum separator tube (gold top) for subsequent determinations. ??Contact the Clinical Chemistry Laboratory if there are any questions. Chloride 99 98 - 107 mmol/L [facility] Carbon Dioxide 31 22 - 31 mmol/L [facility] Anion Gap 10 5 - 15 mmol/L [facility] Calcium 8.9 8.5 - 10.5 mg/dL [facility] Est Glomerular Filtration Rate 50(L) >=60 mL/min/1. 73 m?? [facility] Comment: This patient's estimated GFR was [...] In Lab David Levin MD CHEMISTRY ORDERABLES [facility] [place] [address] * POCT Glucose (04/21/2023 8:23 PM EST) Glucose, POC 129 65 - 199 mg/dL [facility] Comment: Supplemental ranges: <140 mg/dL before meals <180 mg/dL all other times of the day Blood 04/21/2023 8:23 PM EST 04/21/2023 8:23 PM EST David Levin MD POINT OF CARE TEST O RDERABLES Performing Organization Address [facility] Co de Phone Number [facility] [place] [address] * POCT Glucose (04/21/2023 5:10 PM EST) Glucose, POC 110 65 - 199 mg/dL [facility] Comment: Supplemental ranges: <140 mg/dL before meals <180 mg/dL all other times of the day Blood 04/21/2023 5:10 PM EST 04/21/2023 5:10 PM EST David Levin MD POINT OF CARE TEST O RDERABLES Performing Organization Address [facility] Co de Phone Number [facility] [place] [address] * Basic Metabolic Panel (non-fasting) (04/21/2023 4:36 PM EST) Glucose 111 65 - 199 mg/dL [facility] Comment:Diabetes: >=200 mg/d L plus symptoms Blood Urea Nitrogen 17 8 - 18 mg/dL [facility] Creatinine 0.89 0.70 - 1.20 mg/dL [facility] Sodium 142 135 - 145 mmol/L [facility] Potassium 4.9 3.5 - 5.0 mmol/L [facility] Comment: Please note: ??Patients with WBC >100,000 may have falsely elevated Potassium levels. ??For accurate Potassium quantification in these patients send serum separator tube (gold top) for subsequent determinations. ??Contact the Clinical Chemistry Laboratory if there are any questions. Chloride 103 98 - 107 mmol/L [facility] Carbon Dioxide 26 22 - 31 mmol/L [facility] Anion Gap 13 5 - 15 mmol/L [facility] Calcium 8.9 8.5 - 10.5 mg/dL [facility] Est Glomerular Filtration Rate 71 >=60 mL/min/1. 73 m?? [facility] Comment: This patient's estimated GFR [...] In Lab David Levin MD CHEMISTRY ORDERABLES [facility] [place] [address] * POCT Glucose (04/21/2023 11:46 AM EST) [facility] Signature Glucose, POC 96 65 - 199 mg/dL [facility] Comment: Supplemental ranges: <140 mg/dL before meals <180 mg/dL all other times of the day Blood 04/21/2023 11:4 6 AM EST 04/21/2023 11:46 AM EST David Levin MD POINT OF CARE TEST O RDERABLES [facility] [place] [address] * CARDIAC CATHETERIZATION (04/21/2023 9:20 AM EST) Anatomical Region Laterality Modality Other Narrative 04/21/2023 9:42 AM EST ?[facility] ? Cardiac Catheterization/Intervention Report ? Patient Name: Regan Woo. ? Procedure Date: 04/21/2023 ? A #: [id number] ? Primary Physician: Sudeep Arzate ? Case #: [id number] ? File Name: [id number] ? Catheterization Order Number: [id number] ? [facility] ? Final Report [employer], [place] ? Patient Name: ? Regan Woo ? ID#: ?[id number] ? : ?1955 ? Procedure Date: ? April 21, 2023 ? Case #: ? [id number] ? Room: ? 6 ? Case Physician: ? Sudeep Arzate M.D. ? Start: ?08:45 ?Fellow: ? Van Meldey M.D. ?Admission: ??04/19/2023 ?Leon Hilario M.D. ? [...] was designated as ASA Class ?III. The CSHA clinical frailty scale is 4: Vulnerable. ? Diagnostic Tests: ?Prior Coronary Angiography: ? LV ejection fraction within 6 months is 54%. ?Electrocardiography: ? EKG was assessed by ECG. EKG was Abnormal. EKG showed other ? abnormality. ?Medications Prior to Procedure: ? Aspirin, Beta Lo and Statin. ? Indications for Diagnostic Cath: ?The priority of the diagnostic procedure was Urgent. The indication for ?the label coder visit is ACS greater than 24 hrs. [...] angiography and left heart ?catheterization. ? Sudeep Arzate M.D. ? Electronically Signed by: Sudeep Arzate M.D. ? Report Finalized: 04/21/2023 ??09:36 ? Procedure Note Sudeep Arzate MD - 04/21/2023 [facility] Cardiac Catheterization/Intervention Report Patient Name: Regan Woo Procedure Date: 04/21/2023 A #: [id number] Primary Physician: Sudeep Arzate Case #: [id number] File Name: [id number] Catheterization Order Number: [id number] [facility] FinalReport [place], [place] Patient Name: Regan Woo ID#:[id number] :1955 Procedure Date: April 21, 2023 Case [...] patient was designated as ASAClass III. The [facility] clinical frailty scale is 4: Vulnerable. Diagnostic Tests: Prior Coronary Angiography: LV ejection fraction within 6 months is 54%. Electrocardiography: EKG was assessed by ECG. EKG was Abnormal. EKG showed other abnormality. Medications Prior to Procedure: Aspirin, Beta Lo and Statin. Indications for Diagnostic Cath: The priority of the diagnostic procedure was Urgent. The indicationfor the label coder visit is ACS greater than 24 hrs. [...] units of heparin were administered. A total [id number] of Omnipaque were opened, 80cc of Omnipaque were administered [id number] of Omnipaque were wasted. Radiation: Fluoro time [...] posterolateral branch (RPL1) of the RCA. The [id number] small. Distal flow was via collaterals from [...] Glucose, POC 135 65 - 199 mg/dL [facility] Comment: Supplemental ranges: <140 mg/dL before meals <180 mg/dL all other times of the day Blood 04/21/2023 8:49 AM EST 04/21/2023 8:49 AM EST David Levin MD POINT OF CARE TEST O RDERARADHA Performing Organization Address City/[facility] Co de Phone Number [facility] [place] [address] * POCT Glucose (04/21/2023 7:24 AM EST) Glucose, POC 128 65 - 199 mg/dL [facility] Comment: Supplemental ranges: <140 mg/dL before meals <180 mg/dL all other times of the day Blood 04/21/2023 7:24 AM EST 04/21/2023 7:24 AM EST David Levin MD POINT OF CARE TEST O RDERABLES Performing Organization Address [facility] Co de Phone Number [facility] [place] [address] * (ABNORMAL) Differential, Automated (04/21/2023 1:25 AM EST) Neutrophil % 51.5 % [facility] Neutrophil Absolute 4.03 1.70 - 6.10 x10(3)/mc L [facility] Lymph % 33.6 % [facility] Lymphocytes Abs 2.6 0.9 - 3.2 x10(3)/ L [facility] Monocyte % 7.7 % [facility] Monocyte Abs 0.6 0.3 - 0.9 x10(3)/ L [facility] Eos % 6.4 % [facility] Eosinophils Abs 0.5(H) 0.0 - 0.4 x10(3)/ L [facility] Basophil % 0.5 % [facility] Baso Absolute 0.0 0.0 - 0.1 x10(3)/ L [facility] Immature Gran % 0.30 % [facility] Comment: Immature granulocytes(IG's)percentage and absolute count will include metamyelocytes, myelocytes, and promyelocytes. Blood smears from CBCs yielding IG's will be scanned manually for concordance. If this scan disagrees with the automated IG or if promyelocytes are noted, a manual differential will be performed. Immature Gran Absolute 0.02 0.00 - 0.04 x10(3)/ L [facility] Blood 04/21/2023 1:25 AM EST 04/21/2023 1:32 AM EST Narrative Resulting Agency Comment Spec In Lab Trent Steel DO HEMATOLOGY ORDERABL ES Performing Organization Address City/State/[facility] Co de Phone Number [facility] [place] [address] * (ABNORMAL) Hemogram (04/21/2023 1:25 AM EST) White Blood Cell 7.8 4.0 - 9.5 x10(3)/ L [facility] Red Blood Cell 4.45 4.00 - 5.21 x10(6)/ L [facility] Hemoglobin 13.5 11.7 - 15.5 g/dL [facility] Hematocrit 41.9 35.7 - 45.8 % [facility] Mean Cell Volume 94.2 82.6 - 94.4 fL [facility] Mean Cell Hemoglobin 30.3 27.1 - 32.0 pg [facility] Mean Cell Hemoglobin Concentration 32.2 31.7 - 35.0 g/dL [facility] Platelet 215 145 - 357 x10(3)/mc L [facility] RDW Standard Deviation 46.6(H) 37.0 - 46.0 fL [facility] RDW coefficient of variation 13.5 11.5 - 14.1 % [facility] Mean Platelet Volume 10.3 7.6 - 12.9 fL [facility] NRBC% auto 0.0 % [facility] NRBC Absolute 0.000 0.000 - 0.000 x10(3)/mc L [facility] Blood 04/21/2023 1:25 AM EST 04/21/2023 1:32 AM EST Narrative Resulting Agency Comment Spec In Lab Trent Steel DO HEMATOLOGY ORDERABL ES Performing Organization Address [facility] [place] [address] * Heparin (unfractionated) Level (04/21/2023 1:25 AM EST) UF Heparin 0.35 IU/mL [facility] Comment: Heparin (anti-Xa) levels should be [...] DO HEMATOLOGY ORDERABL ES Performing Organization Address [facility] Co de Phone Number [facility] [place] [address] * (ABNORMAL) Urine culture (04/20/2023 10:53 PM EST) Urine Culture Greater than 100,000 cfu/ml Escherichia coli(A) [facility] Organism Escherichia coli(A) [facility] Clean Catch Urine 04/20/2023 10:53 PM [...] 2 METHOD Sensitive Tori SANDY MICROBIOLOGY - [facility] ORDERABLES [facility] [place] [address] * (ABNORMAL) Urinalysis Microscopic Exam (04/20/2023 10:53 PM EST) RBC, Urine 2 0 - 4 /HPF [facility] WBC, Urine 9(H) 0 - 5 /HPF [facility] WBC Clumps, Urine Occasional (A) None /HPF [facility] Bacteria, Urine Many(A) None /HPF [facility] Budding Yeast, Urine Rare(A) None /HPF [facility] Squamous Epithelial Cells Raw Data, Urine 5(H) <=4 /HPF [facility] Hyaline Casts, Urine 18(H) 0 - 2 /LPF [facility] Clean Catch Urine 04/20/2023 10:53 PM EST 04/20/2023 11:22 PM EST Narrative Resulting Agency Comment Spec In Lab Tori SANDY URINE ORDERABLES Performing Organization Address [facility] de Phone Number [facility] [place] [address] * (ABNORMAL) Urinalysis with reflex Culture (04/20/2023 10:53 PM EST) Glucose, Urine Dipstick Negative Negative mg/dL [facility] Protein, Urine Dipstick 100(A) Negative mg/dL [facility] Bilirubin, Urine Dipstick Negative Negative mg/dL [facility] Comment: Clinical correlation required for positive Urine Bilirubin results as false positive may occur with some drugs and drug related products. If a false positive is suspected a serum total bilirubin should be considered if clinically indicated. Urobilinogen, Urine Dipstick Normal Normal mg/dL [facility] pH, Urn (dipstick) 6.0 5.0 - 8.0 [facility] Blood, Urine Dipstick Negative Negative mg/dL [facility] Ketone, Urine Dipstick Negative Negative mg/dL [facility] Nitrite, Urine Dipstick Positive(A) Negative [facility] Leukocytes, Urine Dipstick Trace(A) Negative [facility] Appearance, Urine Dipstick Cloudy(A) Clear [facility] Specific [place] Urine Automated 1.017 1.005 - 1.030 [facility] Color, Urine Dipstick Yellow Yellow [facility] Reflex to Culture Yes [facility] Clean Catch Urine 04/20/2023 10:53 PM EST 04/20/2023 11:22 PM EST Narrative Resulting Agency Comment Spec In Lab David Levin MD URINE ORDERABLES Performing Organization Address [facility] Co de Phone Number [facility] [place] [address] * POCT Glucose (04/20/2023 8:31 PM EST) Glucose, POC 175 65 - 199 mg/dL [facility] Comment: Supplemental ranges: <140 mg/dL before meals <180 mg/dL all other times of the day Blood 04/20/2023 8:31 PM EST 04/20/2023 8:31 PM EST David Levin MD POINT OF CARE TEST O RDERABLES Performing Organization Address City/[facility]/ZIP Co de Phone Number [facility] [place] [address] * Heparin (unfractionated) Level (04/20/2023 6:54 PM EST) Pathologist [facility] UF Heparin 0.24 IU/mL [facility] Comment: Heparin (anti-Xa) levels should be [...] DO HEMATOLOGY ORDERABL ES Performing Organization Address [facility] Co de Phone Number [facility] [place] [address] * POCT Glucose (04/20/2023 4:07 PM EST) Glucose, POC 141 65 - 199 mg/dL [facility] Comment: Supplemental ranges: <140 mg/dL before meals <180 mg/dL all other times of the day Blood 04/20/2023 4:07 PM EST 04/20/2023 4:07 PM EST David Levin MD POINT OF CARE TEST O RDERARADHA [facility] [place] [address] * ECHO COMPLETE W CONTRAST (04/20/2023 2:26 [...] Physician: TRENT HAIR Performed By: Maura Guthrie RDCS Exam Location: [facility]. ? Conclusions Normal left and right ventricular size and systolic function. LV ejection fraction 54%. No regional wall motion abnormalities. Aortic sclerosis without severe stenosis. Mild mitral regurgitation. No pericardial effusion. No prior studies available for comparison. Procedure Complete-19758. Image enhancement Optison was used for left [...] Physician: TRENT HAIR Performed By: Maura Guthrie [facility] Exam Location: [facility]. Conclusions Normal left and right ventricular size and systolic function. LV ejectionfraction 54%. No regional wall motion abnormalities. Aortic sclerosis without severe stenosis. Mild mitral regurgitation. No pericardial effusion. No prior studies available for comparison. Procedure Complete-00940. Image enhancement Optison was used for left [...] EST) Troponin-T, High Sensitivity 18(H) <=14 ng/L [facility] Comment: This patient's troponin T concentration [...] troponin value can be found in the [facility] Test Catalog Troponin - [facility] Test Catalog Reference: [place] Definition of Myocardial Infarction. Journal of the [place] [employer] 2018;72:2208-1203 Blood 04/20/2023 1:50 PM EST 04/20/2023 1:55 PM EST Narrative Resulting Agency Comment Spec In Lab David Levin MD CHEMISTRY ORDERABLES [facility] [place] [address] * Magnesium (04/20/2023 1:50 PM EST) Magnesium 0.99 0.69 - 1.07 mmol/L [facility] Blood 04/20/2023 1:50 PM EST 04/20/2023 1:55 PM EST Narrative Resulting Agency Comment Spec In Lab David Levin MD CHEMISTRY ORDERABLES [facility] [place] [address] * Basic Metabolic Panel (non-fasting) (04/20/2023 1:50 PM EST) Glucose 124 65 - 199 mg/dL [facility] Comment:Diabetes: >=200 mg/d L plus symptoms Blood Urea Nitrogen 14 8 - 18 mg/dL [facility] Comment:result rechecked-imm Creatinine 0.82 0.70 - 1.20 mg/dL [facility] Sodium 141 135 - 145 mmol/L [facility] LABORATORY Potassium 4.5 3.5 - 5.0 mmol/L [facility] Comment: Please note: ??Patients with WBC >100,000 may have falsely elevated Potassium levels. ??For accurate Potassium quantification in these patients send serum separator tube (gold top) for subsequent determinations. ??Contact the Clinical Chemistry Laboratory if there are any questions. Chloride 104 98 - 107 mmol/L [facility] Carbon Dioxide 27 22 - 31 mmol/L [facility] Anion Gap 10 5 - 15 mmol/L [facility] Calcium 9.1 8.5 - 10.5 mg/dL [facility] Est Glomerular Filtration Rate 79 >=60 mL/min/1. 73 m?? [facility] Comment: This patient's estimated GFR was [...] Levin MD CHEMISTRY ORDERABLES Performing Organization Address City/[facility]/ZIP Co de Phone Number [facility] [place] [address] * EKG 12 Lead (04/20/2023 1:10 PM EST) Ventricular rate 70 BPM MUSE SYSTEM Atrial Rate 70 BPM MUSE SYSTEM P-R Interval 162 ms MUSE SYSTEM QRS Duration 88 ms MUSE SYSTEM Q-T Interval 396 ms MUSE SYSTEM QTC Calculated (Bezet) 427 ms MUSE SYSTEM Calculated P [place] 1 degrees MUSE SYSTEM Calculated R [place] 20 degrees MUSE SYSTEM Calculated T [place] 15 degrees MUSE SYSTEM INTERPRETATION Normal sinus rhythm Anterosepta l infarct (cited on or before 20-APR-2023 ) Abnormal ECG When compared with ECG of 20-APR-2023 08:05, Nonspecific T wave abnormality , improved in Inferior leads Confirmed by MD VASQUEZ, FELIX ([id number]) on 04/20/2023 2:10:45 PM MUSE SYSTEM 04/20/2023 1:10 PM EST 04/20/2023 2:10 PM EST David Levin MD ECG ORDERABLES Performing Organization Address [facility] Co de Phone Number MUSE SYSTEM * POCT Glucose (04/20/2023 11:47 AM EST) Glucose, POC 104 65 - 199 mg/dL [facility] Comment: Supplemental ranges: <140 mg/dL before meals <180 mg/dL all other times of the day Blood 04/20/2023 11:4 7 AM EST 04/20/2023 11:47 AM EST David Levin MD POINT OF CARE TEST O RDERABLES Performing Organization Address [facility]/ZIP Co de Phone Number [facility] [place] [address] * Heparin (unfractionated) Level (04/20/2023 9:08 AM EST) [facility] UF Heparin 0.30 IU/mL [facility] Comment: Heparin (anti-Xa) levels [...] Lab Trent Steel DO HEMATOLOGY ORDERABL ES [facility] [place] [address] * EKG 12 Lead (04/20/2023 8:05 AM EST) [facility] Ventricular rate 77 BPM MUSE SYSTEM Atrial Rate 77 BPM MUSE SYSTEM P-R Interval 144 ms MUSE SYSTEM QRS Duration 80 ms MUSE SYSTEM Q-T Interval 384 ms MUSE SYSTEM QTC Calculated (Bezet) 434 ms MUSE SYSTEM Calculated R [place] 19 degrees MUSE SYSTEM Calculated T [place] -28 degrees MUSE SYSTEM INTERPRETATION Normal sinus rhythm Anteroseptal infarct , age undetermined Abnormal ECG No previous ECGs available Confirmed by MD VASQUEZ, FELIX ([id number]) on 04/20/2023 2:10:40 PM MUSE SYSTEM 04/20/2023 8:05 AM EST 04/20/2023 2:10 PM EST David Levin MD ECG ORDERABLES Performing Organization Address City/[facility]/ZIP Co de Phone Number MUSE SYSTEM * POCT Glucose (04/20/2023 7:49 AM EST) [facility] Glucose, POC 123 65 - 199 mg/dL [facility] Comment: Supplemental ranges: <140 mg/dL before meals <180 mg/dL all other times of the day Blood 04/20/2023 7:49 AM EST 04/20/2023 7:49 AM EST David Levin MD POINT OF CARE TEST O RDERABLES Performing Organization Address City/State/[facility] Co de Phone Number [facility] [place] [address] * (ABNORMAL) Troponin (04/20/2023 12:47 AM EST) Troponin-T, High Sensitivity 18(H) <=14 ng/L [facility] Comment: This patient's troponin T concentration [...] troponin value can be found in the [facility] Laboratory Test Catalog Troponin - [facility] Laboratory Test Catalog Reference: [place] Definition of Myocardial Infarction. Journal of the [place] College [employer] 2018;72:0217-2273 Blood Venous Draw / Unknown 04/20/2023 12:47 AM EST 04/20/2023 12:58 AM EST Narrative Resulting Agency Comment Spec In Lab Tori SANDY [place] [address] * Differential, Automated (04/20/2023 12:47 AM EST) Neutrophil % 62.8 % [facility] Neutrophil Absolute 4.73 1.70 - 6.10 x10(3)/[facility] Lymph % 27.0 % [facility] Lymphocytes Abs 2.0 0.9 - 3.2 x10(3)/[facility] Monocyte % 6.5 % [facility] Monocyte Abs 0.5 0.3 - 0.9 x10(3)/[facility] LABORATORY Eos % 2.9 % [facility] Eosinophils Abs 0.2 0.0 - 0.4 x10(3)/[facility] Basophil % 0.5 % [facility] Baso Absolute 0.0 0.0 - 0.1 x10(3)/[facility]ORY Immature Gran % 0.30 % [facility] Comment: Immature granulocytes(IG's)percentage and absolute count will include metamyelocytes, myelocytes, and promyelocytes. Blood smears from CBCs yielding IG's will be scanned manually for concordance. If this scan disagrees with the automated IG or if promyelocytes are noted, a manual differential will be performed. Immature Gran Absolute 0.02 0.00 - 0.04 x10(3)/[facility] Blood 04/20/2023 12:4 7 AM EST 04/20/2023 12:54 AM EST Narrative Resulting Agency Comment Spec In Lab Trent Steel [place] [address] * (ABNORMAL) Hemogram (04/20/2023 12:47 AM EST) White Blood Cell 7.5 4.0 - 9.5 x10(3)/mc L [facility] Red Blood Cell 4.29 4.00 - 5.21 x10(6)/ L [facility] Hemoglobin 12.9 11.7 - 15.5 g/dL [facility] Hematocrit 40.1 35.7 - 45.8 % [facility] Mean Cell Volume 93.5 82.6 - 94.4 fL [facility] Mean Cell Hemoglobin 30.1 27.1 - 32.0 pg [facility] Mean Cell Hemoglobin Concentration 32.2 31.7 - 35.0 g/dL [facility] Platelet 225 145 - 357 x10(3)/mc L [facility] RDW Standard Deviation 46.9(H) 37.0 - 46.0 fL [facility] RDW coefficient of variation 14.0 11.5 - 14.1 % [facility] Mean Platelet Volume 10.4 7.6 - 12.9 fL [facility] NRBC% auto 0.0 % [facility] NRBC Absolute 0.000 0.000 - 0.000 x10(3)/ L [facility] Blood 04/20/2023 12:4 7 AM EST 04/20/2023 12:54 AM EST Narrative Resulting Agency Comment Spec In Lab Trent Steel DO HEMATOLOGY ORDERABL ES [facility] [place] [address] * Heparin (unfractionated) Level (04/20/2023 12:47 AM EST) UF Heparin 0.10 IU/mL [facility] Comment: Heparin (anti-Xa) levels should be [...] Agency Comment Spec In Lab Trent Hair VDO HEMATOLOGY ORDERABL ES [facility] [place] [address] * Lipid Panel (Reflex Direct LDL) (04/20/2023 12:47 AM EST) [facility] Signature Cholesterol, Total 176 mg/dL [facility] Comment: Lower Risk: <200 mg/dL Average Risk: 200-239 mg/dL Higher Risk: >bl=193 mg/dL Triglyceride 89 mg/dL [facility] Comment: Average Risk/Lower Risk: <150 mg/dL Borderline High Risk: 150-199 mg/dL High Risk: 200-499 mg/dL Very High Risk: >rn=171 mg/dL HDL Cholesterol 50 mg/dL [facility] Comment: Males: ?? Higher Risk: <40 mg/dL Females: ?? Higher Risk: <50 mg/dL LDL Cholesterol 108 mg/dL [facility] Comment: Lowest Risk: <100 mg/dL Lower Risk: 100-129 mg/dL Borderline High Risk: 130-159 mg/dL High Risk: 160-189 mg/dL Very High Risk: >nn=302 mg/dL Cholesterol/HDL Ratio 3.5 ratio [facility] Lipid Interpretation See Note [facility] Comment: Lipid management should be guided by a patient? s ASCVD risk, goals and preferences. ACC/AHA Guidelines recommend high intensity statin if clinical ASCVD or LDL greater than or equal to 190 mg/dL. http://tinyurl.com/ZNN-ORJ-Besfvrhau Adults aged 40-75 with LDL 70-189 mg/dL should have their 10 year ASCVD risk estimated with the ACC/AHA ASCVD risk senior construction estimator http://tools.acc.org/HJGEK-Bvcx-Ireozawya/ Statin should be discussed if risk greater [...] DO CHEMISTRY ORDERABLE S Performing Organization Address [facility] de Phone Number [facility] [place] [address] * (ABNORMAL) Glucose, fasting (04/20/2023 12:47 AM EST) Glucose Fasting 177(H) 65 - 99 mg/dL [facility] Comment: ?Fasting* Glucose Interpretive Criteria Normal [...] of Diabetes Mellitus, Position Statement from the [place] [employer]. ??Diabetes Care, Volume 33, Supplement 1, Apr 2009 Blood 04/20/2023 12:4 7 AM EST 04/20/2023 12:54 AM EST Narrative Resulting Agency Comment Spec In Lab Trent Steel DO CHEMISTRY ORDERABLE S Performing Organization Address [facility] Co de Phone Number [facility] [place] [address] * Triglyceride (04/20/2023 12:47 AM EST) Triglyceride 89 mg/dL [facility] Comment: Average Risk/Lower Risk: <150 mg/dL Borderline High Risk: 150-199 mg/dL High Risk: 200-499 mg/dL Very High Risk: >ac=336 mg/dL Blood 04/20/2023 12:4 7 AM EST 04/20/2023 12:54 AM EST Narrative Resulting Agency Comment Spec In Lab Trent Hair V, CHEMISTRY ORDERABLE S [facility] [place] [address] * HDL/Cholesterol Profile (04/20/2023 12:47 AM EST) Cholesterol, Total 176 mg/dL [facility] Comment: Lower Risk: <200 mg/dL Average Risk: 200-239 mg/dL Higher Risk: >fs=412 mg/dL HDL Cholesterol 50 mg/dL [facility] Comment: Males: ?? Higher Risk: <40 mg/dL Females: ?? Higher Risk: <50 mg/dL Cholesterol/HDL Ratio 3.5 ratio [facility] Chol/HDL Interpretation See Note [facility] Comment: Lipid management should be guided by a patient? s ASCVD risk, goals and preferences. ACC/AHA Guidelines recommend high intensity statin if clinical ASCVD or LDL greater than or equal to 190 mg/dL. http://Climber.com.com/LVY-ZUR-Wjfdankvd Measure LDL if Total Cholesterol minus HDL Cholesterol is greater than 220 mg/dL. Adults aged 40-75 with LDL 70-189 mg/dL should have their 10 year ASCVD risk estimated with the ACC/AHA ASCVD risk senior construction estimator http://tools.acc.org/IKERQ-Akfl-Dlhactnlq/ Statin should be discussed if risk greater [...] Lab Trent Steel DO CHEMISTRY ORDERABLE S [facility] [place] [address] * LDL Cholesterol, Direct (04/20/2023 12:47 AM EST) LDL Cholesterol, Direct 122 mg/dL [facility] Comment: Lowest Risk: <100 mg/dL Lower Risk: 100-129 mg/dL Borderline High Risk: 130-159 mg/dL High Risk: 160-189 mg/dL Very High Risk: >mr=815 mg/dL Blood 04/20/2023 12:4 7 AM EST 04/20/2023 12:54 AM EST Narrative Resulting Agency Comment Spec In Lab Trent Steel DO CHEMISTRY ORDERABLE S Performing Organization Address City/State/[facility] Co de Phone Number [facility] [place] [address] * (ABNORMAL) Hemoglobin A1c (04/20/2023 12:47 AM EST) Hemoglobin A1c 7.0(H) 4.3 - 5.6 % [facility] Comment: Reference Range: 4.3 - 5.6% [...] Mellitus, Diabetes Care 2013; 36: Suppl. 1, S62-04 Estimated Average Glucose 154 mg/dL [facility] Blood 04/20/2023 12:4 7 AM EST 04/20/2023 12:54 AM EST Narrative Resulting Agency Comment Spec In Lab Trent Steel DO CHEMISTRY ORDERABLE S [facility] [place] [address] * POCT Glucose (04/19/2023 11:10 PM EST) Glucose, POC 190 65 - 199 mg/dL [facility] Comment: Supplemental ranges: <140 mg/dL before meals <180 mg/dL all other times of the day Blood 04/19/2023 11:1 0 PM EST 04/19/2023 11:10 PM EST Felix Diaz MD POINT OF C[place] [address] * (ABNORMAL) Differential, Automated (04/19/2023 7:29 PM EST) Neutrophil % 70.8 % [facility] Neutrophil Absolute 6.30(H) 1.70 - 6.10 x10(3)/mc L [facility] Lymph % 20.3 % [facility] Lymphocytes Abs 1.8 0.9 - 3.2 x10(3)/mc L [facility] Monocyte % 5.5 % [facility] Monocyte Abs 0.5 0.3 - 0.9 x10(3)/ L [facility] Eos % 2.5 % [facility] Eosinophils Abs 0.2 0.0 - 0.4 x10(3)/mc L [facility] Basophil % 0.7 % [facility] Baso Absolute 0.1 0.0 - 0.1 x10(3)/mc L [facility] Immature Gran % 0.20 % [facility] Comment: Immature granulocytes(IG's)percentage and absolute count will include metamyelocytes, myelocytes, and promyelocytes. Blood smears from CBCs yielding IG's will be scanned manually for concordance. If this scan disagrees with the automated IG or if promyelocytes are noted, a manual differential will be performed. Immature Gran Absolute 0.02 0.00 - 0.04 x10(3)/mc L [facility] Blood 04/19/2023 7:29 PM EST 04/19/2023 7:38 PM EST Narrative Resulting Agency Comment Spec In Lab Trent Steel DO HEMATOLOGY ORDERABL ES Performing Organization Address City/[facility]/[place] [address] * Hemogram (04/19/2023 7:29 PM EST) White Blood Cell 8.9 4.0 - 9.5 x10(3)/[facility] Red Blood Cell 5.00 4.00 - 5.21 x10(6)/[facility] Hemoglobin 15.1 11.7 - 15.5 g/dL [facility] Hematocrit 45.8 35.7 - 45.8 % [facility] Mean Cell Volume 91.6 82.6 - 94.4 fL [facility] Mean Cell Hemoglobin 30.2 27.1 - 32.0 pg [facility] Mean Cell Hemoglobin Concentration 33.0 31.7 - 35.0 g/dL [facility] Platelet 213 145 - 357 x10(3)/[facility] RDW Standard Deviation 45.1 37.0 - 46.0 fL [facility] RDW coefficient of variation 13.5 11.5 - 14.1 % [facility] Mean Platelet Volume 10.3 7.6 - 12.9 fL [facility] NRBC% auto 0.0 % [facility] NRBC Absolute 0.000 0.000 - 0.000 x10(3)/[facility] Blood 04/19/2023 7:29 PM EST 04/19/2023 7:38 PM EST Narrative Resulting Agency Comment Spec In Lab Trent Steel DO HEMATOLOGY ORDERABL ES Performing Organization Address City/State/[facility] Co de Phone Number [facility] [place] [address] * (ABNORMAL) Hepatic Function Panel (04/19/2023 7:29 PM EST) Protein, Total 7.0 6.1 - 8.0 g/dL [facility] Albumin 3.6 3.2 - 5.2 g/dL [facility] Aspartate Aminotransferase 13 0 - 30 unit/L [facility] Alanine Aminotransferase 11 0 - 30 unit/L [facility] Alkaline Phosphatase 111(H) 35 - 105 unit/L [facility] Bilirubin, Total 0.4 0.2 - 1.3 mg/dL [facility] Bilirubin, Direct 0.1 0.0 - 0.3 mg/dL [facility] Blood 04/19/2023 7:29 PM EST 04/19/2023 7:38 PM EST Narrative Resulting Agency Comment Spec In Lab Russelljuana Reginaldo Steel DO CHEMISTRY ORDERABLE S Performing Organization Address [facility] Co de Phone Number [facility] [place] [address] * Prothrombin Time (04/19/2023 7:29 PM EST) Prothrombin Time 12.5 9.4 - 12.5 sec [facility] International Normalization Ratio 1.1 [facility] Comment: An INR <2.0 indicates adequate [...] Resulting Agency Comment Spec In Lab Russelljuana Hair VDO HEMATOLOGY ORDERABL ES Performing Organization Address [facility] de Phone Number [facility] [place] [address] * (ABNORMAL) APTT (04/19/2023 7:29 PM EST) Partial Thromboplastin Time 46(H) 25 - 37 sec [facility] Comment: The PTT is NOT appropriate for heparin monitoring. Use the Anti-Xa level for heparin monitoring (HEP UFH) or LMWH monitoring (HEP LMW). A PTT less than 37 seconds generally indicates adequate hemostasis. Blood 04/19/2023 7:29 PM EST 04/19/2023 7:38 PM EST Narrative Resulting Agency Comment Spec In Lab Russelljuana Reginaldo DamiánDO HEMATOLOGY ORDERABL ES Performing Organization Address [facility] Co de Phone Number [facility] [place] [address] * (ABNORMAL) pro-Brain Natriuretic Peptide (04/19/2023 7:29 PM EST) NT-proBNP 1,304(H) <=124 pg/mL [facility] Blood 04/19/2023 7:29 PM EST 04/19/2023 7:38 PM EST Narrative Resulting Agency Comment Spec In Lab Trent Hair V, CHEMISTRY ORDERABLE S [facility] [place] [address] * TSH (04/19/2023 7:29 PM EST) Thyroid Stimulating Hormone 2.04 0.27 - 4.20 mcIU/mL [facility] Comment: Reference Interval (mcIU/mL): Females: ??First Trimester: 0.23-3.88 ??Second Trimester: 0.22-3.90 ??Third Trimester: 0.44-4.66 Blood 04/19/2023 7:29 PM EST 04/19/2023 7:38 PM EST Narrative Resulting Agency Comment Spec In Lab Trent Steel DO CHEMISTRY ORDERABLE S [facility] [place] [address] * Phosphorus (04/19/2023 7:29 PM EST) Phosphorus 3.1 2.5 - 4.5 mg/dL [facility] Blood 04/19/2023 7:29 PM EST 04/19/2023 7:38 PM EST Narrative Resulting Agency Comment Spec In Lab Trent Steel DO CHEMISTRY ORDERABLE S [facility] [place] [address] * Magnesium (04/19/2023 7:29 PM EST) Magnesium 0.74 0.69 - 1.07 mmol/L [facility] Blood 04/19/2023 7:29 PM EST 04/19/2023 7:38 PM EST Narrative Resulting Agency Comment Spec In Lab Trent Hair V, DO CHEMISTRY ORDERABLE S Performing Organization Address City/[facility] Co de Phone Number [facility] [place] [address] * Calcium (04/19/2023 7:29 PM EST) Calcium 9.1 8.5 - 10.5 mg/dL [facility] Blood 04/19/2023 7:29 PM EST 04/19/2023 7:38 PM EST Narrative Resulting Agency Comment Spec In Lab Trent Hair V, DO CHEMISTRY ORDERABLE S Performing Organization Address [facility] de Phone Number [facility] [place] [address] * (ABNORMAL) Basic Metabolic Panel (non-fasting) (04/19/2023 7:29 PM EST) Glucose 100 65 - 199 mg/dL [facility] Comment:Diabetes: >=200 mg/d L plus symptoms Blood Urea Nitrogen 8 8 - 18 mg/dL [facility] Creatinine 0.62(L) 0.70 - 1.20 mg/dL [facility] Sodium 143 135 - 145 mmol/L [facility] Potassium 3.7 3.5 - 5.0 mmol/L [facility] Comment: Please note: ??Patients with WBC >100,000 may have falsely elevated Potassium levels. ??For accurate Potassium quantification in these patients send serum separator tube (gold top) for subsequent determinations. ??Contact the Clinical Chemistry Laboratory if there are any questions. Chloride 103 98 - 107 mmol/L [facility] Carbon Dioxide 27 22 - 31 mmol/L [facility] Anion Gap 13 5 - 15 mmol/L [facility] Calcium 9.1 8.5 - 10.5 mg/dL [facility] Est Glomerular Filtration Rate 98 >=60 mL/min/1. 73 m?? [facility] Comment: This patient's estimated GFR [...] DO CHEMISTRY ORDERABLE S Performing Organization Address City/[facility] Co de Phone Number [facility] [place] [address] * POCT Glucose (04/19/2023 6:22 PM EST) Glucose, POC 95 65 - 199 mg/dL [facility] Comment: Supplemental ranges: <140 mg/dL before meals <180 mg/dL all other times of the day Blood 04/19/2023 6:22 PM EST 04/19/2023 6:22 PM EST Felix Diaz MD POINT OF CARE TEST O RDERABLES Performing Organization Address City/[facility] Co de Phone Number [facility] [place] [address] documented in this encounter Visit Diagnoses Not on filedocumented in this encounter Admitting Diagnoses Diagnosis NSTEMI [...] Given 04/24/2023 8:13 AM EST 3.125 mg clopidogreL (Plavix) tablet 75 mg 75 mg, Oral, DAILY, First dose on Fri04/20/23 at 0900, Until Discontinued, Routine Given 04/25/2023 9:31 AM EST 75 mg Given 04/24/2023 8:12 AM EST 75 mg Given 04/23/2023 9:53 AM EST 75 mg dextrose 10% infusion 250 mL, at 1,000 mL/hr, Intravenous, EVERY 15 MIN PRN, Starting on Fri04/19/23 at 1902, Until Fri04/25/23 at 1431, For [...] insulin orders before administering the next dose. fentaNYL (pf) (50 mcg/mL) multi-dose injection PRN, Starting on Fri04/21/23 at 0831, Until Fri04/21/23 at 0907, Intra-Operative (Intra-Procedure), Routine Given 04/21/2023 8:31 AM EST 50 mcg glucagon (Glucagen) (1 mg/mL) injection solution 1 [...] grams.), Routine heparin (porcine) (1,000 units/mL) injection PRN, Starting on Fri04/21/23 at 0850, Until Fri04/21/23 at 0907, Intra-Operative (Intra-Procedure), Routine Given 04/21/2023 8:50 AM EST 3,000 Units heparin (porcine) (5,000 units/1 mL) subcutaneous injection 7,500 Units 7,500 Units, Subcutaneous, EVERY 8 HOURS SCHEDULED, First dose (after last modification) on Fri04/22/23 at 2200, Until Discontinued, Routine Given 04/25/2023 6:14 AM EST 7,500 Units Given 04/24/2023 8:10 PM EST 7,500 Units Given 04/24/2023 2:50 PM EST 7,500 Units insulin glargine-ygfn (Semglee) (100 unit/mL) subcutaneous injection [...] Given 04/23/2023 9:53 AM EST 30 mg midazolam (pf) (Versed) (1 mg/mL) multi-dose injection PRN, Starting on Fri04/21/23 at 0831, Until Fri04/21/23 at 0907, Intra-Operative (Intra-Procedure), Routine Given 04/21/2023 8:31 AM EST 1 mg nitroGLYcerin 100 mcg/mL intracoronary dilution PRN, Starting on Fri04/21/23 at 0846, Until Fri04/21/23 at 0907, Intra-Operative (Intra-Procedure), Routine Given 04/21/2023 8:46 AM EST 150 mcg oxybutynin XL (Ditropan-XL) tablet 10 mg 10 [...] Given 04/23/2023 9:53 AM EST 40 mg sodium chloride 0.9 % (flush) (BD PosiFlush Normal Saline 0.9) flush 5 mL 5 mL, Intravenous, 2 TIMES DAILY, First dose on 1/13/24 at 2100, Until Discontinued, Routine Given 04/24/2023 8:05 PM EST 5 mLs Given 04/24/2023 8:16 AM EST 5 mLs Given 04/23/2023 8:55 PM EST 5 mLs traZODone (Desyrel) tablet 100 mg 100 mg, Oral, NIGHTLY, First dose on 04/19/23 at 2100, Until Discontinued, Routine Given 04/24/2023 8:10 PM EST 100 mg Given 04/23/2023 9:01 PM EST 100 mg Given 04/22/2023 9:15 PM EST 100 mg verapamiL (Isoptin) (2.5 mg/mL) injection PRN, Starting on Fri04/21/23 at 0846, Until Fri04/21/23 at 0907, Administer over 2 Minutes, Intra-Operative (Intra-Procedure) Given 04/21/2023 8:46 AM EST 2 .5 mg documented in this encounter Active and Recently Administered Medications Times are shown in EST. Scheduled Medication Order 04/23/2023 04/24/2023 04/25/2023 amLODIPine (Norvasc) tablet 5 mg 5 mg, Oral, DAILY, First dose on Fri04/23/23 at 1130, Until Discontinued, Routine 1113 (Given - Provider: Tori De La Cruz RN) 0813 (Given - Provider: Tori De La Cruz RN) 0930 (Given - Provider: Selwyn England, MELI) aspirin chewable tablet 81 mg 81 mg, Oral, DAILY, First dose (after last modification) on 04/20/23 at 0900, Until Discontinued, Routine 0953 (Given - Provider: Tori De La Cruz RN) 0812 (Given - Provider: Tori De La Cruz RN) 0931 (Given - Provider: Selwyn England, MELI) atorvastatin (Lipitor) tablet 40 mg 40 mg, Oral, EVERY EVENING, First dose on 04/19/23 at 2000, Until Discontinued, Routine 1658 (Given - Provider: Tori De La Cruz RN) 1700 (Given - Provider: Tori De La Cruz RN) buPROPion XL (Wellbutrin XL) tablet 150 mg 150 mg, Oral, DAILY, First dose on Sun 24 at 0900, Until Discontinued, DO NOT CRUSH OR OPEN, Routine 0953 (Given - Provider: Tori De La Cruz RN) 08 (Given - Provider: Tori De La Cruz RN) 09 (Given - Provider: Selwyn England, MELI) carvediloL (Coreg) tablet 3.125 mg 3.125 mg, [...] 0931 (Given - Provider: Selwyn England, MELI) cefPODOXime (Vantin) tablet 100 mg (COMPLETED) 100 mg, Oral, 2 TIMES DAILY, 4 doses, First dose on Fri04/23/23 at 2100, Last dose on Fri04/25/23 at 0900, Routine, Indication for (Active or Suspected): Urinary Tract/Pyelonephritis 2100 (Given - Provider: Jace Arauz RN) 811 (Given - Provider: Tori De La Cruz RN)2009 (Given - Provider: Jace Arauz RN) 0931 (Given - Provider: Selwyn England, MELI) clopidogreL (Plavix) tablet 75 mg 75 mg, Oral, DAILY, First dose on Fri04/20/23 at 0900, Until Discontinued, Routine 0953 (Given - Provider: Tori De La Cruz RN) 08 (Given - Provider: Tori De La Cruz RN) 09 (Given - Provider: Selwyn England, MELI) furosemide (Lasix) (10 mg/mL) injection 20 mg (COMPLETED) 20 mg, Intravenous, ONCE, 1 dose, On Fri04/23/23 at 0845 0952 (Given - Provider: Tori De La Cruz RN) furosemide (Lasix) tablet 20 mg (CANCELED) 20 mg, Oral, DAILY, First dose on 04/24/23 at 0930, Until Discontinued, Routine 0932 (Given [...] RN)2009 (Given - Provider: Jace Arauz RN) 0614 (Given - Provider: Jace Arauz RN) insulin glargine-ygfn (Semglee) (100 unit/mL) subcutaneous injection vial 32 Units 32 Units, Subcutaneous, NIGHTLY, First dose on 04/19/23 at 2100, Until Discontinued, Routine 2052 (Given [...] Comment: 60g carbs)1200 (Not Given - Provider: Tori De La Cruz RN - Reason: Order parameters not met - Comment: pt not eating lunch)1706 (Given - Provider: Tori De La Cruz RN - Comment: 67g carbs) 0800 (Not Given - Provider: Selwyn England, MELI - Reason: Patient/family refused)1139 (Given - Provider: Selwyn England, MELI) insulin lispro (HumaLOG;Admelog) (100 unit/mL) subcutaneous injection [...] Reason: Patient/family refused)1138 (Given - Provider: Selwyn England, MELI) isosorbide mononitrate CR (Imdur) tablet 30 mg 30 mg, Oral, EVERY MORNING, First dose (after last modification) on Fri04/21/23 at 1130, Until Discontinued, DO NOT CRUSH OR OPEN, Routine 952 (Given - Provider: Tori De La Cruz RN) 08 (Given - Provider: Tori De La Cruz RN) 930 (Given - Provider: Selwyn England, MELI) oxybutynin XL (Ditropan-XL) tablet 10 mg 10 mg, Oral, DAILY, First dose on 04/20/23 at 0900, Until Discontinued, Routine 53 (Given - Provider: Tori De La Cruz RN) 811 (Given - Provider: Tori De La Cruz RN) 930 (Given - Provider: Selwyn England RN) pantoprazole EC (Protonix) tablet 40 mg 40 mg, Oral, DAILY, First dose on 04/20/23 at 0900, Until Discontinued, DO NOT CRUSH OR OPEN, Routine 952 (Given - Provider: Tori De La Cruz RN) 811 (Given - Provider: Tori De La Cruz RN) 929 (Given - Provider: Selwyn England RN) sodium chloride 0.9 % (flush) (BD PosiFlush Normal Saline 0.9) flush 5 mL 5 mL, Intravenous, 2 TIMES DAILY, First dose on Fri04/19/23 at 2100, Until Discontinued, Routine 53 (Given - Provider: Tori De La Cruz RN)2054 (Given - Provider: Jace Arauz RN) 08 [...] Indication for (Active or Suspected): Urinary Tract/Pyelonephritis 952 (Given - Provider: Tori De La Cruz, MELI) traZODone (Desyrel) tablet 100 mg 100 mg, Oral, NIGHTLY, First dose on 04/19/23 at 2100, Until Discontinued, Routine 2100 (Given - Provider: Jace Arauz, RN) 2009 (Given - Provider: Jace Arauz, RN) PRN Medication Order 04/23/2023 04/24/2023 04/25/2023 [...] Subcutaneous, ONCE PRN, 1 dose, Starting on 04/19/23 at 1900, Until Fri04/25/23 at 1431, for [...] Routine documented in this encounter Care Teams Padded Products Finisher Relationship Specialty Start Date End Date Cady Saavedra PA [address] [place] [id number] PCP - General Family Medicine 06/19/20 documented as of this encounter
--- OUTSIDE RECORDS SUMMARY | 2023-12-19 19:07 | XMS_ITS | Encounter Summary ---
[facility] Organization [facility] Address [facility] [place] [address] Care Team Providers Care Human Resource Manager Name Role Phone Unknown Primary Care Provider Unavailabl e Encounter Details Date Type Department Care Team (Late st Contact Info) Description 12/05/2014 - 12/05/2014 11:59 PM EDT Hospital Encounter Radiology Library [place] [address] [facility] Discharge Disposition: Home Social History Tobacco Use Types Packs/Day Years Used Date Smoking Tobacco: Never Smokeless Tobacco: Never Alcohol Use Standard Drinks/Week Comments No 0 (1 standard drink = 0.6 oz pur e alcohol) Sex and Gender Information Value Date Recorded Sex Assigned at Not on file Gender Identity Not on file Sexual Orientation Not on file documented as of this encounter Medications at Time of Discharge Medication Sig Dispensed Refills Start Date End Date buPROPion (WELLBUTRIN SR) 150 mg 12 hr tablet Take 150 mg by mouth daily. glipiZIDE (GLUCOTROL) 10 mg Tablet Take 10 mg by mouth 2 times daily. 01/24/2014 04/19/2023 esomeprazole (NEXIUM) 40 mg capsule Take 40 mg by mouth 2 times daily. 04/25/2023 enalapril (VASOTEC) 10 mg tablet Take 10 mg by mouth daily. 06/29/2015 FLUoxetine (PROZAC) 20 mg capsule Take 20 mg by mouth daily. 04/25/2023 glipiZIDE (GLUCOTROL) 5 mg 24 hr tablet Take 5 mg by mouth daily. 06/29/2015 hyoscyamine (LEVSIN/SL) 0.125 mg SL tablet Take 0.125 mg by mouth as needed. 06/29/2015 loratadine (CLARITIN) 10 mg tablet Take 10 mg by mouth daily. 06/29/2015 simvastatin (ZOCOR) 20 mg tablet Take 20 mg by mouth nightly. 06/29/2015 gabapentin (NEURONTIN) 100 mg capsule Take 400 mg by mouth 2 times daily. 04/19/2023 prochlorperazine (COMPAZINE) 10 mg tablet Take 10 mg by mouth every 6 hours as needed. 06/29/2015 eszopiclone (LUNESTA) 2 mg Tab Take 2 mg by mouth daily. 06/29/2015 hydroCODone-acetaminophen (VICODIN) 5-500 mg per tablet Take 1 tablet by mouth every 6 hours as needed. 06/29/2015 documented as of this encounter Plan of Treatment Not on file documented as of this encounter Procedures Procedure Name Priority Date/Time Associated Diagnosis Comments FILM LIBRARY STORAGE ONLY DX SPINE Routine 12/05/2014 12:00 AM EDT Pain documented in this encounter Results * Film Library- Storage only DX Spine (12/05/2014 12:00 AM EDT) Narrative PALAK RAYMOND - 06/14/2015 3:03 PM EST See PACS for result report. [facility] FILM LIBRARY ORD ERABLES [place], [place] documented in this encounter Visit Diagnoses Diagnosis Pain Generalized pain documented in this encounter Care Teams Human Resource Manager Relationship Specialty Start Date End Date Unknown None PCP - General 03/25/12 06/28/15 documented as of this encounter
--- OUTSIDE RECORDS SUMMARY | 2023-12-19 19:07 | XMS_ITS | Encounter Summary ---
Author Organization [facility] [place] [address] Care Team Providers Care Civil Engineering Draftsperson Name Role Phone Darrick Flores Primary Care Provider [phone] Reason for Visit * Reason Onset Date Comments Results 02/23/2016 Encounter Details Date Type Department Care Team (Late st Contact Info) Description 02/23/2016 Telephone [place] [id number] Bran Sagastume MD [facility] [place] [address] Results Social History Tobacco Use Types Packs/Day Years [...] encounter Miscellaneous Notes * Telephone Encounter - Lizzeth Osei RN - 02/28/2016 3:59 PM EST The patient left a message today requesting a call back with the results of the bone scan and what to do next. I spoke with Dr. Sagastume. He will call the patient. * Telephone Encounter - Rivera Elliott RN - 02/27/2016 9:24 AM EST Patient called again to get bone scan results and next steps. * Telephone Encounter - Isauro Stein PA - 02/23/2016 5:38 PM EST Attempted to contact patient but only got voicemail. Left a voice mail that we will try to contact her on Friday in regards to her bone scan results. * Telephone Encounter - Criselda Carias RMA - 02/23/2016 3:34 PM EST Ndea called a second time today requesting the results of her Bone Scan. I let her know that was not available today but I would get a note to him as he is in clinic on Friday. She would like a call at [phone]. Neda wants to know that her pain level is an 9. * Telephone Encounter - Ketan Fried - 02/23/2016 10:58 AM EST What study is patient calling about? Nuclear med scan Per [facility] the study was done: yes Per [facility] the results are final: yes Best number to reach the patient #[phone] I will forward your message to the team and someone will follow up with you within 48 hours. documented in this encounter Plan of Treatment Not on file documented as of this encounter Visit Diagnoses Not on filedocumented in this encounter Care Teams Civil Engineering Draftsperson Relationship Specialty Start Date End Date Darrick Flores PA [address] [facility] [place] [place] [address] PCP - General Family Medicine 06/29/15 06/18/20 documented as of this encounter
--- OUTSIDE RECORDS SUMMARY | 2023-12-19 19:07 | XMS_ITS | Encounter Summary ---
Author Organization [facility] Address [facility] [place] [address] Care Team Providers Care Fire Marshal Name Role Phone Darrick Flores Primary Care Provider [phone] Reason for Visit * Reason Comments Neck Pain * Consultation (Routine) - Closed Specialty Diagnoses / Procedures Referred By Klever swartz Referred To Contact Orthopaedics Diagnoses 2nd opinion cervical radiculopathy Darrick Flores PA [address] [place] [address] [facility] [address] [place] [address] Referral ID Status Reason Start Date Expiration Date V isits Requested Visits Authorized [id number] Closed Connection Center Consult & Test 06/15/2015 06/14/2016 1 1 Encounter Details Date Type Department Care Team (Late st Contact Info) Description 06/29/2015 10:20 AM EDT Office [place] [phone] David Boyd MD [facility] [place] [address] Chronic neck pain Social History Tobacco Use Types Packs/Day Years [...] Sign Reading Time Taken Comments Blood Pressure 130/70 06/29/2015 10:31 AM EDT Pulse - - Temperature - - Respiratory Rate - - Oxygen Saturation - - Inhaled Oxygen Concentration - - Weight 107.5 kg (237 lb) 06/29/2015 10:31 AM EDT Height 162.6 cm (5' 4) 06/29/2015 10:31 AM EDT Body Mass Index 40.68 06/29/2015 10:31 AM EDT documented in this encounter Progress Notes * David Boyd MD - 06/29/2015 11:12 AM EDT Miss Fermin is a 60-year-old right-hand dominant woman seen today in this Spine Center consultation from Darrick Flores. This woman is seen and evaluated for chronic neck pain. She has pain in the back, side of her neck, up to her odilia with frequent headaches. She does not describe any radicular symptoms nor does she describe any myelopathic symptoms. She reports that her symptoms began when she was helping a friend at a wedding in [place] about 8 years ago when she fell on a carpet-covered concrete floor, hitting her head on a table. She has had multiple management efforts. She has had recent [facility] spine surgeon evaluation concluding she would not benefit from surgical intervention. She does have some altered gait problems, which are longstanding. Other than diarrhea, she has negative GI, , or constitutional symptoms review of her symptoms. She has some numbness in her right hand. She is unable to take antiinflammatory medications because of her stomach. PT made her symptoms worse. Injections provided only short-term improvement, less than a day. She has a history of depression. She is on disability for this. She has had a left total knee replacement, which was not helpful, left carpal tunnel release, tubal ligation, hysterectomy, caesarean section and a breast biopsy. She has family in [place] but no close family. She recently lost her son over the past year from cystic fibrosis at age 29, which clearly as would be expected has taken an emotional toll on her, and today while describing that she is quite teary eyed about it as one would expect. This is a large, overweight, depressed-appearing woman. In the short distance her gait is relatively normal, though it is limited by pain in her left knee. She prefers not to toe or heel walk or tandem walk. Her cervical spine is normal in appearance. She hurts in most locations of her cervical spine, posteriorly and posterolaterally. She has essentially no motion of her cervical spine, perhaps 10 degrees of flexion, maybe 5 to 10 degrees of rotation, minimal extension. Her upper extremity motor exam, sensory exam, and four-extremity reflex exam were all normal. Spurling's is unable to be performed because she cannot move her neck. Una reflexes are negative. Clonus and Babinski are absent. She has no edema, atrophy, fasciculations, or spasticity. Plain x-rays and MRI of the cervical spine are reviewed. The MRI is from 12/16/14. This demonstrates some disk bulging C5-6, C6-7, which I think are nonspecific to her problem and without significant nerve root compression and certainly would not explain the constellation of symptoms described here. In summation, she has multiple chronic complaints, primarily of axial neck pain, headaches, and really nothing radicular, nothing to suggest myelopathy, clearly nothing that would benefit from any operative intervention. I do not think injections are likely to help. She is best managed, I believe, with perhaps behavioral therapies, perhaps nonnarcotic medications, maybe getting her depression under control. I really have nothing else to offer. This was reviewed with her in detail. documented in this encounter Plan of Treatment Not on file documented as of this encounter Visit Diagnoses Diagnosis Chronic neck pain Cervicalgia documented in this encounter Care Teams Fire Marshal Relationship Specialty Start Date End Date Darrick Flores PA [address] [place] [id number] PCP - General Family Medicine 06/29/15 06/18/20 documented as of this encounter
--- OUTSIDE RECORDS SUMMARY | 2023-12-19 19:07 | XMS_ITS | Encounter Summary ---
Author Organization [facility] Address [address] [place] [address] Care Team Providers Care Embedded Software Architect Name Role Phone Unavailable Primary Care Provider Maria Guadalupe e Encounter Details Date Type Department Care Team ([facility] st Contact Info) Description 10/29/2001 Results Only [facility] [address] [place] [address] Kerrie Ward ANP [address] [place], [place] [id number] Social History Tobacco Use Types Packs/Day Years Used Date Smoking Tobacco: Never Assessed Sex and Gender Information Value Date Recorded Sex Assigned at Not on file Gender Identity Not on file Sexual Orientation Not on file documented as of this encounter Plan of Treatment Not on file documented as of this encounter Procedures Procedure Name Priority Date/Time Associated Diagnosis Comments CYTOPATHOLOGY Routine 10/29/2001 0:00 EDT documented in this encounter Results * CYTOPATHOLOGY (10/29/2001 0:00 EDT) Pathology Report: CYTOPATHOLOGY REPORT Reports generated via electronic interface contain original data; however they are lacking the format of the original report. Caution should be taken when reading/interpreti ng unformatted reports. Name: ? NEDA MEYERS ? Accession #: ? [id number] : ? 1955 (Age: 46) ??F ?Collect Date: ? 10/29/2001 Location: ? [facility] ? Receive Date: ? 11/02/2001 Provider: ?KERRIE WARD ANP Copy to: ? Specimen/Source: ?Conventional Pap Test, Source Not Provided Last Menstrual Period: ? Treatment History: ? Hysterectomy: 1994 ? SPECIMEN ADEQUACY ? Satisfactory for Evaluation - transformation zone component present GENERAL CATEGORIZATION ? Negative for Intraepithelial Lesion or Malignancy INTERPRETATION ? Shift in vi present suggestive of bacterial vaginosis. ? Document reviewed and electronically signed by: ? Shamar Pena, KRYSTLE(ASCP) ? Report Date: ??11/06/2001 10:59 End of Report [facility] 10/29/2001 11/02/2001 Kerrie Ward ANP PATHOLOGY ORDERABL ES [facility] [address] [place] [address] documented in this encounter Visit Diagnoses Not on filedocumented in this encounter
--- OUTSIDE RECORDS SUMMARY | 2023-12-19 19:07 | XMS_ITS | Encounter Summary ---
Author Organization [facility] Address [facility] [place] [address] Care Team Providers Care Orthopedic Shoe Maker Name Role Phone Cady Saavedra Primary Care Provider [phone] Encounter Details Date Type Department Care Team (Late st Contact Info) Description 04/18/2023 Telephone Cardiology at [address] [address] Mookie Parker MD [facility] [place] [address] Social History Tobacco Use Types Packs/Day Years [...] encounter Miscellaneous Notes * Telephone Encounter - Mookie Parker MD - 04/18/2023 5:51 PM EST Images from the original note were not included. Initial Contact Date: 04/18/23 5:52 PM Referring Provider: MD Bean Patient Location: [facility] HPI: Neda Fermin is a 67 y.o. female with history notable for DM2, HTN, HLD, obesity who presents to [facility] with chest pain and shortness of breath x3 hrs which resolved with sublingual nitroglycerin. Social: -Never smoker Vitals: 36.9 152/78, 70 HR, 20 RR, 93% RA Exam: Laying in bed in no distress Mild chest wall tenderness though reports different from pain this AM Pertinent Diagnostic Findings: -Troponin 35, 59.3 -Creatinine 0.71 Past cardiac studies: EKG: appears to be sinus rhythm although poor data quality makes it difficult to determine if this is rate controlled flutter, there are repolarization abnormalities in the anterior leads OSH Interventions: -Aspirin -Plavix -Heparin -Statin -Metoprolol -Nitroglycerin Assessment: Neda Fermin is a 67 y.o. female with history notable for DM2, TERENCE, HTN, obesity who presents to [facility] with chest pressure and shortness of breath x 3 hours with resolution following nitroglycerin. With typical symptoms and her comorbidities, pretest probability is that she does have coronary disease although 3hours of continuous pain seems atypical. Her troponins are mildly elevatedso difficult to say that this is not a type 1 NSTEMI. She does have mild RUEL in the septal leads without R waves but I do not feel that these meet STEMI criteria. Recommendations: -Serial troponin and EKG, call with evolution -TTE -Asa -Plavix -Heparin -Nitro for cp, call if requiring nitro gtt -Transfer for catheterization Above recommendations were based on my discussion with Dr. Del Angel; I have not personally interviewed or examined this patient. This does not represent a formal consultation as it is not staffed withan attending Pmo Manager. Advised to call the transfer center back with any changes in the patient condition. Mookie Parker MD Funding Coordinator [id number] documented in this encounter Plan of Treatment Not on file documented as of this encounter Visit Diagnoses Not on filedocumented in this encounter Care Teams Orthopedic Shoe Maker Relationship Specialty Start Date End Date Cady Saavedra PA [address] [place] [id number] PCP - General Family Medicine 06/19/20 documented as of this encounter
--- OUTSIDE RECORDS SUMMARY | 2023-12-19 19:07 | XMS_ITS | Encounter Summary ---
Author Organization [facility] Address [address] [place] [address] Care Team Providers Care Securities Analyst Name Role Phone Darrick Flores Primary Care Provider [phone] Reason for Referral * Consult (Routine/Next Available) - Specialty Report Received Specialty Diagnoses / Procedures Referred By Contpolina t Referred To Contact Pain Medicine Diagnoses Neck pain Quique Vargas PA-C [address] [facility] [place] [address] [facility] [address] [facility] [place] [address] Referral ID Status Reason Start Date Expiration Date Visits Requested Visits Authorized [id number] Specialty Report Received Specialty Services Required 05/15/2015 1 1 Question Answer Reason for Request: Neck pain Comments Recommend trigger point injections Reason for Visit * Reason Comments Neck Pain bilateral shoulders * Consult (Routine) - Closed Specialty Diagnoses / Procedures Referred By Contac t Referred To Contact Orthopedic Surgery Diagnoses Cervical disc disorder, unspecified, unspecified cervical region Darrick Flores PA [address] [place] [phone] [facility] [address] [facility] [place] [address] Referral ID Status Reason Start Date Expiration Date Visits Re quested Visits Authorized [id number] Closed 1 1 Encounter Details Date Type Department Care Team (Late st Contact Info) Description 05/15/2015 10:45 EST Office Visit [facility] - [facility] [address] [place] [address] Quique Vargas PA-C [address] [facility] [place] [address] Neck pain (Primary Dx) Social History Tobacco Use Types Packs/Day Years Used Date Smoking Tobacco: Never Alcohol Use Standard Drinks/Week Comments No 0 (1 standard drink = 0.6 oz pur e alcohol) Sex and Gender Information Value Date Recorded Sex Assigned at Not on file Gender Identity Not on file Sexual Orientation Not on file documented as of this encounter Last Filed Vital Signs Vital Sign Reading Time Taken Comments Blood Pressure - - Pulse - - Temperature - - Respiratory Rate - - Oxygen Saturation - - Inhaled Oxygen Concentration - - Weight 107.5 kg (237 lb) 05/15/2015 1034 EST Height 162.6 cm (5' 4) 05/15/2015 1034 EST Body Mass Index 40.68 05/15/2015 1034 EST documented in this encounter Progress Notes * Jackie Conklin - 05/15/2015 1106 EST Patient given written and verbal patient education on injection * Quique Vargas PA - 05/15/2015 1045 EST Neda Fermin is being seen as a consultation from Dr. Flores. Chief Complaint Patient presents with ??? Neck Pain bilateral shoulders The encounter diagnosis was Neck pain. HPI Ms. Fermin is a 59 y.o. pleasant female who presents to the clinic today with 100% neck pain. The patient reports long standing h/o intermittent neck pain that has become constant over the last year.Symptoms wax and wane, but they are present everyday. She has tried PT, which made her worse. She has not tried CHIRO or injections. Application of ice alleviates her symptoms. Bending her head forward, going over a bump while driving, and rotating her head right and left aggravate her symptoms. She rates her pain as 8/10. She has been on disability due to depression. HPI Patient Active Problem List Diagnosis ??? Neck pain Past Medical History Diagnosis Date ??? Diabetes mellitus ??? Bronchiolitis ??? Sleep apnea uses cpap ??? GERD (gastroesophageal reflux disease) Past Surgical History Procedure Laterality Date ??? Hysterectomy ??? Mouth surgery ??? Cholecystectomy History Substance Use Topics ??? Smoking status: Never Smoker ??? Smokeless tobacco: Not on file ??? Alcohol Use: No History reviewed. No pertinent family history. Current Outpatient Prescriptions Medication Sig Dispense Refill ??? BUPROPION HCL (WELLBUTRIN ORAL) Take 150 mg by mouth 2 times daily ??? esomeprazole (NEXIUM) 20 mg capsule Take 40 mg by mouth 2 times daily ??? ESZOPICLONE (LUNESTA ORAL) Take 1 mg by mouth at bedtime ??? FLUoxetine (PROZAC) 40 mg capsule Take 40 mg by mouth daily ??? gabapentin (NEURONTIN) 600 mg tablet Take 600 mg by mouth 3 times daily ??? glipiZIDE (GLUCOTROL) 10 mg tablet Take 1 Tab by mouth daily. 5 Tab 0 ??? GLIPIZIDE ORAL Take by mouth. ??? insulin glargine (LANTUS SOLOSTAR) 100 unit/mL (3 mL) injection pen 10 Units at bedtime Indications: DIABETES MELLITUS. ??? metFORMIN (GLUCOPHAGE) 500 mg tablet Take 1 Tab by mouth 2 times daily. 6 Tab 0 ??? METFORMIN HCL (METFORMIN ORAL) Take by mouth. ??? oxybutynin (DITROPAN) 5 mg tablet Take 5 mg by mouth 2 times daily ??? topiramate (TOPAMAX) 25 mg tablet Take 50 mg by mouth 2 times daily ??? traZODone (DESYREL) 50 mg tablet Take 50 mg by mouth daily No current facility-administered medications for this visit. Allergies Allergen Reactions ??? Latex, Natural Rubber ??? Penicillins Review of Systems Constitutional: Positive for activity change. Negative for unexpected weight change. Eyes: Negative for visual disturbance. Respiratory: Negative for chest tightness. Cardiovascular: Negative for chest pain. Gastrointestinal: Negative for constipation. Genitourinary: Negative for difficulty urinating. Musculoskeletal: Positive for neck pain. Negative for back pain. Skin: Negative for rash. Psychiatric/Behavioral: Negative for behavioral problems and agitation. Physical Exam Constitutional: She is oriented to person, place, and time. She appears well- developed and well-nourished. HENT: Head: Normocephalic and atraumatic. Eyes: EOM are normal. Cardiovascular: Normal rate. Pulmonary/Chest: Effort normal. Neurological: She is alert and oriented to person, place, and time. Skin: Skin is warm and dry. No rash noted. Psychiatric: She has a normal mood and affect. Her behavior is normal. Back Exam Comments: RASHES AND KATHY: NEG. FROM: TENDERNESS ON PALPATION: NEG. STRENGTH: 5/5. REFLEXES: 1/4. SENSATION: Intact. SPURLING'S: NEG. MCNAIR: NEG. RADIAL PULSE: 2/2. TINNEL: NEG. PHALEN: NEG. ULNARCOMPRESSION: NEG. Neurologic Exam Mental Status Oriented to person, place, and time. Cranial Nerves CN III, IV, Extraocular motions are normal. 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 She has agreed to the following plan. Other Orders Placed This Visit Procedures ??? Amb Pain Procedure Plan: 1. Order trigger point injections 2. Continue activity as tolerated 3. Return to clinic post injections 4. If no relief from trigger point injections, consider C5-C6/C6-C7 B/L facet injections CC: Dr. Sandra Roberts was the attending physician available in the clinic today if needed. A consultation was not required. documented in this encounter Plan of Treatment Scheduled Referrals Name Type Priority Associated Diagnoses Orde r Schedule AMB PAIN PROCEDURE Outpatient Referral Routine Neck pain Ordered: 05/15/2015 documented as of this encounter Visit Diagnoses Diagnosis Neck pain- Primary Cervicalgia documented in this encounter Historical Medications * This list may reflect changes made after this encounter. Medication Sig Dispensed Refills Start Date End Date traZODone (DESYREL) 50 mg tablet Take 50 mg by mouth daily added in this encounter Care Teams Securities Analyst Relationship Specialty Start Date End Date Darrick Flores PA [address] [place] [address] PCP - General 05/15/15 11/24/17 documented as of this encounter
--- OUTSIDE RECORDS SUMMARY | 2023-12-19 19:07 | XMS_ITS | Encounter Summary ---
Author Organization [facility] Address [address] [place] [address] Care Team Providers Care Assembler Trim Name Role Phone Unavailable Primary Care Provider Maria Guadalupe e Encounter Details Date Type Department Care Team ([facility] st Contact Info) Description 08/20/2007 Results Only [facility] [address] [place] [address] Kerrie Ward ANP [address] [place], [place] [id number] Social History Tobacco Use Types Packs/Day Years Used Date Smoking Tobacco: Never Assessed Sex and Gender Information Value Date Recorded Sex Assigned at Not on file Gender Identity Not on file Sexual Orientation Not on file documented as of this encounter Plan of Treatment Not on file documented as of this encounter Procedures Procedure Name Priority Date/Time Associated Diagnosis Comments CYTOPATHOLOGY Routine 08/20/2007 0:00 EDT documented in this encounter Results * CYTOPATHOLOGY (08/20/2007 0:00 EDT) Pathology Report: CYTOPATHOLOGY REPORT Reports generated via electronic interface contain original data; however they are lacking the format of the original report. Caution should be taken when reading/interpreti ng unformatted reports. Name: ? NEDA MEYERS ? Accession #: ? [id number] : ? 1955 (Age: 52) ??F ?Collect Date: ? 08/20/2007 Location: ? [facility] ? Receive Date: ? 08/24/2007 Provider: ?KERRIE WARD ANP Copy to: ? Specimen/Source: ?ThinPrep Pap Test, Vagina, processed on [employer] ThinPrep Imaging System, with manual evaluation Last Menstrual Period: ? Previous Gynecologic Pathology: ? Yes: Endometriosis 17 years ago Treatment History: ? Hysterectomy: Total 17 years ago Other: ? HPVA - HPV testing requested if ASC-US on the current ThinPrep Pap test. ? SPECIMEN ADEQUACY ? Satisfactory for Evaluation - assessment of transformation zone component not applicable ( e.g. atrophy, vaginal sample, hysterectomy) GENERAL CATEGORIZATION ? Negative for Intraepithelial Lesion or Malignancy ? Document reviewed and electronically signed by: ? Chloe Collier, SCT(ASCP) ? Report Date: ??08/26/2007 09:56 End of Report [facility] 08/20/2007 08/24/2007 Kerrie Ward ANP PATHOLOGY ORDERABL ES [facility] [address] [place] [address] documented in this encounter Visit Diagnoses Not on filedocumented in this encounter
--- OUTSIDE RECORDS SUMMARY | 2023-12-19 19:07 | XMS_ITS | Encounter Summary ---
Author Organization [facility] Address [facility] [place] [address] Care Team Providers Care Mainspring Winder And Oiler Name Role Phone Darrick Flores Primary Care Provider [phone] Encounter Details Date Type Department Care Team (Late st Contact Info) Description 01/30/2016 Orders [place] [address] Bran Sagastume MD [facility] [place] [address] Social History Tobacco Use Types Packs/Day Years [...] on filedocumented in this encounter Care Teams Mainspring Winder And Oiler Relationship Specialty Start Date End Date Darrick Flores PA [address] [place] [address] PCP - General Family Medicine 06/29/15 06/18/20 documented as of this encounter
--- OUTSIDE RECORDS SUMMARY | 2023-12-19 19:07 | XMS_ITS | Encounter Summary ---
Author Organization [facility] Address [facility] [place] [address] Care Team Providers Care Dairy Cattle Farm Worker Name Role Phone Darrick Flores Primary Care Provider [phone] Reason for Referral * Diagnostic Test (Routine) - Closed Specialty Diagnoses / Procedures Referred By Contac t Referred To Contact Radiology Diagnoses Status post left knee replacement Procedures NM 3 phase bone scan Isauro Stein PA [facility]OP[facility] [place] [address] [place] [address] Referral ID Status Reason Start Date Expiration Date V isits Requested Visits Authorized [id number] Closed Specialty Service Requested 02/05/2016 12/31/2016 2 2 Reason for Visit * Diagnostic Test (Routine) - Closed Specialty Diagnoses / Procedures Referred By Contac t Referred To Contact Radiology Diagnoses Status post left knee replacement Procedures NM 3 phase bone scan Isauro Stein PA [facility]OP[facility] [place] [address] [place] [address] Referral ID Status Reason Start Date Expiration Date V isits Requested Visits Authorized [id number] Closed Specialty Service Requested 02/05/2016 12/31/2016 2 2 Encounter Details Date Type Department Care Team (Latest Contact Info) Description 02/12/2016 9:53 AM EST - 02/12/2016 11:51 AM EST Hospital Encounter [place] [address] Bran Sagastume MD [facility] [place] [address] Status post left knee replacement Discharge Disposition: Home Social History Tobacco Use [...] Date End Date traZODone (DESYREL) 50 mg Tablet Take 100 mg by mouth nightly. insulin needles, disposable, 31 gauge x 5/16 NeedleIndications:BD ultra-fine pen NDL [id number] by Misc.(Non-Drug; Combo Route) route. Indications: BD ultra-fine pen NDL [id number] insulin glargine (LANTUS) Insulin Pen Inject 40 Units subcutaneously nightly. oxybutynin (DITROPAN) 5 mg Tablet Take 10 mg by mouth daily. buPROPion (WELLBUTRIN SR) 150 mg 12 hr tablet Take 150 mg by mouth daily. glipiZIDE (GLUCOTROL) 10 mg Tablet Take 10 mg by mouth 2 times daily. 01/24/2014 04/19/2023 metFORMIN (GLUCOPHAGE) 500 mg Tablet Take 500 mg by mouth daily. 04/19/2023 topiramate (TOPAMAX) 25 mg Tablet Take 25 mg by mouth 2 times daily. 04/19/2023 esomeprazole (NEXIUM) 40 mg capsule Take 40 mg by mouth 2 times daily. 04/25/2023 FLUoxetine (PROZAC) 20 mg capsule Take 20 mg by mouth daily. 04/25/2023 gabapentin (NEURONTIN) 100 mg capsule Take 400 mg by mouth 2 times daily. 04/19/2023 documented as of this encounter Plan of Treatment Not on file documented as of this encounter Procedures Procedure Name Priority Date/Time Associated Diagnosis Comments NM BONE SCAN 3 PHASE Routine 02/12/2016 12:53 PM EST Status post left knee replacement documented in this encounter Results * NM 3 phase bone scan (02/12/2016 12:53 PM EST) Anatomical Region Laterality Modality Nuclear Medicine Impressions 02/12/2016 3:39 PM EST 1. ??Mildly increased activity on both sides of the tibial tray of the left knee prosthesis. This degree of activity is nonspecific and early loosening is not excluded. 2. ??Mild diffuse uptake in the right knee most compatible with osteoarthritis. I have personally reviewed the image(s) and the residents interpretation and agree with the findings, Giorgi Howell at 02/12/2016 3:39 PM Narrative 02/12/2016 3:39 PM EST EXAMINATION: NM 3 PHASE BONE SCAN CLINICAL HISTORY: Left total knee replacement approximately 6 years ago TECHNIQUE: Immediately following the intravenous administration of 24.6 mCi of Tc-99m MDP, sequential images of perfusion to the knees were obtained at 2 second intervals for 60 seconds in the anterior and posterior projections. Five minutes later, blood pool images were obtained of the knees in the anterior, lateral and posterior projections. Three hours later, a bone scan of the knees was performed with images obtained in the anterior, lateral and posterior projections. COMPARISON: Knee radiographs 09/28/2015 FINDINGS: The blood flow and blood pool studies are normal. No hyperemia surrounding the left knee. Delayed planar images of the left knee demonstrate mild increased radiotracer uptake at the hardware-bone interface on both sides of the tibial tray. There is diffusely increased uptake in the left patella. Delayed planar images of the right knee demonstrate mild diffusely increased uptake of the juxta-articular femur and tibia and in the patella. Procedure Note Giorgi Howell MD - 02/12/2016 EXAMINATION: NM 3 PHASE BONE SCAN CLINICAL HISTORY: Left total knee replacement approximately 6 years ago TECHNIQUE: Immediately following the intravenous administration of 24.6 mCi of Tc-99mMDP, sequential images of perfusion to the knees were obtained at 2 secondintervals for 60 seconds in the anterior and posterior projections. Five minutes later, blood pool images were obtained of the knees in the anterior, lateral and posterior projections. Three hours later, a bone scan of the knees was performed with imagesobtained in the anterior, lateral and posterior projections. COMPARISON: Knee radiographs 09/28/2015 FINDINGS: The blood flow and blood pool studies are normal. No hyperemia surroundingthe left knee. Delayed planar images of the left knee demonstrate mild increasedradiotracer uptake at the hardware-bone interface on both sides of the tibial tray.There is diffusely increased uptake in the left patella. Delayed planar images of the right knee demonstrate mild diffuselyincreased uptake of the juxta-articular femur and tibia and in the patella. IMPRESSION 1. Mildly increased activity on both sides of the tibial tray of the leftknee prosthesis. This degree of activity is nonspecific and early loosening isnot excluded. 2. Mild diffuse uptake in the right knee most compatible withosteoarthritis. I have personally reviewed the image(s) and the residents interpretationand agree with the findings, Giorgi Howell at 02/12/2016 3:39 PM Bran Sagastume MD IM NM ORDERABLES documented in this encounter Visit Diagnoses Diagnosis Status post left knee replacement documented in this encounter Care Teams Dairy Cattle Farm Worker Relationship Specialty Start Date End Date Darrick Flores PA [address] [place] [address] PCP - General Family Medicine 06/29/15 06/18/20 documented as of this encounter
--- OUTSIDE RECORDS SUMMARY | 2023-12-19 19:07 | XMS_ITS | Encounter Summary ---
Author Organization [facility] Address [facility] [place] [address] Care Team Providers Care Wirer Name Role Phone Cady Saavedra Primary Care Provider [phone] Encounter Details Date Type Department Care Team (Late st Contact Info) Description 05/05/2006 Orders Only Gastroenterology at [facility] [place] [address] Jean Hobbs MD [facility] [address] [place] [address] Social History Tobacco Use Types Packs/Day Years Used Date Smoking Tobacco: Never Assessed [facility] Utilities Answer Date Recorded In the past [...] Procedure Name Priority Date/Time Associated Diagnosis Comments SURGICAL PATHOLOGY REPORT Routine 05/05/2006 12:39 PM EST documented in this encounter Results * Surgical Pathology Report (05/05/2006 12:39 PM EST) Surgical Pathology Report [id number] ? Location: The signing pathologist has (i) examined the relevant preparation(s) for the specimen(s) and (ii) rendered or confirmed the diagnosis(es). . ?Pathology Surgical Pathology Final Report Clinical Information Specimen Submitted: A - Stomach antrum, body, fundus B - Esophagus above Z-line Clinical History: Jar#1 gastric on EGD ? H. pylori vs atrophic, Jar #2 chronic GERD SX; irregular Z- line at 41 cm ; ? short segment Levine's acid reflux symptoms Gross Description A - Labeled/Fixative: Stomach, antrum, body, fundus; formalin. Qty/Size/Weight: ?Five, ranging from 0.1 cm to 0.3 cm in greatest ?dimension. Tissue Description: ?? Partially fragmented, medina tissues. Sections/Processin g: ??(T1) B - Labeled/Fixative: Esophagus above Z line, formalin. Qty/Size/Weight: ?Two, ranging from 0.2 cm to 0.3 cm in greatest ?dimension. Tissue Description: ?? Soft, [place] tissues. Sections/Processin g: ??(T1) ??aje/EJR Microscopic Description Slides reviewed, microscopic description not recorded. Diagnosis Endoscopic biopsies - A. ??Gastric antral gland mucosa with nonspecific reactive gastropathy. ? Gastric fundic mucosa within normal limits. Negative for H. pylori (Thiazine stain) B. ??Squamo-columnar junctional mucosa (cardia type) with mild chronic inflammation. Squamous mucosa with mild basal cell hyperplasia and rare intraepithelial eosinophils. There is no evidence of intestinal metaplasia. CR-0 05/05/06 PAS 05/06/06 Verified by: ? Baylee Asif ?Pathologist/Derm atopathologist ?(Electronic Signature) The attending pathologist whose signature appears on this report has reviewed all diagnostic slides and has edited the gross and/or microscopic portion of the report in rendering the final pathologic diagnosis. PEREZ OSORIO 05/05/2006 12:3 9 PM EST Jean Hobbs MD PATHOLOGY/CYTOLOGY O RDERABLES PEREZ OSORIO documented in this encounter Visit Diagnoses Not on filedocumented in this encounter Care Teams Wirer Relationship Specialty Start Date End Date Cady Saavedra PA [address] [place] [address] PCP - General Family Medicine 06/19/20 documented as of this encounter
--- OUTSIDE RECORDS SUMMARY | 2023-12-19 19:07 | XMS_ITS | Encounter Summary ---
Author Organization [facility] [place] [address] Care Team Providers Care Night Monitor Name Role Phone Darrick Flores Primary Care Provider [phone] Encounter Details Date Type Department Care Team (Late st Contact Info) Description 03/19/2016 Telephone Orthopaedics at [facility] [place] [address] Edie Zapien, RN Social History Tobacco Use Types Packs/Day [...] encounter Miscellaneous Notes * Telephone Encounter - Edei Zapien, RN - 03/19/2016 1:04 PM EST Patient calls regarding her left knee . She indicates when the numbing agent wore off it went back to the pain . Seen in clinic yesterday with Dr Sagastume and [facility] Massey As noted left total knee replacement by Dr. Arita in [facility] 2009. aspirating the knee joint and sending it for both cell count, culture, and alpha defensin. We also will infiltrate her knee with local anesthetic to assess for an intra-articular cause of her pain. At this point, if she gets good improvement from the intra-articular injection, we could consider revision on the premise that her tibial component may be loose. She will continue to ice it and elevate it. She does not tolerate ibuprofen . She will try tylenol when someone can get her some as the roads [place]. She will await feedback once results of labs,cultures as noted are back. She appreciates conversation. documented in this encounter Plan of Treatment Not on file documented as of this encounter Visit Diagnoses Not on filedocumented in this encounter Care Teams Night Monitor Relationship Specialty Start Date End Date Darrick Flores PA [address] [place] [address] PCP - General Family Medicine 06/29/15 06/18/20 documented as of this encounter
--- OUTSIDE RECORDS SUMMARY | 2023-12-19 19:07 | XMS_ITS | Encounter Summary ---
Author Organization [facility] Address [address] [place] [address] Care Team Providers Care Pediatric Neuropsychologist Name Role Phone Arelis Stiles Primary Care Provider [phone] Encounter Details Date Type Department Care Team (Late st Contact Info) Description 11/25/2017 Results Only Imaging [facility] [phone] Jean Mar MD [address] [place] [address] Social History Tobacco Use Types Packs/Day Years Used Date Smoking Tobacco: Never Alcohol Use Standard Drinks/Week Comments No 0 (1 standard drink = 0.6 oz pur e alcohol) Sex and Gender Information Value Date Recorded Sex Assigned at Not on file Gender Identity Not on file Sexual Orientation Not on file documented as of this encounter Functional Status Functional Status Response Date of Assess ment Because of a physical, menta l, or emotional condition, does this person have difficulty doing errands alone such as visiting a doctor's office or shopping? Yes 06/08/2015 Cognitive Status Response Date of Assessm ent Because of a physical, menta l, or emotional condition, does this person have serious difficulty concentrating, remembering, or making decisions? Yes 06/08/2015 documented as of this encounter Plan of Treatment Not on file documented as of this encounter Procedures Procedure Name Priority Date/Time Associated Diagnosis Comments CT KNEE WO CONTRAST 11/25/2017 1 5:15 EDT documented in this encounter Results * CT KNEE WO CONTRAST (11/25/2017 15:15 EDT) Anatomical Region Laterality Modality Other 11/25/2017 15:1 5 EDT 11/26/2017 14:48 EDT Narrative 11/26/2017 14:[address] LEFT KNEE WO CONTRAST ??11/25/2017 3:15 PM History: Patient presents with on going left knee pain. ??Please get a CT with MEtal Subtraction of the patient's left knee to evaluate the component position and rotation Comparison: None available. Technique: Routine contiguous axial 0.[address] images of the left knee were obtained without contrast. Sagittal and coronal 2-D reconstructions were generated and reviewed. No 3-D reconstructions were performed. Findings: There are postoperative changes of three-part left total knee arthroplasty, with associated metallic streak artifact limiting assessment despite the use of metal artifact reduction techniques. The left total knee prosthesis appears intact and well aligned without evidence to suggest hardware failure or loosening. No periprosthetic fracture is identified. Degenerative changes are noted in the proximal tibiofibular articulation. Enthesopathic spurring is noted at the superior and inferior poles of the patella. The bones appear osteopenic. Small suprapatellar knee joint effusion is present. There is a mild nonspecific reticular pattern of edema within the subcutaneous soft tissues about the left knee. Extensive vascular calcifications are present. Venous varicosities are noted in the subcutaneous tissues. Impression: 1. Postoperative changes from prior three-part left total knee arthroplasty without evidence to suggest hardware failure, loosening, or periprosthetic fracture. ?? I have personally reviewed the images and the above interpretation and agree with the findings. Procedure Note Sam Becerra MD - 11/26/2017 CT LEFT KNEE WO CONTRAST 11/25/2017 3:15 PM History: Patient presents with on going left knee pain. Please get a CT with MEtal Subtraction of the patient's left knee to evaluate the component position and rotation Comparison: None available. Technique: Routine contiguous axial 0.[address] images of the left knee were obtained without contrast. Sagittal and coronal 2-D reconstructions were generated and reviewed. No 3-D reconstructions were performed. Findings: There are postoperative changes of three-part left total knee arthroplasty, with associated metallic streak artifact limiting assessment despite the use of metal artifact reduction techniques. The left total knee prosthesis appears intact and well aligned without evidence to suggest hardware failure or loosening. No periprosthetic fracture is identified. Degenerative changes are noted in the proximal tibiofibular articulation. Enthesopathic spurring is noted at the superior and inferior poles of the patella. The bones appear osteopenic. Small suprapatellar knee joint effusion is present. There is a mild nonspecific reticular pattern of edema within the subcutaneous soft tissues about the left knee. Extensive vascular calcifications are present. Venous varicosities are noted in the subcutaneous tissues. Impression: 1. Postoperative changes from prior three-part left total knee arthroplasty without evidence to suggest hardware failure, loosening, or periprosthetic fracture. I have personally reviewed the images and the above interpretation and agree with the findings. Jean Mar MD IMG CT ORDERABLES documented in this encounter Visit Diagnoses Not on filedocumented in this encounter Care Teams Pediatric Neuropsychologist Relationship Specialty Start Date End Date Arelis Stiles PA [address] [place] [address] PCP - General 11/25/17 documented as of this encounter
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
--- OUTSIDE RECORDS SUMMARY | 2023-12-19 19:07 | XMS_ITS | Encounter Summary ---
Author Organization [facility] Address [address] [place] [address] Care Team Providers Care Senior It Business Analyst Name Role Phone Unavailable Primary Care Provider Unavailabl e Encounter Details Date Type Department Care Team (Latest Contact Info) Description 05/22/2000 13:18 EST Hospital Encounter [address] [address] Ernesto Valentino MD Discharge Disposition: Auto Discharge Social History Tobacco Use Types Packs/Day Years Used Date Smoking Tobacco: Never Assessed Sex and Gender Information Value Date Recorded Sex Assigned at Not on file Gender Identity Not on file Sexual Orientation Not on file documented as of this encounter Discharge Disposition Disposition Code Departure Means Destination Auto Discharge documented in this encounter Plan of Treatment Not on file documented as of this encounter Procedures Procedure Name Priority Date/Time Associated Diagnosis Comments OVA/PARASITE EXAM Routine 05/22/2000 7:00 EST documented in this encounter Results * OVA/PARASITE EXAM (05/22/2000 7:00 EST) Specimen Description Feces [facility] Result No ova and parasites seen. (If Cryptosporidium, Cyclospora, or microsporidium are suspected, specific tests must be requested.) [facility] Report Status Final [id number] [facility] 05/22/2000 7:00 EST 05/22/2000 15:36 EST Ernesto Valentino MD MICROBIOLOGY - GENER AL ORDERABLES [facility] [address] [place] [address] documented in this encounter Visit Diagnoses Not on filedocumented in this encounter
--- OUTSIDE RECORDS SUMMARY | 2023-12-19 19:07 | XMS_ITS | Encounter Summary ---
Author Organization Formerly [facility] Address [facility] [place] [address] Care Team Providers Care Detective And Intelligence Analyst Name Role Phone Cady Saavedra Primary Care Provider [phone] Reason for Referral * Consultation (Routine) - Closed Specialty Diagnoses / Procedures Referred By Contac t Referred To Contact General Surgery Diagnoses Class 3 severe obesity with body mass index (BMI) of 40.0 to 44.9 in adult, unspecified obesity type, unspecified whether serious comorbidity present Jess Lu MD [facility] [place] [address] [facility] Gen Surgery [address] [place] [phone] Referral ID Status Reason Start Date Expiration Date V isits Requested Visits Authorized [id number] Closed Consult, Test & Treat 07/05/2020 07/05/2021 1 1 Reason for Visit * Reason Comments Advice Only possible panni - has a scar from * Consultation (Routine) - Specialty Diagnoses / Procedures Referred By Contac t Referred To Contact Plastic Surgery Diagnoses Localized adiposity Cady Saavedra PA [address] [place] [id number] [facility] Plastic Surg [address] [place] [phone] Referral ID Status Reason Start Date Expiration Date V isits Requested Visits Authorized [id number] Consult, Test & Treat [facility] PCP Updated and/or Approved 06/07/2020 12/13/2020 6 6 Encounter Details Date Type Department Care Team (Late st Contact Info) Description 07/05/2020 1:30 PM EDT Office Visit Plastic Surgery at [facility] [place] [address] Jess Lu MD [facility] [place] [address] Abdominal pannus; Class 3 severe obesity with body mass index (BMI) of 40.0 to 44.9 in adult, unspecified obesity type, unspecified whether serious comorbidity present Social History Tobacco Use Types Packs/Day Years [...] - Inhaled Oxygen Concentration - - Weight 110.2 kg (243 lb) 07/05/2020 1:22 PM EDT Height 162.6 cm (5' 4) 07/05/2020 1:22 PM EDT Body Mass Index 41.71 07/05/2020 1:22 PM EDT documented in this encounter Progress Notes * Jess Lu MD - 07/05/2020 1:30 PM EDT Plastic Surgery Consultation Note Jess Lu MD PCP: DU Dumont CC: Abdominal pannus HPI: Neda Fermin is a 65 y.o. female seen in my office today for consideration for abdominal panniculectomy. Her PCP, DU Dumont has requested the consultation. She has had two c-sections one transverse and one vertical incision with a fold of skin over the areas. Her last c-sectionin 1983. Has had a hysterectomy. Has gained and lost weight. Has plans to lose at least 100 lbs. Has not contemplated bariatric surgery. The patient is otherwise healthy. No heart, lung, breathing, liver, kidney, hepatitis, thyroid, seizure issues. She is a diabetic, using insulin. Her last a1c was between 8-9. The patient has had surgeries in the past, with no anesthesia complications. Suffers from depression following her son's 6 years ago. Past Medical History: Diagnosis Date ??? Allergy ??? Chronic neck pain 06/29/2015 ??? Diabetes ??? Hypertension ??? Obesity ??? Urinary disorder Past Surgical History: Procedure Laterality Date ??? BREAST BIOPSY left ??? CHOLECYSTECTOMY ??? HYSTERECTOMY ??? PRO UNLISTED PROCEDURE, MUSCULOSKELETAL SYSTEM, GENERAL ??? TOTAL KNEE ARTHROPLASTY left ??? TUBAL LIGATION Social History Socioeconomic History ??? Marital status: Spouse name: Not on file ??? Number of children: Not on file ??? Years of education: Not on file ??? Highest education level: Not on file Occupational History ??? Not on file Tobacco Use ??? Smoking status: Never Smoker ??? Smokeless tobacco: Never Used Substance and Sexual Activity ??? Alcohol use: No ??? Drug use: No ??? Sexual activity: Not on file Other Topics Concern ??? Exercise: Patient reported Yes ??? Abuse or Threat: Physical, Sexual, Verbal Yes Social History Narrative ??? Not on file Social Determinants of Health Financial Resource Strain: ??? Difficulty of Paying Living Expenses: Food Insecurity: ??? Worried About Running Out of Food in the Last Year: ??? Ran Out of Food in the Last Year: Transportation Needs: ??? Lack of Transportation (Medical): ??? Lack of Transportation (Non-Medical): Physical Activity: ??? Days of Exercise per Week: ??? Minutes of Exercise per Session: Stress: ??? Feeling of Stress : Social Connections: ??? Frequency of Communication with Friends and Family: ??? Frequency of Social Gatherings with Friends and Family: ??? Attends Taoist Services: ??? Active Member of Clubs or Organizations: ??? Attends Club or Organization Meetings: ??? Marital Status: Intimate Partner Violence: ??? Fear of Current or Ex-Partner: ??? Emotionally Abused: ??? Physically Abused: ??? Sexually Abused: ROS: HEENT, GI, /Renal, Psych, Card, Pulm, Endo, Heme, Immun, Neuro: negative Examination: Ht 162.6 cm (5' 4) Wt 110.2 kg (243 lb) BMI 41.71 kg/m?? female in no acute distress, comfortable. Abdomen: Grade 1 -2 pannus Active intertrigo in sub pannus fold Prominent mons pubis Inverted t scar pattern No obvious umbilical hernia Impression: eNda Fermin is a suitable candidate for panniculectomy which would likely correcther physical symptomatology. She would require both a mons plasty and panniculectomy to correct thehanging pannus and mons due to her prior c-sections. We talked about possible weight loss and Neda would like to plan to lose 100 lbs. She would like to entertain the idea of this and I will place a referral for her. We will plan to see Neda back in 6 months to monitor progress. We talked about the scars and risks from panniculectomy. She is aware that infection, delayed woundhealing, seroma and numbness are possibilities. She has been provided with the [facility] patient information brochure, as well as their standard informed consent documents on both abdominoplasty, and panniculectomy. . Insurance Guidelines [ x] Pannus grade 2 or higher [X] Rashes; prescribed and documented treatment for any rashes that don???t respond to 3 - 6 monthsof treatment. [ ] If the weight has been lost due to gastric bypass, it must be 18 months s/p bariatric surgery [ ] Patient must be at goal weight and stable 6 months Based on this, will not request insurance pre-determination. I will communicate my recommendations to DU Dumont. Plan: Follow up with me in 6 months Referral to Bariatric surgery Potential Surgical Grid: Surgeon: Rosie Duration: 2 hours Timeframe: Elective Coordinated with: None Procedure: Panniculectomy CPT: 86725 Surgical site: Abdomen Side: N/a Anesthesia: General Follow up: 7-10 days with NSO H&P: With PCP/Day of surgery I, Radha Olivares, have performed the documentation for this encounter in the presence of and acting as a scribe for JESS LU MD. I performed the services which were documented by the scribe, and I agree with the accuracy of the documentation in this encounter. JESS LU MD documented in this encounter Plan of Treatment Scheduled Referrals Name Type Priority Associated Diagnoses Orde r Schedule Referral to Bariatric Surgery Program Outpatient Referral Routine Class 3 Severe Obesity With Body Mass Index (Bmi) Of 40.0 To 44.9 In Adult, Unspecified Obesity Type, Unspecified Whether Serious Comorbidity Present Ordered: 07/05/2020 documented as of this encounter Visit Diagnoses Diagnosis Abdominal pannus Localized adiposity Class 3 severe obesity with body mass index (BMI) of 40.0 to 44.9 in adult, unspecified obesity type, unspecified whether serious comorbidity present documented in this encounter Care Teams Detective And Intelligence Analyst Relationship Specialty Start Date End Date Cady Saavedra PA [address] [address] PCP - General Family Medicine 06/19/20 documented as of this encounter
--- OUTSIDE RECORDS SUMMARY | 2023-12-19 19:07 | XMS_ITS | Encounter Summary ---
Author Organization [facility] Address [address] [place] [address] Care Team Providers Care Electrical Engineering Director Name Role Phone Unavailable Primary Care Provider Unavailabl e Encounter Details Date Type Department Care Team (Latest Contact Info) Description 06/13/2000 13:04 EST Hospital Encounter [address] [address] Ernesto Valentino MD Discharge Disposition: Auto Discharge [...]
--- OUTSIDE RECORDS SUMMARY | 2023-12-19 19:07 | XMS_ITS | Encounter Summary ---
Author Organization Formerly [facility] [place] [address] Care Team Providers Care Systems Coordinator Name Role Phone Darrick Flores Primary Care Provider [phone] Encounter Details Date Type Department Care Team ([facility] st Contact Info) Description 03/21/2016 Telephone Orthopaedics at [facility] [place] [address] Edie Zapien, RN Social History Tobacco Use [...] encounter Miscellaneous Notes * Telephone Encounter - Edie Zapien RN - 03/21/2016 12:57 PM EST Patient left message requesting results of test from left knee aspiration.03/18/16 Patient would need to wait until 14 days after drawn for complete results. She asks about a left knee brace and if medicaid would . Voice mail not set up documented in this encounter Plan of Treatment Not on file documented as of this encounter Visit Diagnoses Not on filedocumented in this encounter Care Teams Systems Coordinator Relationship Specialty Start Date End Date Darrick Flores PA [address] [place] [address] PCP - General Family Medicine 06/29/15 06/18/20 documented as of this encounter
--- OUTSIDE RECORDS SUMMARY | 2023-12-19 19:07 | XMS_ITS | Encounter Summary ---
Author Organization [facility] Address [address] [place] [address] Care Team Providers Care Quality Internship Name Role Phone Danielle Kincaid APRN Primary Care Provider Unavailable Encounter Details Date Type Department Care Team (Latest Contact Info) Description 11/25/2013 14:50 EDT - 11/25/2013 23:59 EDT Hospital Encounter [address] [address] Unknown, Provider, Discharge Disposition: Home or Self Care Social History Tobacco Use Types Packs/Day Years Used Date Smoking Tobacco: Never Assessed Sex and Gender Information Value Date Recorded Sex Assigned at Not on file Gender Identity Not on file Sexual Orientation Not on file documented as of this encounter Discharge Disposition Disposition Code Departure Means Destination Home or Self [facility] documented in this encounter Plan of Treatment Pending Results Name Type Priority Associated Diagnoses Date /Time OUTSIDE IMAGES - MR NEURO Imaging 12/30/2014 8:18 EDT OUTSIDE IMAGES - OTHER NEURO Imaging 12/30/2014 8:18 EDT Scheduled Orders Name Type Priority Associated Diagnoses Orde r Schedule OUTSIDE IMAGES - MR NEURO Imaging One Time for 1 Occurrences starting 12/30/2014 until 12/30/2014 OUTSIDE IMAGES - OTHER NEURO Imaging One Time for 1 Occurrences starting 12/30/2014 until 12/30/2014 documented as of this encounter Visit Diagnoses Not on filedocumented in this encounter Care Teams Quality Internship Relationship Specialty Start Date End Date Danielle Kincaid APRN PCP - General 08/30/10 01/27/15 documented as of this encounter
--- OUTSIDE RECORDS SUMMARY | 2023-12-19 19:07 | XMS_ITS | Encounter Summary ---
Author Organization [facility] [place] [address] Care Team Providers Care Accessibility Lift Technician Name Role Phone Darrick Flores Primary Care Provider [phone] Reason for Visit * Reason Onset Date Comments Appointment 01/02/2016 Encounter Details Date Type Department Care Team (Late st Contact Info) Description 01/02/2016 [place] [address] Bran Sagastume MD [facility] [place] [address] Appointment Social History Tobacco Use Types Packs/Day Years [...] encounter Miscellaneous Notes * Telephone Encounter - Ginger El - 01/02/2016 8:47 AM EDT Attempted to call patient to schedule a bone scan, and was told by the gentleman who answered the phone that I had the wrong number. documented in this encounter Plan of Treatment Not on file documented as of this encounter Visit Diagnoses Not on filedocumented in this encounter Care Teams Accessibility Lift Technician Relationship Specialty Start Date End Date Darrick Flores PA [address] [place], [place] [id number] PCP - General Family Medicine 06/29/15 06/18/20 documented as of this encounter
--- OUTSIDE RECORDS SUMMARY | 2023-12-19 19:07 | XMS_ITS | Encounter Summary ---
Author Organization Formerly [facility] [place] [address] Care Team Providers Care Plant Science Professor Name Role Phone Cady Saavedra Primary Care Provider [phone] Reason for Visit * Auth/Cert (Routine) Specialty Diagnoses / Procedures Referred By Contac t Referred To Contact Diagnoses NSTEMI (non-ST elevated myocardial infarction) NSTEMI Procedures EMERGENCY I[facility] [place] Hair V, [facility] [place] [address] [facility] Referral ID Status Reason Start Date Expiration Date Visits Re quested Visits Authorized [id number] 1 1 Encounter Details Date Type Department Care Team (Latest Contact Info) Description 04/20/2023 7:35 AM EST - 04/20/2023 11:59 PM EST Hospital Encounter [place] [address] Discharge Disposition: Home Social History Tobacco Use Types Packs/Day Years Used Date Smoking Tobacco: Never Smokeless Tobacco: Never Alcohol Use Standard Drinks/Week Comments No 0 (1 standard drink = 0.6 oz pur e alcohol) [facility] Utilities Answer Date Recorded In the past 12 months has e electric, gas, oil, or water company [...] place to sleep or slept in a fpc (including now)? No 04/21/2023 DH IPV Inpatient [...] gauge x 5/16 NeedleIndications:BD ultra-fine pen NDL [id number] by [facility].(Non-Drug; Combo Route) route. Indications: BD ultra-fine pen NDL [id number] insulin glargine (LANTUS) Insulin Pen Inject 40 Units subcutaneously nightly. oxybutynin (DITROPAN) 5 mg Tablet Take 10 mg by mouth daily. buPROPion (WELLBUTRIN SR) 150 mg 12 hr tablet Take 150 mg by mouth daily. esomeprazole (NEXIUM) 40 mg capsule Take 40 mg by mouth 2 times daily. 04/25/2023 FLUoxetine (PROZAC) 20 mg capsule Take 20 mg by mouth daily. 04/25/2023 documented as of this encounter Plan of Treatment Not on file documented as of this encounter Procedures Procedure Name Priority Date/Time Associated Diagnosis Comments ECHO COMPLETE W CONTRAST Routine 04/20/2023 2:26 PM EST NSTEMI (non-ST elevated myocardial infarction) documented in this encounter Visit Diagnoses Not on filedocumented in this encounter Administered Medications Inactive Administered Medications - up to 3 most recent administrations Medication Order MAR Action Action Date Dose Rate Site perflutren protein-A microsphers (Optison) (0.22 mg/mL) injection 1.2 mL 1.2 mL, Intravenous, ONCE PRN, 1 dose, Starting on 04/20/23 at 1427, Until 04/20/23 at 1247, for enhancement of sub-optimal echo images, Echo Lab (Intra-Procedure), Routine Given 04/20/2023 12:47 PM EST 1.2 mLs documented in this encounter Care Teams Plant Science Professor Relationship Specialty Start Date End Date Cady Saavedra PA [address] [place] [id number] PCP - General Family Medicine 06/19/20 documented as of this encounter
--- OUTSIDE RECORDS SUMMARY | 2023-12-19 19:07 | XMS_ITS | Encounter Summary ---
Author Organization [facility] [place] [address] Care Team Providers Care Debeaker Name Role Phone Darrick Flores Primary Care Provider [phone] Encounter Details Date Type Department Care Team (Late st Contact Info) Description 02/28/2016 [place] [address] Bran Sagastume MD [facility] [place] [address] Social History Tobacco Use Types Packs/Day Years [...] encounter Miscellaneous Notes * Telephone Encounter - Bran Sagastume MD - 02/28/2016 2:27 PM EST Left message to review bone scan. Offered an appointment to review images and consider local injection/aspiration of knee. documented in this encounter Plan of Treatment Not on file documented as of this encounter Visit Diagnoses Not on filedocumented in this encounter Care Teams Debeaker Relationship Specialty Start Date End Date Darrick Flores PA [address] [place] [address] PCP - General Family Medicine 06/29/15 06/18/20 documented as of this encounter
--- OUTSIDE RECORDS SUMMARY | 2023-12-19 19:07 | XMS_ITS | Encounter Summary ---
Author Organization [facility] Address [address] [place] [address] Care Team Providers Care Regional Program Manager Name Role Phone Arelis Stiles Primary Care Provider [phone] Encounter Details Date Type Department Care Team (Late st Contact Info) Description 11/25/2017 14:47 EDT - 11/25/2017 23:59 EDT Hospital Encounter [facility] [address] [place] [address] Jean Mar MD [address] [place] [address] Discharge Disposition: Auto Discharge Social History Tobacco [...] Yes 06/08/2015 documented as of this encounter Discharge Diagnoses Diagnosis Z96.652 Presence of left artificial knee joint-Z96.652[ICD-10-CM] M25.562 Pain in left knee-M25.562[ICD-10-CM] documented in this encounter Medications at Time of Discharge Medication Sig Dispensed Refills Start Date End Date BUPROPION HCL (WELLBUTRIN ORAL) Take 150 mg by mouth 2 times daily esomeprazole (NEXIUM) 20 mg capsule Take 40 mg by mouth 2 times daily ESZOPICLONE (LUNESTA ORAL) Take 1 mg by mouth at bedtime FLUoxetine (PROZAC) 40 mg capsule Take 40 mg by mouth daily gabapentin (NEURONTIN) 600 mg tablet Take 600 mg by mouth 3 times daily glipiZIDE (GLUCOTROL) 10 mg tablet Take 1 Tab by mouth daily. 5 Tab 0 01/24/2014 GLIPIZIDE ORAL Take by mouth. insulin glargine (LANTUS SOLOSTAR) 100 unit/mL (3 mL) injection penIndications:diabetes mellitus 10 Units at bedtime Indications: DIABETES MELLITUS. metFORMIN (GLUCOPHAGE) 500 mg tablet Take 1 Tab by mouth 2 times daily. 6 Tab 0 01/24/2014 METFORMIN HCL (METFORMIN ORAL) Take by mouth. oxybutynin (DITROPAN) 5 mg tablet Take 5 mg by mouth 2 times daily topiramate (TOPAMAX) 25 mg tablet Take 50 mg by mouth 2 times daily traZODone (DESYREL) 50 mg tablet Take 50 mg by mouth daily documented as of this encounter Discharge Disposition Disposition Code Departure Means Destination Auto Discharge Home documented in this encounter Plan of Treatment Not on file documented as of this encounter Visit Diagnoses Not on filedocumented in this encounter Care Teams Regional Program Manager Relationship Specialty Start Date End Date Arelis Stiles PA [address] [place] [address] PCP - General 11/25/17 documented as of this encounter
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
--- OUTSIDE RECORDS SUMMARY | 2023-12-19 19:07 | XMS_ITS | Clinical Summary ---
Author Organization [facility] Address [address] [place] [address] Care Team Providers Care Tie Carrier Name Role Phone Arelis Stiles Primary Care Provider [phone] Allergies Active Allergy Reactions Criticality Noted Date Comments Latex, Natural Rubber 01/24/2014 Penicillins 01/24/2014 Medications Medication Sig Dispensed Refills Start Date End Date Status METFORMIN HCL (METFORMIN ORAL) Take by mouth. Acti ve insulin glargine (LANTUS SOLOSTAR) 100 unit/mL (3 mL) injection penIndications:diabet es mellitus 10 Units at bedtime Indications: DIABETES MELLITUS. Active ESZOPICLONE (LUNESTA ORAL) Take 1 mg by mouth at bedtime Active BUPROPION HCL (WELLBUTRIN ORAL) Take 150 mg by mouth 2 times daily Active esomeprazole (NEXIUM) 20 mg capsule Take 40 mg by mouth 2 times daily Active GLIPIZIDE ORAL Take by mouth. Active metFORMIN (GLUCOPHAGE) 500 mg tablet Take 1 Tab by mouth 2 times daily. 6 Tab 0 01/24/2014 Active glipiZIDE (GLUCOTROL) 10 mg tablet Take 1 Tab by mouth daily. 5 Tab 0 01/24/2014 Active gabapentin (NEURONTIN) 600 mg tablet Take 600 mg by mouth 3 times daily Active FLUoxetine (PROZAC) 40 mg capsule Take 40 mg by mouth daily Active topiramate (TOPAMAX) 25 mg tablet Take 50 mg by mouth 2 times daily Active oxybutynin (DITROPAN) 5 mg tablet Take 5 mg by mouth 2 times daily Active traZODone (DESYREL) 50 mg tablet Take 50 mg by mouth daily Active Active Problems Problem Noted Date Diagnosed Date Neck pain 05/15/2015 Surgical History Surgery Date Site/Laterality Comments HYSTERECTOMY MOUTH SURGERY CHOLECYSTECTOMY Medical History Medical History Date Comments Diabetes mellitus ([facility]) Bronchiolitis Sleep apnea uses cpap GERD (gastroesophageal reflux disease) Family History Relation Status Comments Father Mother Social History Tobacco Use Types Packs/Day Years Used Date Smoking Tobacco: Never Alcohol Use Standard Drinks/Week Comments No 0 (1 standard drink = 0.6 oz pur e alcohol) Interpersonal Safety Answer Date Record ed Physically Hurt Never 11/07/2019 Verbally Threaten Not on file 11/07/2019 Sex and Gender Information Value Date Recorded Sex Assigned at Not on file Gender Identity Not on file Sexual Orientation Not on file Obstetrics History Last Filed Vital Signs Vital Sign Reading Time Taken Comments Blood Pressure 170/75 06/08/2015 09 EST Pulse 61 06/08/2015 09 EST Temperature 36.8 ??C (98.2 ??F) 06/08/2015 0927 EST Respiratory Rate 16 06/08/2015 0927 EST Oxygen Saturation 98% 01/24/2014 0901 EDT Inhaled Oxygen Concentration - - Weight 107.5 kg (237 lb) 06/08/2015 0927 EST per pt Height 162.6 cm (5' 4) 06/08/2015 0927 EST per pt Body Mass Index 40.68 06/08/2015 0927 EST Plan of Treatment Health Maintenance Due Date Last Done Comments Hepatitis C Screen 1955 RSV Immunization ( o r 60+ Years) (1 - 1-dose 60+ series) 2016 Fall Risk Screening 2021 COVID-19 Vaccine ( season) 2023 Care Teams Tie Carrier Relationship Specialty Start Date End Date Arelis Stiles PA [address] [place] [address] PCP - General 11/25/17
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
--- OUTSIDE RECORDS SUMMARY | 2023-12-19 19:07 | XMS_ITS | Encounter Summary ---
Author Organization [facility] Address [facility] [place] [address] Care Team Providers Care Skin Care Technician Name Role Phone Darrick Flores Primary Care Provider [phone] Reason for Referral * Diagnostic Test (Routine) - Closed Specialty Diagnoses / Procedures Referred By Klever t Referred To Contact Radiology Diagnoses Status post left knee replacement Procedures NM 3 phase bone scan Isauro Stein PA [facility] [address] [place] [address] [place] [address] Referral ID Status Reason Start Date Expiration Date V isits Requested Visits Authorized [id number] Closed Specialty Service Requested 02/05/2016 12/31/2016 2 2 Reason for Visit * Reason Comments [facility] * Consultation (Routine) - Specialty Diagnoses / Procedures Referred By Contac t Referred To Contact Orthopaedics Diagnoses PAINFUL L TKA / ? L TKA REV / 2nd opinion (DR CAZARES - 2009) Procedures Wendi Ayon MD [address] [place] [address] [address] [place] [address] [facility] [address] [place] [id number] Referral ID Status Reason Start Date Expiration Date V isits Requested Visits Authorized [id number] Consult, Test & Treat 11/07/2015 11/06/2016 1 1 Encounter Details Date Type Department Care Team (Late st Contact Info) Description 01/01/2016 1:40 PM EDT Office Visit [place] [address] Bran Sagastume MD [facility] DR [place] [address] Status post left knee replacement; Status post total left knee replacement; Chronic pain of left knee Social History Tobacco Use Types Packs/Day Years [...] Sign Reading Time Taken Comments Blood Pressure 155/59 01/01/2016 1:11 PM EDT Pulse 59 01/01/2016 1:11 PM EDT Temperature - - Respiratory Rate - - Oxygen Saturation - - Inhaled Oxygen Concentration - - Weight 107.5 kg (237 lb) 01/01/2016 1:11 PM EDT Height 162.6 cm (5' 4) 01/01/2016 1:11 PM EDT Body Mass Index 40.68 01/01/2016 1:11 PM EDT documented in this encounter Progress Notes * Bran Sagastume MD - 01/01/2016 1:40 PM EDT Images from the original note were not included. Department of Orthopaedics Division of Adult Joint Reconstructive Surgery January 01, 2016 I had the pleasure of evaluating Neda Fermin in clinic in conjunction with one of my associate providers. In brief, this is a 60-year-old female who underwent a left total knee replacement by Dr. Cazares in 2009 in [facility]. She states that the knee has never been right. She has had persistent pain. She reports the neeta were left in for a long period of time and they had difficulty getting them out. She does not report any cinthya infection though of the knee. She does state her primary care doctor recently ordered lab work and told her her knee was infected, but the specifics of this she cannot recall. I do not know that she has ever had her knee aspirated. She presents with a knee that is painful. She lacks 5 degrees of full extension, the knee flexes to about 90 degrees. She has diffuse tenderness all over the knee. Her incision is well healed. There is no cinthya erythema and no large effusion. Her radiographs were reviewed, which show a cruciate retaining, rotating platform, total knee replacement. The tibia is in a few degrees of varus, but overall there is no cinthya evidence of osteolysis, loosening or subsidence. I had a long discussion with Ms. Fermin about the knee. I think at this point it is imperative we draw inflammatory markers and will send them to the lab today to get tests. If the inflammatory markers are elevated, will aspirate her knee, and this was reviewed with her. We would also like to send her for a bone scan to look for any evidence of periprosthetic loosening. I outlined that if we can find the definable cause for her pain, certainly the outcomes after surgery are much more reliable. She inquired about downsizing the polyethylene component to try to increase her motion. I outlined that I believe she has a size 10 mm poly, which is the smallest size, and thus it would require tibial revision to try to increase motion of the knee. 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 At this point we will send her to the lab and will plan accordingly once we get those results. All questions were answered. Bran Sagastume MD, MS Chief, Division of Adult Reconstructive Press Clippings Cutter And PasterPattern Clerk of Orthopaedics Department of Orthopaedics [facility] [phone] [email or web address] * Isauro Stein PA - 01/01/2016 1:40 PM EDT Arthroplasty History 1. Left TKA 2009 [facility] Subjective: Neda Bernabe is now 6 years post left total knee arthroplasty. Pain is not well controlled.The patient denies fever, wound drainage, increasing redness, pus, increasing pain, increasing swelling. Problems reported: Continued pain and stiffness and feeling that the knee locks and gives out She is ambulating with an antalgic gait and does use a cane on occasion. ROS: Denies fevers, chills, night sweats, nausea, or vomiting. Objective: BP 155/59 Pulse 59 Ht 162.6 cm (5' 4) Wt (!) 107.5 kg (237 lb) BMI 40.68 kg/m2 General : alert, appears stated age and cooperative Gait: Antalgic. Tenderness: mild Effusion: mild DVT Evaluation: No evidence of DVT seen on physical exam. I have made the following determinations: Post Op left Knee Exam: Gait Abnormality: Antalgic Knee ROM: Extension:5 Flexion: 90 Alignment: 0-4 degrees Varus Stability: A/P Translation <5mm Varus (lateral stability) <5mm Valgus (medial stability) <5mm Extension La degrees or less Patella Tracking: Normal Pulses Palpable: Left PT:Yes Left DP:Yes Motor/Sensory: Distal Motor: Normal Distal Sensory: Normal Quadriceps Strength:4 Imaging X-rays demonstrate a stable arthroplasty Assessment: Status post left total knee arthroplasty. Postoperative course complicated by pain and stiffness Plan: continue with activities as tolerated Labs for inflammation if elevated will aspirate Bone scan to further evaluate the implant Patient was seen and evaluated with Dr Sagastume We will contact her with results of the tests [facility] documented in this encounter Plan of Treatment Not on file documented as of this encounter Procedures Procedure Name Priority Date/Time Associated Diagnosis Comments HEMOGRAM STAT 01/01/2016 2:31 PM EDT Status post left knee replacement DIFFERENTIAL, AUTOMATED STAT 01/01/2016 2:31 PM EDT Status post left knee replacement SEDIMENTATION RATE STAT 01/01/2016 2: 31 PM EDT Status post left knee replacement CBC (WITH DIFF) STAT 01/01/2016 2:31 PM EDT Status post left knee replacement CRP, CARDIAC RISK (HS CRP) STAT 01/01/2016 2:31 PM EDT Status post left knee replacement documented in [...] at 02/12/2016 3:39 PM Bran Sagastume MD [facility] [place] ORDERABLES * Differential, Automated (01/01/2016 2:31 PM EDT) Neutrophil % 49.2 % [facility] Neutrophil Absolute 3.13 1.70 - 6.10 x10(3)/[facility] Lymph % 42.0 % [facility] Lymphocytes Abs 2.7 0.9 - 3.2 x10(3)/[facility] Monocyte % 4.9 % [facility] Monocyte Abs 0.3 0.3 - 0.9 x10(3)/[facility] Eos % 3.0 % [facility] Eosinophils Abs 0.2 0.0 - 0.4 x10(3)/[facility] Basophil % 0.6 % [facility] Baso Absolute 0.0 0.0 - 0.1 x10(3)/[facility] Immature Gran % 0.30 % [facility] Comment: Immature granulocytes(IG's)percentage and absolute count will include metamyelocytes, myelocytes, and promyelocytes. Blood smears from CBCs yielding IG's will be scanned manually for concordance. If this scan disagrees with the automated IG or if promyelocytes are noted, a manual differential will be performed. Immature Gran Absolute 0.02 0.00 - 0.04 x10(3)/[facility] Blood specimen (specimen) 01/01/2016 2:31 PM EDT 01/01/2016 2:45 PM EDT Narrative Resulting Agency Comment Spec In Lab Bran Sagastume MD HEMATOLOGY ORDERABL ES [facility] [place] [address] * Hemogram (01/01/2016 2:31 PM EDT) White Blood Cell 6.4 4.0 - 9.5 x10(3)/[facility] Red Blood Cell 4.87 4.00 - 5.21 x10(6)/[facility] Hemoglobin 14.7 11.7 - 15.5 gm/dL [facility] Hematocrit 43.8 35.7 - 45.8 % [facility] Mean Cell Volume 89.9 82.6 - 94.4 fL [facility] Mean Cell Hemoglobin 30.2 27.1 - 32.0 pg [facility] Mean Cell Hemoglobin Concentration 33.6 31.7 - 35.0 gm/dL [facility] Platelet 198 145 - 357 x10(3)/[facility] RDW Standard Deviation 41.7 37.0 - [address].0 [facility] RDW coefficient of variation 12.7 11.5 - 14.1 % [facility] Mean Platelet Volume 11.6 7.6 - 12.9 [facility] NRBC% auto 0.0 % [facility] NRBC Absolute 0.000 0.000 - 0.000 x10(3)/[facility] Blood specimen (specimen) 01/01/2016 2:31 PM EDT 01/01/2016 2:45 PM EDT Narrative Resulting Agency Comment Spec In Lab Bran Sagastume MD HEMATOLOGY ORDERABL ES Performing Organization Address [facility] Co de Phone Number [facility] [place] [address] * Sedimentation rate (01/01/2016 2:31 PM EDT) Sedimentation Rate Automated 9 0 - 20 mm/hr [facility] Blood specimen (specimen) 01/01/2016 2:31 PM EDT 01/01/2016 2:45 PM EDT Narrative Resulting Agency Comment Spec In Lab Bran Sagastume MD HEMATOLOGY ORDERABL ES Performing Organization Address [facility] de Phone Number [facility] [place] [address] * High Sensitivity CRP (01/01/2016 2:31 PM EDT) C-Reactive Protein High Sensitivity 13.2 mg/L [facility] Comment: Interpretations: 1) For accurate cardiac risk assessment, the average of 2 values >2 weeks apart should be obtained (ref 1&2). A value >10 mg/L indicates an inflammatory condition, concentrations >10 mg/L should not be used for cardiac risk assessment. ?<1.0 mg/L: low risk ?1.0 - 3.0 mg/L: moderate risk ?>3.0 mg/L: high risk groups for future cardiovascular events 2) The general reference range of apparently healthy individuals using this test is <5.0 mg/L (derived from the test package insert) References: 1. Wander CHAVARRIA et. al. ??AHA/CDC Scientific Statement: Markers of Inflammation and Cardiovascular Disease. ??Circulation 2003; 107:499-511 2. Ridker PM. ??Clinical applications of C-reactive protein for cardiovascular disease detection and prevention. ??Circulation 2003; 107:363-369 Blood specimen (specimen) 01/01/2016 2:31 PM EDT 01/01/2016 2:45 PM EDT Narrative Resulting Agency Comment Spec In Lab Bran Sagastume MD CHEMISTRY ORDERABLE S Performing Organization Address City/State/[facility] Co de Phone Number [facility] [place] [address] documented in this encounter Visit Diagnoses Diagnosis Status post left knee replacement Status post total left knee replacement Chronic pain of left knee Pain in joint, lower leg Status post left knee replacement documented in this encounter Care Teams Skin Care Technician Relationship Specialty Start Date End Date Darrick Flores PA [address] [place] [address] PCP - General Family Medicine 06/29/15 06/18/20 documented as of this encounter
--- OUTSIDE RECORDS SUMMARY | 2023-12-19 19:07 | XMS_ITS | Encounter Summary ---
Author Organization [facility] [place] [address] Care Team Providers Care Time Signal Wirer Name Role Phone Darrick Flores Primary Care Provider [phone] Reason for Visit * Reason Onset Date Comments Results 01/08/2016 Encounter Details Date Type Department Care Team (Late st Contact Info) Description 01/08/2016 Telephone [place] [id number] Bran Sagastume MD [facility] [place] [address] Results Social History Tobacco Use Types Packs/Day [...] encounter Miscellaneous Notes * Telephone Encounter - Corina Camilo - 01/30/2016 1:30 PM EDT Briana Moralez is calling on behalf of Neda and the next step to find out if she will need revisionsurgery. Her Physician [employer] Furnace Tender Darrick Flores suggested a nuclear bone scan and they are calling to see ifwe could set this up. An order has been placed for this and the next step is to just call her and set this up. A phone call was placed to the patient at [phone] (the number they have on file,which is different from our records)to schedule. Appointment scheduled for February 11. A call was placed back to Briana Kirt with appointment information. A copy of recent lab results wasrequested to be faxed to [facility] at [phone]. * Telephone Encounter - Ginger El - 01/08/2016 12:16 PM EDT What study is patient calling about? bloodwork Per [facility] the study was done: 01/01/16 Per [facility] the results are final: yes Best number to reach the patient # [phone] I will forward your message to the team and someone will follow up with you within 48 hours. documented in this encounter Plan of Treatment Not on file documented as of this encounter Visit Diagnoses Not on filedocumented in this encounter Care Teams Time Signal Wirer Relationship Specialty Start Date End Date Darrick Flores PA [address] [place] [id number] PCP - General Family Medicine 06/29/15 06/18/20 documented as of this encounter
--- OUTSIDE RECORDS SUMMARY | 2023-12-19 19:07 | XMS_ITS | Referral Summary ---
Author Organization [facility] Address [address] [place] [address] Care Team Providers Care Senior Security Architect Name Role Phone Arelis Stiles Primary Care Provider [phone] Allergies Active Allergy Reactions Criticality Noted Date [...] Noted Date Diagnosed Date Neck pain 05/15/2015 Social History Tobacco Use Types Packs/Day Years [...] Reading Time Taken Comments Blood Pressure 170/75 06/08/2015926 EST Pulse 61 06/08/2015926 EST Temperature 36.8 ??C (98.2 ??F) 06/08/2015 09 EST Respiratory Rate 16 06/08/2015926 EST Oxygen Saturation 98% 01/24/2014 09 EDT Inhaled Oxygen Concentration - - Weight 107.5 kg (237 lb) 06/08/2015926 EST per pt Height 162.6 cm (5' 4) 06/08/2015926 EST per pt Body Mass Index 40.68 06/08/2015926 EST Functional Status Functional Status Response Date of [...] concentrating, remembering, or making decisions? Yes 06/08/2015 Plan of Treatment Not on file Care Teams Senior Security Architect Relationship Specialty Start Date End Date Arelis Stiles PA [address] [place] [address] PCP - General 11/25/17
--- OUTSIDE RECORDS SUMMARY | 2023-12-19 19:07 | XMS_ITS | Encounter Summary ---
Author Organization [facility] Address [facility] [place] [address] Care Team Providers Care Guest Service Team Leader Name Role Phone Darrick Flores Primary Care Provider [phone] Reason for Referral * Surgical (Routine) - Specialty Diagnoses / Procedures Referred By Contac t Referred To Contact Diagnoses Chronic pain of left knee Procedures Joint aspiration, knee Roverto Massey PA [facility] [place] [address] Referral ID Status Reason Start Date Expiration Date V isits Requested Visits Authorized [id number] Consult, Test & Treat 03/18/2016 03/18/2017 1 1 Reason for Visit * Reason Comments Aftercare Of Tjr Left TKA, swollen an d needs to be aspirated Encounter Details Date Type Department Care Team (Late st Contact Info) Description 03/18/2016 3:50 PM EST Office [place] [address] Bran Sgaastume MD [facility] [place] [address] Chronic pain of left knee Social History [...] Sign Reading Time Taken Comments Blood Pressure 139/71 03/18/2016 4:05 PM EST Pulse 62 03/18/2016 4:05 PM EST Temperature - - Respiratory Rate - - Oxygen Saturation - - Inhaled Oxygen Concentration - - Weight 101.2 kg (223 lb) 03/18/2016 4:05 PM EST in shoes Height 162.6 cm (5' 4) 03/18/2016 4:05 PM EST v erbal Body Mass Index 38.28 03/18/2016 4:05 PM EST documented in this encounter Progress Notes * Bran Sagastume MD - 03/18/2016 3:50 PM EST Images from the original note were not included. Department of Orthopaedics Division of Adult Joint Reconstructive Surgery March 18, 2016 I had the pleasure of evaluating Neda Fermin in clinic in conjunction with one of my associate providers. In brief, this is a 60-year-old female who underwent a left total knee replacement by Dr. Arita in [facility] in roughly 2009. She has never been happy with the knee. She has had chronic pain in the knee. Her range of motion is limited roughly 5 to 90 degrees. The last time we saw her we sent her for inflammatory markers which demonstrate a white count of 6.4, an ESR of 9, and an elevated CRP of 13. She presents today with continued pain in the knee. She describes global pain but really mostly pain over the proximal tibia. She had significant tenderness to palpation of the proximal tibia. Her bone scan shows some increased signal around the proximal tibial implant and suggests potential loosening. She also has significant tilt on her patella button and shows some lateral grinding. This is reproducible on exam as well. The patient states the pain is so debilitating that she would like her leg cut off. I outlined that at this point I think we need to investigate the knee pain further. We discussed aspirating the knee joint and sending it for both cell count, culture, and alpha defensin. We also will infiltrate her knee with local anesthetic to assess for an intra-articular cause of her pain. At this point, if she gets good improvement from the intra-articular injection, we could consider revision on the premise that her tibial component may be loose. All of this was reviewed with the patient. Addendum: Knee with minimal fluid. <1cc of bloody fluid aspirated from anterior lateral portal site. Sent for culture. Bran Sagastume MD, MS Chief, Division of Adult Reconstructive Medical Pathology TeacherWireline Field Operator of Orthopaedics Department of Orthopaedics [facility] [phone] [email or web address] * Roverto Massey PA - 03/18/2016 3:50 PM EST Arthroplasty/Orthopaedic History: 1. L TKA - 2009 - Dr Arita HPI: Neda Fermin is a very pleasant 60 y.o. year-old female and is now 6 years post left total knee replacement The patient has not done well. She states that pain in the knee started soon after she got home from the hospital. Pain is not well controlled. Medication(s) being used: Tramadol 50mg..She manages her pain with resting icing and heat with some relieve. No fevers, chills, nausea, v omiting, or symptoms of infection. Neda has been ambulating with a cane . She is not taking narcotic pain medicine. Anticoagulation status ASA 81mg BID for 30 days ROS: Denies: fever, chills, night sweats, nausea, or vomiting BP 139/71 (BP Location (NBP): Right arm, Patient Position: Sitting, BP Cuff Sizes: Adult (25-34 cm)) Pulse 62 Ht 162.6 cm (5' 4) Comment: verbal Wt (!) 101.2 kg (223 lb) Comment: in shoes BMI 38.28 kg/m2 Physical Exam: Well-appearing female in no acute distress. Alert and Oriented x 3 and answers all questions appropriately. The incision is well healed, with no signs of infection. Knee Exam: Left Knee ROM: Extension:5 Flexion: 90 Alignment: 0-4 degrees Varus Stability: A/P Translation <5mm Varus <5mm Valgus <5mm Extension La degrees or less Patella Tracking: Normal Pulses Palpable: Left PT:Yes Left DP:Yes Motor/Sensory: Distal Motor: Normal Distal Sensory: Abnormal Quadriceps Strength: 4 X-RAYS: Multiple radiographic views were obtained at my request and reviewed with the patient. X-rays show a well-placed prosthesis with no evidence of fracture, subsidence, loosening, or periprosthetic complication. Questionnaire Responses: [facility] Surgical Postop Visit 03/18/2016 PROMIS-10 General Health Fair PROMIS-10 Quality of Life Fair PROMIS-10 Physical Health Fair PROMIS-10 Mental Health Fair PROMIS-10 Social Activity Fair PROMIS-10 Everyday Activities A little PROMIS-10 Pain 5 PROMIS-10 Fatigue Severe PROMIS-10 Social Roles Fair PROMIS-10 Anxious or Depressed Often PROMIS PHYSICAL HEALTH SCORE 32.4 PROMIS MENTAL HEALTH SCORE 33.8 KOOS JR Scores 36.93 Problems with surgical incision/wound after surgery No Gone to ER since knee surgery No Admitted to hospital since recent ortho surgery No Additional surgery on same body part No TKA Grade 5 Pain in other KNEE Mild Back pain at this moment Very mild Satisfaction with Treatment Somewhat satisfied Choose Same Treatment Again Definitely no Orthopeadics [facility] Response 03/18/2016 KOOS JR Scores 36.93 Spine [facility] Response 03/18/2016 KOOS JR Scores 36.93 ASSESSMENT/PLAN: Ms. Fermin is a 60 y.o. year old female status post left total knee replacement Postoperative course complicated by pain. Her knee was aspirated and culture sent to lab to analysis During that procedure her knee was also injected with 10 ml lidocaine for diagnostic and therapeutic reasons. We will call patient with result and plan accordingly. ? L TKA Revision All questions were answered. Signed: DU Patel 03/18/2016 documented in this encounter Plan of Treatment Scheduled Orders Name Type Priority Associated Diagnoses Orde r Schedule Joint aspiration, knee Procedures Routine Chronic pain of left knee Ordered: 03/18/2016 documented as of this encounter Procedures Procedure Name Priority Date/Time Associated Diagnosis Comments PROSTHETIC JOINT CULTURE, EXTENDED HOLD, AEROBIC & ANAEROBIC STAT 03/18/2016 5:25 PM EST Chronic pain of left knee JOINT CULTURE STAT 03/18/2016 5:25 PM EST Chronic pain of left knee ANAEROBIC CULTURE STAT 03/18/2016 5:2 5 PM EST Chronic pain of left knee FUNGUS CULTURE STAT 03/18/2016 5:25 PM EST Chronic pain of left knee documented in this encounter Results * Anaerobic Culture (03/18/2016 5:25 PM EST) Anaerobic Culture No anaerobic organisms isolated [facility] Joint fluid specimen (specimen) STRUCTURE OF LEFT KNEE REGION / Unknown 03/18/2016 5:25 PM EST 03/18/2016 5:25 PM EST Comment:PLEASE DO STAT GRAM STAIN AND CULTURE. HOLD SPECIMEN FOR 14 DAYS. Narrative Resulting Agency Comment Spec In Lab Bran Sagastume MD MICROBIOLOGY - GENE RAL ORDERABLES Performing Organization Address City/[facility] [place] [address] * Joint Culture (03/18/2016 5:25 PM EST) Joint Culture No growth at 14 days. [facility] Gram Stain Cytocentrifuge Gram Stain performed White Blood Cells seen No microorganisms seen. [facility] Joint fluid specimen (specimen) STRUCTURE OF LEFT KNEE REGION / Unknown 03/18/2016 5:25 PM EST 03/18/2016 5:25 PM EST Comment:PLEASE DO STAT GRAM STAIN AND CULTURE. HOLD SPECIMEN FOR 14 DAYS. Narrative Resulting Agency Comment Spec In Lab Bran Sagastume MD MICROBIOLOGY - GENE RAL ORDERABLES Performing Organization Address City/[facility]/ZIP Co de Phone Number [facility] [place] [address] * Fungus culture Joint (03/18/2016 5:25 PM EST) Fungus Culture No Fungus isolated to date [facility] Joint specimen (specimen) 03/18/2016 5:25 PM EST 03/18/2016 5:25 PM EST Narrative Resulting Agency Comment Spec In Lab Bran Sagastume MD MICROBIOLOGY - GENE RAL ORDERABLES Performing Organization Address City/[facility]/ZIP Co de Phone Number [facility] [place] [address] documented in this encounter Visit Diagnoses Diagnosis Chronic pain of left knee Pain in joint, lower leg documented in this encounter Administered Medications Inactive Administered Medications - up to 3 most recent administrations Medication Order MAR Action Action Date Dose Rate Site lidocaine (XYLOCAINE) 10 mg/mL (1 %) injection 100 mg 100 mg (10 mL), Intra-articular, ONCE, 1 dose, On Fri03/19/16 at 0915, Routine Given 03/19/2016 8:52 AM EST 100 mg documented in this encounter Care Teams Guest Service Team Leader Relationship Specialty Start Date End Date Darrick Flores PA [address] [place] [address] PCP - General Family Medicine 06/29/15 06/18/20 documented as of this encounter
--- OUTSIDE RECORDS SUMMARY | 2023-12-19 19:07 | XMS_ITS | Encounter Summary ---
Author Organization [facility] Address [address] [place] [address] Care Team Providers Care Social Media Marketing Analyst Name Role Phone Darrick Flores Primary Care Provider [phone] Encounter Details Date Type Department Care Team (Late st Contact Info) Description 02/28/2016 Results Only [facility] [phone] Rylee Begum MD [address] [place] [address] [id number] Social History Tobacco Use Types Packs/Day Years [...] Priority Date/Time Associated Diagnosis Comments SURGICAL PATHOLOGY Routine 02/28/2016 14 :14 EST documented in this encounter Results * SURGICAL PATHOLOGY (02/28/2016 14:14 EST) Pathology Report: SURGICAL PATHOLOGY REPORT Reports generated via electronic interface contain original data; however they are lacking the format of the original report. Caution should be taken when reading/interpreti ng unformatted reports. Name: ? NEDA WOO ? Accession #: ? [id number] ? : ? 1955 (Age: 60) ??F ? Collect Date: ? 02/28/2016 ? Location: ? [facility] ? Receive Date: ? 03/01/2016 ? Provider: RYLEE BEGUM MD Copy to: ? Final Pathologic Diagnosis: SKIN OF CHEEK, RIGHT, EXCISION: - Epidermal hyperplasia and hyperkeratosis with mild dermal fibrosis and reactive blood vessels. ??See microscopic and comment. Comment: The findings are relatively non-specific, despite deeper levels. ??Centrally, the epidermis shows irregular hyperplasia with associated hypergranulosis and hyperkeratosis. ??Some of the findings are suggestive of lichen simplex chronicus/prurigo nodularis. ??The lesion is associated with milia formation. Dermal reparative changes are noted. Clinical correlation is recommended. ??(Dr. Duncan)/[facility] Microscopic Description: Sections consist of an excision of skin. ??There is orthohyperkeratosi s. ??The epidermis shows irregular hyperplasia with associated accentuation of the granular layer. ??In sections, the rete are widened with mild dermal fibrosis. Ectatic blood vessels are noted. ??Scattered cystically dilated follicles are identified. ??Deeper levels have been examined on blocks 3-5. ??(Dr. Duncan)/[facility] Document reviewed and electronically signed by: DANUTA DUNCAN MD Report ??Date: 03/05/2016 08:29 By the signature above, the attending physician certifies that he/she has personally conducted a gross and/or microscopic examination of the described specimens and rendered or confirmed the above diagnosis. Specimen(s) Received: Right cheek, suture smith medial aspect Clinical History: Excision lesion R cheek Gross Description: ? Received in formalin labelled with proper patient identification (initials M, M) and excision lesion R cheek is an oriented elliptical excision of medina-white hairbearing skin with a suture designating the medial aspect (12 o'clock) (1.5 cm from 12 o'clock to 6 o'clock, 0.9 cm from 3 o'clock to 9 o'clock, and is excised to a depth of 0.3 cm). There is a central circular medina-white wrinkled slightly scaly papule that measures 0.5 x 0.5 x 0.2 cm. The 3 o'clock aspect is blue inked and the 9 o'clock aspect is black inked. The specimen is serially sectioned from 12 o'clock to 6 o'clock and is entirely submitted as follows: BLOCK WARREN 1- ??12 o'clock tip, reverse en face 2- ??6 o'clock tip, reverse en face 3-5- ??seven central sections Dana Olivas 03/01/2016 3:47 PM End of Report [facility] 02/28/2016 14:1 4 EST 03/01/2016 14:14 EST Rylee Begum MD PATHOLOGY ORDER OSMEL [facility] [address] [place] [address] documented in this encounter Visit Diagnoses Not on filedocumented in this encounter Care Teams Social Media Marketing Analyst Relationship Specialty Start Date End Date Darrick Flores PA [address] [place] [id number] PCP - General 05/15/15 11/24/17 documented as of this encounter
--- OUTSIDE RECORDS SUMMARY | 2023-12-19 19:07 | XMS_ITS | Encounter Summary ---
Author Organization [facility] Address [address] [place] [address] Care Team Providers Care Professional Employer Consultant Name Role Phone Arelis Stiles Primary Care Provider [phone] Encounter Details Date Type Department Care Team (Late st Contact Info) Description 06/13/2023 Lab Requisition [facility] Pathology & Laboratory Medicine - [facility] [address] [place] [address] Cady Saavedra PA [address] [place] [address] [id number] Neoplasm of uncertain behavior of skin Social History Tobacco Use Types Packs/Day Years [...] Priority Date/Time Associated Diagnosis Comments SURGICAL PATHOLOGY Today 06/13/2023 10 :50 EST Neoplasm of uncertain behavior of skin documented in this encounter Results * SURGICAL PATHOLOGY (06/13/2023 10:50 EST) Note to Patient The following pathology results have been interpreted by your pathologist and may be available to you before your health provider has had the opportunity to review them. Please allow time for your provider to receive these results and explore management options, if applicable. 06/16/2023 9:24 [facility] Final Diagnosis A. SKIN OF NECK, BASE OF ANTERIOR, SHAVE BIOPSY: - Lichen simplex chronicus. 06/16/2023 9:24 [facility] Attestation By the signature below, the attending physician certifies that they have 1) personally conducted a gross and/or microscopic examination of the described specimen(s), and/or personally interpreted the results of laboratory testing of the described specimen(s), and 2) personally rendered or confirmed the above diagnosis. 06/16/2023 9:24 [facility] at 0924 Clinical History 1 cm x 1 cm round raised pearly lesion; clinical diagnosis code: D48.5 06/16/2023 9:24 [facility] Gross Description A. Received in formalin labelled with proper patient identification (initials M, M) and base of anterior neck is a shave biopsy of an irregular medina-white to medina-navarro roughened lesion (1.0 x 0.9 x 0.1 cm). The margin is inked blue, the specimen is trisected and entirely submitted in A1. Maile Disla 06/14/2023 10:53 06/16/2023 9:24 [facility] Performing Lab [facility] 06/16/2023 9:24 [facility] Scanned Images 06/16/2023 9:24 [facility] Tissue SPECIMEN FROM SKIN / Unknown 06/13/2023 10:50 EST 06/13/2023 22:40 EST Cady [facility] [address] [place] [address] documented in this encounter Visit Diagnoses Diagnosis Neoplasm of uncertain behavior of skin documented in this encounter Care Teams Professional Employer Consultant Relationship Specialty Start Date End Date Arelis Stiles PA [address] [place] [address] PCP - General 11/25/17 documented as of this encounter
--- OUTSIDE RECORDS SUMMARY | 2023-12-19 19:07 | XMS_ITS | Encounter Summary ---
Author Organization [facility] [place] [address] Care Team Providers Care Compliance Officer Name Role Phone Darrick Flores Primary Care Provider [phone] Reason for Visit * Diagnostic Test (Routine) - Closed Specialty Diagnoses / Procedures Referred By Contac t Referred To Contact Radiology Diagnoses Status post left knee replacement Procedures NM 3 phase bone scan Isauro Stein PA [facility] [place] [address] [place] [address] Referral ID Status Reason Start Date Expiration Date V isits Requested Visits Authorized [id number] Closed Specialty Service Requested 02/05/2016 12/31/2016 2 2 Encounter Details Date Type Department Care Team (Latest Contact Info) Description 02/12/2016 11:52 AM EST - 02/12/2016 11:59 PM [facility] Hospital [place] [address] Bran Sagastume MD [facility] [place] [address] Discharge Disposition: Home Social History Tobacco Use [...] gauge x 5/16 NeedleIndications:BD ultra-fine pen NDL [id number] by [facility].(Non-Drug; Combo Route) route. Indications: BD ultra-fine pen NDL [id number] insulin glargine (LANTUS) Insulin Pen Inject 40 [...] left knee replacement documented in this encounter Visit Diagnoses Not on filedocumented in this encounter Administered Medications Inactive Administered Medications - up to 3 most recent administrations Medication Order MAR Action Action Date Dose Rate Site technetium (Tc-99m) methylene diphosphonate (MDP) injection 24.6 mCi 24.6 mCi, Intravenous, ONCE PRN, 1 dose, Starting on Fri02/12/16 at 1000, Until Fri02/12/16 at 1255, Per Protocol, Routine Given 02/12/2016 12:55 PM EST 24.6 mCi Right Arm documented in this encounter Care Teams Compliance Officer Relationship Specialty Start Date End Date Darrick Flores PA [address] [place] [address] PCP - General Family Medicine 06/29/15 06/18/20 documented as of this encounter
--- OUTSIDE RECORDS SUMMARY | 2023-12-19 19:07 | XMS_ITS | Encounter Summary ---
Author Organization [facility] Address [facility] [place] [address] Care Team Providers Care Tool Sharpener Name Role Phone Danielle Kincaid APRN Primary Care Provider Encounter Details Date Type Department Care Team (Late st Contact Info) Description 12/12/2011 [place] [address] Nai Cui MD [facility] [place] [address] Social History Tobacco Use Types Packs/Day Years [...] on filedocumented in this encounter Care Teams Tool Sharpener Relationship Specialty Start Date End Date Danielle Kincaid APRN [address] [place] [address] PCP - General 06/10/11 03/24/12 documented as of this encounter
--- OUTSIDE RECORDS SUMMARY | 2023-12-19 19:07 | XMS_ITS | Encounter Summary ---
Author Organization [facility] Address [address] [place] [address] Care Team Providers Care Hospital Liaison Name Role Phone Darrick Flores Primary Care Provider [phone] Reason for Visit * Reason Comments Pain neck and shoulder pa in * Consult (Routine/Next Available) - Specialty Report Received Specialty Diagnoses / Procedures Referred By Klever swartz Referred To Contact Pain Medicine Diagnoses Neck pain Quique Vargas PA-C [address] [address] [facility] [address] [facility] [place] [address] Referral ID Status Reason Start Date Expiration Date Visits Requested Visits Authorized [id number] Specialty Report Received Specialty Services Required 05/15/2015 1 1 Encounter Details Date Type Department Care Team (Latest Contact Info) Description 06/08/2015 9:30 EST Office Visit [facility] [address] [facility] [place] [address] Kelly Colon MD [address] [place] [address] Myofascial pain syndrome, cervical (Primary Dx); Cervical spondylosis without myelopathy; Degenerative, intervertebral disc, cervical Social History Tobacco Use Types Packs/Day Years [...] 06/08/2015926 EST Temperature 36.8 ??C (98.2 ??F) 06/08/2015926 EST Respiratory Rate 16 06/08/2015926 EST Oxygen Saturation - - Inhaled Oxygen Concentration - - Weight 107.5 kg (237 lb) 06/08/2015926 EST per pt Height 162.6 cm (5' 4) 06/08/2015926 EST per pt Body Mass Index 40.68 06/08/2015926 EST documented in this encounter Functional Status Functional Status Response [...] as of this encounter Discharge Diagnoses Diagnosis M79.1 Myalgia-M79.1[ICD-10-CM] M47.812 Spondylosis without myelopathy or radiculopathy, cervical region-M47.812[ICD-10-CM] M50.30 Other cervical disc degeneration, unspecified cervical region-M50.30[ICD-10-CM] documented in this encounter Patient Instructions * Patient Instructions* Jackie Mcintyre RN - 06/08/2015 10:14 EST [facility] [address] [address] Patient Instructions You have had your Trigger Point Injection. The purpose of this procedure has been to place medication which may help relieve your pain. Steroid may be used to decrease the swelling and nerve irritation which may be causing your pain. The following information should help you over the next few days regarding what you may expect. ??? Please take it easy for the rest of today. ??? DO NOT drive a car for the remainder of the day. ??? If you feel sore where the needle(s) entered for the block or develop a flare-up of pain over the next few days, please use ice on the area. You may leave the ice on for up to 20 minutes at a time. Do not use heat, as this may cause swelling. ??? As long as your primary doctor has indicated no restrictions, you may take a mild pain medicine, such as acetaminophen (Tylenol), ibuprofen (Advil, Nuprin, Motrin IB, etc.) or aspirin, if needed. ??? The steroid injection usually takes a few days to become effective. On average, you may notice some relief in 3 -5 days. However, it may take up to 10 - 14 days to know whether the injection was helpful. ??? If the block causes numbness/weakness, it should wear off within a few hours. ??? If the area that the needle(s) were inserted becomes hot, red, swollen, or increasingly tender,or if you develop a fever (100.5 or greater) or chills along with these symptoms, please call our office immediately. ??? If you develop increasingly severe neck/back pain, continued numbness or weakness of the arms/legs or changes in your bladder or bowel functions, please call our office immediately. Instructions for follow-up If you have any questions about your block, please call Patient Education Topic: Method: Handout and Verbal Taught to: Patient Barriers: None Outcomes: independent and verbalized understanding Signature: MELI Mejia documented in this encounter Progress Notes * Kelly Colon MD - 06/08/2015 1024 EST Patient Name: Neda Fermin : 1955 Date of Service: 06/08/2015 Varnish Supervisor: Kelly Colon MD Cross Tie Cutter: none Interval History: Ms. Fermin presents at the request of Quique Vargas for evaluation and treatment of her chronic neck pain. The details of the current complaint are thoroughly described in the consultation notes from their last encounter including pain onset, location, course, workup, therapeutic attempts, and associated functional limitations. The patient reports no recent changes in the character, quality, or distribution of the pain. There are no recent onset of new associated symptoms such as changes in strength, sensation, or bladder control. Her pain continues to be in her entire cervical region radiating down to her bilateral trapezii. Her pain starts at base of neck, radiates to base of skull. Her worst pain is in her lower cervical spine and bilateral trapezii. Prolonged sitting, and movement worsens her pain. Ice and heat are temporarily helpful. She has tried PT in the past but certain stretches made her worse. She was anxious appearing during appointment and spoke about her son that in 2013, and was quite tearful. Imaging was reviewed and available in scanned media. Allergies Allergen Reactions ??? Latex, Natural Rubber ??? Penicillins ROS: CONSTITUTIONAL: Patient does not report fevers, nausea, vomiting. NEURO/EYES: Patient does not report headaches, dizziness, or visual changes. HEME: Patient does not report any known coagulopathies. PULM/CARDIAC: Patient does not report shortness of breath or chest pain. GI/: Patient does not report bowel or bladder incontinence. Physical Examination: Vital signs: Blood pressure 170/75, pulse 61, temperature 36.8 ??C (98.2 ??F), temperature source Tympanic, resp. rate 16, height 162.6 cm (64), weight 107.502 kg (237 lb). GENERAL: Patient is an otherwise pleasant female. Patient is alert and oriented x 3. Appropriate inconversation. NAD. The patient does appear her stated age of 60 y.o.. The pain syndrome is clinically relayed without embellishment. she3 rises from a seated position without difficulty. SKIN: WNL. Warm and dry. No lesions, apparent rashes, bruising or petechiae. No signs of infection in the cervical region. NEURO: CN II-XII are grossly intact. Motor strength is 5/5 throughout all motor groups in bilateral upper extremities. Sensation is intact and symmetrical to light touch throughout bilateral upper extremities. neg Spurlings test. EXTREMITIES: No clubbing, cyanosis, or edema. MUSCULOSKELETAL: ROM was limited with flexion, extension and lateral rotation. positive Facet loading maneuvers with extension of cervical spine. tender to palpation of lower cervical paraspinous regions and bilateral trapezii, local taut response to snapping palpation PULM: Non labored breathing. Assessment:Patient is a 60 y.o. year old female with a chronic pain syndrome and a primary complaint of neck pain. This pain has not responded to conservative/interventional therapy. Associated diagnoses: Encounter Diagnoses Name Primary? Myofascial pain syndrome, cervical Yes ??? Cervical spondylosis without myelopathy ??? Degenerative, intervertebral disc, cervical Plan: Proceed with trigger point injections at cervical paraspinous muscles (x2) and trapezii bilaterally(x2) She will follow up with Alcides Vargas post injection Agree with consideration of facet injections however patient is quite anxious and uncertain if she will tolerate the procedure. We discussed that she seems to have significant stressors and mood issues that may be contributing to her pain. PROCEDURE: Informed consent was obtained after all questions were answered. Patient was placed in the sitting position. Points of maximum tenderness were identified at the muscles described above andmarked. A brandt moment was performed with everyone present to verify identification of the patient, allergies and procedure to be performed. The skin was prepped with a sterile prep. . Then a mixure of 5 cc's of 0.5 Bupivacaine, 80 mg of depomedrol was prepared. A total of 6 cc's were used in equally divided doses for 4 trigger points. A local taut response to the target with the needle insertion was verified. The patient tolerated the procedure well and was discharged to home in stable condition. Kelly Colon MD * Regine Adams - 06/08/2015 7209 EST [facility] Rooming Note Does patient have a Leather Etcher? yes Is patient NPO? (Solids since midnight & liquids for 4 hrs) No food Sips of water on the way here Blood Thinners: Is patient on Blood Thinners? no If yes, taking? If stopped, who authorized stopping? Related comments: Infections: Any recent infections, fever of illnesses? no If on antibiotics, is it 7-10 days past the date of completion of antibiotics? no : (for females of child-bearing age) no Is there a chance current ? Other: documented in this encounter Plan of Treatment Not on file documented as of this encounter Visit Diagnoses Diagnosis Myofascial pain syndrome, cervical- Primary Mylagia and myositis, unspecified Cervical spondylosis without myelopathy Degenerative, intervertebral disc, cervical Degeneration of cervical intervertebral disc documented in this encounter Administered Medications Inactive Administered Medications - up to 3 most recent administrations Medication Order MAR Action Action Date Dose Rate Site bupivacaine (PF) (MARCAINE) 0.5 % (5 mg/mL) injection 25 mg 25 mg (5 mL), local infiltration, NOW X1, 1 dose, On Brissa 06/08/15 at 1045, Routine Given by Other 06/08/2015 10:15 EST 25 mg methylPREDNISolone ACETATE (DEPO-MEDROL) injection 80 mg 80 mg, local infiltration, NOW X1, 1 dose, On Brissa 06/08/15 at 1045, Routine Given by Other 06/08/2015 10:15 EST 80 mg documented in this encounter Care Teams Hospital Liaison Relationship Specialty Start Date End Date Darrick Flores PA [address] [place] [address] PCP - General 05/15/15 11/24/17 documented as of this encounter
--- OUTSIDE RECORDS SUMMARY | 2023-12-19 19:07 | XMS_ITS | Encounter Summary ---
Author Organization [facility] Address [facility] [place] [address] Care Team Providers Care Sales Enablement Lead Name Role Phone Darrick Flores Primary Care Provider [phone] Encounter Details Date Type Department Care Team (Latest Contact Info) Description 09/28/2015 - 09/28/2015 11:59 PM EDT Hospital Encounter Radiology Library [place] [facility] [place] [id number] Bran Sagastume MD [facility] [place] [address] Pain Discharge Disposition: Home Social History Tobacco [...] Sig Dispensed Refills Start Date End Date insulin glargine (LANTUS) Insulin Pen Inject 40 [...] Diagnosis Comments FILM LIBRARY STORAGE ONLY DX KNEE Routine 09/28/2015 12:00 AM EDT Pain documented in this encounter Results * Film Library- Storage only DX Knee (09/28/2015 12:00 AM EDT) Narrative [facility] - 11/17/2015 4:23 PM EDT This exam is for storage only and is auto-finalizing. Bran Sagastume MD IMG FILM LIBRARY OR DERABLES Performing Organization Address City/State/[facility] Co de Phone Number [place], [place] documented in this encounter Visit Diagnoses Diagnosis Pain Generalized pain documented in this encounter Care Teams Sales Enablement Lead Relationship Specialty Start Date End Date Darrick Flores PA [address] [place] [address] PCP - General Family Medicine 06/29/15 06/18/20 documented as of this encounter
--- OUTSIDE RECORDS SUMMARY | 2023-12-19 19:07 | XMS_ITS | Encounter Summary ---
Author Organization [facility] Address [address] [place] [address] Care Team Providers Care Tax Map Technician Name Role Phone Danielle Kincaid APRN Primary Care Provider Unavailable Encounter Details Date Type Department Care Team (Late st Contact Info) Description 11/25/2013 Results Only [facility] - [facility] [address] [place] [address] Heath Ratliff MD [address] [place] [phone] Social History Tobacco Use Types Packs/Day Years Used Date Smoking Tobacco: Never Assessed Sex and Gender Information Value Date Recorded Sex Assigned at Not on file Gender Identity Not on file Sexual Orientation Not on file documented as of this encounter Plan of Treatment Not on file documented as of this encounter Procedures Procedure Name Priority Date/Time Associated Diagnosis Comments SURGICAL PATHOLOGY Routine 11/25/2013 9:31 EDT documented in this encounter Results * SURGICAL PATHOLOGY (11/25/2013 9:31 EDT) Pathology Report: SURGICAL PATHOLOGY REPORT Reports generated via electronic interface contain original data; however they are lacking the format of the original report. Caution should be taken when reading/interpretin g unformatted reports. Name: ? NEDA WOO ? Accession #: ? [id number] ? : ? 1955 (Age: 58) ??F ? Collect Date: ? 11/25/2013 ? Location: ? [facility] ? Receive Date: ? 11/26/2013 ? Provider: HEATH RATLIFF MD Copy to: ELIZABETH SANDY ? Final Pathologic Diagnosis: A. GASTROESOPHAGEAL JUNCTION, BIOPSY: - ??Junctional-type mucosa with reactive changes. - ??Negative for intestinal metaplasia and dysplasia. B. STOMACH, POLYP, BIOPSY: - ??Fundic gland polyp. Document reviewed and electronically signed by: PERRI FIORE MD Report ??Date: 11/30/2013 13:57 By the signature above, the attending physician certifies that he/she has personally conducted a gross and/or microscopic examination of the described specimens and rendered or confirmed the above diagnosis. Specimen(s) Received: A. ??Bx GE junction B. ??Bx gastric polyp Clinical History: Reflux; gastric polyps Gross Description: A. ?Received in formalin labelled with proper patient identification (initials M, M) and GE junction are three medina-white tissues (averaging 0.3 x 0.2 x 0.2 cm). Entirely submitted in A1. B. ?Received in formalin labelled with proper patient identification (initials M, M) and gastric polyp is a single pink-medina polypoid tissue (0.3 x 0.2 x 0.2 cm). Submitted intact in B1. Melva Henry 11/26/2013 10:39 AM End of Report YONNY BELL 11/25/2013 9:31 EDT 11/26/2013 9:31 EDT Heath Ratliff MD PATHOLOGY ORDERABLES Performing Organization Address City/State/[facility] Co de Phone Number YONNY BELL [address] [place] [address] documented in this encounter Visit Diagnoses Not on filedocumented in this encounter Care Teams Tax Map Technician Relationship Specialty Start Date End Date Danielle Kincaid APRN PCP - General 08/30/10 01/27/15 documented as of this encounter
--- OUTSIDE RECORDS SUMMARY | 2023-12-19 19:07 | XMS_ITS | Encounter Summary ---
Author Organization [facility] [place] [address] Care Team Providers Care Manager Ecommerce Name Role Phone Darrick Flores Primary Care Provider [phone] Reason for Visit * Reason Onset Date Comments Results 03/01/2016 Encounter Details Date Type Department Care Team (Late st Contact Info) Description 03/01/2016 Telephone Orthopaedics at [facility] [place] [phone] Lizzeth Osei RN Results Social History Tobacco Use Types Packs/Day [...] Telephone Encounter - Lizzeth Osei RN - 03/01/2016 3:35 PM EST I spoke with the patient. She called regarding the results of her bone scan and to advise that she continues to have knee pain. I read the message from 02/28/[address] Sagastume - Left message to review bone scan. Offered an appointment to review images and consider local injection/aspiration of knee. She did state she had surgery on her face on 02/28/16. She wants to think about these options. She will call back if she decides to schedule and appointment. documented in this encounter Plan of Treatment Not on file documented as of this encounter Visit Diagnoses Not on filedocumented in this encounter Care Teams Manager Ecommerce Relationship Specialty Start Date End Date Darrick Flores PA [address] [place] [address] PCP - General Family Medicine 06/29/15 06/18/20 documented as of this encounter
--- OUTSIDE RECORDS SUMMARY | 2023-12-19 19:07 | XMS_ITS | Encounter Summary ---
Author Organization [facility] Address [address] [place] [address] Care Team Providers Care Surgical Assistant Certified Name Role Phone Danielle Kincaid APRN Primary Care Provider Unavailable Reason for Visit * Reason Comments Hypoglycemia pt dealing with very ill son in ICU- has not had insulin since yesterday, I am coming apart sent down to ED by nurses upstairs Encounter Details Date Type Department Care Team (Late st Contact Info) Description 01/24/2014 8:45 EDT - 01/24/2014 11:13 EDT Emergency [facility] Emergency Department - Main [place] [address] [place] [address] Ike Patino PA-C [address] [place] [address] Emergency, MD Mariana Hyperglycemia (Primary Dx); Anxiety Discharge Disposition: Home or Self Care Social [...] Sign Reading Time Taken Comments Blood Pressure 189/65 01/24/2014 1111 EDT Pulse - - Temperature 36.1 ??C (97 ??F) 01/24/2014 0901 EDT Respiratory Rate 16 01/24/2014 0901 EDT Oxygen Saturation 98% 01/24/2014 0901 EDT Inhaled Oxygen Concentration - - Weight 117 kg (258 lb) 01/24/2014 0901 EDT Height - - Body Mass Index - - documented in this encounter Discharge Instructions * Attachments The following attachments cannot be sent through Care Everywhere. * HYPERGLYCEMIA : GENERAL INFO ([place]) * ANXIETY DISORDER ([place]) documented in this encounter Medications at Time of Discharge Medication Sig Dispensed Refills Start Date End Date BUPROPION HCL (WELLBUTRIN ORAL) Take 150 mg by mouth 2 times daily esomeprazole (NEXIUM) 20 mg capsule Take 40 mg by mouth 2 times daily ESZOPICLONE (LUNESTA ORAL) Take 1 mg by mouth at bedtime glipiZIDE (GLUCOTROL) 10 mg tablet Take 1 Tab by mouth daily. 5 Tab 0 01/24/2014 GLIPIZIDE ORAL Take by mouth. insulin glargine (LANTUS SOLOSTAR) 100 unit/mL (3 mL) injection penIndications:diabetes mellitus 10 Units at bedtime Indications: DIABETES MELLITUS. metFORMIN (GLUCOPHAGE) 500 mg tablet Take 1 Tab by mouth 2 times daily. 6 Tab 0 01/24/2014 METFORMIN HCL (METFORMIN ORAL) Take by mouth. LORazepam (ATIVAN) 1 mg tablet Take 1 Tab by mouth 3 times daily for 5 days. 5 Tab 0 01/24/2014 01/29/2014 documented as of this encounter Ordered Prescriptions Prescription Sig Dispensed Refills Start Date End Da te glipiZIDE (GLUCOTROL) 10 mg tablet Take 1 Tab by mouth daily. 5 Tab 0 01/24/2014 metFORMIN (GLUCOPHAGE) 500 mg tablet Take 1 Tab by mouth 2 times daily. 6 Tab 0 01/24/2014 LORazepam (ATIVAN) 1 mg tablet Take 1 Tab by mouth 3 times daily for 5 days. 5 Tab 0 01/24/2014 01/29/2014 glipiZIDE (GLUCOTROL) 10 mg tablet Take 1 Tab by mouth daily. 5 Tab 0 01/24/2014 01/24/2014 metFORMIN (GLUCOPHAGE) 500 mg tablet Take 1 Tab by mouth 2 times daily. 6 Tab 0 01/24/2014 01/24/2014 documented in this encounter Discharge Disposition Disposition Code Departure Means Destination Home or Self Care Other documented in this encounter Progress Notes * Radha Gunderson - 01/24/2014 4409 EDT Met with pt in the ED- Pt's son is in the ICU - CF patient with pne. Pt having a hard time coping, told to come to the hospital as son was critically ill, crushed here without proper planing. Pt informed of [facility] for personal care and resources to assist with her stay. No additional needs at this time. Pt declines assist with pharmacy, wants to return to the ICU and states friend will bring her to pharmacy later. Radha Gunderson # [id number] documented in this encounter ED Notes * Ike Patino PA - 01/26/2014 1825 EDT DOS: 01/24/2014 Chief Complaint Patient presents with ??? Hypoglycemia pt dealing with very ill son in ICU- has not had insulin since yesterday, I am coming apart sent down to ED by nurses upstairs The patient is a 58 y.o. female who presents today with Hypoglycemia HPI Patient is a 58-year-old female with a history of insulin-dependent diabetes and hypercholesterolemia who presents to the emergency department with elevated blood sugars. Patient is here with her illson who is in the intensive care unit. She has forgotten her and insulin at home along with her other medications and is feeling tired. She was sent to the emergency department for evaluation by the nurses in the intensive care unit for concern of DKA. Patient denies having any nausea any vomiting any chest pain any shortness of breath any abdominal pain diarrhea changes in vision neck pain headache numbness or tingling. Review of Systems Review of systems: Constitutional: No fevers/chills Head/eyes/ears/nose/throat: No nosebleed/eyepain Respiratory: No shortness of breath Cardiologic: No chest pain Gastrointestinal: No abdominal pain/nausea/vomiting/diarrhea Genitourinay: No dysuria Muscle: No back pain Skin: No rash Neurological: No Headache Hematologic: No easy bruisability Psychologic: No confusion Physical Exam: Chief complaint reviewed Vitals signs reviewed Nurses note reviewed Well developed Head/eyes/ears/nose/throat:Normocephalic Conjunctiva normal Neck:supple Heart rate regular Chest:effort normal clear to auscultation Abdomen: Soft nontender positive bowel sounds, no dysuria frequency or urgency Muscle: good strength Neurologic: No focal neurological deficits Skin:warm and dry Psychological:Mood /affect normal Past Medical History Diagnosis Date ??? Diabetes mellitus ??? Bronchiolitis ??? Sleep apnea uses cpap History reviewed. No pertinent past surgical history. Allergies Allergen Reactions ??? Latex, Natural Rubber ??? Penicillins History Substance Use Topics ??? Smoking status: Never Smoker ??? Smokeless tobacco: Not on file ??? Alcohol Use: No No family history on file. Vital Signs Temp: 36.1 ??C (97 ??F) Temp src: Tympanic Heart Rate: 68 BPM Resp: 16 SpO2: 98 % BP: 189/65 mmHg BP Device: BP Machine Patient Position: Sitting O2 Device: None (Room air) Physical Exam Radiology orders: None Imaging Results None Procedures ED Course: Patient's blood sugar is elevated in the low 300s. She states that is not uncommon for her to have blood sugars in this level. She is not always compliant with herinsulin and has generallyhas elevated hemoglobin A1 C's. Patient is emotional about her her ill son. A medical screening exam was performed. Patient is stable at time of discharge. The previous medical record was obtained and reviewed by me. I have Independently visualized the images,EKG tracing, and or specimens. Any clinical lab/radiology tests that were ordered were reviewed by me. Pt evaluated immediately prior to discharge with , stable vital signs, and tolerating PO. Discussedclinical/diagnostic findings. Prior to discharge usual and customary precautions were reviewed with the patient and/or family including follow-up instructions and reasons to return to the Emergency Department if condition worsens, does not improve as expected, or other new concerns arise. Disposition: Discharged The patient's pain was managed to an adequate level weighing risk vs. benefit of further medications. Upon departure from the Emergency Department, the patient's pain was 0 on a zero to ten scale. Condition at departure from the Emergency Department: Improved ED Current Prescriptions Medication Dispense Auth. Provider metFORMIN (GLUCOPHAGE) 500 mg tablet 6 Tab Ike Patino PA glipiZIDE (GLUCOTROL) 10 mg tablet 5 Tab Ike Patino PA LORazepam (ATIVAN) 1 mg tablet 5 Tab Ike Patino PA [facility] Final diagnoses: Hyperglycemia Anxiety PCP: POLLY Martinez 01/26/2014 18:25 No flowsheet data found. * Dalila Xiao, RN - 01/24/2014 1112 EDT Cinda from social services director in speaking with pt * Isauro Mcelroy, RN - 01/24/2014 0900 EDT Tearful, feels she maybe losing her son documented in this encounter Plan of Treatment Not on file documented as of this encounter Procedures Procedure Name Priority Date/Time Associated Diagnosis Comments GLUCOSE, GLUCOMETER Routine 01/24/2014 9 :23 EDT documented in this encounter Results * (ABNORMAL) GLUCOSE, GLUCOMETER (01/24/2014 9:23 EDT) Glucose, Fingerstick 325(H) 70 - 100 mg/dl [facility] Bus System Operator ID [id number] [facility] Comment:Test Performed by [facility] 01/24/2014 9:23 EDT 01/24/2014 9:24 EDT Provider Unknown CHEMISTRY & BLOOD GA S ORDERABLES Performing Organization Address City/State/[facility] Co de Phone Number [facility] [address] [place] [address] documented in this encounter Visit Diagnoses Diagnosis Hyperglycemia- Primary Other abnormal glucose Anxiety Anxiety state, unspecified documented in this encounter Administered Medications Inactive Administered Medications - up to 3 most recent administrations Medication Order MAR Action Action Date Dose Rate Site insulin glargine (LANTUS SOLOSTAR) injection pen 10 Units 10 Units, subcutaneous, ONCE DAILY L.A. INSULIN, 1 dose, First dose on Fri01/24/14 at 1015, STAT Given 01/24/2014 10:32 EDT 10 Units LORazepam (ATIVAN) tablet 1 mg 1 mg, oral, NOW X1, 1 dose, On Fri01/24/14 at 1015, STAT Given 01/24/2014 10:15 EDT 1 mg documented in this encounter Discontinued Medications Medication Sig Discontinue Reason Start Date End Da te metFORMIN (GLUCOPHAGE) 500 mg tablet Take 1 Tab by mouth 2 times daily. 01/24/2014 01/24/2014 glipiZIDE (GLUCOTROL) 10 mg tablet Take 1 Tab by mouth daily. 01/24/2014 01/24/2014 documented as of this encounter Historical Medications * This list may reflect changes made after this encounter. Medication Sig Dispensed Refills Start Date End Date GLIPIZIDE ORAL Take by mouth. esomeprazole (NEXIUM) 20 mg capsule Take 40 mg by mouth 2 times daily BUPROPION HCL (WELLBUTRIN ORAL) Take 150 mg by mouth 2 times daily ESZOPICLONE (LUNESTA ORAL) Take 1 mg by mouth at bedtime insulin glargine (LANTUS SOLOSTAR) 100 unit/mL (3 mL) injection penIndications:diabetes mellitus 10 Units at bedtime Indications: DIABETES MELLITUS. METFORMIN HCL (METFORMIN ORAL) Take by mouth. added in this encounter Active and Recently Administered Medications Times are shown in EDT. Scheduled Medication Order 01/22/2014 01/23/2014 01/24/2014 insulin glargine (LANTUS SOLOSTAR) injection pen 10 Units (COMPLETED) 10 Units, subcutaneous, ONCE DAILY L.A. INSULIN, 1 dose, First dose on Fri01/24/14 at 1015, STAT 1032 (Given - Provid er: Dalila Xiao RN) LORazepam (ATIVAN) tablet 1 mg (COMPLETED) 1 mg, oral, NOW X1, 1 dose, On Fri01/24/14 at 1015, STAT 1015 (Given - Provid er: Dalila Xiao RN) documented in this encounter Care Teams Surgical Assistant Certified Relationship Specialty Start Date End Date Danielle Kincaid APRN PCP - General 08/30/10 01/27/15 documented as of this encounter
--- OUTSIDE RECORDS SUMMARY | 2023-12-19 19:07 | XMS_ITS | Encounter Summary ---
Author Organization [facility] Address [facility] [place] [address] Care Team Providers Care Data Analysis Manager Name Role Phone Unknown Primary Care Provider Unavailabl e Encounter Details Date Type Department Care Team (Late st Contact Info) Description 12/16/2014 - 12/16/2014 11:59 PM EDT Hospital Encounter Rad[facility] [place] [address] [facility] Discharge Disposition: Home Social [...] Associated Diagnosis Comments FILM LIBRARY STORAGE ONLY MR SPINE Routine 12/16/2014 12:00 AM EDT Pain documented in this encounter Results * Film Library- Storage only MR Spine (12/16/2014 12:00 AM EDT) Narrative PALAK RAYMOND - 06/14/2015 3:00 PM EST See PACS for result report. Dr [facility] FILM LIBRARY ORD ERABLES SEGUNDO [place], [place] documented in this encounter Visit Diagnoses Diagnosis Pain Generalized pain documented in this encounter Care Teams Data Analysis Manager Relationship Specialty Start Date End Date Unknown None PCP - General 03/25/12 06/28/15 documented as of this encounter
--- OUTSIDE RECORDS SUMMARY | 2023-12-19 19:07 | XMS_ITS | Encounter Summary ---
Author Organization [facility] Address [address] [place] [address] Care Team Providers Care Chemical Processing Supervisor Name Role Phone Unavailable Primary Care Provider Maria Guadalupe e Encounter Details Date Type Department Care Team (Late st Contact Info) Description 02/15/2003 Results Only [facility] [address] [place] [address] Perri Redd MD Social History Tobacco Use Types Packs/Day Years Used Date Smoking Tobacco: Never Assessed Sex and Gender Information Value Date Recorded Sex Assigned at Not on file Gender Identity Not on file Sexual Orientation Not on file documented as of this encounter Plan of Treatment Not on file documented as of this encounter Procedures Procedure Name Priority Date/Time Associated Diagnosis Comments CYTOPATHOLOGY Routine 02/15/2003 0:00 EST documented in this encounter Results * CYTOPATHOLOGY (02/15/2003 0:00 EST) Pathology Report: CYTOPATHOLOGY REPORT Reports generated via electronic interface contain original data; however they are lacking the format of the original report. Caution should be taken when reading/interpreti ng unformatted reports. Name: ? BENIGNOGABRIELVANDA SIMONAREJohan Fletcher ? Accession #: ? [id number] : ? 1955 (Age: 47) ??F ?Collect Date: ? 02/15/2003 Location: ? [facility] ? Receive Date: ? 02/17/2003 Provider: ? PERRI REDD MD Copy to: ? CYTOLOGIC DIAGNOSIS: ? Urine, voided, cytologic evaluation: - Negative for malignant cells. ??See comment. ? COMMENT: ? The specimen shows a few aggregates of degenerate and reactive appearing transitional and squamous cells. ??This case was reviewed at the Cytology intradepartmental consultation conference. ??(Dr. Patrick)/[facility] Document reviewed and electronically signed by: ? Paula Patrick MD PhD Report Date: ??02/17/2003 16:21 By the signature above, the attending physician certifies that he/she has personally conducted a gross and/or microscopic examination of the described specimens and rendered or confirmed the above diagnosis. Specimen Type: ? Urine, Voided Clinical History: ? Overactive bladder. ? Gross Description: ? 20cc' s of opaque yellow fluid were received and processed by concentration technique. ? End of Report [facility] 02/15/2003 02/17/2003 7:5 5 EST Perri Redd MD PATHOLOGY ORDERABLES [facility] [address] [place] [address] documented in this encounter Visit Diagnoses Not on filedocumented in this encounter
--- OUTSIDE RECORDS SUMMARY | 2023-12-19 19:07 | XMS_ITS | Encounter Summary ---
Author Organization [facility] Address [facility] [place] [address] Care Team Providers Care Lead Supply Worker Name Role Phone Unknown Primary Care Provider Unavailabl e Encounter Details Date Type Department Care Team (Latest Contact Info) Description 08/30/2014 - 08/30/2014 11:59 PM EDT Hospital Encounter Radiology Library at [facility] [place] [address] Bran Sagastume MD [facility] [place] [address] Pain Discharge Disposition: Home Social History Tobacco [...] FILM LIBRARY STORAGE ONLY DX KNEE Routine 08/30/2014 12:00 AM EDT Pain documented in this encounter Results * Film Library- Storage only DX Knee (08/30/2014 12:00 AM EDT) Narrative PALAK RAYMOND - 11/17/2015 4:21 PM EDT This exam is for storage only and is auto-finalizing. Bran Sagastume MD [facility] FILM LIBRARY OR DERABLES Performing Organization Address City/State/[facility] Co de Phone Number SEGUNDO [place], [place] documented in this encounter Visit Diagnoses Diagnosis Pain Generalized pain documented in this encounter Care Teams Lead Supply Worker Relationship Specialty Start Date End Date Unknown None PCP - General 03/25/12 06/28/15 documented as of this encounter
--- OUTSIDE RECORDS SUMMARY | 2023-12-19 19:07 | XMS_ITS | Encounter Summary ---
Author Organization [facility] Address [address] [place] [address] Care Team Providers Care Corn Grinder Name Role Phone Danielle Kincaid APRN Primary Care Provider Unavailable Reason for Visit * Reason Onset Date Comments Appointment Related 12/12/2011 Encounter Details Date Type Department Care Team (Late st Contact Info) Description 12/12/2011 Telephone [facility] Sleep Program - [address] [address] [address]ra, [place] [address] Appointment Related Social History Tobacco Use Types Packs/Day Years Used Date Smoking Tobacco: Never Assessed Sex and Gender Information Value Date Recorded Sex Assigned at Not on file Gender Identity Not on file Sexual Orientation Not on file documented as of this encounter Miscellaneous Notes * Telephone Encounter - Jackie Piedra - 12/12/2011 0955 EDT Spoke with the patient regarding her appointment with Dr. Jeffery. 12/12/2011 @0956 documented in this encounter Plan of Treatment Not on file documented as of this encounter Visit Diagnoses Not on filedocumented in this encounter Care Teams Corn Grinder Relationship Specialty Start Date End Date Danielle Kincaid APRN PCP - General 08/30/10 01/27/15 documented as of this encounter
--- OUTSIDE RECORDS SUMMARY | 2023-12-19 19:07 | XMS_ITS | Encounter Summary ---
Author Organization [facility] Address [address] [place] [address] Care Team Providers Care Sap Fico Business Analyst Name Role Phone José Miguel Fofana DO Primary Care Provider Reason for Referral * PT/OT/ST (Routine) - Closed Specialty Diagnoses / Procedures Referred By Contac t Referred To Contact Diagnoses Neck pain, bilateral posterior José Miguel Bojorquez MD [address] [place] [address] [place] [address] Referral ID Status Reason Start Date Expiration Date V isits Requested Visits Authorized [id number] Closed Specialty Services Required 01/31/2015 1 1 Question Answer Reason for Request: neck pain Comments eval and treat Reason for Visit * Reason Comments Neck Pain * Consult (Routine) - Closed Specialty Diagnoses / Procedures Referred By Contac t Referred To Contact Orthopedic Surgery Diagnoses Degeneration of cervical intervertebral disc Darrick Flores, [address] [place] [address] [facility] [place] [address] Referral ID Status Reason Start Date Expiration Date Visits Re quested Visits Authorized [id number] Closed 1 1 Encounter Details Date Type Department Care Team (Late st Contact Info) Description 01/31/2015 12:45 EDT Office Visit [facility] Spine Program [place] [address] [address] José Miguel Bojorquez MD [address] [facility] [place] [address] Neck pain, bilateral posterior (Primary Dx) Discharge Disposition: Auto Discharge Social History Tobacco [...] - Inhaled Oxygen Concentration - - Weight 142 kg (313 lb) 01/31/2015 1234 EDT Height 162.6 cm (5' 4) 01/31/2015 1234 EDT Body Mass Index 53.73 01/31/2015 1234 EDT documented in this encounter Discharge Diagnoses Diagnosis M54.2 Cervicalgia-M54.2[ICD-10-CM] documented in this encounter Discharge Disposition Disposition Code Departure Means Destination Auto Discharge documented in this encounter Progress Notes * José Miguel Bojorquez MD - 01/31/2015 1335 EDT This office note has been dictated. José Miguel Bojorquez MD documented in this encounter Consult Notes * José Miguel Bojorquez MD - 02/01/[address] [facility] SPINE PROGRAM CONSULTATION - 01/31/2015 PROBLEM: 1. Neck pain. 2. History of depression. 3. Obesity. 4. Polyarticular osteoarthritis. a. Status post left total knee replacement. SUBJECTIVE: The patient is a 59-year-old woman who noted she had no trouble with discomfort in her neck until two months ago when she woke up and had the spontaneous onset of neck pain, which has been persistent since that period of time. She describes pain throughout the posterior aspect of her neck paraspinally, radiating down to her entire spine, with achiness in all her joints. She notes her symptoms are present constantly, nothing in particular tends to exacerbate them or relieve them. Shehas been treated with Neurontin with no relief. She has had no other treatment for her neck. She denies fevers, chills, night sweats, weight loss or loss of bowel or bladder control. ALLERGIES: PENICILLIN, LATEX, FOOD ALLERGIES and CLOTH TAPE. MEDICATIONS: Bupropion 150 mg b.i.d. Nexium 40 mg b.i.d. Gabapentin 600 mg t.i.d. Fluoxetine 40 mg every day. Metformin 1000 mg every morning. Topiramate 25 mg b.i.d. Oxybutynin 5 mg b.i.d. Eszopiclone 1 mg at bedtime. Lantus 100 units q. evening. SOCIAL HISTORY: The patient lives alone. She has a son who had cystic fibrosis last year. Extensive family that lives in [facility]. She is on disability for depression, which she has beenon for many years. OBJECTIVE: Obese woman, multiple signs of symptom amplification. Sensation intact to light touch and proprioception, 5/5 all upper and lower extremity muscle groups, trace biceps, triceps, brachioradialis, negative Una's, no lower extremity clonus, zero knee and ankle jerks. DIAGNOSTIC DATA: X-RAYS: AP, lateral and cervical films demonstrate relatively well preserved disk space heights, minor osteophyte formation, no evidence of alignment abnormality. MRI demonstrates minor degenerative changes, no evidence of spinal cord impingement, no evidence of any significant nerve root impingement or foraminal stenosis. ASSESSMENT: Woman with neck pain, multiple signs of symptom amplification, no evidence of radiculopathy or myelopathy. Symptoms are most likely musculoligamentous. We discussed the natural history and the fact that she may hurt, but cannot hurt herself or cause damage. Options including expectant management, exercise program, physical therapy, TENS unit, alternative therapies. I certainly do not see any role for injections or surgery. At this point, she wished to pursue the following plan. PLAN: 1. PT for strengthening. 2. TENS unit. 3. Follow up p.r.n. with one of the nonops as necessary. José Miguel Bojorquez MD 01 39 PM - José Miguel Bojorquez MD pn Dictation ID: [id number] cc: Darrick SANDY Primary [facility] [address] [address] documented in this encounter Plan of Treatment Scheduled Referrals Name Type Priority Associated Diagnoses Orde r Schedule AMB CONS/FOLLOW UP PHYSICAL THERAPY Outpatient Referral Routine Neck Pain, Bilateral Posterior Ordered: 01/31/2015 documented as of this encounter Visit Diagnoses Diagnosis Neck pain, bilateral posterior- Primary Cervicalgia documented in this encounter Historical Medications * This list may reflect changes made after this encounter. Medication Sig Dispensed Refills Start Date End Date oxybutynin (DITROPAN) 5 mg tablet Take 5 mg by mouth 2 times daily topiramate (TOPAMAX) 25 mg tablet Take 50 mg by mouth 2 times daily FLUoxetine (PROZAC) 40 mg capsule Take 40 mg by mouth daily gabapentin (NEURONTIN) 600 mg tablet Take 600 mg by mouth 3 times daily added in this encounter Care Teams Sap Fico Business Analyst Relationship Specialty Start Date End Date José Miguel Fofana DO [address] [place] [id number] PCP - General 01/28/15 05/14/15 documented as of this encounter
--- OUTSIDE RECORDS SUMMARY | 2023-12-19 19:07 | XMS_ITS | Encounter Summary ---
Author Organization [facility] Address [address] [place] [address] Care Team Providers Care Advertising Traffic Manager Name Role Phone Unavailable Primary Care Provider Unavailabl e Encounter Details Date Type Department Care Team (Latest Contact Info) Description 05/14/2000 11:45 EST - 05/14/2000 11:59 EST Hospital Encounter [facility] - Other [address] [place] [address] Ernesto Valentino MD Unknown, Provider, Discharge Disposition: Auto Discharge Social History Tobacco [...] Procedure Name Priority Date/Time Associated Diagnosis Comments MISCELLANEOUS TEST, [place] Routine 05/14/2000 15:26 EST ANTI GLIADIN AB Routine 05/14/2000 11:45 EST HEMAGRAM & DIFF Routine 05/14/2000 11:45 EST LIPASE Routine 05/14/2000 11:45 EST AMYLASE Routine 05/14/2000 11:45 EST COMPREHENSIVE METABOLIC PANEL (CMP) Routine 05/14/2000 11:45 EST documented in this encounter Results * MISCELLANEOUS TEST (05/14/2000 15:26 EST) Test Name TISSUE TRANSGLUTAMINASE [facility] Result <1.0 [facility] Ref Range <1.0 See supplementary report [facility] Ref Lab Performed by [facility] Reference Laboratory, [place], [place] [facility] 05/14/2000 15:2 6 EST 05/14/2000 15:26 EST Ernesto Valentino MD CHEMISTRY & BLOOD GA S ORDERABLES Performing Organization Address [facility] de Phone Number [facility] [address] [place] [address] * LIPASE (05/14/2000 11:45 EST) Pathologist [facility] Lipase 49 0 - 210 U/L [facility] 05/14/2000 11:4 5 EST 05/14/2000 11:46 EST Ernesto Valentino MD CHEMISTRY & BLOOD GA S ORDERABLES Performing Organization Address [facility] de Phone Number [facility] [address] [place] [address] * ANTI GLIADIN AB (05/14/2000 11:45 EST) Gliadin IgG Ab 4.3Unit: U/mL ??(Note) 'This test was developed and its performance characteristics ? determined by Laboratory Medicine and Pathology, [facility] ? [place]. It has not been cleared or approved by the U.[place] ? Food and Drug Administration.' ? -- EXPECTED VALUES -- ? (Ref Range) <25 (Negative) ? 25-50 (Weak Positive) ? >50 (Positive) ? TEST PERFORMED OR REFERRED BY [facility] ? [facility] ? [address] ? [place], [place] ??[address] ? [facility] Gliadin IgA Ab 3.1Unit: U/mL ??(Note) 'This test was developed and its performance characteristics ? determined by Laboratory Medicine and Pathology, [facility] ? [place]. It has not been cleared or approved by the U.S. ? Food and Drug Administration.' ? -- EXPECTED VALUES -- ? (Ref Range) <25 (Negative) ? 25-50 (Weak Positive) ? >50 (Positive) ? TEST PERFORMED OR REFERRED BY [facility] ? [facility] ? [address] ? [place], [place] ??[address] ? [facility] 05/14/2000 11:4 5 EST 05/14/2000 11:46 EST Ernesto Valentino MD HISTORICAL LAB FOR S Q LOAD Performing Organization Address [facility] de Phone Number [facility] [address] [place] [address] * (ABNORMAL) COMPREHENSIVE METABOLIC PANEL (05/14/2000 11:45 EST) Potassium 4.3 3.5 - 5.0 mEq/L [facility] Sodium 144 136 - 145 mEq/L [facility] Chloride 103 96 - 110 mEq/L [facility] CO2 32(H) 24 - 30 mEq/L [facility] Total Alkaline Phosphatase 88 38 - 126 U/L [facility] Bilirubin, Total 0.5 0.2 - 1.3 mg/dl [facility] AST 18 8 - 50 U/L [facility] ALT 29 15 - 75 U/L [facility] Albumin 3.6 3.0 - 5.5 g/dl [facility] Total Protein 7.2 6.0 - 8.5 g/dl [facility] Creatinine 0.7 0.7 - 1.5 mg/dl [facility] BUN 11 10 - 26 mg/dl [facility] Calcium 8.7 8.5 - 10.5 mg/dl [facility] Calculated Calcium 9.5 8.5 - 10.5 mg/dl [facility] Glucose, Serum 100 70 - 110 mg/dl [facility] Albumin/Globulin Ratio 1.0 [facility] 05/14/2000 11:4 5 EST 05/14/2000 11:46 EST Ernesto Valentino MD CHEMISTRY & BLOOD GA S ORDERABLES Performing Organization Address City/[facility] Co de Phone Number [facility] [address] [place] [address] * (ABNORMAL) HEMAGRAM & DIFF (05/14/2000 11:45 EST) WBC 7.08 4.0 - 12.4 K/cmm [facility] RBC 4.90 3.86 - 5.04 M/cmm [facility] Hemoglobin 14.9 11.6 - 15.2 gm/dl [facility] HCT 44.1 34.9 - 44.4 % [facility] MCV 90 81 - 98 fl [facility] MCH 30.4 26.7 - 33.3 pg [facility] MCHC 33.7 32.1 - 35.9 gm/dl [facility] PLT 243 141 - 320 K/cmm [facility] RDW-CV 13.2 11.7 - 14.6 % [facility] Neutrophils 56 45.5 - 79.7 % [facility] Lymphocytes 28 15.0 - 46.8 % [facility] % Atyp Lymphs 5 % [facility] Eosinophils 9(H) 0.6 - 6.9 % [facility] Basophils 2(H) 0.2 - 1.4 % [facility] ABS Neutrophils 3.97 2.20 - 8.85 K/cmm [facility] ABS Lymphs 1.98 1.09 - 3.30 K/cmm [facility] ABS Atyp Lymphs 0.35 K/cmm [facility] ABS Eosinophils 0.64(H) 0.03 - 0.61 K/cmm [facility] ABS Basophils 0.14(H) 0.01 - 0.11 K/cmm [facility] RBC Morphology [facility] Type of Diff: Manual [facility] 05/14/2000 11:4 5 EST 05/14/2000 11:46 EST Ernesto Valentino MD HISTORICAL LAB FOR S Q LOAD [facility] [address] [place] [address] * AMYLASE (05/14/2000 11:45 EST) Amylase 69 30 - 110 U/L [facility] 05/14/2000 11:4 5 EST 05/14/2000 11:46 EST Ernesto Valentino MD CHEMISTRY & BLOOD GA S ORDERABLES Performing Organization Address City/State/[facility] Co de Phone Number [facility] [address] [place] [address] documented in this encounter Visit Diagnoses Not on filedocumented in this encounter
--- OUTSIDE RECORDS SUMMARY | 2023-12-19 19:07 | XMS_ITS | Encounter Summary ---
[facility] Address [facility] [place] [address] Care Team Providers Care Performance Engineer Name Role Phone Cady Saavedra Primary Care Provider [phone] Reason for Visit * Reason Comments Follow-up follow discussion ralph bridgette Mejía - lost 17lb and brought A1C down to 5 Encounter Details Date Type Department Care Team (Late st Contact Info) Description 01/10/2021 1:00 PM EDT Office [place] [address] Jess Lu MD [facility] DR [place] [address] Abdominal pannus Social History Tobacco Use Types Packs/Day Years [...] - Inhaled Oxygen Concentration - - Weight 102.1 kg (225 lb) 01/10/2021 12:55 PM EDT Height 162.6 cm (5' 4) 01/10/2021 12:55 PM EDT Body Mass Index 38.62 01/10/2021 12:55 PM EDT documented in this encounter Progress Notes * Jess Lu MD - 01/10/2021 1:00 PM EDT Plastic Surgery Follow-up Note Jess Lu MD PCP: DU Dumont CC: Abdominal pannus HPI: Neda Fermin is a 65 y.o. female seen in my office today for re- consideration for abdominal panniculectomy. She is unaccompanied for today's visit. She reports that since her last visit shehas lost 17 lbs. She reports that she has stopped drinking soda. She has been exercising and walking. She reports that her PCP has lowered her diabetes medication. She would like to lose another 25 lbs. Examination: There were no vitals taken for this visit. female in no acute distress, comfortable. Persistent abdominal pannus Impression: Neda Fermin returns to clinic today to check in for a potential panniculectomy. She has lost 17 lbs since she was here last. She reports that she has been exercising and walking, and has stopped drinking soda. She would like to lose another 25 lbs and be under 200 lbs. She will follow up in 1 year. Plan: Follow up in 1 year to reassess IRomana am acting as scribe for Dr. Lu. All work documented was performed by Dr. Lu. JESS Bustillo MD, have performed the documentation for this encounter in the presence of and acting as a scribe for JESS LU MD. documented in this encounter Plan of Treatment Not on file documented as of this encounter Visit Diagnoses Diagnosis Abdominal pannus Localized adiposity documented in this encounter Care Teams Performance Engineer Relationship Specialty Start Date End Date Cady Saavedra PA [address] [place] [id number] PCP - General Family Medicine 06/19/20 documented as of this encounter
--- OUTSIDE RECORDS SUMMARY | 2023-12-19 19:07 | XMS_ITS | Encounter Summary ---
Author Organization [facility] Address [facility] [place] [address] Care Team Providers Care Ice Skating Teacher Name Role Phone Unknown Primary Care Provider Unavailabl e Encounter Details Date Type Department Care Team (Latest Contact Info) Description 02/18/2014 - 02/18/2014 11:59 PM EST Hospital Encounter Radiology Library at [facility] [place] [address] Bran Sagastume MD [facility] ORTHOPAEDIC [place] [address] Pain Discharge Disposition: Home Social History Tobacco [...] FILM LIBRARY STORAGE ONLY DX KNEE Routine 02/18/2014 12:00 AM EST Pain documented in this encounter Results * Film Library- Storage only DX Knee (02/18/2014 12:00 AM EST) Narrative [facility] - 11/17/2015 4:22 PM EDT This exam is for storage only and is auto-finalizing. Bran Sagastume MD [facility] FILM LIBRARY OR DERABLES Performing Organization Address City/State/[facility] Co de Phone Number [facility] [place], [place] documented in this encounter Visit Diagnoses Diagnosis Pain Generalized pain documented in this encounter Care Teams Ice Skating Teacher Relationship Specialty Start Date End Date Unknown None PCP - General 03/25/12 06/28/15 documented as of this encounter
--- OUTSIDE RECORDS SUMMARY | 2023-12-19 19:08 | XMS_ITS | Encounter Summary ---
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 Name Role Phone Unavailable Primary Care Provider Unavailabl e Encounter Details Date Type Department Care Team (Latest Contact Info) Description 03/01/2000 9:55 EST - 03/06/2000 11:59 EST Hospital Encounter [facility] Hematology & Oncology Unit [address], [place] [id number] Catina Styles MD [address] [place] [address] [address] [place] [address] Discharge Disposition: Home or Self Care Social History Tobacco Use Types Packs/Day Years Used Date Smoking Tobacco: Never Assessed Sex and Gender Information Value Date Recorded Sex Assigned at Not on file Gender Identity Not on file Sexual Orientation Not on file documented as of this encounter Discharge Disposition Disposition Code Departure Means Destination Home or Self Care documented in this encounter Plan of Treatment Not on file documented as of this encounter Procedures Procedure Name Priority Date/Time Associated Diagnosis Comments CREATININE Routine 03/06/2000 5:20 EST COMPLETE BLOOD COUNT Routine 03/06/2000 5:20 EST BUN Routine 03/06/2000 5:20 EST ELECTROLYTES Routine 03/06/2000 5:20 EST BACTERIAL CULTURE, FECES Routine 03/05/2000 19:45 EST OCCULT BLOOD DIAGNOSTIC, FECES Routine 03/05/2000 19:45 EST URINALYSIS WITH MICROSCOPIC IF POSITIVE Routine 03/05/2000 14:00 EST CREATININE Routine 03/05/2000 5:10 EST SED RATE Routine 03/05/2000 5:10 EST COMPLETE BLOOD COUNT Routine 03/05/2000 5:10 EST BUN Routine 03/05/2000 5:10 EST ELECTROLYTES Routine 03/05/2000 5:10 EST CHEST PA AND LATERAL Routine 03/04/2000 14:56 EST FL UGI SMALL BOWEL AIR CONTRAST Routine 03/04/2000 11:20 EST CREATININE Routine 03/04/2000 5:30 EST COMPLETE BLOOD COUNT Routine 03/04/2000 5:30 EST BUN Routine 03/04/2000 5:30 EST ELECTROLYTES Routine 03/04/2000 5:30 EST IR VENOGRAM - UNILATERAL Routine 03/03/2000 14:10 EST CREATININE Routine 03/03/2000 6:23 EST COMPLETE BLOOD COUNT Routine 03/03/2000 6:23 EST BUN Routine 03/03/2000 6:23 EST CALCIUM Routine 03/03/2000 6:23 EST ELECTROLYTES Routine 03/03/2000 6:23 EST BACTERIAL CULTURE, FECES Routine 03/02/2000 18:35 EST OVA/PARASITE EXAM Routine 03/02/2000 18: 35 EST C. DIFFICILE TOXIN Routine 03/02/2000 18 :35 EST CREATININE Routine 03/02/2000 7:45 EST COMPLETE BLOOD COUNT Routine 03/02/2000 7:45 EST BUN Routine 03/02/2000 7:45 EST ELECTROLYTES Routine 03/02/2000 7:[address] ABDOMEN W/CONTRAST Routine 03/01/2000 8:[address] PELVIS W/CONTRAST Routine 03/01/2000 8:49 EST ACUTE ABDOMEN SERIES Routine 03/01/2000 4:28 EST CREATININE Routine 03/01/2000 2:50 EST HEMAGRAM & DIFF Routine 03/01/2000 2:50 EST HOLD Routine 03/01/2000 2:50 EST TESTS ADDED BY PHONE Routine 03/01/2000 2:50 EST BUN Routine 03/01/2000 2:50 EST LIPASE Routine 03/01/2000 2:50 EST HEMOGLOBIN A1C Routine 03/01/2000 2:50 EST GLUCOSE, SERUM Routine 03/01/2000 2:50 EST HEPATIC FUNCTION PANEL (ALB,ALK PHOS,ALT,AST,DBIL,TOT TERRELL,TOT PROT) Routine 03/01/2000 2:50 EST ELECTROLYTES Routine 03/01/2000 2:50 EST documented in this encounter Results * ELECTROLYTES (03/06/2000 5:20 EST) Sodium 141 136 - 145 mEq/L [facility] Potassium 3.7 3.5 - 5.0 mEq/L [facility] Chloride 106 96 - 110 mEq/L [facility] CO2 27 24 - 30 mEq/L [facility] 03/06/2000 5:20 EST 03/06/2000 5:44 EST Catina Styles MD CHEMISTRY & BLOOD GAS ORDERABLES Performing Organization Address [facility] de Phone Number [facility] [address] [place] [address] * CREATININE (03/06/2000 5:20 EST) Creatinine 0.7 0.7 - 1.5 mg/dl [facility] 03/06/2000 5:20 EST 03/06/2000 5:44 EST Catina Styles MD HISTORICAL L AB FOR SQ LOAD Performing Organization Address [facility] Phone Number [facility] [address] [place] [address] * HEMAGRAM (03/06/2000 5:20 EST) WBC 6.26 4.0 - 12.4 K/cmm [facility] Comment:Spec Unlabeled-Accep rosalino on Review RBC 4.43 3.86 - 5.04 M/cmm [facility] Comment:Spec Unlabeled-Accep rosalino on Review Hemoglobin 13.7 11.6 - 15.2 gm/dl [facility] Comment:Spec Unlabeled-Accep rosalino on Review HCT 39.8 34.9 - 44.4 % [facility] Comment:Spec Unlabeled-Accep rosalino on Review MCV 90 81 - 98 fl [facility] Comment:Spec Unlabeled-Accep rosalino on Review MCH 30.9 26.7 - 33.3 pg [facility] Comment:Spec Unlabeled-Accep rosalino on Review MCHC 34.3 32.1 - 35.9 gm/dl [facility] Comment:Spec Unlabeled-Accep rosalino on Review PLT 236 141 - 320 K/cmm [facility] Comment:Spec Unlabeled-Accep rosalino on Review RDW-CV 13.6 11.7 - 14.6 % [facility] Comment:Spec Unlabeled-Accep rosalino on Review 03/06/2000 5:20 EST 03/06/2000 5:44 EST Catina Styles MD HEMATOLOGY & PF4 ORDERABLES Performing Organization Address [facility] Phone Number [facility] [address] [place] [address] * (ABNORMAL) BUN (03/06/2000 5:20 EST) BUN 3(L) 10 - 26 mg/dl [facility] 03/06/2000 5:20 EST 03/06/2000 5:44 EST Catina Styles MD CHEMISTRY & BLOOD GAS ORDERABLES Performing Organization Address [facility] Phone Number [facility] [address] [place] [address] * OCCULT BLOOD (03/05/2000 19:45 EST) Specimen Description Feces [facility] Result Negative [facility] Report Status Final [id number] [facility] 03/05/2000 19:4 5 EST 03/05/2000 19:58 EST Catina Styles MD MICROBIOLOGY - GENERAL ORDERABLES Performing Organization Address [facility] Phone Number [facility] [address] [place] [address] * BACTERIAL CULTURE, FECES (03/05/2000 19:45 EST) Specimen Description Feces [facility] Result No Salmonella, Shigella, Campylobacte r, Yersinia, or E. coli O157:H7 isolated Gram positive growth only [facility] Report Status Final [id number] [facility] 03/05/2000 19:4 5 EST 03/05/2000 19:58 EST Catina tSyles MD MICROBIOLOGY - GENERAL ORDERABLES Performing Organization Address [facility] Co de Phone Number [facility] [address] [place] [address] * (ABNORMAL) URINALYSIS (03/05/2000 14:00 EST) Color, UA Straw [facility] Clarity, UA Clear [facility] Glucose, UA Norm NORM [facility] Bilirubin, UA Neg [facility] Ketones, UA Neg NEG [facility] Specific [place], Urine 1.010 1.005 - 1.02 [facility] Blood, UA Neg NEG [facility] pH, UA 8.0 5.0 - 9.0 [facility] Protein, UA Trace(A) NEG [facility] Urobilinogen, UA Norm NORM mg/dL [facility] Nitrite, UA Neg NEG [facility] Leuk Esterase Neg [facility]G [facility] 03/05/2000 14:0 0 EST 03/05/2000 14:47 EST Catina Styles MD URINALYSIS O RDERABLES Performing Organization Address [facility] de Phone Number [facility] [address] [place] [address] * (ABNORMAL) SED. RATE:WESTERGREN (03/05/2000 5:10 EST) Pathologist [facility] Sed. Rate Westergren 25(H) 0 - 20 mm/hr [facility] 03/05/2000 5:10 EST 03/05/2000 5:21 EST Catina Styles MD HEMATOLOGY & PF4 ORDERABLES Performing Organization Address [facility] Co de Phone Number [facility] [address] [place] [address] * ELECTROLYTES (03/05/2000 5:10 EST) Sodium 139 136 - 145 mEq/L [facility] Potassium 3.5 3.5 - 5.0 mEq/L [facility] Chloride 104 96 - 110 mEq/L [facility] CO2 27 24 - 30 mEq/L [facility] 03/05/2000 5:10 EST 03/05/2000 5:21 EST Catina Styles MD CHEMISTRY & BLOOD GAS ORDERABLES Performing Organization Address [facility] Co de Phone Number [facility] [address] [place] [address] * CREATININE (03/05/2000 5:10 EST) Creatinine 0.7 0.7 - 1.5 mg/dl [facility] 03/05/2000 5:10 EST 03/05/2000 5:21 EST Catina Styles MD HISTORICAL L AB FOR SQ LOAD Performing Organization Address [facility] Phone Number [facility] [address] [place] [address] * HEMAGRAM (03/05/2000 5:10 EST) WBC 5.17 4.0 - 12.4 K/cmm [facility] RBC 4.31 3.86 - 5.04 M/cmm [facility] Hemoglobin 13.2 11.6 - 15.2 gm/dl [facility] HCT 39.2 34.9 - 44.4 % [facility] MCV 91 81 - 98 fl [facility] MCH 30.7 26.7 - 33.3 pg [facility] MCHC 33.7 32.1 - 35.9 gm/dl [facility] PLT 202 141 - 320 K/cmm [facility] RDW-CV 13.3 11.7 - 14.6 % [facility] 03/05/2000 5:10 EST 03/05/2000 5:21 EST Catina Styles MD HEMATOLOGY & PF4 ORDERABLES Performing Organization Address [facility] de Phone Number [facility] [address] [place] [address] * (ABNORMAL) BUN (03/05/2000 5:10 EST) BUN 3(L) 10 - 26 mg/dl [facility] 03/05/2000 5:10 EST 03/05/2000 5:21 EST Catina Styles MD CHEMISTRY & BLOOD GAS ORDERABLES [facility] [address] [place] [address] * CHEST PA AND LATERAL (03/04/2000 14:56 EST) Anatomical Region Laterality Modality Other 03/04/2000 14:5 6 EST Impressions 02/14/2009 23:56 EST IMPRESSION: 1) S/p prior insertion of a PIC line, which comes in from the right and lies in the low superior cava at the level of the junction with the atrium. 2) Relatively low lung volumes. 3) No evidence of infiltrate or failure identified. /sb Narrative 02/14/2009 23:56 EST INCREASE ??SOB ?? R/O INFILTRATE ??VS. MASS CHEST: 03/04/00 Procedure Note Preet Fernando MD - 02/14/2009 INCREASE SOB R/O INFILTRATE VS. MASS CHEST: 03/04/00 IMPRESSION IMPRESSION: 1) S/p prior insertion of a PIC line, which comes in from the right and lies in the low superior cava at the level of the junction with the atrium. 2) Relatively low lung volumes. 3) No evidence of infiltrate or failure identified. /sb Catina Styles MD IMG DIAGNOST IC IMAGING ORDERABLES * FL UGI SMALL BOWEL AIR CONTRAST (03/04/2000 11:20 EST) Anatomical Region Laterality Modality Other 03/04/2000 11:2 0 EST Impressions 02/14/2009 20:34 EST IMPRESSION: Limited upper GI series, no obvious abnormalities identified. DESCRIPTION: The patient was studied with video fluoroscopy and conventional spot films. The patient admits to having had some breakfast which degrades the mucosal study of the stomach. No obvious abnormalities are identified, but this is not an ideal mucosal evaluation. SMALL BOWEL SERIES IMPRESSION: 1. No abnormalities are noted proximally. 2. Markedly abnormal loops in the region of the proximal to mid ileum with relative sparing of the distalmost ileum-etiology indeterminant, but a vascular etiology is radiographically most likely. This could certainly be Crohn's disease or infiltrative disease as well. DESCRIPTION: The mesenteric small bowel was studied throughout its length with oncoming barium given by mouth. Proximally, there are no abnormalities. There is a fairly abrupt transition in mid-abdomen, apparently at the junction of jejunum and ileum where there is impressive wall thickening, rigidity, mucosal fold pattern abnormality. This is principally mid-abdominal and extends for much of the proximal and probably middle thirds of the ileum with relative distal sparring. In the right clinical setting, this could certainly be Crohn's disease, although it is somewhat unusual to have distal ileal sparring. The sudden on set of pain would make this an unusual presentation. Vasculitis or a vascular insult either embolic, thrombotic or a low flow state is clinically somewhat more likely and radiographically would be completely consistent with the onset and the findings. An infiltrative process such as a lymphoma should also be considered. I have seen infectious disease present with some of these findings as well. Incidental note is made of an opacified gallbladder. Whether this is so called milk of calcium bile, vicarious excretion of renal directed contrast material as injected at the time of CT examination or on some other basis is indeterminant. We will be able to rule out milk of calcium bile when we gain access to the film library which is presently not available. ; /gm Narrative 02/14/2009 20:34 EST IBD VS. VIRAL GASTROENTERISTIS UPPER GI SMALL BOWEL SERIES: 03/04/00 HISTORY: Sudden onset of severe abdominal pain about 5 days ago with later nausea and vomiting. Diarrhea has not apparently been a significant or chronic problem. Procedure Note Preet Fernando MD - 02/14/2009 IBD VS. VIRAL GASTROENTERISTIS UPPER GI SMALL BOWEL SERIES: 03/04/00 HISTORY: Sudden onset of severe abdominal pain about 5 days ago with later nausea and vomiting. Diarrhea has not apparently been a significant or chronic problem. IMPRESSION IMPRESSION: Limited upper GI series, no obvious abnormalities identified. DESCRIPTION: The patient was studied with video fluoroscopy and conventional spot films. The patient admits to having had some breakfast which degrades the mucosal study of the stomach. No obvious abnormalities are identified, but this is not an ideal mucosal evaluation. SMALL BOWEL SERIES IMPRESSION: 1. No abnormalities are noted proximally. 2. Markedly abnormal loops in the region of the proximal to mid ileum with relative sparing of the distalmost ileum-etiology indeterminant, but a vascular etiology is radiographically most likely. This could certainly be Crohn's disease or infiltrative disease as well. DESCRIPTION: The mesenteric small bowel was studied throughout its length with oncoming barium given by mouth. Proximally, there are no abnormalities. There is a fairly abrupt transition in mid-abdomen, apparently at the junction of jejunum and ileum where there is impressive wall thickening, rigidity, mucosal fold pattern abnormality. This is principally mid-abdominal and extends for much of the proximal and probably middle thirds of the ileum with relative distal sparring. In the right clinical setting, this could certainly be Crohn's disease, although it is somewhat unusual to have distal ileal sparring. The sudden on set of pain would make this an unusual presentation. Vasculitis or a vascular insult either embolic, thrombotic or a low flow state is clinically somewhat more likely and radiographically would be completely consistent with the onset and the findings. An infiltrative process such as a lymphoma should also be considered. I have seen infectious disease present with some of these findings as well. Incidental note is made of an opacified gallbladder. Whether this is so called milk of calcium bile, vicarious excretion of renal directed contrast material as injected at the time of CT examination or on some other basis is indeterminant. We will be able to rule out milk of calcium bile when we gain access to the film library which is presently not available. ; / Catina Styles MD IM FLUOROSC OPY ORDERABLES * ELECTROLYTES (03/04/2000 5:30 EST) Sodium 141 136 - 145 mEq/L [facility] Potassium 3.9 3.5 - 5.0 mEq/L [facility] Chloride 104 96 - 110 mEq/L [facility] CO2 30 24 - 30 mEq/L [facility] 03/04/2000 5:30 EST 03/04/2000 6:29 EST Catnia Styles MD CHEMISTRY & BLOOD GAS ORDERABLES Performing Organization Address [facility] de Phone Number [facility] [address] [place] [address] * CREATININE (03/04/2000 5:30 EST) Creatinine 0.7 0.7 - 1.5 mg/dl [facility] 03/04/2000 5:30 EST 03/04/2000 6:29 EST Catina Styles MD HISTORICAL L AB FOR SQ LOAD Performing Organization Address [facility] Phone Number [facility] [address] [place] [address] * HEMAGRAM (03/04/2000 5:30 EST) WBC 5.11 4.0 - 12.4 K/cmm [facility] RBC 4.32 3.86 - 5.04 M/cmm [facility] Hemoglobin 13.6 11.6 - 15.2 gm/dl [facility] HCT 39.6 34.9 - 44.4 % [facility] MCV 92 81 - 98 fl [facility] MCH 31.4 26.7 - 33.3 pg [facility] MCHC 34.3 32.1 - 35.9 gm/dl [facility] PLT 176 141 - 320 K/cmm [facility] RDW-CV 13.0 11.7 - 14.6 % [facility] 03/04/2000 5:30 EST 03/04/2000 6:29 EST Catina Styles MD HEMATOLOGY & PF4 ORDERABLES Performing Organization Address [facility] Phone Number [facility] [address] [place] [address] * (ABNORMAL) BUN (03/04/2000 5:30 EST) BUN 2(L) 10 - 26 mg/dl [facility] 03/04/2000 5:30 EST 03/04/2000 6:29 EST Catina Styles MD CHEMISTRY & BLOOD GAS ORDERABLES [facility] [address] [place] [address] * IR VENOGRAM - UNILATERAL (03/03/2000 14:10 EST) Anatomical Region Laterality Modality Other 03/03/2000 14:1 0 EST Impressions 02/14/2009 20:35 EST IMPRESSION: 1. Successful placement of right upper extremity PICC. The attending radiologist has reviewed the images and concurs with the findings described above. ; /gm Narrative 02/14/2009 20:35 EST INTESTINAL DISORDER RIGHT UPPER EXTREMITY VENOGRAM, RIGHT UPPER EXTREMITY PICC PLACEMENT: 03/03/00. HISTORY: Antibiotics. TECHNIQUE: After placement of an IV in the patient's right hand, and prepping the right hand in the usual sterile fashion, contrast was injected in an IV and the veins of the right upper extremity were examined under fluoroscopic guidance. An area overlying the right basilic vein was anesthetized with 1% lidocaine solution and a small incision was made. Under venographic guidance, the right basilic vein was catheterized and a 0.018 inch guidewire was advanced into the right basilic vein. The needle was then exchanged for a peel away sheath with an inner dilator. The inner dilator and guidewire were removed and a 5 Chinese dual lumen PICC was advanced through the peel away sheath until the tip was in the right atrium. The sheath was then removed. Both ports of the PICC were operated and flushed. The area was cleaned and bandaged. The patient tolerated the procedure well and there were no immediate complications. Dr. Carrillo was present throughout the entire procedure. FINDINGS: There is no evidence of venous thrombosis. Procedure Note Preet Zeng MD / José Miguel Woods MD - 02/14/2009 INTESTINAL DISORDER RIGHT UPPER EXTREMITY VENOGRAM, RIGHT UPPER EXTREMITY PICC PLACEMENT: 03/03/00. HISTORY: Antibiotics. TECHNIQUE: After placement of an IV in the patient's right hand, and prepping the right hand in the usual sterile fashion, contrast was injected in an IV and the veins of the right upper extremity were examined under fluoroscopic guidance. An area overlying the right basilic vein was anesthetized with 1% lidocaine solution and a small incision was made. Under venographic guidance, the right basilic vein was catheterized and a 0.018 inch guidewire was advanced into the right basilic vein. The needle was then exchanged for a peel away sheath with an inner dilator. The inner dilator and guidewire were removed and a 5 Chinese dual lumen PICC was advanced through the peel away sheath until the tip was in the right atrium. The sheath was then removed. Both ports of the PICC were operated and flushed. The area was cleaned and bandaged. The patient tolerated the procedure well and there were no immediate complications. Dr. Carrillo was present throughout the entire procedure. FINDINGS: There is no evidence of venous thrombosis. IMPRESSION IMPRESSION: 1. Successful placement of right upper extremity PICC. The attending radiologist has reviewed the images and concurs with the findings described above. ; / Catina Styles MD IMG IR ORDER OSMEL * ELECTROLYTES (03/03/2000 6:23 EST) Sodium 140 136 - 145 mEq/L [facility] Comment:Slight hemolysis Potassium 3.9 3.5 - 5.0 mEq/L [facility] Comment: Slight hemolysis Slight hemolysis Sample retested, result confirmed Chloride 106 96 - 110 mEq/L [facility] Comment: Slight hemolysis Slight hemolysis Sample retested, result confirmed CO2 26 24 - 30 mEq/L [facility] Comment:Slight hemolysis 03/03/2000 6:23 EST 03/03/2000 7:36 EST Catina Styles MD CHEMISTRY & BLOOD GAS ORDERABLES [facility] [address] [place] [address] * CREATININE (03/03/2000 6:23 EST) Creatinine 0.7 0.7 - 1.5 mg/dl [facility] Comment:Slight hemolysis 03/03/2000 6:23 EST 03/03/2000 7:36 EST Catina Styles MD HISTORICAL L AB FOR SQ LOAD Performing Organization Address [facility] Co de Phone Number [facility] [address] [place] [address] * HEMAGRAM (03/03/2000 6:23 EST) WBC 6.86 4.0 - 12.4 K/cmm [facility] RBC 4.46 3.86 - 5.04 M/cmm [facility] Hemoglobin 13.8 11.6 - 15.2 gm/dl [facility] HCT 40.2 34.9 - 44.4 % [facility] MCV 90 81 - 98 fl [facility] MCH 30.9 26.7 - 33.3 pg [facility] MCHC 34.2 32.1 - 35.9 gm/dl [facility] PLT 201 141 - 320 K/cmm [facility] RDW-CV 13.6 11.7 - 14.6 % [facility] 03/03/2000 6:23 EST 03/03/2000 7:36 EST Catina Styles MD HEMATOLOGY & PF4 ORDERABLES Performing Organization Address [facility] Co de Phone Number [facility] [address] [place] [address] * (ABNORMAL) CALCIUM (03/03/2000 6:23 EST) Calcium 7.9(L) 8.5 - 10.5 mg/dl [facility] Comment:Slight hemolysis Calculated Calcium 9.3 8.5 - 10.5 mg/dl [facility] Comment:Slight hemolysis 03/03/2000 6:23 EST 03/03/2000 7:36 EST Catina Styles MD CHEMISTRY & BLOOD GAS ORDERABLES Performing Organization Address [facility] Phone Number [facility] [address] [place] [address] * (ABNORMAL) BUN (03/03/2000 6:23 EST) BUN 3(L) 10 - 26 mg/dl [facility] Comment:Slight hemolysis 03/03/2000 6:23 EST 03/03/2000 7:36 EST Catina Styles MD CHEMISTRY & BLOOD GAS ORDERABLES Performing Organization Address [facility] Phone Number [facility] [address] [place] [address] * C. DIFFICILE TOXIN (03/02/2000 18:35 EST) Specimen Description Feces [facility] Result No Clostridium difficile toxin A detected [facility] Report Status Final [id number] [facility] 03/02/2000 18:3 5 EST 03/02/2000 18:38 EST Catina Styles MD MICROBIOLOGY - GENERAL ORDERABLES Performing Organization Address [facility] Phone Number [facility] [address] [place] [address] * OVA/PARASITE EXAM (03/02/2000 18:35 EST) Specimen Description Feces [facility] Result No ova and parasites seen. (If Cryptosporidium, Cyclospora, or microsporidium are suspected, specific tests must be requested.) [facility] Report Status Final [id number] [facility] 03/02/2000 18:3 5 EST 03/02/2000 18:37 EST Catina Styles MD MICROBIOLOGY - GENERAL ORDERABLES Performing Organization Address [facility]/ZIP Co de Phone Number [facility] [address] [place] [address] * BACTERIAL CULTURE, FECES (03/02/2000 18:35 EST) Specimen Description Feces [facility] Result No Salmonella, Shigella, Campylobacte r, Yersinia, or E. coli O157:H7 isolated [facility] Report Status Final [id number] [facility] 03/02/2000 18:3 5 EST 03/02/2000 18:37 EST Catina Styles MD MICROBIOLOGY - GENERAL ORDERABLES Performing Organization Address [facility] Co de Phone Number [facility] [address] [place] [address] * (ABNORMAL) ELECTROLYTES (03/02/2000 7:45 EST) Sodium 141 136 - 145 mEq/L [facility] Potassium 5.0 3.5 - 5.0 mEq/L [facility] Chloride 121(H) 96 - 110 mEq/L [facility] Comment:QNS to repeat CO2 20(L) 24 - 30 mEq/L [facility] 03/02/2000 7:45 EST 03/02/2000 7:48 EST Catina Styles MD CHEMISTRY & BLOOD GAS ORDERABLES Performing Organization Address [facility] Co de Phone Number [facility] [address] [place] [address] * (ABNORMAL) CREATININE (03/02/2000 7:45 EST) Creatinine 0.6(L) 0.7 - 1.5 mg/dl [facility] 03/02/2000 7:45 EST 03/02/2000 7:48 EST Catina Styles MD HISTORICAL L AB FOR SQ LOAD Performing Organization Address City/[facility] Co de Phone Number [facility] [address] [place] [address] * HEMAGRAM (03/02/2000 7:45 EST) WBC 8.05 4.0 - 12.4 K/cmm [facility] RBC 4.67 3.86 - 5.04 M/cmm [facility] Hemoglobin 14.5 11.6 - 15.2 gm/dl [facility] HCT 42.4 34.9 - 44.4 % [facility] MCV 91 81 - 98 fl [facility] MCH 31.1 26.7 - 33.3 pg [facility] MCHC 34.2 32.1 - 35.9 gm/dl [facility] PLT 199 141 - 320 K/cmm [facility] RDW-CV 13.7 11.7 - 14.6 % [facility] 03/02/2000 7:45 EST 03/02/2000 7:48 EST Catina Styles MD HEMATOLOGY & PF4 ORDERABLES Performing Organization Address [facility] Co de Phone Number [facility] [address] [place] [address] * (ABNORMAL) BUN (03/02/2000 7:45 EST) BUN 6(L) 10 - 26 mg/dl [facility] 03/02/2000 7:45 EST 03/02/2000 7:48 EST Catina Styles MD CHEMISTRY & BLOOD GAS ORDERABLES Performing Organization Address [facility] Co de Phone Number [facility] [address] [place] [address] * CT PELVIS W/CONTRAST (03/01/2000 8:49 EST) Anatomical Region Laterality Modality Other 03/01/2000 8:49 EST Impressions 02/14/2009 23:53 EST IMPRESSION: 1) Long segment of circumferential small bowel thickening in the ileum. Normal TI. 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 Inflammatory etiology such as Crohn's disease cannot be excluded. 2) S/p JAYSON and BSO. No appendix visualized. The attending radiologist has reviewed the images, and concurs with the findings described above. /sb Narrative 02/14/2009 23:53 EST 36 HRS. OF N/V, ABD PAIN ??R/O APPENDICITIS/CHOLECYSTITIS CT, ABDOMEN AND PELVIS: 03/01/00 TECHNIQUE ABDOMEN: Prior to the examination, the patient was given oral contrast material. Using intravenous contrast, sections were made from the domes of the diaphragm through the iliac crests. TECHNIQUE PELVIS: After the above preparation and the administration of a contrast enema, sections were made from the iliac crests through the ischial tuberosities. FINDINGS: The lung bases are clear. There is no pleural abnormality. The heart and pericardium are normal. Evaluation of the upper abdomen demonstrates a normal appearance of the liver, right kidney, adrenal glands, pancreas and spleen. There is a small amount of free fluid anterior to the liver and medially, adjacent to the spleen. A small simple left renal cyst is identified and the left kidney is otherwise normal. The upper bowel is normal. Evaluation of the lower abdomen and pelvis demonstrates a normal appearance of the colon with minimal diverticulosis. There are scattered pockets of mesenteric free fluid and, of particular note, there is wall thickening diffusely in a large segment of the proximal to mid-ileum. The terminal ileum appears normal. Surrounding the abnormally thickened loops of bowel, there is mesenteric fat- stranding. The finding persists on delayed imaging. Evaluation of the bones demonstrates no acute abnormality. The patient is s/p hysterectomy and bilateral oophorectomy. No appendix is identified. Procedure Note Yady Rivers RN / Larry Tubbs MD - 02/14/2009 36 HRS. OF N/V, ABD PAIN R/O APPENDICITIS/CHOLECYSTITIS CT, ABDOMEN AND PELVIS: 03/01/00 TECHNIQUE ABDOMEN: Prior to the examination, the patient was given oral contrast material. Using intravenous contrast, sections were made from the domes of the diaphragm through the iliac crests. TECHNIQUE PELVIS: After the above preparation and the administration of a contrast enema, sections were made from the iliac crests through the ischial tuberosities. FINDINGS: The lung bases are clear. There is no pleural abnormality. The heart and pericardium are normal. Evaluation of the upper abdomen demonstrates a normal appearance of the liver, right kidney, adrenal glands, pancreas and spleen. There is a small amount of free fluid anterior to the liver and medially, adjacent to the spleen. A small simple left renal cyst is identified and the left kidney is otherwise normal. The upper bowel is normal. Evaluation of the lower abdomen and pelvis demonstrates a normal appearance of the colon with minimal diverticulosis. There are scattered pockets of mesenteric free fluid and, of particular note, there is wall thickening diffusely in a large segment of the proximal to mid-ileum. The terminal ileum appears normal. Surrounding the abnormally thickened loops of bowel, there is mesenteric fat- stranding. The finding persists on delayed imaging. Evaluation of the bones demonstrates no acute abnormality. The patient is s/p hysterectomy and bilateral oophorectomy. No appendix is identified. IMPRESSION IMPRESSION: 1) Long segment of circumferential small bowel thickening in the ileum. Normal TI. 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 Inflammatory etiology such as Crohn's disease cannot be excluded. 2) S/p JAYSON and BSO. No appendix visualized. The attending radiologist has reviewed the images, and concurs with the findings described above. / Diamante [facility] CT ORDERABLES * CT ABDOMEN W/CONTRAST (03/01/2000 8:49 EST) Anatomical Region Laterality Modality Other 03/01/2000 8:49 EST Narrative 02/14/2009 23:53 EST 36 HRS. OF N/V, ABD PAIN ??R/O APPENDICITIS/CHOLECYSTITIS Procedure Note Yady Rivers RN / Larry Tubbs MD - 02/14/2009 36 HRS. OF N/V, ABD PAIN R/O APPENDICITIS/CHOLECYSTITIS Diamante Crockett MD [facility] CT ORDERABLES * ACUTE ABDOMEN SERIES (03/01/2000 4:28 EST) Anatomical Region Laterality Modality Other 03/01/2000 4:28 EST Impressions 02/14/2009 23:53 EST IMPRESSION: 1. Normal bowel gas pattern. A CT is scheduled to follow this exam for further examination of the abdomen and pelvis. The attending radiologist has reviewed the images, and concurs with the findings described above. /[facility] Narrative 02/14/2009 23:53 EST EPIGASTRIC, RUQ, RLQ R/O OBSTRUCTION ACUTE ABDOMINAL SERIES 03/01/2000 04:10 HISTORY: Right-sided and epigastric abdominal pain. Rule out obstruction. DESCRIPTION: An upright PA chest radiograph and upright and supine views of the abdomen demonstrate a normal cardiomediastinal silhouette. The pulmonary vasculature is normal, the lungs are clear and no pleural abnormality is identified. The bowel gas pattern is normal. The exam is somewhat limited by the patient's large size. No free air or obstruction is identified. Degenerative change is present in the region of the lumbosacral junction. Procedure Note Amaury Berkowitz MD / Jersey Sainz MD - 02/14/2009 EPIGASTRIC, RUQ, RLQ R/O OBSTRUCTION ACUTE ABDOMINAL SERIES 03/01/2000 04:10 HISTORY: Right-sided and epigastric abdominal pain. Rule out obstruction. DESCRIPTION: An upright PA chest radiograph and upright and supine views of the abdomen demonstrate a normal cardiomediastinal silhouette. The pulmonary vasculature is normal, the lungs are clear and no pleural abnormality is identified. The bowel gas pattern is normal. The exam is somewhat limited by the patient's large size. No free air or obstruction is identified. Degenerative change is present in the region of the lumbosacral junction. IMPRESSION IMPRESSION: 1. Normal bowel gas pattern. A CT is scheduled to follow this exam for further examination of the abdomen and pelvis. The attending radiologist has reviewed the images, and concurs with the findings described above. /[facility] Misty ASNDY IMSelina DIAGNOSTIC IMAGI NG ORDERABLES * (ABNORMAL) GLUCOSE, SERUM (03/01/2000 2:50 EST) Glucose, Serum 140(H) 70 - 110 mg/dl [facility] 03/01/2000 2:50 EST 03/01/2000 2:50 EST Default Emergency MD CHEMISTRY & BLOOD G ORDERABLES Performing Organization Address [facility] Co de Phone Number [facility] [address] [place] [address] * ELECTROLYTES (03/01/2000 2:50 EST) Sodium 140 136 - 145 mEq/L [facility] Potassium 4.3 3.5 - 5.0 mEq/L [facility] Chloride 105 96 - 110 mEq/L [facility] CO2 25 24 - 30 mEq/L [facility] 03/01/2000 2:50 EST 03/01/2000 2:50 EST Default Emergency MD CHEMISTRY & BLOOD G ORDERABLES Performing Organization Address [facility] Phone Number [facility] [address] [place] [address] * LIVER FUNCTION TESTS (03/01/2000 2:50 EST) Albumin 3.3 3.0 - 5.5 g/dl [facility] Total Protein 6.9 6.0 - 8.5 g/dl [facility] Total Alkaline Phosphatase 86 38 - 126 U/L [facility] ALT 27 15 - 75 U/L [facility] AST 15 8 - 50 U/L [facility] Unconjugated Bilirubin 0.6 0.1 - 1.1 mg/dl [facility] Conjugated Bilirubin 0.0 0.0 - 0.3 mg/dl [facility] Bilirubin, Total 0.6 0.2 - 1.3 mg/dl [facility] 03/01/2000 2:50 EST 03/01/2000 2:50 EST Default Emergency MD CHEMISTRY & BLOOD G ORDERABLES Performing Organization Address [facility] Co de Phone Number [facility] [address] [place] [address] * LIPASE (03/01/2000 2:50 EST) Lipase 62 0 - 210 U/L [facility] 03/01/2000 2:50 EST 03/01/2000 2:50 EST Default Emergency MD CHEMISTRY & BLOOD G ORDERABLES Performing Organization Address [facility] de Phone Number [facility] [address] [place] [address] * HOLD (03/01/2000 2:50 EST) Hold Sample for coagulation will be discarded after 4 hours [facility] 03/01/2000 2:50 EST 03/01/2000 2:50 EST Default Emergency MD CHEMISTRY & BLOOD G ORDERABLES Performing Organization Address [facility] de Phone Number [facility] [address] [place] [address] * CREATININE (03/01/2000 2:50 EST) Creatinine 0.7 0.7 - 1.5 mg/dl [facility] 03/01/2000 2:50 EST 03/01/2000 2:50 EST Default Emergency HISTORICAL LAB FOR SQ LOAD Performing Organization Address [facility] de Phone Number [facility] [address] [place] [address] * HEMAGRAM & DIFF (03/01/2000 2:50 EST) WBC 6.55 4.0 - 12.4 K/cmm [facility] RBC 4.83 3.86 - 5.04 M/cmm [facility] Hemoglobin 15.0 11.6 - 15.2 gm/dl [facility] HCT 43.8 34.9 - 44.4 % [facility] MCV 91 81 - 98 fl [facility] MCH 31.0 26.7 - 33.3 pg [facility] MCHC 34.2 32.1 - 35.9 gm/dl [facility] PLT 238 141 - 320 K/cmm [facility] RDW-CV 13.4 11.7 - 14.6 % [facility] % Neutrophils 49.5 45.5 - 79.7 % [facility] % Lymphocytes 39.7 15.0 - 46.8 % [facility] % Monocytes 6.8 1.8 - 12.0 % [facility] % Eosinophils 3.4 0.6 - 6.9 % [facility] % Basophils 0.6 0.2 - 1.4 % [facility] ABS Neutrophils 3.24 2.20 - 8.85 K/cmm [facility] ABS Lymphs 2.60 1.09 - 3.30 K/cmm [facility] ABS Monocytes 0.44 0.1 - 0.8 K/cmm [facility] ABS Eosinophils 0.22 0.03 - 0.61 K/cmm [facility] ABS Basophils 0.04 0.01 - 0.11 K/cmm [facility] Type of Diff: Automated [facility] 03/01/2000 2:50 EST 03/01/2000 2:50 EST Default Emergency MD HISTORICAL LAB FOR SQ LOAD Performing Organization Address [facility] de Phone Number [facility] [address] [place] [address] * BUN (03/01/2000 2:50 EST) BUN 11 10 - 26 mg/dl [facility] 03/01/2000 2:50 EST 03/01/2000 2:50 EST Default Emergency MD CHEMISTRY & BLOOD G ORDERABLES Performing Organization Address [facility] Co de Phone Number [facility] [address] [place] [address] * TESTS ADDED BY PHONE (03/01/2000 2:50 EST) Tests to be added BUN, CREA, LYT, SGL STAT [facility] 03/01/2000 2:50 EST 03/01/2000 2:50 EST Default Emergency MD CHEMISTRY & BLOOD G ORDERABLES Performing Organization Address [facility] Co de Phone Number [facility] [address] [place] [address] * HEMOGLOBIN A1C (03/01/2000 2:50 EST) Hemoglobin A1C 5.3 % [facility] Comment: Glucose Control Index Poor=greater than 10% Fair=9-10% Good=8-9% Excellent=7-8% Near Normal=6-7% Non-Diabetic=less than 6% 03/01/2000 2:50 EST 03/01/2000 2:50 EST Default Emergency CHEMISTRY & BLOOD G ORDERABLES Performing Organization Address [facility] de Phone Number [facility] [address] [place] [address] documented in this encounter Visit Diagnoses Not on filedocumented in this encounter
--- OUTSIDE RECORDS SUMMARY | 2023-12-19 19:08 | XMS_ITS | Encounter Summary ---
Author Organization [facility] Address [address] [place] [address] Care Team Providers Care Riveter Hand Name Role Phone Unavailable Primary Care Provider Unavailabl e Encounter Details Date Type Department Care Team (Late st Contact Info) Description 10/19/1999 Results Only [facility] [address] [place] [address] Chloe Corona, [employer] [address] [place] [address] Social History Tobacco Use Types Packs/Day Years Used Date Smoking Tobacco: Never Assessed Sex and Gender Information Value Date Recorded Sex Assigned at Not on file Gender Identity Not on file Sexual Orientation Not on file documented as of this encounter Plan of Treatment Not on file documented as of this encounter Procedures Procedure Name Priority Date/Time Associated Diagnosis Comments CYTOPATHOLOGY Routine 10/19/1999 0:00 EDT documented in this encounter Results * CYTOPATHOLOGY (10/19/1999 0:00 EDT) Pathology Report: CYTOPATHOLOGY REPORT Reports generated via electronic interface contain original data; however they are lacking the format of the original report. Caution should be taken when reading/interpreti ng unformatted reports. Name: ? MARKELLNEDA SIMON ? Accession #: ? [id number] : ? 1955 (Age: 44) ??F ?Collect Date: ? 10/19/1999 Location: ? [facility] ? Receive Date: ? 10/23/1999 Provider: ?CHLOE CORONA APRN Copy to: ? Specimen/Source: ?ThinPrep Pap Test, Source Not Provided Last Menstrual Period: ? Treatment History: ? Hysterectomy ? SPECIMEN ADEQUACY ? Satisfactory for evaluation but limited by an absence of a transformation zone component. GENERAL CATEGORIZATION ? Within Normal Limits ? Document reviewed and electronically signed by: ? April Thompson, CT(ASCP) ? Report Date: ??10/23/1999 15:32 End of Report [facility] 10/19/1999 10/23/1999 Chloe Corona APRN PATHOLOGY ORDERABLES [facility] [address] [place] [address] documented in this encounter Visit Diagnoses Not on filedocumented in this encounter
== END 2023-12-19 19:04 | disposition home or self-care (01) ==
LOC: NCHCN 19:03
PROVIDERS: Visit Provider Physician Assistant
DX: R35.0 Frequency of micturition (principal); B96.29 Other Escherichia coli [E. coli] as the cause of diseases classified elsewhere; R82.89 Other abnormal findings on cytological and histological examination of urine
CPT/HCPCS: 87077; 87086; 87186; 87480; 87510; 87660

== ENCOUNTER 2024-06-08 16:26 | Outpatient (REF) | payer MEDICARE, MEDICAID, SELFPAY ==
[2024-06-08 19:23] LABS: ALT 20 U/L (14-59); AST 19 U/L (15-37); Albumin 3.2 g/dL (3.4-5.0); Alkaline Phosphatase 86 U/L (46-116); Anion Gap 7.1 mmol/L (3-11); BUN 14 mg/dL (7-18); Bilirubin, Total 0.52 mg/dL (0.2-1.0); CO2 29.9 mmol/L (21.0-32.0); CREATININE 0.9 mg/dL (0.55-1.02); Calcium 8.9 mg/dL (8.5-10.1); Chloride 106 mmol/L (98-107); Estimated GFR 69.64 (mL/min/1.73m2); Glucose 108 mg/dL (74-106); Potassium 4.1 mmol/L (3.5-5.1); Sodium 143 mmol/L (136-145); Total Protein 7.4 g/dL (6.4-8.2)
[2024-06-09 19:09] LABS: Hepatitis C Ab w Rflx HCV PCR Negative (Negative)
== END 2024-06-08 16:27 | disposition home or self-care (01) ==
LOC: NCHCN 16:26
PROVIDERS: Visit Provider Physician Assistant
DX: I10 Essential (primary) hypertension (principal); Z11.59 Encounter for screening for other viral diseases
CPT/HCPCS: 80053; 86803

== ENCOUNTER 2025-01-24 09:51 | Emergency (ER) | payer MEDICARE, MEDICAID, SELFPAY ==
[2025-01-24 10:06] VITALS: PULSE 72; RESP 18; TEMP 36.9; O2SAT 95
[2025-01-24 11:27] LABS: COVID-19 PCR Negative (Negative); RSV PCR Negative (Negative)
== END 2025-01-24 11:52 | disposition left against medical advice (07) ==
PROVIDERS: Nurse Practitioner Family; Emergency Provider General Practice
DX: R09.81 Nasal congestion (principal); Z53.21 Procedure and treatment not carried out due to patient leaving prior to being seen by health care provider
CPT/HCPCS: 87637; 99282